=== PATIENT | male | born 1970 | race Caucasian/White ===

== ENCOUNTER 2020-03-04 13:28 | Outpatient (CLI) | payer OTHER, MEDICARE, MEDICAID, SELFPAY ==
--- NOTE | ~2020-03-04 | XR_ITS ---
EXAMINATION: XR hip RT min 2V DATE: 03/04/2020 13:58 INDICATION: Right hip pain. TECHNIQUE: 2 views of right hip were obtained. COMPARISON: Right hip radiographs 11/03/2014 FINDINGS: Bone alignment is normal. No fracture. There is mild right hip osteoarthritis. Surgical cli ps overlie the pelvis. IMPRESSION: 1. Mild right hip osteoarthritis. Reviewed, dictated and finalized at location A.
== END 2020-03-04 13:29 | disposition home or self-care (01) ==
PROVIDERS: Visit Provider Physician Assistant
DX: M25.551 Pain in right hip (principal); M16.11 Unilateral primary osteoarthritis, right hip
CPT/HCPCS: 73502

== ENCOUNTER 2020-05-03 00:07 | Outpatient (CLI) | payer MEDICARE, MEDICAID, SELFPAY ==
[2020-05-03 18:54] LABS: SARS-CoV-2 RNA PCR Negative
== END 2020-05-03 00:08 | disposition home or self-care (01) ==
LOC: ANHCOVIDDT 00:07
PROVIDERS: Visit Provider Internal Medicine Gastroenterology
DX: Z01.818 Encounter for other preprocedural examination (principal); Z11.59 Encounter for screening for other viral diseases
CPT/HCPCS: 87635; C9803; U0003

== ENCOUNTER 2020-05-05 02:19 | Day surgery (SDC) | payer MEDICARE, MEDICAID, SELFPAY ==
[2020-04-29 10:40] VITALS: BMI 32.8
[2020-05-05 11:06] VITALS: BP 154/100; PULSE 72; RESP 18; TEMP 36.2; O2SAT 99
[2020-05-05] MEDS: LACTATED RINGERS 1,000 ML 150 ML IV CONT (11:22)
--- NOTE | 2020-05-05 11:26 | WPDANESEPPF ---
Anes - Initial Pre Proc Eval Procedure: Operation Date: 05/05/20 12:30 Proposed Procedures p Esophagogastroduodenoscopy - Chano Leggett DO Date/Time: 05/05/20 11:26 Surgeon: Chano Leggett DO Pre Op Diagnosis: peptic ulcer Disease Patient Data Age: 50 Gender: M Height: 5 ft 10 in Weight: 105.9 kg Last Vital Signs Temp 97.1 F L 05/05/20 11:06 Pulse 72 05/05/20 11:06 Resp 18 05/05/20 11:06 BP 154/100 H 05/05/20 11:06 Pulse Ox 99 05/05/20 11:06 Allergies Allergy/AdvReac Type Severity Reaction Status Date / Time cephalexin Allergy Unknown Unknown Verified 05/05/20 11:05 Wngxtvv-Wjy-Bmr Reductase Allergy Unknown Unknown Verified 05/05/20 11:05 Inhibitor Home Medications Medication Instructions Recorded Confirmed Type abatacept [Orencia] 125 mg SUBCUT WEEKLY 10/20/19 04/29/20 History alprazolam 1 mg PO BID PRN 10/20/19 04/29/20 History baclofen 20 mg PO DAILY PRN 10/20/19 04/29/20 History morphine 15 mg PO BID PRN 10/20/19 04/29/20 History pregabalin [Lyrica] 150 mg PO TID 10/20/19 04/29/20 History ranitidine HCl 300 mg PO DAILY 10/20/19 04/29/20 History omeprazole 40 mg PO BID #30 cap 10/23/19 04/29/20 Rx Patient hx anesthesia problems: none Family hx anesthesia problems: none PMFSH Past Medical History Medical History (Updated 10/23/19 @ 08:50 by Danielle Phelps APRN) Barretts esophagus GERD (gastroesophageal reflux disease) Hx of adenomatous colonic polyps Hx of renal calculi Migraines PUD (peptic ulcer disease) Rheumatoid arthritis Sleep apnea Surgical History Surgical History History of lithotripsy Hx of colonoscopy Hx of esophagogastroduodenoscopy Hx of inguinal hernia repair Hx of sinus surgery S/P left rotator cuff repair Status post medial meniscus repair of right knee Social History Social History Smoking packs per day: 2 Smoking cigarettes per day: 40.0 Years smoked: 35 Smoking pack-years: 70.00 Second hand tobacco smoke exposure: No Smoking end date: 11/05/10 Alcohol intake: never Gender identity (if verbalized by the patient): Male Anes - Eval Final PreProcedure Day of Procedure 05/05/20 11:26 Patient weight: obese Heart: regular rate and rhythm Lungs: clear to auscultation Airway: Mallampati scale class III Neurological: alert and oriented Last oral intake: >/= 8 hours ASA classification: III Emergent: no Anesthetic plan: proceed Anesthesia type and monitoring: general GIVS Informed Consent: The patient's anesthetic plan and its attendant risks and benefits were discussed with the patient/family/POA. Questions were solicited and answers provided to the satisfaction of the patient/family/POA.
--- NOTE | 2020-05-05 12:33 | PM.IMHP ---
H&P: HPI History of Present Illness Chief complaint: peptic ulcer Disease Narrative: Reason for visit EGD. This very pleasant gentleman sitting consultation requested by primary. Patient was examined. Impression: GERD with history of Luu's esophagus. He has a known granular cell tumor of the esophagus. He is here for follow-up endoscopy to assess for healing Of ulcer disease. History of adenomatous colon polyps. Thrombocytopenia undetermined etiology. Per past medical history. Recommendation: Will proceed with EGD. May require gastric emptying study. Further recommendations will be forthcoming. History: This very pleasant gentleman is here for follow-up endoscopy. He has a history of ulcer disease, reflux disease, Luu's esophagus and granular cell tumor of the esophagus. Continues to have complaints of intermittent nausea and vomiting. Denies any significant hematochezia, melena or acholic stools. The patient has a history adenomatous colon polyps. Physical examination: General: very pleasant patient in no acute distress. HEENT: Head was normocephalic sclerae is clear mouth without masses neck was supple. Heart: Rate rhythm regular without S3 or S4. Lungs: Decreased breath sounds bilaterally. Abdomen: Soft with no guarding or rigidity. Bowel sounds were active. Neurologic: Cranial nerves 2 through 12 intact. No focal defects. No clonus. Musculoskeletal system: Revealed no joint tenderness or swelling no muscle atrophy. Extremities: Reveal no significant edema. Skin: Warm and dry with normal turgor. Mental status: intact. Patient is alert and oriented. Review of Systems Review of Systems: All systems reviewed & are unremarkable except as noted in HPI and below PMFSH Past Medical History Medical History (Updated 10/23/19 @ 08:50 by Danielle Phelps APRN) Barretts esophagus GERD (gastroesophageal reflux disease) Hx of adenomatous colonic polyps Hx of renal calculi Migraines PUD (peptic ulcer disease) Rheumatoid arthritis Sleep apnea Surgical History Surgical History History of lithotripsy Hx of colonoscopy Hx of esophagogastroduodenoscopy Hx of inguinal hernia repair Hx of sinus surgery S/P left rotator cuff repair Status post medial meniscus repair of right knee Social History Social History Smoking packs per day: 2 Smoking cigarettes per day: 40.0 Years smoked: 35 Smoking pack-years: 70.00 Second hand tobacco smoke exposure: No Smoking end date: 11/05/10 Alcohol intake: never Gender identity (if verbalized by the patient): Male Meds Home Medications and Allergies Home Medications Medication Instructions Recorded Confirmed Type abatacept [Orencia] 125 mg SUBCUT WEEKLY 10/20/19 04/29/20 History alprazolam 1 mg PO BID PRN 10/20/19 04/29/20 History baclofen 20 mg PO DAILY PRN 10/20/19 04/29/20 History morphine 15 mg PO BID PRN 10/20/19 04/29/20 History pregabalin [Lyrica] 150 mg PO TID 10/20/19 04/29/20 History ranitidine HCl 300 mg PO DAILY 10/20/19 04/29/20 History omeprazole 40 mg PO BID #30 cap 10/23/19 04/29/20 Rx Allergies Allergy/AdvReac Type Severity Reaction Status Date / Time cephalexin Allergy Unknown Unknown Verified 05/05/20 11:05 Wbdhqpq-Lwx-Klw Reductase Allergy Unknown Unknown Verified 05/05/20 11:05 Inhibitor Vital Signs Vital Signs - 24 hr 05/05/20 11:06 Temperature 36.2 C L Pulse Rate 72 Respiratory Rate 18 Blood Pressure 154/100 H Pulse Oximetry 99
[2020-05-05 12:58] VITALS: BP 128/86; PULSE 62; RESP 25; O2SAT 92
[2020-05-05 13:08] VITALS: BP 104/67; PULSE 60; RESP 14; O2SAT 91
[2020-05-05 13:18] VITALS: BP 118/79; PULSE 62; RESP 13; O2SAT 96
[2020-05-06 13:30] LABS: Glucose Point of Care 111 (65-105)
== END 2020-05-05 13:29 | disposition home or self-care (01) ==
PROVIDERS: Visit Provider Internal Medicine Gastroenterology
PROC: 0DJ08ZZ Inspection of Upper Intestinal Tract, Via Natural or Artificial Opening Endoscopic (ICD-10-PCS; CPT 43235; principal; 2020-05-05 12:30)
DX: Z09 Encounter for follow-up examination after completed treatment for conditions other than malignant neoplasm (principal); K29.50 Unspecified chronic gastritis without bleeding; K22.70 Barrett's esophagus without dysplasia; K22.8 Other specified diseases of esophagus; K21.9 Gastro-esophageal reflux disease without esophagitis; Z87.11 Personal history of peptic ulcer disease; M06.9 Rheumatoid arthritis, unspecified; G47.30 Sleep apnea, unspecified; Z87.891 Personal history of nicotine dependence; E66.9 Obesity, unspecified; Z68.33 Body mass index [BMI] 33.0-33.9, adult
CPT/HCPCS: 43239; 88305; J2704; J7120

== ENCOUNTER 2020-05-26 13:54 | Outpatient (CLI) | payer MEDICARE, MEDICAID, SELFPAY ==
--- NOTE | ~2020-05-26 | MR_ITS ---
EXAMINATION: MR hip RT wo con DATE: 05/26/2020 15:00 INDICATION: Right hip pain. TECHNIQUE: Magnetic resonance imaging (MRI) of the right hip was performed without intravenous contra st. Sequences included axial and coronal PD-weighted FS FSE and axial T1-weighted FSE of the pelvis. Sequences of the hip included 2D FIESTA, T1-weighted fast GRE, and axial, coronal, and sagittal PD-we ighted FS FSE. COMPARISON: Right hip radiographs 03/04/2020 FINDINGS: Bones/cartilage: Bone alignment is normal. No fracture. The femoral head/neck morphologies are normal. Right hip joint cartilage is normal. The right hip joint demonstrates tiny osteophytes. Labrum: The right acetabular labrum demonstrates degeneration without well-defined tear. Fluid: There is no hip joint effusion. There is mild bilateral trochanteric bursitis. Soft tissues: The prostate is mildly enlarged. There is mild tendinopathy of the hamstring origins bilaterally. The iliopsoas tendons are normal. There is mild right gluteus minimus tendinopathy. Right gluteus medius tendon is normal. Left gluteus minimus and gluteus medius tendons are normal. IMPRESSION: 1. Mild tendinopathy of right gluteus minimus tendinopathy. 2. Mild bilateral trochanteric bursitis. Reviewed, dictated and finalized at location A.
== END 2020-05-26 13:55 | disposition home or self-care (01) ==
LOC: ANHIMG 14:09
PROVIDERS: Visit Provider Physician Assistant
DX: M70.62 Trochanteric bursitis, left hip (principal); M70.61 Trochanteric bursitis, right hip
CPT/HCPCS: 73721

== ENCOUNTER 2020-09-22 11:12 | Emergency (ER) | payer MEDICARE, MEDICAID, SELFPAY ==
--- NOTE | ~2020-09-22 | XR_ITS ---
EXAMINATION: XR ankle LT min 3V EXAM DATE: 09/22/2020 11:44 INDICATION: left lateral ankle pain s/p injury yesterday. Initial encounter. TECHNIQUE: Left ankle frontal, lateral and oblique projections obtained and reviewed. Comparison is m corey to prior examination from 04/16/2018. FINDINGS: The left ankle mortise appears intact. Probable ankle joint effusion. Moderate posterior , tiny inferior calcaneal spurs. There are no acute fractures or dislocations identified. There is n o subcutaneous gas. The soft tissue is unremarkable. There are no radiopaque foreign bodies. IMPRESSION: 1. Left ankle exam without acute osseous findings. 2. Probable joint effusion. Reviewed, dictated and finalized at location A. [employer]ULT [employer]PILE[employer]
--- NOTE | 2020-09-22 11:15 | ED.GENADULT ---
HPI - General Adult General Chief complaint: Extremity Injury, Lower Stated complaint: leftt ankle injury Time Seen by Provider: 09/22/20 11:15 Source: patient Mode of arrival: ambulatory Limitations: no limitations History of Present Illness HPI narrative: 50-year-old male patient presents to the [facility] with complaints of left ankle pain for the past 2 days. 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 Denies hitting his head or loss of consciousness. Patient states he does have issues with fibromyalgia, chronic arthritis and neuropathy. Patient states he does have baclofen at home along with Lyrica but really does not take the Lyrica anymore. Patient denies taking anything for the pain stating that he cannot take NSAIDs due to ulcers. Patient states he did ice it and elevate it for the last couple of days but denies wrapping it. Related Data Home Medications Medication Instructions Recorded Confirmed Simponi 09/22/20 09/22/20 alprazolam [Xanax] 1 mg PO BID 09/22/20 09/22/20 baclofen 20 mg PO TID 09/22/20 09/22/20 Allergies Allergy/AdvReac Type Severity Reaction Status Date / Time cephalexin Allergy Unknown Unknown Verified 05/05/20 11:05 Swwdexu-Cwe-Rit Reductase Allergy Unknown Unknown Verified 05/05/20 11:05 Inhibitor NSAIDS (Non-Steroidal AdvReac Other Verified 09/22/20 11:32 Anti-Inflamma Review of Systems Review of Systems: Narrative: CONSTITUTIONAL: Denies fever, chills, or sweats. EYES: Denies visual changes, redness, or discharge. ENT: Denies rhinorrhea, congestion, sore throat, or otalgia. CARDIOVASCULAR: Denies chest pain, palpitations, or edema. RESPIRATORY: Denies cough or dyspnea. GASTROINTESTINAL: Denies abdominal pain, nausea, vomiting, or diarrhea. GENITOURINARY: Denies dysuria or hematuria. SKIN: Denies rash or itching. MUSCULOSKELETAL: Denies back pain, joint pain, or myalgia. Positive left ankle pain NEUROLOGIC: Denies headache, numbness, or weakness. PSYCHIATRIC: Denies anxiety or depression. [facility] Past Medical History Medical History Barretts esophagus Gastric ulcer GERD (gastroesophageal reflux disease) Granular cell tumor Esophagus Hx of adenomatous colonic polyps Hx of renal calculi Migraines Obesity R[place] (obstructive sleep apnea) Rheumatoid arthritis Thrombocytopenia Surgical History Surgical History History of lithotripsy Hx of colonoscopy Hx of esophagogastroduodenoscopy Hx of inguinal hernia repair Hx of sinus surgery S/P left rotator cuff repair Status post medial meniscus repair of right knee Social History Social History Smoking packs per day: 2 Smoking cigarettes per day: 40.0 Years smoked: 35 Smoking pack-years: 70.00 Second hand tobacco smoke exposure: No Smoking end date: 11/05/10 Alcohol intake: never Gender identity (if verbalized by the patient): Male Comments At the time of my signature I agree with nursing past medical history, surgical, social, and family history. There is no relevant family history pertinent to the presenting complaint. Exam Narrative: Exam Narrative: GENERAL: Well-appearing, well-nourished, and in no acute distress. HEAD: Normocephalic, atraumatic. EYES: PERRLA and EOMI. ENT: Nares clear, no rhinorrhea or epistaxis. Mucous membranes moist. NECK: Supple. No lymphadenopathy CHEST: Clear to auscultation. No respiratory distress. HEART: Regular rate and rhythm. No murmur heard. Normal peripheral pulses. ABDOMEN: Soft, nontender, nondistended, normal active bowel sounds. EXTREMITIES: Patient is able to bear weight and ambulate without pain. The L ankle is without obvious asymmetry or deformity when compared to the R ankle. Patient can is weaker than the right flex/normal extend, normal inv
[2020-09-22 11:19] VITALS: BP 141/88; PULSE 85; RESP 16; TEMP 36.8; O2SAT 100
== END 2020-09-22 12:03 | disposition home or self-care (01) ==
PROVIDERS: Emergency Provider Nurse Practitioner Family
DX: M25.472 Effusion, left ankle (principal); F17.210 Nicotine dependence, cigarettes, uncomplicated; K22.70 Barrett's esophagus without dysplasia; K21.9 Gastro-esophageal reflux disease without esophagitis; G47.33 Obstructive sleep apnea (adult) (pediatric); M06.9 Rheumatoid arthritis, unspecified; E66.9 Obesity, unspecified
CPT/HCPCS: 73610; 99213; G0463

== ENCOUNTER 2021-01-05 13:19 | Outpatient (CLI) | payer MEDICARE, MEDICAID, SELFPAY ==
--- NOTE | ~2021-01-05 | XR_ITS ---
EXAMINATION: XR lumbar spine 2-3V EXAM DATE: 01/05/2021 13:41 INDICATION: Lumbar radiculopathy. TECHNIQUE: Lumber spine frontal, lateral, lateral L5-S1 projections for interpretation. Comparison is made to prior examination from 04/16/2018. FINDINGS: Small to moderate-sized endplate osteophytes L4-5, with mild to moderate disc disease from L3 through S1. I'll to moderate lumbar facet arthropathy, lower levels more affected. The vertebral bodies are aligned in the AP dimension. Vertebral body heights are maintained. Sacrum, sacroiliac larry nts, sacral arcuate lines are intact. Paraspinal soft tissue is unremarkable. Compared to 2018, there may be slight interval progression in spondylosis. IMPRESSION: Mild to moderate lumbar spondylosis. Reviewed, dictated and finalized at location A. TRANSFER TECHNICIAN
--- NOTE | ~2021-01-05 | XR_ITS ---
EXAMINATION: XR_CERV2-3V_CR EXAM DATE: 01/05/2021 13:40 INDICATION: Cervical radiculopathy. TECHNIQUE: Cervical spine frontal, lateral, lateral swimmers, and open-mouth odontoid projections. C omparison is made to prior examination from 12/12/2017. FINDINGS: Large bridging endplate osteophytes C3-4 and moderate sized at C5-6. There is no evidence o f acute cervical fracture. The odontoid process is intact. Pre-dens space is normal. Prevertebral soft tissue is normal. There are no soft tissue abnormalities identified. Vertebral body and disc h eights are well-maintained. The vertebral bodies are aligned. There is overall mild cervical face t joints, uncovertebral joint arthropathy. Please note that in 2018 there was mild right neural foraminal stenosis at C3-4 identified on oblique images, otherwise no appreciable neural foraminal stenosis was present on that exam. Lung apices unr emarkable. IMPRESSION: 1. Mild cervical arthropathy. 2. Anteriorly based endplate osteophytes. Reviewed, dictated and finalized at location A. [employer]
== END 2021-01-05 13:20 | disposition home or self-care (01) ==
LOC: ANHIMG 13:23
PROVIDERS: Visit Provider Physician Assistant
DX: M54.12 Radiculopathy, cervical region (principal); M54.16 Radiculopathy, lumbar region; M47.816 Spondylosis without myelopathy or radiculopathy, lumbar region; M43.02 Spondylolysis, cervical region
CPT/HCPCS: 72040; 72100

== ENCOUNTER → 2021-01-10 00:23 | Outpatient (CLI) | payer MEDICARE, MEDICAID, SELFPAY ==
[2021-01-10 18:03] LABS: SARS-CoV-2 RNA PCR Negative
== END ==
PROVIDERS: Visit Provider Internal Medicine Gastroenterology
DX: Z01.812 Encounter for preprocedural laboratory examination (principal); Z20.822 Contact with and (suspected) exposure to COVID-19
CPT/HCPCS: C9803; U0003; U0005

== ENCOUNTER 2021-01-13 00:27 | Day surgery (SDC) | payer MEDICARE, MEDICAID, SELFPAY ==
[2020-12-30 13:11] VITALS: BMI 33.7
[2021-01-13 10:54] VITALS: BP 136/78; PULSE 73; RESP 20; TEMP 36.4; O2SAT 100
[2021-01-13] MEDS: LACTATED RINGERS 1,000 ML 150 ML IV CONT (11:02)
--- NOTE | 2021-01-13 11:27 | WPDANESEPPF ---
Anes - Initial Pre Proc Eval Procedure: Operation Date: 01/13/21 12:00 Proposed Procedures p Esophagogastroduodenoscopy - Chano Leggett DO Date/Time: 01/13/21 11:27 Surgeon: Chano Leggett DO Pre Op Diagnosis: GERD Patient Data Age: 51 Gender: M Height: 5 ft 10 in Weight: 104.5 kg Last Vital Signs Temp 97.6 F 01/13/21 10:54 Pulse 73 01/13/21 10:54 Resp 20 01/13/21 10:54 BP 136/78 01/13/21 10:54 Pulse Ox 100 01/13/21 10:54 Allergies Allergy/AdvReac Type Severity Reaction Status Date / Time cephalexin Allergy Unknown Unknown Verified 01/13/21 10:52 Jmzwdcw-Jui-Dvt Reductase Allergy Unknown Unknown Verified 01/13/21 10:52 Inhibitor NSAIDS (Non-Steroidal AdvReac Other Verified 01/13/21 10:52 Anti-Inflamma Home Medications Medication Instructions Recorded Confirmed Type Simponi 09/22/20 09/22/20 History alprazolam [Xanax] 1 mg PO BID 09/22/20 01/13/21 History baclofen 20 mg PO TID 09/22/20 01/13/21 History amitriptyline 10 mg PO DAILY 12/30/20 01/13/21 History famotidine [Pepcid] 40 mg PO BID 12/30/20 01/13/21 History losartan 50 mg PO DAILY 12/30/20 01/13/21 History omeprazole 40 mg PO DAILY 12/30/20 01/13/21 History Patient hx anesthesia problems: none Family hx anesthesia problems: none PMFSH Past Medical History Medical History Barretts esophagus Gastric ulcer GERD (gastroesophageal reflux disease) Granular cell tumor Esophagus Hx of adenomatous colonic polyps Hx of renal calculi Migraines Obesity [place] (obstructive sleep apnea) Rheumatoid arthritis Thrombocytopenia Surgical History Surgical History History of lithotripsy Hx of colonoscopy Hx of esophagogastroduodenoscopy Hx of inguinal hernia repair Hx of sinus surgery S/P left rotator cuff repair Status post medial meniscus repair of right knee Social History Social History Smoking packs per day: 1 Smoking cigarettes per day: 20.0 Years smoked: 35 Smoking pack-years: 35.00 Smoking status: Current every day smoker Tobacco type: cigarettes Second hand tobacco smoke exposure: No Smoking end date: 11/05/10 Alcohol intake: never Substance use type: does not use Gender identity (if verbalized by the patient): Male Spiritual care concerns: No Anes - Eval Final PreProcedure Day of Procedure 01/13/21 11:27 Patient weight: obese Heart: regular rate and rhythm Lungs: clear to auscultation Airway: Mallampati scale class III Neurological: alert and oriented Last oral intake: >/= 8 hours ASA classification: III Emergent: no Anesthetic plan: proceed Anesthesia type and monitoring: general GIVS and standard monitoring Informed Consent: The patient's anesthetic plan and its attendant risks and benefits were discussed with the patient/family/POA. Questions were solicited and answers provided to the satisfaction of the patient/family/POA.
--- NOTE | 2021-01-13 11:42 | WPDGICN ---
GI Consult Note Consult date/time: 01/13/21 11:42 HPI: Very pleasant gentleman is here for EGD. This very pleasant gentleman seen in consultation request the primary physician. Impression: Your would gentleman with a history reflux disease, Luu's esophagus and granular cell tumor of the esophagus. He has developed increasing abdominal pain with nausea and vomiting. He is here for endoscopic evaluation. History gastric ulcer disease. Adenomatous colon polyps. NAFLD. Thrombocytopenia. COPD. Obstructive sleep apnea. Obesity. Renal calculi. RA. Tobacco abuse. Degenerative disc disease. Recommendation: EGD. Continue PPI. Consider ultrasound. May need colonoscopy. History: Very pleasant gentleman is here for endoscopy. He has a history recurrent nausea and vomiting. He does have constant abdominal pain. He denies any vomiting food, however he vomits: acid . Dysphagia , odynophagia and hematemesis are denied. Hematochezia, melena, acholic stools Are denied. The patient has history adenomatous colon polyps. Patient also has a history of granular cell tumor of the esophagus and Luu's esophagus. He is here for EGD. Will try to review records in the office to see when his last colonoscopy was. Physical examination: General: very pleasant patient in no acute distress. HEENT: Head was normocephalic sclerae is clear mouth without masses neck was supple. Heart: Rate rhythm regular without S3 or S4. Lungs: decreased breath sounds. Abdomen: Soft with no guarding or rigidity. Bowel sounds were active. Neurologic: Cranial nerves 2 through 12 intact. No focal defects. No clonus. Musculoskeletal system: Revealed no joint tenderness or swelling no muscle atrophy. Extremities: Reveal no significant edema. Skin: Warm and dry with normal turgor. Mental status: intact. Patient is alert and oriented. Review of Systems Review of Systems: All systems reviewed & are unremarkable except as noted in HPI and below PMFSH Past Medical History Medical History Barretts esophagus Gastric ulcer GERD (gastroesophageal reflux disease) Granular cell tumor Esophagus Hx of adenomatous colonic polyps Hx of renal calculi Migraines Obesity R[place] (obstructive sleep apnea) Rheumatoid arthritis Thrombocytopenia Surgical History Surgical History History of lithotripsy Hx of colonoscopy Hx of esophagogastroduodenoscopy Hx of inguinal hernia repair Hx of sinus surgery S/P left rotator cuff repair Status post medial meniscus repair of right knee Social History Social History Smoking packs per day: 1 Smoking cigarettes per day: 20.0 Years smoked: 35 Smoking pack-years: 35.00 Smoking status: Current every day smoker Tobacco type: cigarettes Second hand tobacco smoke exposure: No Smoking end date: 11/05/10 Alcohol intake: never Substance use type: does not use Gender identity (if verbalized by the patient): Male Spiritual care concerns: No Meds Home Medications and Allergies Home Medications Medication Instructions Recorded Confirmed Type Simponi 09/22/20 09/22/20 History alprazolam [Xanax] 1 mg PO BID 09/22/20 01/13/21 History baclofen 20 mg PO TID 09/22/20 01/13/21 History amitriptyline 10 mg PO DAILY 12/30/20 01/13/21 History famotidine [Pepcid] 40 mg PO BID 12/30/20 01/13/21 History losartan 50 mg PO DAILY 12/30/20 01/13/21 History omeprazole 40 mg PO DAILY 12/30/20 01/13/21 History Allergies Allergy/AdvReac Type Severity Reaction Status Date / Time cephalexin Allergy Unknown Unknown Verified 01/13/21 10:52 Tpjiyrm-Qgj-Enx Reductase Allergy Unknown Unknown Verified 01/13/21 10:52 Inhibitor NSAIDS (Non-Steroidal AdvReac Other Verified 01/13/21 10:52 Anti-
[2021-01-13 12:49] VITALS: BP 104/69; PULSE 60; RESP 17; O2SAT 97
[2021-01-13 12:59] VITALS: BP 109/73; PULSE 59; RESP 12; O2SAT 94
[2021-01-13 13:09] VITALS: BP 117/74; PULSE 60; RESP 20; O2SAT 99
== END 2021-01-13 13:19 | disposition home or self-care (01) ==
PROVIDERS: PCP Internal Medicine; Visit Provider Internal Medicine Gastroenterology
PROC: 0DJ08ZZ Inspection of Upper Intestinal Tract, Via Natural or Artificial Opening Endoscopic (ICD-10-PCS; CPT 43235; principal; 2021-01-13 12:00)
DX: K21.9 Gastro-esophageal reflux disease without esophagitis (principal); K22.70 Barrett's esophagus without dysplasia; K29.50 Unspecified chronic gastritis without bleeding; K20.90 Esophagitis, unspecified without bleeding; D13.0 Benign neoplasm of esophagus; K29.80 Duodenitis without bleeding; K29.70 Gastritis, unspecified, without bleeding; K25.9 Gastric ulcer, unspecified as acute or chronic, without hemorrhage or perforation; J44.9 Chronic obstructive pulmonary disease, unspecified; D69.6 Thrombocytopenia, unspecified; G47.33 Obstructive sleep apnea (adult) (pediatric); E66.9 Obesity, unspecified; Z68.33 Body mass index [BMI] 33.0-33.9, adult; M06.9 Rheumatoid arthritis, unspecified; F17.210 Nicotine dependence, cigarettes, uncomplicated
CPT/HCPCS: 43239; 87081; 88305; J2704; J7120

== ENCOUNTER 2021-01-13 06:38 | Outpatient (CLI) | payer MEDICARE, MEDICAID, SELFPAY ==
--- NOTE | ~2021-01-13 | MR_ITS ---
EXAMINATION: MR cervical spine wo con EXAM DATE: 01/13/2021 08:04 INDICATION: Cervical radiculopathy. Neck pain. TECHNIQUE: Multi-sequential, multiplanar MR images of the cervical spine were obtained without contra st. Axial T2, axial T2 MERGE sequence. Sagittal T1, T2, T2 fat saturation images also obtained. Com parison is made to prior examination from 01/12/2018. FINDINGS: The vertebral bodies are aligned in the AP dimension. Vertebral body and disc heights are well-maintained. There are no suspicious marrow signal abnormalities. Paraspinal soft tissue is unrem arkable. There are moderate-sized mid cervical endplate osteophytes. The spinal cord signal intensity and intrinsic morphology is normal. Cervicomedullary junction is normal in appearance. Level by level evaluation: C2-C3: Disc does not extend beyond the endplate margin. Uncovertebral joint arthropathy: Mild bilateral. Facet joint arthropathy: Mild bilateral. Neural foraminal stenosis: No stenosis. Central canal stenosis: No stenosis. C3-C4: Disc does not extend beyond the endplate margin. Uncovertebral joint arthropathy: Mild to moderate right, mild left. Facet joint arthropathy: Mild bilateral. Neural foraminal stenosis: Mild right. Central canal stenosis: No stenosis. C4-C5: There is a minimal diffuse disc bulge. Uncovertebral joint arthropathy: Mild bilateral. Facet joint arthropathy: Mild bilateral. Neural foraminal stenosis: Mild bilateral. Central canal stenosis: No stenosis. C5-C6: There is a minimal diffuse disc bulge. Uncovertebral joint arthropathy: Mild bilateral. Facet joint arthropathy: Mild bilateral. Neural foraminal stenosis: No stenosis. Central canal stenosis: No stenosis. C6-C7: Disc does not extend beyond the endplate margin. Uncovertebral joint arthropathy: Mild bilateral. Facet joint arthropathy: None. Neural foraminal stenosis: No stenosis. Central canal stenosis: No stenosis. C7-T1: Disc does not extend beyond the endplate margin. Uncovertebral joint arthropathy: Mild bilateral. Facet joint arthropathy: None. Neural foraminal stenosis: No stenosis. Central canal stenosis: No stenosis. Difficult to appreciate any significant interval change compared to prior study. IMPRESSION: 1. Mild cervical spondylosis. Reviewed, dictated and finalized at location B. ARCHITECT
--- NOTE | ~2021-01-13 | MR_ITS ---
EXAMINATION: MR lumbar spine wo con EXAM DATE: 01/13/2021 08:04 INDICATION: Lumbar radiculopathy. Right leg pain and low back pain. TECHNIQUE: Multi-sequential, multiplanar MR images of the lumbar spine were obtained without contrast . Sagittal T1, T2, T2 fat saturation images. Axial T2 weighted images. Correlation is made to [facility] spine 02/17/2019. FINDINGS: The vertebral bodies are aligned in the AP dimension. There is mild loss of the L5-S1 disc height. Lower lumbar disc bulges. The vertebral body and disc heights are otherwise well maintained. There are no suspicious marrow signal abnormalities. Fluid signal intensity right renal lesion measu ring about 1.5 cm, most likely a cyst. Level by level evaluation: Study is limited due to patient motion. T12-L1: Disc does not extend beyond the endplate margin. Facet arthropathy: None. Neural foraminal stenosis: No stenosis. Central canal stenosis: No stenosis. L1-L2: Disc does not extend beyond the endplate margin. Facet arthropathy: Mild. Neural foraminal stenosis: No stenosis. Central canal stenosis: No stenosis. L2-L3: There is a mild diffuse disc bulge. Facet arthropathy: Mild. Neural foraminal stenosis: No stenosis. Central canal stenosis: No stenosis. L3-L4: There is a mild diffuse disc bulge. Facet arthropathy: Mild. Neural foraminal stenosis: No stenosis. Central canal stenosis: No stenosis. L4-L5: There is a moderate diffuse disc bulge. Facet arthropathy: Mild to moderate. Neural foraminal stenosis: Mild bilateral. Central canal stenosis: Mild. L5-S1: There is a moderate to large diffuse disc bulge. Tiny superimposed central extrusion. Facet arthropathy: Mild to moderate. Neural foraminal stenosis: Moderate right, mild to moderate left. Central canal stenosis: Mild. IMPRESSION: 1. L5-S1 disc bulge contributing to moderate right neural foraminal stenosis. 2. Less spondylosis other levels. Reviewed, dictated and finalized at location B. [employer]
== END 2021-01-13 06:39 | disposition home or self-care (01) ==
PROVIDERS: Visit Provider Physician Assistant
DX: M47.22 Other spondylosis with radiculopathy, cervical region (principal); M51.27 Other intervertebral disc displacement, lumbosacral region
CPT/HCPCS: 72141; 72148; 87081; 88305; J2704; J7120

== ENCOUNTER 2021-05-20 11:43 | Outpatient (CLI) | payer MEDICARE, MEDICAID, SELFPAY ==
--- NOTE | ~2021-05-20 | XR_ITS ---
XR elbow RT 2V DATE: 05/20/2021 11:56 INDICATION: Right elbow pain TECHNIQUE: AP and lateral views COMPARISON: December 26, 2017 right elbow FINDINGS: There is minimal spurring of the coronoid process of the proximal ulna. No fracture or dislocation or joint effusion. No periosteal reaction or bone destruction. IMPRESSION: Minimal degenerative spurring of the coronoid process of the proximal ulna, stable since the 12/26/2017 Reviewed, dictated and finalized at location B. IMPRESSION: Minimal degenerative spurring of the coronoid process of the proxim al ulna, stable since the 12/26/2017
== END 2021-05-20 11:44 | disposition home or self-care (01) ==
PROVIDERS: Visit Provider Pain Medicine Interventional Pain Medicine
DX: M19.121 Post-traumatic osteoarthritis, right elbow (principal)
CPT/HCPCS: 73070

== ENCOUNTER → 2021-07-23 11:28 | Outpatient (CLI) | payer MEDICARE, MEDICAID, SELFPAY ==
--- NOTE | ~2021-07-23 | MR_ITS ---
EXAMINATION: MR elbow RT wo con DATE: 07/23/2021 12:20 INDICATION: Chronic medial right elbow pain. Epicondylitis. TECHNIQUE: Magnetic resonance imaging (MRI) of the right elbow was performed without intravenous cont rast. Sequences included coronal, axial, and sagittal PD-weighted FS FSE and coronal, axial, and sagi ttal PD-weighted FSE. COMPARISON: None FINDINGS: Osseous/other: Normal alignment. Normal marrow signal with no marrow edema, fracture, osteochondral lesion or abnor mal marrow replacing process. Tendons: Triceps, biceps brachii and brachialis tendons are normal. There is prominent increased muscular sig nal along the proximal most myotendinous junction at the medial epicondylar origin of the common flex or tendon wad. This is to involve primarily the flexor digitorum superficialis and palmaris longus mu scles. Findings are consistent with medial epicondylitis with mild tendinopathy without discrete tear of the common flexor tendon wad. The common extensor tendon wad is normal. Ligaments: The medial and lateral collateral ligament complexes are normal. Cubital tunnel: There is moderate fusiform thickening and mild increased signal of the ulnar nerve at the level of th e cubital tunnel without evident impinging lesion which could be seen with cubital tunnel syndrome. Fluid: Physiologic amount of fluid the elbow joint. IMPRESSION: 1. Medial epicondylitis with mild tendinopathy of the common flexor tendon wad without discrete tear. 2. Fusiform thickening and increased signal of the ulnar nerve consistent with enteritis and cubital tunnel syndrome although no impinging lesion is identified. Reviewed, dictated and finalized at location A. IMPRESSION: 1. Medial epicondylitis with mild tendinopathy of the common flexor tendon wad without discrete tear. 2. Fusiform thickening and increased signal of the ulnar nerve consistent with enteritis and cubital tunnel syndrome although no impinging lesion is identifie d.
== END ==
PROVIDERS: Visit Provider Physician Assistant
DX: M77.01 Medial epicondylitis, right elbow (principal)
CPT/HCPCS: 73221

== ENCOUNTER 2021-08-23 23:25 | Emergency (ER) | payer MEDICARE, MEDICAID, SELFPAY ==
--- NOTE | ~2021-08-23 | CT_ITS ---
EXAMINATION: CT brain wo con DATE: 08/24/2021 00:55 INDICATION: Migraine headache. TECHNIQUE: Computed tomography (CT) of the head was performed without intravenous contrast. The mA wa s adjusted according to patient size. Iterative reconstruction technique was employed. The dose-lengt h product was 605.33 mGy-cm. COMPARISON: Head CT 04/28/2016 FINDINGS: There is no intracranial hemorrhage, acute infarction, or abnormal intracranial mass lesion . The ventricles are normal in size. The orbits are normal. There is mild mucosal thickening in the p aranasal sinuses. The mastoid air cells are normal. IMPRESSION: 1. Normal brain. Reviewed, dictated and finalized at location A. IMPRESSION: 1. Normal brain.
[2021-08-23 23:42] VITALS: BP 158/98; PULSE 76; RESP 18; TEMP 36.6; O2SAT 100
--- NOTE | 2021-08-24 00:37 | ED.HA ---
HPI - Headache General Chief Complaint: Headache Stated Complaint: migraine h/a Time Seen by Provider: 08/24/21 00:36 Source: patient Mode of arrival: ambulatory Limitations: no limitations History of Present Illness HPI Narrative: Patient is a 51-year-old male complaining of a migraine headache, 10 out of 10, frontal, throbbing, accompanied by nausea that started 2 weeks ago. Patient states that he has a history of migraines and this is his typical migraine headache. Patient denies any speech or visual disturbance, focal weakness or numbness, or unsteady gait. Patient denies any neck pain or stiffness, fever or chills. Related Data Home Medications Medication Instructions Recorded Confirmed Simponi 09/22/20 09/22/20 alprazolam [Xanax] 1 mg PO BID 09/22/20 01/13/21 baclofen 20 mg PO TID 09/22/20 01/13/21 amitriptyline 10 mg PO DAILY 12/30/20 01/13/21 famotidine [Pepcid] 40 mg PO BID 12/30/20 01/13/21 losartan 50 mg PO DAILY 12/30/20 01/13/21 omeprazole 40 mg PO DAILY 12/30/20 01/13/21 Allergies Allergy/AdvReac Type Severity Reaction Status Date / Time cephalexin Allergy Unknown Unknown Verified 08/24/21 00:26 Iwmfmvc-QQD-YmI Reductase Allergy Unknown Unknown Verified 08/24/21 00:26 Inhibitor [Bzwkkmr-Vkd-Was Reductase Inhibitor] NSAIDS (Non-Steroidal AdvReac Other Verified 08/24/21 00:26 Anti-Inflamma Review of Systems Review of Systems: All systems reviewed & are unremarkable except as noted in HPI and below Constitutional: Constitutional: Denies body ache(s), Denies chills, Denies excessive sweating, Denies fatigue, Denies fever(s), Denies headache(s), Denies lethargy, Denies malaise, Denies weakness and Denies weight loss Eyes: Eyes: Denies blurry vision, Denies change in vision and Denies loss of vision ENT: Denies dizziness, Denies ear discharge, Denies headache(s), Denies lip swelling, Denies epistaxis, Denies nasal congestion, Denies neck pain, Denies throat swelling and Denies tongue swelling Cardiovascular: Cardiovascular: Denies chest pain, Denies chest pain at rest, Denies chest pain with activity, Denies diaphoresis, Denies rapid heart rate, Denies edema, Denies irregular heart rhythm, Denies lightheadedness, Denies palpitations, Denies dyspnea and Denies dyspnea on exertion Respiratory: Respiratory: Denies chest congestion, Denies cough, Denies hemoptysis, Denies dyspnea and Denies dyspnea on exertion Gastrointestinal: Gastrointestinal: Denies abdominal pain, Denies melena, Denies hematochezia, Denies diarrhea, Denies vomiting and Denies hematemesis Musculoskeletal: Musculoskeletal: Denies abnormal gait, Denies deformity, Denies joint swelling, Denies limited range of motion, Denies neck pain and Denies numbness Neurologic: Denies Abnormal speech present, Denies abnormal gait, Denies confusion, Denies dizziness, Denies focal weakness, Denies loss of vision, Denies numbness, Denies Other visual disturbances, Denies Sensory deficit (Neuro) and Denies weakness Psychiatric: Psychiatric: Denies confusion, Denies depression, Denies auditory hallucinations, Denies homicidal ideation and Denies suicidal ideation Endocrine: Endocrine: Denies cold intolerance, Denies excessive sweating, Denies fatigue, Denies heat intolerance and Denies palpitations Hematologic/Lymphatic: Hematologic/Lymphatic: Denies easy bleeding and Denies easy bruising Allergic/Immunologic: Allergic/Immunologic: Denies lip swelling, Denies throat swelling and Denies tongue swelling PMFSH Past Medical History Medical History Barretts esophagus Gastric ulcer GERD (gastroesophageal reflux disease) Granular cell tumor Esophagus Hx of adenomatous colonic polyps Hx of renal calculi Migraines Obesity RICHMOND (obstructive sleep apnea) Rheumatoid arthritis Thrombocytopenia Surgical History Surgical History History
--- NOTE | 2021-08-24 01:07 | PC.NURSE ---
pt states his headache has resolved and does not want any medications. cancelled medications per EDP Brittanie.
== END 2021-08-24 01:22 | disposition home or self-care (01) ==
PROVIDERS: Emergency Provider Emergency Medicine
DX: G43.919 Migraine, unspecified, intractable, without status migrainosus (principal); K21.9 Gastro-esophageal reflux disease without esophagitis; K22.70 Barrett's esophagus without dysplasia; Z86.010 Personal history of colon polyps; Z87.442 Personal history of urinary calculi; E66.9 Obesity, unspecified; Z68.33 Body mass index [BMI] 33.0-33.9, adult; G47.33 Obstructive sleep apnea (adult) (pediatric); F17.210 Nicotine dependence, cigarettes, uncomplicated
CPT/HCPCS: 70450; 99284

== ENCOUNTER 2021-10-23 14:40 | Emergency (ER) | payer MEDICARE, MEDICAID, SELFPAY ==
[2021-10-23 14:50] VITALS: BP 152/96; PULSE 84; RESP 16; TEMP 36.8; O2SAT 96
--- NOTE | 2021-10-23 15:22 | ED.EXTPRO ---
HPI - Extremity Problem General Chief complaint: Extremity Problem,Nontraumatic Stated complaint: right arm swelling Time Seen by Provider: 10/23/21 15:22 Source: patient and RN notes reviewed Mode of arrival: ambulatory Limitations: no limitations History of Present Illness HPI Narrative: 51-year-old male presents concern for red, painful, swollen arm. Reports less than 1 month ago he had a surgery with an incision in the hand and the elbow. Reports he infection started several days ago in the hand has spread up the arm to the elbow and now towards the axillary area. He reports redness, swelling, pain. He denies fever, body aches, chills, sweats. He reports small amount of purulent drainage from the elbow incision. MD Complaint: extremity swelling Related Data Home Medications Medication Instructions Recorded Confirmed Simponi 09/22/20 09/22/20 alprazolam [Xanax] 1 mg PO BID 09/22/20 01/13/21 amitriptyline 10 mg PO DAILY 12/30/20 01/13/21 losartan 50 mg PO DAILY 12/30/20 01/13/21 omeprazole 40 mg PO DAILY 12/30/20 01/13/21 Allergies Allergy/AdvReac Type Severity Reaction Status Date / Time cephalexin Allergy Unknown Unknown Verified 10/23/21 15:18 Gcehqkb-OZJ-CpX Reductase Allergy Unknown Unknown Verified 10/23/21 15:18 Inhibitor [Tkqdxzi-Dgp-Sog Reductase Inhibitor] NSAIDS (Non-Steroidal AdvReac Other Verified 10/23/21 15:18 Anti-Inflamma Review of Systems Review of Systems: CONSTITUTIONAL: Denies malaise, chills, sweats, or fever. SKIN: Reports redness, swelling, tenderness, warmth to the right arm MUSCULOSKELETAL: Reports right arm pain and swelling. Denies myalgia. NEUROLOGIC: Denies numbness, weakness. All systems reviewed & are unremarkable except as noted in HPI and below PMFSH Past Medical History Medical History Barretts esophagus Gastric ulcer GERD (gastroesophageal reflux disease) Granular cell tumor Esophagus Hx of adenomatous colonic polyps Hx of renal calculi Migraines Obesity RICHMOND (obstructive sleep apnea) Rheumatoid arthritis Thrombocytopenia Surgical History Surgical History History of lithotripsy Hx of colonoscopy Hx of esophagogastroduodenoscopy Hx of inguinal hernia repair Hx of sinus surgery S/P left rotator cuff repair Status post medial meniscus repair of right knee Social History Social History Smoking packs per day: 1 Smoking cigarettes per day: 20.0 Years smoked: 35 Smoking pack-years: 35.00 Smoking status: Current every day smoker Tobacco type: cigarettes Second hand tobacco smoke exposure: No Smoking end date: 11/05/10 Alcohol intake: never Substance use type: does not use Gender identity (if verbalized by the patient): Male Spiritual care concerns: No Comments At time of signature, agree with nursing past medical, surgical, social and family history. There is no relevant family history pertinent to the presenting complaint Exam Narrative: GENERAL: Well-appearing, well-nourished, and in no acute distress. HEAD: Normocephalic, atraumatic. EYES: PERRLA, sclera clear ENT: Mucous membranes moist. NECK: Supple. CHEST: No respiratory distress. Speaks in full sentences. HEART: Regular rate and rhythm. No murmur heard. Normal peripheral pulses. EXTREMITIES: Capillary refill to right arm greater than 3 seconds, right arm from the base of the hand up to the axillary area is tight, erythematous, edematous, warm with streaking, pitting edema SKIN: Warm, dry, no visible rash. NEURO: Alert and oriented x3. Decreased sensation in the right arm, right hand has normal sensation and capillary refill PSYCH: Normal mood and affect Course Course Emergency Course: Patient is aware, understands and agrees to be transferred to the emergency department. Patient agrees to proceed
== END 2021-10-23 15:51 | disposition short-term general hospital (02) ==
PROVIDERS: Emergency Provider Nurse Practitioner
DX: T81.40XA Infection following a procedure, unspecified, initial encounter (principal); F17.210 Nicotine dependence, cigarettes, uncomplicated; K22.70 Barrett's esophagus without dysplasia; K21.9 Gastro-esophageal reflux disease without esophagitis; E66.9 Obesity, unspecified; Z68.33 Body mass index [BMI] 33.0-33.9, adult; G47.33 Obstructive sleep apnea (adult) (pediatric); M06.9 Rheumatoid arthritis, unspecified; D69.6 Thrombocytopenia, unspecified
CPT/HCPCS: 99212; G0463

== ENCOUNTER 2022-04-05 11:46 | Outpatient (CLI) | payer MEDICARE, SELFPAY ==
--- NOTE | ~2022-04-05 | XR_ITS ---
EXAMINATION: XR lumbar spine 2-3V DATE: 04/05/2022 12:14 INDICATION: Low back pain TECHNIQUE: Anteroposterior and lateral views of the lumbar spine, and cone-down lateral view of the l umbosacral junction were obtained. COMPARISON: 01/05/2021 FINDINGS: Bone alignment is normal. There is no fracture. The vertebral body heights are maintained. There is mild loss of intervertebral disc space height at L5-S1. Small degenerative osteophytes proje ct from the anterior endplates of multiple vertebral bodies. There is moderate facet osteoarthritis o f the mid and lower lumbar spine. A large volume of colonic stool is present. IMPRESSION: 1. Mild to moderate lumbar spondylosis without acute findings or significant interval change. Reviewed, dictated and finalized at location F. IMPRESSION: 1. Mild to moderate lumbar spondylosis without acute findings or significant in terval change.
--- NOTE | ~2022-04-05 | XR_ITS ---
EXAMINATION:XR_CERV2-3V_CR DATE: 04/05/2022 12:14 INDICATION: Cervical radiculopathy TECHNIQUE: AP, lateral, lateral swimmers and odontoid views of the cervical spine are provided. COMPARISON: 01/05/2021 FINDINGS: Alignment is normal. The odontoid is intact. No fracture is identified. Vertebral body heig hts and disk spaces are normal. Prevertebral soft tissues are normal. There are bridging anterior ost eophytes from C3 through C5. A large anterior osteophyte is also seen at C2. There is mild facet oste oarthritis. IMPRESSION: 1. Diffuse idiopathic skeletal hyperostosis (DISH) without acute findings. Mild facet osteoarthritis. . Reviewed, dictated and finalized at location F. IMPRESSION: 1. Diffuse idiopathic skeletal hyperostosis (DISH) without acute findings. Mild facet osteoarthritis..
== END 2022-04-05 11:47 ==
PROVIDERS: PCP Physician Assistant; Visit Provider Family Medicine
DX: M54.16 Radiculopathy, lumbar region (principal); M47.816 Spondylosis without myelopathy or radiculopathy, lumbar region; M85.88 Other specified disorders of bone density and structure, other site; M48.12 Ankylosing hyperostosis [Forestier], cervical region
CPT/HCPCS: 72040; 72100

== ENCOUNTER 2022-06-01 01:17 | Day surgery (SDC) | payer MEDICARE, SELFPAY ==
[2022-05-18 11:31] VITALS: BMI 31.6
[2022-06-01 10:04] VITALS: BP 146/84; PULSE 88; RESP 17; TEMP 36.2; O2SAT 98
--- NOTE | 2022-06-01 10:16 | WPDANESEPPF ---
Anes - Initial Pre Proc Eval Procedure: Operation Date: 06/01/22 10:30 Proposed Procedures p Esophagogastroduodenoscopy - Chano Parada MD Date/Time: 06/01/22 10:16 Surgeon: Chano Parada MD Pre Op Diagnosis: Luu's Esophagus Patient Data Age: 52 Gender: M Height: 1.78 m Weight: 100.8 kg Last Vital Signs Temp 36.2 C L 06/01/22 10:04 Pulse 88 06/01/22 10:04 Resp 17 06/01/22 10:04 BP 146/84 H 06/01/22 10:04 Pulse Ox 98 06/01/22 10:04 O2 Del Method Room Air 06/01/22 10:04 Allergies Allergy/AdvReac Type Severity Reaction Status Date / Time cephalexin Allergy Unknown Unknown Verified 06/01/22 10:02 Ksjagfk-RZW-PwK Reductase Allergy Unknown Unknown Verified 06/01/22 10:02 Inhibitor [Humreif-Eng-Din Reductase Inhibitor] Home Medications Medication Instructions Recorded Confirmed Type alprazolam 0.5 mg tablet 0.5 mg PO QHS PRN anxiety #30 tabs 05/04/22 06/01/22 Rx lisinopril 20 mg tablet 20 mg PO DAILY #90 tabs 05/04/22 06/01/22 Rx omeprazole 40 mg capsule,delayed 40 mg PO BID #180 caps 05/04/22 06/01/22 Rx release sertraline 50 mg tablet 50 mg PO DAILY #90 tabs 05/04/22 06/01/22 Rx Patient hx anesthesia problems: none Family hx anesthesia problems: none Results Review: All pre-operative results and documents have been reviewed as part of the pre-operative evaluation. [facility] Past Medical History Medical History Allergies Barretts esophagus Gastric ulcer GERD (gastroesophageal reflux disease) Granular cell tumor Esophagus Hx of adenomatous colonic polyps Hx of renal calculi Migraines Obesity RICHMOND (obstructive sleep apnea) Rheumatoid arthritis Thrombocytopenia Surgical History Surgical History History of lithotripsy Hx of colonoscopy Hx of esophagogastroduodenoscopy Hx of inguinal hernia repair Hx of sinus surgery S/P left rotator cuff repair Status post medial meniscus repair of right knee Social History Social History Smoking packs per day: 1.5 Smoking cigarettes per day: 30.0 Years smoked: 15 Smoking pack-years: 22.50 Smoking status: Current every day smoker Tobacco type: cigarettes Second hand tobacco smoke exposure: No Smoking end date: 11/05/10 Alcohol intake: never Substance use type: does not use Living arrangements: alone Gender identity (if verbalized by the patient): Male Spiritual care concerns: No Anes - Eval Final PreProcedure Day of Procedure 06/01/22 10:16 Patient weight: obese Heart: regular rate and rhythm Lungs: clear to auscultation Airway: Mallampati scale class III Neurological: alert and oriented Last oral intake: >/= 8 hours ASA classification: III Emergent: no Anesthetic plan: proceed Anesthesia type and monitoring: general GIVS and standard monitoring Results Review: All pre-operative results and documents have been reviewed as part of the pre-operative evaluation. Informed Consent: The patient's anesthetic plan and its attendant risks and benefits were discussed with the patient/family/POA. Questions were solicited and answers provided to the satisfaction of the patient/family/POA.
[2022-06-01] MEDS: LACTATED RINGERS 1,000 ML 150 ML IV CONT (10:18)
--- NOTE | 2022-06-01 11:00 | WPDGICN ---
Assessment and Plan Assessment and plan (1) Barretts esophagus: Code(s): K22.70 - Luu's esophagus without dysplasia Status: Acute Assessment and Plan: Patient gives a history of underlying Barretts esophagus. This is consistent with underlying acid reflux disease. Plan for long-term proton pump inhibitor therapy. Anti-reflux measures encouraged pressure. Follow-up EGD will be performed in is suggested at 3 year intervals in the future. 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 Plan is for follow-up this time to reassess this finding. Further recommendations may be given after endoscopy. (3) PUD (peptic ulcer disease): Code(s): K27.9 - Peptic ulcer, site unspecified, unspecified as acute or chronic, without hemorrhage or perforation Status: Acute Assessment and Plan: Patient was identified as having a gastric ulcer in 2019 or . Plan for follow-up EGD at this time. Avoiding NSAIDs appears appropriate (4) Hx of adenomatous colonic polyps: Code(s): Z86.010 - Personal history of colonic polyps Status: Acute Assessment and Plan: patient has benign tubular adenomatous colon polyps in 2016. Follow-up colonoscopy is suggested electively in should be considered at 5 year intervals. GI Consult Note Consult date/time: 06/01/22 11:00 Reason for consult: Luu's esophagus. HPI: Pierce Horton is a 52 year old male Previously followed by Dr. Chano arteaga, patient has an underlying history of Barretts esophagus and is referred for 3 year screening EGD. Patient states he has been on omeprazole 40mg p.o. BT ID for some time. This does indeed help control heartburn. Review of records reveals the patient at time of last endoscopy 2018 had Barretts esophagus, a gastric ulceration and of esophageal tumor the biopsies of which showed a granular cell tumor. Follow-up EGD was anticipated in 3 months but only now being accomplished. Patient denies any dysphagia. He denies any pain. He denies any weight loss. Patient complains of multiple orthopedic joint aches. Including fibromyalgia. He does not take NSAIDs as he was previously told to avoid these medications. Patient's family history is noncontributory. Patient also has a history of adenomatous colon polyp removed from the colon 2016. Review of Systems Review of Systems: Review of systems noncontributory. [facility] Past Medical History Medical History Allergies Barretts esophagus Gastric ulcer GERD (gastroesophageal reflux disease) Granular cell tumor Esophagus Hx of adenomatous colonic polyps Hx of renal calculi Migraines Obesity RICHMOND (obstructive sleep apnea) Rheumatoid arthritis Thrombocytopenia Surgical History Surgical History History of lithotripsy Hx of colonoscopy Hx of esophagogastroduodenoscopy Hx of inguinal hernia repair Hx of sinus surgery S/P left rotator cuff repair Status post medial meniscus repair of right knee Social History Social History Smoking packs per day: 1.5 Smoking cigarettes per day: 30.0 Years smoked: 15 Smoking pack-years: 22.50 Smoking status: Current every day smoker Tobacco type: cigarettes Second hand tobacco smoke exposure: No Smoking end date: 11/05/10 Alcohol intake: never Substance use type: does not use Living arrangements: alone Gender identity (if verbalized by the patient): Male Spiritual care concerns: No Meds Home Medications and Allergies Home Medications Medication Instructions Recorded Confirmed Type alprazolam 0.5 mg tablet 0.5 mg PO QHS P
[2022-06-01] MEDS: BENZOCAINE (*SP) 60 ML SPRAY CAN (HURRICAINE) 1 SPRAY MUCOUS MEM (11:07)
[2022-06-01] MEDS: SIMETHICONE ORAL SUSPENSION 20 MG/0.3 ML 30 ML BOTTLE 0.6 ML IRRIGATION (11:17)
[2022-06-01 11:36] VITALS: BP 133/88; PULSE 82; RESP 20; O2SAT 94
[2022-06-01 11:46] VITALS: BP 140/86; PULSE 81; RESP 17; O2SAT 95
[2022-06-01 11:56] VITALS: BP 126/85; PULSE 80; RESP 18; O2SAT 96
== END 2022-06-01 12:05 | disposition home or self-care (01) ==
PROVIDERS: PCP Physician Assistant; Visit Provider Internal Medicine Gastroenterology
PROC: 0DJ08ZZ Inspection of Upper Intestinal Tract, Via Natural or Artificial Opening Endoscopic (ICD-10-PCS; CPT 43235; principal; 2022-06-01 10:30)
DX: K22.70 Barrett's esophagus without dysplasia (principal); D13.0 Benign neoplasm of esophagus; K21.9 Gastro-esophageal reflux disease without esophagitis; Z87.11 Personal history of peptic ulcer disease; Z86.010 Personal history of colon polyps; G47.33 Obstructive sleep apnea (adult) (pediatric); M06.9 Rheumatoid arthritis, unspecified; F17.210 Nicotine dependence, cigarettes, uncomplicated; E66.9 Obesity, unspecified; Z68.31 Body mass index [BMI] 31.0-31.9, adult
CPT/HCPCS: 43239; 87081; 88305; 88342; J2704; J7120

== ENCOUNTER 2022-06-09 13:23 | Outpatient (CLI) | payer MEDICARE, SELFPAY ==
[2022-06-09 14:10] LABS: Hematocrit 49.6 % (42.0-52.0); Hemoglobin 16.1 g/dL (14.0-18.0); Mean Corpuscular HGB Conc 32.5 g/dl (32-36); Mean Corpuscular Volume 92.4 fl (80-100); Platelet Count Result 131 k/mm3 (150-375); Red Blood Count 5.37 M/mm3 (4.6-6.20); Red Cell Distribution Width 13.2 % (11.5-14.5); White Blood Count 10.2 K/mm3 (4.5-10.0)
== END 2022-06-09 13:24 | disposition home or self-care (01) ==
PROVIDERS: PCP Physician Assistant; Visit Provider Physician Assistant
DX: I10 Essential (primary) hypertension (principal)
CPT/HCPCS: 36415; 85027

== ENCOUNTER 2022-07-28 01:38 | Day surgery (SDC) | payer MEDICARE, SELFPAY ==
[2022-07-18 13:16] VITALS: BMI 31.6
[2022-07-28 06:25] VITALS: BP 158/117; PULSE 94; RESP 20; TEMP 36.3; O2SAT 100; BMI 31.4
[2022-07-28] MEDS: LACTATED RINGERS 1,000 ML 150 ML IV CONT (06:43)
[2022-07-28 06:46] VITALS: BP 162/92
--- NOTE | 2022-07-28 07:24 | WPDANESEPPF ---
Anes - Initial Pre Proc Eval Procedure: Operation Date: 07/28/22 07:30 Proposed Procedures p Screening Colonoscopy - Chano Parada MD Date/Time: 07/28/22 07:24 Surgeon: Chano Parada MD Pre Op Diagnosis: hx colon polyps Patient Data Age: 52 Gender: M Height: 1.78 m Weight: 99.2 kg Last Vital Signs Temp 97.4 F L 07/28/22 06:25 Pulse 94 07/28/22 06:25 Resp 20 07/28/22 06:25 BP 162/92 H 07/28/22 06:46 Pulse Ox 100 07/28/22 06:25 O2 Del Method Room Air 07/28/22 06:25 Allergies Allergy/AdvReac Type Severity Reaction Status Date / Time cephalexin Allergy Unknown Unknown Verified 07/28/22 06:24 Idfwyqv-FQN-AxC Reductase Allergy Unknown Unknown Verified 07/28/22 06:24 Inhibitor [Aksmytz-Loj-Yqn Reductase Inhibitor] Home Medications Medication Instructions Recorded Confirmed Type lisinopril 20 mg tablet 20 mg PO DAILY #90 tabs 05/04/22 07/18/22 Rx omeprazole 40 mg capsule,delayed 40 mg PO BID #180 caps 05/04/22 07/18/22 Rx release alprazolam 0.5 mg tablet 0.5 mg PO QHS PRN anxiety #30 tabs 06/16/22 07/18/22 Rx hydrocodone 7.5 mg-acetaminophen 1 tablet PO Q8H PRN Pain 07/28/22 07/28/22 History 325 mg tablet Patient hx anesthesia problems: none Family hx anesthesia problems: none Results Review: All pre-operative results and documents have been reviewed as part of the pre-operative evaluation. [facility] Past Medical History Medical History Allergies Barretts esophagus Gastric ulcer GERD (gastroesophageal reflux disease) Granular cell tumor Esophagus Hx of adenomatous colonic polyps Hx of renal calculi Migraines Obesity R[place]MOND (obstructive sleep apnea) Rheumatoid arthritis Thrombocytopenia Surgical History Surgical History History of lithotripsy Hx of colonoscopy Hx of esophagogastroduodenoscopy Hx of inguinal hernia repair Hx of sinus surgery S/P left rotator cuff repair Status post medial meniscus repair of right knee Social History Social History Smoking packs per day: 1.5 Smoking cigarettes per day: 30.0 Years smoked: 15 Smoking pack-years: 22.50 Smoking status: Current every day smoker Tobacco type: cigarettes Second hand tobacco smoke exposure: No Smoking end date: 11/05/10 Alcohol intake: never Substance use type: does not use Living arrangements: alone Gender identity (if verbalized by the patient): Male Spiritual care concerns: No Anes - Eval Final PreProcedure Day of Procedure 07/28/22 07:24 Patient weight: obese Heart: regular rate and rhythm Lungs: clear to auscultation Airway: Mallampati scale class II Neurological: alert and oriented Last oral intake: >/= 8 hours ASA classification: III Emergent: no Anesthetic plan: proceed Anesthesia type and monitoring: general GIVS and standard monitoring Results Review: All pre-operative results and documents have been reviewed as part of the pre-operative evaluation. Informed Consent: The patient's anesthetic plan and its attendant risks and benefits were discussed with the patient/family/POA. Questions were solicited and answers provided to the satisfaction of the patient/family/POA.
[2022-07-28 07:45] VITALS: BP 132/84; PULSE 88; RESP 20; O2SAT 96
--- NOTE | 2022-07-28 07:46 | PM.IMHP ---
H&P: HPI History of Present Illness Date/Time: 07/28/22 07:46 Chief Complaint: History of colon polyps. Narrative: This is a 52-year-old white male patient presents for colonoscopy. Patient has prior colonoscopies by Dr. Chano Leggett that revealed tubular adenomatous colon polyps. Patient presents today for surveillance colonoscopy. Patient reports his current weight appetite bowel movements are normal. He denies abdominal pain. He has had no bleeding. Family history noncontributory. 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 recent EGD revealed nodule to still be present. Patient was referred to [facility] where endoscopic ultrasound and resection of a benign nodule was removed. No distinct abnormality was found at that time. Final histology not available for my review. Patient was told no follow-up was required. Patient currently denies any heartburn or dysphagia. Review of Systems Review of Systems: Review of systems noncontributory. [facility] Past Medical History Medical History Allergies Barretts esophagus Gastric ulcer GERD (gastroesophageal reflux disease) Granular cell tumor Esophagus Hx of adenomatous colonic polyps Hx of renal calculi Migraines Obesity R[place]D (obstructive sleep apnea) Rheumatoid arthritis Thrombocytopenia Surgical History Surgical History History of lithotripsy Hx of colonoscopy Hx of esophagogastroduodenoscopy Hx of inguinal hernia repair Hx of sinus surgery S/P left rotator cuff repair Status post medial meniscus repair of right knee Social History Social History Smoking packs per day: 1.5 Smoking cigarettes per day: 30.0 Years smoked: 15 Smoking pack-years: 22.50 Smoking status: Current every day smoker Tobacco type: cigarettes Second hand tobacco smoke exposure: No Smoking end date: 11/05/10 Alcohol intake: never Substance use type: does not use Living arrangements: alone Gender identity (if verbalized by the patient): Male Spiritual care concerns: No Meds Home Medications and Allergies Home Medications Medication Instructions Recorded Confirmed Type lisinopril 20 mg tablet 20 mg PO DAILY #90 tabs 05/04/22 07/18/22 Rx omeprazole 40 mg capsule,delayed 40 mg PO BID #180 caps 05/04/22 07/18/22 Rx release alprazolam 0.5 mg tablet 0.5 mg PO QHS PRN anxiety #30 tabs 06/16/22 07/18/22 Rx hydrocodone 7.5 mg-acetaminophen 1 tablet PO Q8H PRN Pain 07/28/22 07/28/22 History 325 mg tablet Allergies Allergy/AdvReac Type Severity Reaction Status Date / Time cephalexin Allergy Unknown Unknown Verified 07/28/22 06:24 Ytiddch-YBB-PiL Reductase Allergy Unknown Unknown Verified 07/28/22 06:24 Inhibitor [Qqlngqa-Upu-Lzn Reductase Inhibitor] Vital Signs Vital Signs - 24 hr 07/28/22 06:25 07/28/22 06:46 Temperature 97.4 F L Pulse Rate 94 Respiratory Rate 20 Blood Pressure 158/117 H 162/92 H Pulse Oximetry 100 Oxygen Delivery Room Air Exam Narrative: Physical exam reveals patient to be alert. Vital signs stable. HEENT exam is unremarkable. Patient is anicteric. Lungs are clear to auscultation and percussion. Heart is without murmur or extra sounds. Abdomen bowel sounds present soft nontender with no organomegaly. Digital external rectal reveals external hemorrhoids. Assessment and Plan Assessment and plan (1) Hx of adenomatous colonic polyps: Code(s): Z86.010 - Personal history of colonic polyps Status: Acute Assessment and Plan: Patient with prior history of adenomatous colon polyps. Plan for follow-up colonoscopy now and at 5 year intervals in the future. (2) Granular cell tumor: Code(s): D21.9 - Benign neoplasm of connective and other soft tissue, unspecified Status: Acute
[2022-07-28 07:55] VITALS: BP 127/86; PULSE 80; RESP 20; O2SAT 98
[2022-07-28 08:05] VITALS: BP 122/90; PULSE 82; RESP 18; O2SAT 98
== END 2022-07-28 08:14 | disposition home or self-care (01) ==
PROVIDERS: PCP Physician Assistant; Visit Provider Internal Medicine Gastroenterology
PROC: 0DJD8ZZ Inspection of Lower Intestinal Tract, Via Natural or Artificial Opening Endoscopic (ICD-10-PCS; CPT 45378; principal; 2022-07-28 07:30)
DX: Z12.11 Encounter for screening for malignant neoplasm of colon (principal); D12.5 Benign neoplasm of sigmoid colon; K64.8 Other hemorrhoids; K64.4 Residual hemorrhoidal skin tags; K57.30 Diverticulosis of large intestine without perforation or abscess without bleeding; K22.70 Barrett's esophagus without dysplasia; K21.9 Gastro-esophageal reflux disease without esophagitis; G47.33 Obstructive sleep apnea (adult) (pediatric); M06.9 Rheumatoid arthritis, unspecified; D69.6 Thrombocytopenia, unspecified; F17.210 Nicotine dependence, cigarettes, uncomplicated; E66.9 Obesity, unspecified; Z68.31 Body mass index [BMI] 31.0-31.9, adult
CPT/HCPCS: 45385; 88305; J2704; J7120

== ENCOUNTER 2022-08-24 12:10 | Emergency (ER) | payer MEDICARE, SELFPAY ==
--- NOTE | ~2022-08-24 | XR_ITS ---
EXAMINATION: XR chest 2V DATE: 08/24/2022 13:14 INDICATION: Cough. TECHNIQUE: Frontal and lateral views of the chest were obtained. COMPARISON: Chest 2 views 08/20/2019 FINDINGS: A calcified right lung nodule is consistent with old granulomatous disease. No pleural effu patricia or pneumothorax. The heart size is normal. There is an endoscopy clip in the esophagus. IMPRESSION: 1. No acute cardiopulmonary disease. Reviewed, dictated and finalized at location A.
[2022-08-24 12:21] VITALS: BP 172/112; PULSE 96; RESP 18; TEMP 36.7; O2SAT 100
--- NOTE | 2022-08-24 12:59 | ED.URI ---
HPI - URI/Sore Throat General Chief Complaint: Upper Respiratory Infection Stated Complaint: Vomiting,Chills,Coughing Time Seen by Provider: 08/24/22 12:59 Source: patient and RN notes reviewed Mode of arrival: ambulatory Limitations: no limitations History of Present Illness HPI Narrative: 52-year-old male presents to the [facility] with 2 days of chills, feeling feverish, coughing. Has taken Awa-[place]. Tried calling his primary care provider who referred him to be evaluated to an urgent care or ER. Reports that he spent time with his granddaughter who tested positive for rhinovirus over the weekend Related Data Home Medications Medication Instructions Recorded Confirmed hydrocodone 7.5 mg-acetaminophen 1 tablet PO Q8H PRN Pain 07/28/22 08/24/22 325 mg tablet nortriptyline 25 mg capsule 25 mg PO DAILY 08/24/22 08/24/22 Allergies Allergy/AdvReac Type Severity Reaction Status Date / Time cephalexin Allergy Unknown Unknown Verified 08/18/22 10:03 Ldnqiwp-XLJ-FoK Reductase Allergy Unknown Swelling Verified 08/18/22 10:03 Inhibitor of [Tzyjpvg-Aoq-Jwz Reductase Lip/Tongue/Throat Inhibitor] Review of Systems Review of Systems: All systems reviewed & are unremarkable except as noted in HPI and below Constitutional: Constitutional: Reports no additional constitutional complaints, Denies chills and Denies fever(s) Eyes: Eyes: Reports no additional eye complaints ENT: Reports as per HPI Cardiovascular: Cardiovascular: Reports no additional cardiovascular complaints Respiratory: Respiratory: Reports as per HPI Gastrointestinal: Gastrointestinal: Reports no additional gastrointestinal complaints Musculoskeletal: Musculoskeletal: Reports no additional musculoskeletal complaints Integumentary/Breasts: Skin/Breast: Reports system reviewed and no additional complaints, except as docu Neurologic: Reports system reviewed and no additional complaints, except as documented Psychiatric: Psychiatric: Reports no additional psychiatric complaints Allergic/Immunologic: Allergic/Immunologic: Reports no additional allergic/immunologic complaints [facility] Past Medical History Medical History Allergies Barretts esophagus Gastric ulcer GERD (gastroesophageal reflux disease) Granular cell tumor Esophagus Hx of adenomatous colonic polyps Hx of renal calculi Hypertension Migraines Obesity [place] (obstructive sleep apnea) Rheumatoid arthritis Thrombocytopenia Surgical History Surgical History History of elbow surgery History of lithotripsy Hx of colonoscopy Hx of esophagogastroduodenoscopy Hx of inguinal hernia repair Hx of sinus surgery S/P left rotator cuff repair Status post medial meniscus repair of right knee Family History Family History Father Heart disease Diabetes mellitus Hypertension Grandparent Cerebrovascular accident Social History Social History Smoking packs per day: 1.5 Smoking cigarettes per day: 30.0 Years smoked: 35 Smoking pack-years: 52.50 Smoking status: Current every day smoker Tobacco type: cigarettes Second hand tobacco smoke exposure: No Smoking end date: 11/05/10 Alcohol intake: former Substance use type: does not use Additional occupation/education comments: [employer]/Disability Gender identity (if verbalized by the patient): Male Spiritual care concerns: No Comments At the time of my signature, I reviewed and agree with the nursing past medical, surgical, social, and family history. There is no relevant family history pertinent to the patient complaint. Exam Const: General: healthy appearing, no acute distress, alert, tired appearing, uncomfortable, well nourished and obese Nutritional Appearance: well nourish
== END 2022-08-24 13:53 | disposition home or self-care (01) ==
PROVIDERS: Emergency Provider Nurse Practitioner; PCP Physician Assistant
DX: J20.9 Acute bronchitis, unspecified (principal); Z20.822 Contact with and (suspected) exposure to COVID-19; Z87.891 Personal history of nicotine dependence; K22.70 Barrett's esophagus without dysplasia; K21.9 Gastro-esophageal reflux disease without esophagitis; I10 Essential (primary) hypertension; E66.9 Obesity, unspecified; Z68.31 Body mass index [BMI] 31.0-31.9, adult; M06.9 Rheumatoid arthritis, unspecified
CPT/HCPCS: 71046; 87426; 87804; 99213; C9803; G0463

== ENCOUNTER 2022-09-02 12:54 | Emergency (ER) | payer OTHER, MEDICARE, SELFPAY ==
--- NOTE | ~2022-09-02 | XR_ITS ---
EXAM: XR hip LT min 3V w AP pelvis DATE: 09/02/2022 14:36 HISTORY: hip injury s/p fall 3 DAYS AGO . COMPARISON: 04/16/2018. FINDINGS: Hernia mesh anchors across the lower abdomen. Normal mineralization. No fracture or disloca tion. No lytic or blastic lesion. Mild bilateral hip osteoarthritis. Degenerative changes in the lumb ar spine and bilateral SI joints. No erosion or periosteal change. Soft tissues within normal limits. IMPRESSION: No acute osseous finding in the left hip or pelvis. Reviewed, dictated and finalized at location K.
--- NOTE | ~2022-09-02 | XR_ITS ---
EXAM: XR lumbar spine 2-3V DATE: 09/02/2022 14:35 HISTORY: low back pain s/p fall 3 DAYS AGO . COMPARISON: 04/05/2022. FINDINGS: 5 nonrib-bearing lumbar-type vertebral bodies. Pedicles intact. Stable trace anterolisthes is of L4 on 5. Vertebral body heights preserved. Multilevel mild disc space narrowing and multilevel marginal osteophytosis. Multilevel facet arthropathy. No fracture or dislocation. IMPRESSION: No acute fracture or traumatic malalignment detected in the lumbar spine. Reviewed, dictated and finalized at location K.
[2022-09-02 13:01] VITALS: PULSE 116; RESP 17; TEMP 36.3; O2SAT 98
--- NOTE | 2022-09-02 14:20 | ED.LOWEXIN ---
HPI - Extremity Injury (Lower) General Chief Complaint: Extremity Injury, Lower Stated Complaint: fall, hip pain Time Seen by Provider: 09/02/22 13:27 History of Present Illness HPI Narrative: 52-year-old male presents to the emergency room for evaluation of lower back and left hip pain following a fall. 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 States pain is worse with ambulation. Has not taken any medications to alleviate his pain. Reports pain radiates into his lower leg. Denies any other injuries. Related Data Home Medications Medication Instructions Recorded Confirmed hydrocodone 7.5 mg-acetaminophen 1 tablet PO Q8H PRN Pain 07/28/22 08/24/22 325 mg tablet nortriptyline 25 mg capsule 25 mg PO DAILY 08/24/22 08/24/22 Allergies Allergy/AdvReac Type Severity Reaction Status Date / Time cephalexin Allergy Unknown Unknown Verified 09/02/22 13:04 Zjslqqh-WZA-WpB Reductase Allergy Unknown Swelling Verified 09/02/22 13:04 Inhibitor of [Mjyivjl-Dpk-Oua Reductase Lip/Tongue/Throat Inhibitor] Review of Systems Review of Systems: CONSTITUTIONAL: Denies fever, chills, or sweats. EYES: Denies visual changes, redness, or discharge. ENT: Denies rhinorrhea, congestion, sore throat, or otalgia. CARDIOVASCULAR: Denies chest pain, palpitations, or edema. RESPIRATORY: Denies cough or dyspnea. GASTROINTESTINAL: Denies abdominal pain, nausea, vomiting, or diarrhea. GENITOURINARY: Denies dysuria or hematuria. SKIN: Denies rash or itching. MUSCULOSKELETAL: Reports lower back, and left hip pain NEUROLOGIC: Denies headache, numbness, dizziness, or weakness. PSYCHIATRIC: Denies anxiety or depression. [facility] Past Medical History Medical History Allergies Barretts esophagus Gastric ulcer GERD (gastroesophageal reflux disease) Granular cell tumor Esophagus Hx of adenomatous colonic polyps Hx of renal calculi Hypertension Migraines Obesity R[place] (obstructive sleep apnea) Rheumatoid arthritis Thrombocytopenia Surgical History Surgical History History of elbow surgery History of lithotripsy Hx of colonoscopy Hx of esophagogastroduodenoscopy Hx of inguinal hernia repair Hx of sinus surgery S/P left rotator cuff repair Status post medial meniscus repair of right knee Family History Family History Father Heart disease Diabetes mellitus Hypertension Grandparent Cerebrovascular accident Social History Social History Smoking packs per day: 1.5 Smoking cigarettes per day: 30.0 Years smoked: 35 Smoking pack-years: 52.50 Smoking status: Current every day smoker Tobacco type: cigarettes Second hand tobacco smoke exposure: No Smoking end date: 11/05/10 Alcohol intake: former Substance use type: does not use 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 HEAD: Normocephalic, atraumatic. EYES: Conjunctivae normal, PERRLA and EOMI. CHEST: Clear to auscultation. No respiratory distress. No wheezes rales or rhonchi. HEART: Regular rate and rhythm. No murmur heard. Normal peripheral pulses. ABDOMEN: Soft, nontender, nondistended, normal active bowel sounds. BACK: No midline cervical/thoracic/lumbar tenderness, step-offs, bony abnormality; FROM EXTREMITIES: Left hip: Tenderness over the greater trochanter and left iliac crest SKIN: Warm, dry, no rash. No noted wounds NEURO: No focal deficits. Alert and oriented x3. MAEW. CN's II-XI intact bila
[2022-09-02] MEDS: ONDANSETRON HCL ODT 4 MG TABLET PO (14:45)
[2022-09-02] MEDS: HYDROcodone/acetaminophen (*CRX) 5-325 MG TABLET 1 TAB PO (15:21)
== END 2022-09-02 15:25 | disposition home or self-care (01) ==
PROVIDERS: Emergency Provider Nurse Practitioner Family; PCP Physician Assistant
DX: S70.02XA Contusion of left hip, initial encounter (principal); I10 Essential (primary) hypertension; F17.210 Nicotine dependence, cigarettes, uncomplicated; Z79.891 Long term (current) use of opiate analgesic; W17.89XA Other fall from one level to another, initial encounter
CPT/HCPCS: 72100; 73502; 99284; A9270

== ENCOUNTER 2022-09-22 13:16 | Outpatient (CLI) | payer MEDICARE, SELFPAY ==
--- NOTE | 2022-09-22 13:27 | ECG_ITS ---
Measurements Intervals [place] Rate: 86 P: 51 PA: 170 QRS: -50 QRSD: 90 T: 14 QT: 348 QTc: 418 Interpretive Statements SINUS RHYTHM POOR R WAVE PROGRESSION, ANTERIOR LEADS BASELINE ARTIFACT- I, II, III, AVR, AVL, AVF BORDERLINE ECG COMPARED TO ECG 08/20/2019 11:24:20 SINUS RHYTHM NOW PRESENT Electronically Signed On 09-22-2022 14:11:42 IP LITIGATION PAR[place] by Villa Aguilar D.O.
== END 2022-09-22 13:17 | disposition home or self-care (01) ==
PROVIDERS: PCP Physician Assistant; Visit Provider Surgery
DX: Z01.818 Encounter for other preprocedural examination (principal); I10 Essential (primary) hypertension
CPT/HCPCS: 93005

== ENCOUNTER 2022-09-25 00:08 | Day surgery (SDC) | payer MEDICARE, SELFPAY ==
[2022-09-18 13:07] VITALS: BMI 31.9
--- NOTE | 2022-09-18 13:36 | PC.NURSE ---
Report to the Outpatient Waiting Room, entrance under the green pavilion located off [facility], at time __11:00AM on date ___09/25/22____. Planned Procedure Time: __1:00PM . Time changes happen often and if your time is changed the preop area will call you the afternoon before. - You and your visitor will be asked to self-screen and do not enter if you have any COVID symptoms. - We encourage only one visitor and NO visitors under age 16 are allowed at this time. Your visitor will receive communication by the phone number that is given day of service. - The patient visitor is requested to social distance or may leave the building when not with patient due to restrictions. - A mask is required within the hospital. Patients may have clear liquids (water, carbonated beverages, clear teas, apple juice) until 3 hours prior to surgery with a maximum of 20 ounces. - No food from midnight until time of surgery Take the following medications with a SIP of water the morning of surgery: ____ALBUTEROL INHALER, ALPRAZOLAM, FLONASE NASAL SPRAY & HYDROCODONE --ALL NEEDED Medications to discontinue per physician ___NONE Please no make-up, nail faroese, hairspray, perfume, deodorant, or body powder the day of surgery. No jewelry (including any body piercings) or valuables the day of surgery, leave them at home. Please take a shower or bath the night before, or the morning of, surgery with an antibacterial soap. Wear comfortable, loose fitting clothing. Children are encouraged to wear pajamas. - Jewelry must be removed prior to entering the operating room. Rings and piercings that are not removed may be cut off. - The hospital will not accept responsibility for valuables. - Please leave all valuables, including medications, at home the day of surgery. If you are going home after surgery, a licensed driver education instructor must drive you home. - NO public transportation without another adult. - We recommend that an adult stay with you for 24 hours following discharge. - We also recommend that you do not drive, make important decision, drink alcoholic beverages, or take any drugs that were not prescribed by your health care provider for at least 24 hours after your discharge time. Follow any additional instructions given to you from your surgeon. If you or anyone in your household have experienced Covid symptoms in the past week, please notify your surgeon or the nurse liaison at the phone number below for possible testing. Telephone instructions given to __PATIENT and asked if any additional questions and then verbalized understanding. Patient advised to call surgeon office or pre surgery nurse liaison [phone] if any additional questions.
--- NOTE | 2022-09-22 15:59 | WPDANESEPPF ---
Anes - Initial Pre Proc Eval Procedure: Operation Date: 09/25/22 13:00 Proposed Procedures p Rectal Examination Under Anesthesia, External and Internal Hemorrhoidectomy - Candido Smith DO Date/Time: 09/22/22 15:59 Surgeon: Candido Smith DO Pre Op Diagnosis: External & Internal Hemorrhoids Patient Data Age: 52 Gender: M Height: 1.78 m Weight: 101 kg Allergies Allergy/AdvReac Type Severity Reaction Status Date / Time cephalexin Allergy Severe PASSED Verified 09/25/22 11:17 OUT , VOMITING Itdcjml-DNH-NvK Reductase Allergy Severe Swelling Verified 09/25/22 11:17 Inhibitor of [Jksrvwb-Xtg-Kmb Reductase Lip/Tongue/Throat Inhibitor] Home Medications Medication Instructions Recorded Confirmed Type omeprazole 40 mg capsule,delayed 40 mg PO BID #180 caps 05/04/22 09/25/22 Rx release albuterol sulfate 90 mcg/actuation 2 puff inhalation QID PRN 08/24/22 09/25/22 Rx aerosol inhaler shortness of breath or wheezing #6.7 grams inhalational spacing device (Space #1 ea 08/24/22 Rx Chamber) nortriptyline 25 mg capsule 75 mg PO HS 08/24/22 09/25/22 History fluticasone propionate 50 2 spray intranasal DAILY PRN nasal 09/15/22 09/25/22 Rx mcg/actuation nasal congestion #15.8 mL spray,suspension lisinopril 20 mg tablet 20 mg PO DAILY #90 tabs 09/15/22 09/25/22 Rx alprazolam 0.5 mg tablet 0.5 mg PO BID PRN anxiety 09/18/22 09/25/22 History hydrocodone 7.5 mg-acetaminophen 1 tablet PO Q8-10H PRN Pain 09/18/22 09/25/22 History 325 mg tablet Patient hx anesthesia problems: none Family hx anesthesia problems: none Results Review: All pre-operative results and documents have been reviewed as part of the pre-operative evaluation. [facility] Past Medical History Medical History Allergies Barretts esophagus Gastric ulcer GERD (gastroesophageal reflux disease) Granular cell tumor Esophagus Hx of adenomatous colonic polyps Hx of renal calculi Hypertension Migraines Obesity [place] (obstructive sleep apnea) Rheumatoid arthritis Thrombocytopenia Surgical History Surgical History History of elbow surgery History of lithotripsy Hx of colonoscopy Hx of esophagogastroduodenoscopy Hx of inguinal hernia repair Hx of sinus surgery S/P left rotator cuff repair Status post medial meniscus repair of right knee Family History Family History Father Heart disease Diabetes mellitus Hypertension Grandparent Cerebrovascular accident Social History Social History Smoking packs per day: 1.5 Smoking cigarettes per day: 30.0 Years smoked: 35 Smoking pack-years: 52.50 Smoking status: Current every day smoker Tobacco type: cigarettes Second hand tobacco smoke exposure: No Smoking end date: 11/05/10 Alcohol intake: current Alcohol use details: HEAVY DRINKER IN PAST, QUIT 15 YEARS AGO Substance use: never Substance use type: does not use Living arrangements: alone 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 Informed Consent: The patient's anesthetic plan and its attendant risks and benefits were discussed with the pat
[2022-09-25] VITALS (8 sets, daily range): BP systolic 95–145; BP diastolic 77–98; PULSE 61–85; RESP 10–16; TEMP 36–36.4; O2SAT 95–100
[2022-09-25] MEDS: ACETAMINOPHEN 500 MG TABLET 1000 MG PO (11:26)
[2022-09-25] MEDS: LACTATED RINGERS 1,000 ML 30 ML IV CONT ×2 (11:44→14:44)
[2022-09-25] MEDS: KETOROLAC 15 MG/ML VIAL (*BKC) IV PUSH (11:45)
--- NOTE | 2022-09-25 12:43 | WPDHPUPDATE1 ---
History and Physical Update Update Date/Time: 09/25/22 12:43 History and Physical has been reviewed, including an updated exam of the patient. There are NO changes in the patient's condition. Risks, benefits, and alternatives have been discussed and questions answered. Patient agrees to proceed with procedure.
--- NOTE | 2022-09-25 12:43 | PM.IMHP ---
H&P: HPI History of Present Illness Date/Time: 09/25/22 12:43 Chief Complaint: internal/external hemorrhoids Narrative: This is a 52-year-old man who presents for internal and external hemorrhoidectomy. He reports no changes since last seen in the office. Review of Systems Review of Systems: All systems reviewed & are unremarkable except as noted in HPI and below Constitutional: Constitutional: Denies chills, Denies fever(s), Denies headache(s) and Denies weight loss Eyes: Eyes: Denies change in vision ENT: Denies dizziness, Denies headache(s), Denies neck mass and Denies throat swelling Cardiovascular: Cardiovascular: Denies chest pain, Denies lightheadedness and Denies dyspnea Respiratory: Respiratory: Denies cough, Denies dyspnea and Denies wheezing Gastrointestinal: Gastrointestinal: Denies abdominal pain, Denies change in bowel habits, Denies nausea and Denies vomiting Genitourinary: Genitourinary: Denies hematuria and Denies dysuria Musculoskeletal: Musculoskeletal: Reports as per HPI Integumentary/Breasts: Skin/Breast: Reports as per HPI Neurologic: Denies dizziness and Denies headache(s) Allergic/Immunologic: Allergic/Immunologic: Denies throat swelling and Denies wheezing PMFSH Past Medical History Medical History Allergies Barretts esophagus Gastric ulcer GERD (gastroesophageal reflux disease) Granular cell tumor Esophagus Hx of adenomatous colonic polyps Hx of renal calculi Hypertension Migraines Obesity RICHMOND (obstructive sleep apnea) Rheumatoid arthritis Thrombocytopenia Surgical History Surgical History History of elbow surgery History of lithotripsy Hx of colonoscopy Hx of esophagogastroduodenoscopy Hx of inguinal hernia repair Hx of sinus surgery S/P left rotator cuff repair Status post medial meniscus repair of right knee Family History Family History Father Heart disease Diabetes mellitus Hypertension Grandparent Cerebrovascular accident Social History Social History Smoking packs per day: 1.5 Smoking cigarettes per day: 30.0 Years smoked: 35 Smoking pack-years: 52.50 Smoking status: Current every day smoker Tobacco type: cigarettes Second hand tobacco smoke exposure: No Smoking end date: 11/05/10 Alcohol intake: current Alcohol use details: HEAVY DRINKER IN PAST, QUIT 15 YEARS AGO Substance use: never Substance use type: does not use Living arrangements: alone 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 Gender identity (if verbalized by the patient): Male Spiritual care concerns: No Meds Home Medications and Allergies Home Medications Medication Instructions Recorded Confirmed Type omeprazole 40 mg capsule,delayed 40 mg PO BID #180 caps 05/04/22 09/25/22 Rx release albuterol sulfate 90 mcg/actuation 2 puff inhalation QID PRN 08/24/22 09/25/22 Rx aerosol inhaler shortness of breath or wheezing #6.7 grams inhalational spacing device (Space #1 ea 08/24/22 Rx Chamber) nortriptyline 25 mg capsule 75 mg PO HS 08/24/22 09/25/22 History fluticasone propionate 50 2 spray intranasal DAILY PRN nasal 09/15/22 09/25/22 Rx mcg/actuation nasal congestion #15.8 mL spray,suspension lisinopril 20 mg tablet 20 mg PO DAILY #90 tabs 09/15/22 09/25/22 Rx alprazolam 0.5 mg tablet 0.5 mg PO BID PRN anxiety 09/18/22 09/25/22 History hydrocodone 7.5 mg-acetaminophen 1 tablet PO Q8-10H PRN Pain 09/18/22 09/25/22 History 325 mg tablet Allergies Allergy/AdvReac Type Severity Reaction Status Date / Time cephalexin Allergy Severe PASSED Verified 09/25/22 11:17 OUT , VOMITING Brmtbsd-SWV-AdO Reductase Allergy Severe Swelling Verified 09/25/22 11:17 Inhibitor of [S
[2022-09-25] MEDS: CLINDAMYCIN 900 MG/D5W 50 ML 900 MG/50 ML PIGGYBACK 50 MG IVPB (12:53)
--- NOTE | 2022-09-25 13:57 | W.PM.PROC2 ---
Procedure Note - Detailed Date of Procedure 09/25/22 Pre-op Diagnosis External & Internal Hemorrhoids Post-op Diagnosis Same Procedure Performed Rectal exam under anesthesia with internal and external hemorrhoidectomy x2 columns Surgeon Candido Smith, DO Anesthesia General and Local (Exparel) Indications This is a 52-year-old man who presented with prolapsing and bleeding hemorrhoids. He has had frequent problems with bright red blood dripping into the toilet. He also notices a protrusion that will reduce on its own. He was found to have grade 2 prolapsing internal hemorrhoids on exam. He also had external hemorrhoid tissue. He has a previous history of colonoscopy which showed evidence of internal hemorrhoids. Discussions were made with the patient about treatment options and decision was made to proceed with rectal exam under anesthesia with internal and external hemorrhoidectomy. Findings Rectal exam under anesthesia was performed. Patient had internal and external hemorrhoid tissue predominantly in the right posterior and left lateral regions. These 2 regions were where most of the prolapsing was coming from. No other abnormalities were noted on exam with the anoscope. Internal and external hemorrhoidectomy was performed in the right posterior and left lateral locations. The specimens were sent to the lab for pathology. Description of Procedure Procedure as well as risks, benefits, and alternatives were discussed with the patient. Written consent was obtained and placed in chart prior to procedure. Patient was brought back to surgical suite. He was placed supine on operating table. Time-out was done to confirm patient and procedure. He was then intubated by the anesthesia department. He was then repositioned into prone zach-knife position. His perirectal area was prepped and draped in sterile fashion using Betadine prep. Digital rectal exam was initially performed. A Hill-Hastings anoscope was then inserted and the anal rectal canal was carefully inspected. Exparel was then infiltrated locally around the perirectal region. A Fansler anoscope was then inserted and the hemorrhoid column in the right posterior location was initially identified. A 2-0 chromic ighghy-fh-ethke suture was placed at the apex of the hemorrhoid bundle. The anoderm and external hemorrhoid tissue was then incised with a 15 blade scalpel in an elliptical fashion. This was then extended proximally into the rectum onto the internal hemorrhoid tissue. A curved P on clamp was then placed across the hemorrhoid bundle and the hemorrhoid tissue was cut away. The 2-0 chromic suture was then run a along the curved clamp distally towards the anal verge. The clamp was then removed and the suture was pulled taut. The root running suture was then run back proximally to the apex of the hemorrhoid bundle and the suture was tied down in place. The area was irrigated with sterile saline and hemostasis appeared adequate. The anoderm was then reapproximated using 3-0 chromic simple interrupted sutures. I then repositioned the anoscope to the left lateral location. Again a drpxcm-cu-rscsu 2-0 chromic suture was placed at the apex of the hemorrhoid bundle. The anoderm and external hemorrhoid tissue was excised using a 15 blade scalpel an elliptical fashion and then a curved clamp was placed across the internal hemorrhoid tissue and the hemorrhoid was cut away. The running suture was run distally to the anal verge and then back proximally to the apex of the hemorrhoid bundle. The suture was tied down in place. Area was irrigated again and hemostasis appeared adequate. The anoderm was then reapproximated using 3-0 chromic simple interrupted sutures. One final inspection was made around the anal rectal canal. No other abnormalities were noted. Xeroform gauze was then applied followed by fluff gauze ABD pads and mesh underwear. The patient was then awakened from anesthesia, extubate
[2022-09-25] MEDS: fentaNYL CITRATE INJ (*CRX) 100 MCG/2 ML VIAL 25 MCG IV PUSH ×4 (14:30→14:40)
[2022-09-25] MEDS: oxyCODONE HCL (*CRX) 5 MG TAB IR PO (15:17)
== END 2022-09-25 16:05 | disposition home or self-care (01) ==
PROVIDERS: PCP Physician Assistant; Visit Provider Surgery
PROC: (CPT 46260; principal; 2022-09-25 13:00)
DX: K64.1 Second degree hemorrhoids (principal); K64.4 Residual hemorrhoidal skin tags; I10 Essential (primary) hypertension; G47.33 Obstructive sleep apnea (adult) (pediatric); M06.9 Rheumatoid arthritis, unspecified; K21.9 Gastro-esophageal reflux disease without esophagitis; F17.210 Nicotine dependence, cigarettes, uncomplicated; E66.9 Obesity, unspecified; Z68.30 Body mass index [BMI] 30.0-30.9, adult; Z79.51 Long term (current) use of inhaled steroids
CPT/HCPCS: 46260; 88304; A9270; C9290; J0330; J1100; J1885; J2250; J2405; J2704; J3010; J7120

== ENCOUNTER 2022-09-26 11:04 | Emergency (ER) | payer MEDICARE, SELFPAY ==
--- NOTE | ~2022-09-26 | XR_ITS ---
EXAMINATION: XR chest 2V 09/26/2022 15:11 INDICATION: Leukocytosis. Cough. PROCEDURE: 2 view chest COMPARISON: Comparison to multiple prior studies sequentially, with oldest reviewed study dated 03/2018. FINDINGS: The lungs are clear. The cardiomediastinal silhouette is within normal limits. There are no pleural effusions. There is no pneumothorax suspected. IMPRESSION: 1: NO ACUTE CARDIOPULMONARY DISEASE. Reviewed, dictated and finalized at location B. TURNER
--- NOTE | ~2022-09-26 | XR_ITS ---
EXAMINATION: XR abdomen/kub 1V DATE: 09/26/2022 13:40 INDICATION: Constipation. TECHNIQUE: A supine view of the abdomen on 2 radiographs was obtained. COMPARISON: CT abdomen and pelvis 08/04/16 FINDINGS: There are no dilated loops of bowel. There is a moderate volume of stool in the colon. Ther e are surgical clips from bilateral inguinal hernia repairs. An endoscopy clip overlies the esophagus . IMPRESSION: 1. Nonobstructive bowel gas pattern. Reviewed, dictated and finalized at location A. NG PRESSER
[2022-09-26 11:09] VITALS: BP 147/97; PULSE 99; RESP 20; TEMP 36.5; O2SAT 98
--- NOTE | 2022-09-26 13:35 | ED.GENADULT ---
HPI - General Adult General Chief complaint: Unspecified <Juliet Perdue PA-C - Last Filed: 09/26/22 16:02> Stated complaint: unable to go pee or poop both <Juliet Perdue PA-C - Last Filed: 09/26/22 16:02> Time Seen by Provider: 09/26/22 13:22 <Juliet Perdue PA-C - Last Filed: 09/26/22 16:02> Source: patient <YUMIKO Lopez Last Filed: 09/26/22 16:02> Mode of arrival: ambulatory <YUMIKO Lopez Last Filed: 09/26/22 16:02> Limitations: no limitations <Juliet Perdue PA-C - Last Filed: 09/26/22 16:02> History of Present Illness HPI narrative: This is a 52 year old male that presents to the ER for difficulty urinating since yesterday. Reports he had hemorrhoid surgery with Dr. Smith yesterday. He has only been able to get out dribbles since. He also reports he has not had a bowel movement. He has passed gas. Denies fever, vomiting, or hematuria. <YUMIKO Lopez Last Filed: 09/26/22 16:02> Related Data Home medications: Home Medications Medication Instructions Recorded Confirmed nortriptyline 25 mg capsule 75 mg PO HS 08/24/22 09/25/22 alprazolam 0.5 mg tablet 0.5 mg PO BID PRN anxiety 09/18/22 09/25/22 hydrocodone 7.5 mg-acetaminophen 1 tablet PO Q8-10H PRN Pain 09/18/22 09/25/22 325 mg tablet <YUMIKO Lopez Last Filed: 09/26/22 16:02> Allergies/adverse reactions: Allergies Allergy/AdvReac Type Severity Reaction Status Date / Time cephalexin Allergy Severe PASSED Verified 09/25/22 11:17 OUT , VOMITING Izthcfe-OFA-ObQ Reductase Allergy Severe Swelling Verified 09/25/22 11:17 Inhibitor of [Ixpyuta-Cwc-Ksf Reductase Lip/Tongue/Throat Inhibitor] <Juliet Perdue PA-C - Last Filed: 09/26/22 16:02> Review of Systems Review of Systems: CONSTITUTIONAL: Denies fever GASTROINTESTINAL: Reports abdominal pain. Denies nausea, vomiting, or diarrhea. GENITOURINARY: Reports dysuria. Denies hematuria. <Juliet Perdue PA-C - Last Filed: 09/26/22 16:02> All systems reviewed & are unremarkable except as noted in HPI and below <Juliet Perdue PA-C - Last Filed: 09/26/22 16:02> [facility] Past Medical History Medical History: Medical History Allergies Barretts esophagus Gastric ulcer GERD (gastroesophageal reflux disease) Granular cell tumor Esophagus Hx of adenomatous colonic polyps Hx of renal calculi Hypertension Migraines Obesity R[place]MOND (obstructive sleep apnea) Rheumatoid arthritis Thrombocytopenia <YUMIKO Lopez Last Filed: 09/26/22 16:02> Surgical History Surgical History: Surgical History History of elbow surgery History of lithotripsy Hx of colonoscopy Hx of esophagogastroduodenoscopy Hx of inguinal hernia repair Hx of sinus surgery S/P left rotator cuff repair Status post medial meniscus repair of right knee <YUMIKO Lopez Last Filed: 09/26/22 16:02> Family History Family History: Family History Father Heart disease Diabetes mellitus Hypertension Grandparent Cerebrovascular accident <YUMIKO Lopez Last Filed: 09/26/22 16:02> Social History Social History: Social History Smoking packs per day: 1.5 Smoking cigarettes per day: 30.0 Years smoked: 35 Smoking pack-years: 52.50 Smoking status: Current every day smoker Tobacco type: cigarettes Second hand tobacco smoke exposure: No Smoking end date: 11/05/10 Alcohol intake: current Alcohol use details: HEAVY DRINKER IN PAST, QUIT 15 YEARS AGO Substance use: never Substance use type: does not use 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
[2022-09-26 14:06] LABS: Appearance Urine Clear (Clear); Bilirubin Urine Negative (Negative); Blood Urine Negative (Negative); Color Urine Yellow (Yellow); Glucose Urine UA 2+ mg/dL (Negative); Ketones Urine Negative (Negative); Leukocyte Esterase Ur Negative LEU/UL (Negative); Nitrate Urine Negative (Negative); Protein Urine 1+ mg/dL (Negative); Specific Grav Ur 1.025 (1.001-1.035)
[2022-09-26 14:17] LABS: Basophils Percent Auto 0.2 % (0.2-1.2); Hemoglobin 14.7 g/dL (14.0-18.0); Immature Granulocyte Absolute 0.21 K/mm3 (0.00-0.031); Immature Granulocyte Percent A 1.1 % (0-0.5); Immature Platelet Fraction Pct 11.4 % (0.9-11.2); Lymphocytes Absolute Auto 2.52 K/mm3 (0.9-3.2); Lymphocytes Percent Auto 13.4 % (18.3-44.2); Mean Corpuscular HGB Conc 32.7 g/dl (32-36); Mean Corpuscular Volume 91.8 fl (80-100); Mean Platelet Volume 11.8 fl (7.4-10.4); Monocytes Absolute Auto 1.5 K/mm3 (0.1-0.6); Monocytes Percent Auto 8.1 % (2.6-8.5); Neutrophils Absolute Auto 14.5 K/mm3 (1.3-6.7); Neutrophils Percent Auto 77.2 % (45.5-73.1); Platelet Count Result 130 k/mm3 (150-375); Red Cell Distribution Width 13.2 % (11.5-14.5); White Blood Count 18.8 K/mm3 (4.5-10.0)
[2022-09-26 14:22] LABS: Bacteria Urine Trace /hpf; Mucus Urine Rare /lpf; RBC Urine 0-2 /hpf (0-2); WBC Urine 0-3 /hpf
[2022-09-26 14:23] LABS: Add Urine Microscopic? YES
[2022-09-26 14:23] LABS: Alanine Aminotransferase 25 U/L (6-50); Albumin Level 4.4 g/dL (3.5-5.1); Alkaline Phosphatase 115 U/L (38-126); Anion Gap 10 mmol/L (8-16); Aspartate Amino Transferase 22 U/L (17-59); Bilirubin,Total 0.7 mg/dL (0.2-1.3); Blood Urea Nitrogen 14 mg/dL (9-20); Calcium 9.7 mg/dL (8.4-10.2); Carbon Dioxide 28 mmol/L (22-30); Chloride 98 mmol/L (98-107); Estimated CRCL calculation 70 ml/min; Estimated Glomerular Filt Rate 58; Glucose 124 mg/dL (65-110); Potassium 4.2 mmol/L (3.4-5.0); Sodium 136 mmol/L (137-145)
--- NOTE | 2022-09-26 16:35 | PC.NURSE ---
1605: pt given leg bag and instructed on kwok catheter care.
== END 2022-09-26 16:15 | disposition home or self-care (01) ==
PROVIDERS: Physician Assistant; Emergency Provider Emergency Medicine; PCP Physician Assistant
DX: R33.9 Retention of urine, unspecified (principal); F17.210 Nicotine dependence, cigarettes, uncomplicated; K21.9 Gastro-esophageal reflux disease without esophagitis
CPT/HCPCS: 36415; 51702; 71046; 74018; 80053; 81001; 85025; 85055; 99283

== ENCOUNTER 2022-12-08 09:43 | Emergency (ER) | payer MEDICARE, SELFPAY ==
[2022-12-08 10:23] VITALS: BP 165/111; PULSE 82; RESP 18; TEMP 36.4; O2SAT 99
[2022-12-08] MEDS: SODIUM CHLORIDE 0.9% IV 1,000 ML 999 ML IV CONT (12:29)
[2022-12-08] MEDS: KETOROLAC 30 MG/ML VIAL (*BKC) IV PUSH (12:31)
[2022-12-08] MEDS: METOCLOPRAMIDE HCL INJ 10 MG/2 ML VIAL IV PUSH (12:31)
[2022-12-08] MEDS: diphenhydrAMINE HCl INJ 50 MG/ML VIAL 25 MG IV PUSH (12:33)
--- NOTE | 2022-12-08 14:40 | ED.HA ---
HPI - Headache General Chief Complaint: Headache Stated Complaint: headache Time Seen by Provider: 12/08/22 11:56 History of Present Illness HPI Narrative: Patient is a 52-year-old male who presents ER with headache. Generalized. Typical of his migraine headaches. He is scheduled to have Botox performed with his neurologist. Endorses photophobia and phonophobia. No fevers or chills or sweats. No focal numbness or weakness. No improvement with home medications. He does take hydrocodone at home. Related Data Home Medications Medication Instructions Recorded Confirmed nortriptyline 25 mg capsule 75 mg PO HS 08/24/22 11/07/22 hydrocodone 7.5 mg-acetaminophen 1 tablet PO Q8-10H PRN Pain 09/18/22 11/07/22 325 mg tablet Allergies Allergy/AdvReac Type Severity Reaction Status Date / Time cephalexin Allergy Severe PASSED Verified 12/08/22 11:22 OUT , VOMITING Jfttnwp-QNT-ZwL Reductase Allergy Severe Swelling Verified 12/08/22 11:22 Inhibitor of [Amjpfzc-Csu-Hqx Reductase Lip/Tongue/Throat Inhibitor] Review of Systems Review of Systems: All systems reviewed & are unremarkable except as noted in HPI and below Constitutional: Constitutional: Denies chills, Denies fatigue and Denies fever(s) Eyes: Eyes: Denies change in vision and Reports photophobia ENT: Denies nasal congestion and Denies sore throat Musculoskeletal: Musculoskeletal: Denies back pain Neurologic: Reports headache(s), Denies focal weakness and Denies numbness PMFSH Past Medical History Medical History Allergies Barretts esophagus Gastric ulcer GERD (gastroesophageal reflux disease) Granular cell tumor Esophagus Hx of adenomatous colonic polyps Hx of renal calculi Hypertension Migraines Obesity RICHMOND (obstructive sleep apnea) Rheumatoid arthritis Thrombocytopenia Surgical History Surgical History H/O hemorrhoidectomy 09/25/22 Rectal exam under anesthesia with internal and external hemorrhoidectomy x2 columns History of elbow surgery History of lithotripsy Hx of colonoscopy Hx of esophagogastroduodenoscopy Hx of inguinal hernia repair Hx of sinus surgery S/P left rotator cuff repair Status post medial meniscus repair of right knee Family History Family History Father Heart disease Diabetes mellitus Hypertension Grandparent Cerebrovascular accident Social History Social History Smoking packs per day: 1.5 Smoking cigarettes per day: 30.0 Years smoked: 35 Smoking pack-years: 52.50 Smoking status: Current every day smoker Tobacco type: cigarettes Second hand tobacco smoke exposure: No Smoking end date: 11/05/10 Alcohol intake: current Alcohol use details: HEAVY DRINKER IN PAST, QUIT 15 YEARS AGO Substance use: never Substance use type: does not use Living arrangements: alone Occupation/Education: occupation 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 HEAD: Normocephalic, atraumatic. CHEST: Clear to auscultation. No respiratory distress. HEART: Regular rate and rhythm. Normal peripheral pulses. EXTREMITIES: Normal range of motion. No edema. SKIN: Warm, dry, no rash. NEURO: Alert and oriented x3. Clear speech. PSYCH: Normal mood and affect. Course Course Emergency Course: Patient's migraine headache is gone from 08/14 down to 3 after Reglan/Benadryl/Toradol. Discharge home and recommend follow-up with neurology. Vital Signs Vital signs: Vital Signs Temperature 97.5 F L 12/08/22 10:23 Pulse Rate 82 12/08/22 10:23 Respiratory Rate 18 12/08/22 10:23 B
== END 2022-12-08 15:14 | disposition home or self-care (01) ==
PROVIDERS: Emergency Provider Emergency Medicine; PCP Physician Assistant
DX: R51.9 Headache, unspecified (principal); I10 Essential (primary) hypertension; M06.9 Rheumatoid arthritis, unspecified; K22.70 Barrett's esophagus without dysplasia; K21.9 Gastro-esophageal reflux disease without esophagitis; G47.33 Obstructive sleep apnea (adult) (pediatric); E66.9 Obesity, unspecified; Z68.30 Body mass index [BMI] 30.0-30.9, adult; Z87.442 Personal history of urinary calculi; Z86.010 Personal history of colon polyps; Z87.891 Personal history of nicotine dependence
CPT/HCPCS: 96361; 96374; 96375; 99284; J1200; J1885; J2765; J7030

== ENCOUNTER 2022-12-25 12:01 | Emergency (ER) | payer MEDICARE, SELFPAY ==
--- NOTE | 2022-12-25 12:09 | ED.URI ---
HPI - URI/Sore Throat General Chief Complaint: Upper Respiratory Infection Stated Complaint: Cough/Vomit/Fatique Time Seen by Provider: 12/25/22 12:09 Source: patient Mode of arrival: ambulatory Limitations: no limitations History of Present Illness HPI Narrative: Pierce is a 52-year-old male patient presenting to the clinic today with complaints of cough, chills, sweats, weakness, vomiting, and fatigue x1. He reports he went out to eat at the mall and had a [place] cheese steak yesterday and thinks he may have gotten some food poisoning. He states the rest of his family is are not having similar symptoms. He denies any known fever. He has denies any abdominal pain, urinary symptoms, or bloody/diarrhea stools. Last bowel movement was yesterday and normal for him. States he vomited too many times to count last night. No hematemesis, no history of diabetes. Reports that he has a history of having a low immune system. Does get frequent steroid injections for his chronic neck back pain. MD elicited complaint: sore throat and nasal congestion Related Data Home Medications Medication Instructions Recorded Confirmed nortriptyline 25 mg capsule 75 mg PO HS 08/24/22 12/25/22 hydrocodone 7.5 mg-acetaminophen 1 tablet PO Q8-10H PRN Pain 09/18/22 12/25/22 325 mg tablet Allergies Allergy/AdvReac Type Severity Reaction Status Date / Time cephalexin Allergy Severe PASSED Verified 12/25/22 12:07 OUT , VOMITING Ehclpwo-TME-ZkE Reductase Allergy Severe Swelling Verified 12/25/22 12:07 Inhibitor of [Hmyytrj-Poc-Wnp Reductase Lip/Tongue/Throat Inhibitor] Review of Systems Review of Systems: Pertinent positives per HPI. Patient denies any fever, rash, headache, visual changes, dizziness, shortness of breath, chest pain, palpitations, diarrhea, constipation, abdominal pain, or any urinary issues. [facility] Past Medical History Medical History Allergies Barretts esophagus Gastric ulcer GERD (gastroesophageal reflux disease) Granular cell tumor Esophagus Hx of adenomatous colonic polyps Hx of renal calculi Hypertension Migraines Obesity R[place]MOND (obstructive sleep apnea) Rheumatoid arthritis Thrombocytopenia Surgical History Surgical History H/O hemorrhoidectomy 09/25/22 Rectal exam under anesthesia with internal and external hemorrhoidectomy x2 columns History of elbow surgery History of lithotripsy Hx of colonoscopy Hx of esophagogastroduodenoscopy Hx of inguinal hernia repair Hx of sinus surgery S/P left rotator cuff repair Status post medial meniscus repair of right knee Family History Family History Father Heart disease Diabetes mellitus Hypertension Grandparent Cerebrovascular accident Social History Social History Smoking packs per day: 1.5 Smoking cigarettes per day: 30.0 Years smoked: 35 Smoking pack-years: 52.50 Smoking status: Current every day smoker Tobacco type: cigarettes Second hand tobacco smoke exposure: No Smoking end date: 11/05/10 Alcohol intake: current Alcohol use details: HEAVY DRINKER IN PAST, QUIT 15 YEARS AGO Substance use: never Substance use type: does not use Living arrangements: alone Occupation/Education: occupation 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 There is no relevant family history pertinent to the patient complaint. Exam Narrative: General: Well-developed, well nourished, in no apparent distress Head: Normocephalic, atraumatic Eyes: P
[2022-12-25 12:10] VITALS: BP 150/117; PULSE 106; RESP 16; TEMP 36.9; O2SAT 99
[2022-12-25 12:21] LABS: Glucose Point of Care 160 mg/dl (65-105)
[2022-12-25] MEDS: ONDANSETRON HCL ODT 4 MG TABLET 8 MG SUBLINGUAL (12:27)
== END 2022-12-25 13:20 | disposition home or self-care (01) ==
PROVIDERS: Emergency Provider Nurse Practitioner Family; PCP Physician Assistant
DX: R73.9 Hyperglycemia, unspecified (principal); K29.00 Acute gastritis without bleeding; I10 Essential (primary) hypertension; M06.9 Rheumatoid arthritis, unspecified; F17.210 Nicotine dependence, cigarettes, uncomplicated; Z79.891 Long term (current) use of opiate analgesic; Z20.822 Contact with and (suspected) exposure to COVID-19
CPT/HCPCS: 81003; 82948; 87081; 87426; 87804; 87880; 99213; A9270; C9803; G0463

== ENCOUNTER 2023-02-05 10:51 | Outpatient (CLI) | payer MEDICARE, SELFPAY ==
[2023-02-05 11:30] LABS: Basophils Absolute Auto 0.1 K/mm3 (0.0-0.1); Basophils Percent Auto 0.7 % (0.2-1.2); Eosinophils Absolute Auto 0.2 K/mm3 (0-0.3); Eosinophils Percent Auto 1.4 % (0-4.4); Hematocrit 55.1 % (42.0-52.0); Hemoglobin 18.1 g/dL (14.0-18.0); Immature Granulocyte Absolute 0.09 K/mm3 (0.00-0.031); Immature Granulocyte Percent A 0.6 % (0-0.5); Immature Platelet Fraction Pct 12.3 % (0.9-11.2); Lymphocytes Absolute Auto 3.33 K/mm3 (0.9-3.2); Lymphocytes Percent Auto 22.9 % (18.3-44.2); Mean Corpuscular HGB Conc 32.8 g/dl (32-36); Mean Corpuscular Hemoglobin 29.3 pg (26-34); Mean Corpuscular Volume 89.2 fl (80-100); Mean Platelet Volume 11.9 fl (7.4-10.4); Monocytes Absolute Auto 0.8 K/mm3 (0.1-0.6); Monocytes Percent Auto 5.5 % (2.6-8.5); Neutrophils Percent Auto 68.9 % (45.5-73.1); Platelet Count Result 140 k/mm3 (150-375); Red Blood Count 6.18 M/mm3 (4.6-6.20); Red Cell Distribution Width 13.5 % (11.5-14.5); White Blood Count 14.6 K/mm3 (4.5-10.0)
[2023-02-05 11:36] LABS: Alanine Aminotransferase 22 U/L (6-50); Albumin Level 4.7 g/dL (3.5-5.1); Alkaline Phosphatase 137 U/L (38-126); Anion Gap 7 mmol/L (8-16); Aspartate Amino Transferase 24 U/L (17-59); Bilirubin,Total 0.8 mg/dL (0.2-1.3); Blood Urea Nitrogen 12 mg/dL (9-20); Calcium 9.4 mg/dL (8.4-10.2); Carbon Dioxide 26 mmol/L (22-30); Chloride 106 mmol/L (98-107); Cholesterol 238 mg/dL (0-200); Estimated Glomerular Filt Rate > 60; Glucose 126 mg/dL (65-110); HDL Direct 33 mg/dL; Potassium 4.1 mmol/L (3.4-5.0); Sodium 139 mmol/L (137-145); Triglycerides 204 mg/dL (<150)
[2023-02-05 11:37] LABS: Hemoglobin A1C 6.3 % (<5.7)
[2023-02-05 11:47] LABS: LDL Cholesterol Direct 153 mg/dL
== END 2023-02-05 10:52 | disposition home or self-care (01) ==
PROVIDERS: PCP Physician Assistant; Visit Provider Physician Assistant
DX: D69.6 Thrombocytopenia, unspecified (principal); R73.9 Hyperglycemia, unspecified; E78.5 Hyperlipidemia, unspecified
CPT/HCPCS: 36415; 80053; 80061; 83036; 85025; 85055

== ENCOUNTER 2023-02-26 14:04 | Outpatient (CLI) | payer MEDICARE, SELFPAY ==
--- NOTE | ~2023-02-26 | XR_ITS ---
EXAMINATION: XR chest 2V Exam Date/Time: 02/26/2023 14:25 CDT HISTORY: F17.200 - Nicotine dependence, unspecified, uncomplicated Comparison: 09/26/2022, 08/24/2022. RESULT: Lines, tubes, and devices: Distal esophageal endoscopy clip. Lungs and pleura: Clear. Calcified right midlung granuloma. Cardiomediastinal silhouette: Stable. Other: No acute osseous or upper abdominal finding. IMPRESSION: No acute cardiopulmonary process. Reviewed, dictated and finalized at location K.
--- NOTE | ~2023-02-26 | XR_ITS ---
EXAMINATION: XR hand BI arthritis min 3V DATE: 02/26/2023 14:33 INDICATION: Rheumatoid arthritis with rheumatoid factor. TECHNIQUE: 4 views of right hand and 4 views of left hand on 7 radiographs were obtained. COMPARISON: Bilateral hand radiographs 04/16/2018 FINDINGS: RIGHT HAND: Bone alignment is normal. No fracture. There is mild osteoarthritis of first carpometacar pal joint, second metacarpophalangeal joint, first interphalangeal joint, second and fifth proximal a nd distal interphalangeal joints, and third distal interphalangeal joint. LEFT HAND: Bone alignment is normal. No fracture. There is mild osteoarthritis of first carpometacarp al joint, second metacarpal phalangeal joint, first interphalangeal joint, and second-fifth distal in terphalangeal joints. IMPRESSION: 1. Polyarticular osteoarthritis. No evidence of inflammatory arthropathy. Reviewed, dictated and finalized at location A.
--- NOTE | ~2023-02-26 | XR_ITS ---
EXAMINATION: XR foot LT standing 2V DATE: 02/26/2023 14:33 INDICATION: Rheumatoid arthritis with rheumatoid factor. TECHNIQUE: 2 views of left foot standing were obtained. COMPARISON: None. FINDINGS: Bone alignment is normal. No fracture. There is severe osteoarthritis of first metatarsopha langeal joint and mild osteoarthritis of some of the interphalangeal joints and midfoot joints. There are enthesophytes at the posterior and plantar aspects of calcaneal tuberosity. IMPRESSION: 1. Polyarticular osteoarthritis. No evidence of inflammatory arthropathy. Reviewed, dictated and finalized at location A.
--- NOTE | ~2023-02-26 | XR_ITS ---
EXAMINATION: XR lumbar spine 2-3V DATE: 02/26/2023 14:33 INDICATION: Rheumatoid arthritis with rheumatoid factor. TECHNIQUE: 3 views of lumbar spine were obtained. COMPARISON: Lumbar spine radiographs 09/02/2022, MRI 01/13/2021 FINDINGS: Bone alignment is normal. Vertebral body heights are normal. Intervertebral disc heights ar e normal. There are endplate osteophytes at most levels. There is multilevel mild facet joint osteoar thritis. IMPRESSION: 1. Mild lumbar spondylosis. Reviewed, dictated and finalized at location A. IMPRESSION: 1. Mild lumbar spondylosis.
--- NOTE | ~2023-02-26 | XR_ITS ---
EXAMINATION: XR foot RT standing 2V DATE: 02/26/2023 14:33 INDICATION: Rheumatoid arthritis with rheumatoid factor. TECHNIQUE: 2 views of right foot standing were obtained. COMPARISON: Right ankle radiograph 04/16/2018 FINDINGS: Bone alignment is normal. No fracture. There is mild osteoarthritis of first metatarsophala ngeal joint and some of the interphalangeal joints and midfoot joints. There are enthesophytes at the posterior and plantar aspects of calcaneal tuberosity. IMPRESSION: 1. Polyarticular osteoarthritis. No evidence of inflammatory arthropathy. Reviewed, dictated and finalized at location A.
== END 2023-02-26 14:05 | disposition home or self-care (01) ==
LOC: ANHIMG 14:08
PROVIDERS: PCP Physician Assistant; Visit Provider Internal Medicine
DX: M05.79 Rheumatoid arthritis with rheumatoid factor of multiple sites without organ or systems involvement (principal); Z79.899 Other long term (current) drug therapy; Z71.89 Other specified counseling; M15.9 Polyosteoarthritis, unspecified; F17.200 Nicotine dependence, unspecified, uncomplicated; M43.06 Spondylolysis, lumbar region
CPT/HCPCS: 71046; 72100; 73130; 73620

== ENCOUNTER 2023-04-09 09:55 | Outpatient (CLI) | payer MEDICARE, SELFPAY ==
[2023-04-09 10:53] LABS: Basophils Absolute Auto 0.1 K/mm3 (0.0-0.1); Eosinophils Absolute Auto 0.4 K/mm3 (0-0.3); Eosinophils Percent Auto 4.3 % (0-4.4); Hematocrit 54.8 % (42.0-52.0); Hemoglobin 17.6 g/dL (14.0-18.0); Immature Granulocyte Absolute 0.04 K/mm3 (0.00-0.031); Immature Granulocyte Percent A 0.4 % (0-0.5); Immature Platelet Fraction Pct 20.7 % (0.9-11.2); Lymphocytes Absolute Auto 2.11 K/mm3 (0.9-3.2); Lymphocytes Percent Auto 23.4 % (18.3-44.2); Mean Corpuscular HGB Conc 32.1 g/dl (32-36); Mean Corpuscular Hemoglobin 29.3 pg (26-34); Mean Corpuscular Volume 91.2 fl (80-100); Mean Platelet Volume 13.4 fl (7.4-10.4); Monocytes Absolute Auto 0.8 K/mm3 (0.1-0.6); Monocytes Percent Auto 8.3 % (2.6-8.5); Neutrophils Absolute Auto 5.6 K/mm3 (1.3-6.7); Neutrophils Percent Auto 62.6 % (45.5-73.1); Platelet Count Result 103 k/mm3 (150-375); Red Blood Count 6.01 M/mm3 (4.6-6.20); Red Cell Distribution Width 13.2 % (11.5-14.5)
[2023-04-09 11:03] LABS: Appearance Urine Clear (Clear); Bacteria Urine None Seen /hpf; Bilirubin Urine Negative (Negative); Blood Urine Negative (Negative); Color Urine Yellow (Yellow); Glucose Urine UA 2+ mg/dL (Negative); Ketones Urine Negative (Negative); Leukocyte Esterase Ur Trace LEU/UL (Negative); Nitrate Urine Negative (Negative); Non Pathogenic Casts 0-2; Protein Urine 1+ mg/dL (Negative); RBC Urine 0-2 /hpf (0-2); Specific Grav Ur 1.017 (1.001-1.035); Squamous Epithelial Cell Urine None seen /hpf (Few); WBC Urine 0-5 /hpf; pH Urine 5.5 (5.0-9.0)
[2023-04-09 11:04] LABS: Add Urine Microscopic? YES
[2023-04-09 11:27] LABS: Erythrocyte Sedimentation Rate 2 mm/hr (0-20)
[2023-04-09 11:36] LABS: Vitamin D 25 Hydroxy 22.6 ng/mL
[2023-04-09 11:49] LABS: Hepatitis B Surface Antigen Negative (Negative)
[2023-04-09 12:07] LABS: Hepatitis B Surface Anti Res Negative; Hepatitis C Virus Antibody Negative (Negative)
[2023-04-09 12:09] LABS: Rheumatoid Factor < 12.0 IU/ML (<12)
[2023-04-11 13:57] LABS: SS-A <1.0; SS-B <1.0
[2023-04-12 13:19] LABS: NIL 0.22 IU/mL; Quantiferon TB Plus, 1T POSITIVE (NEGATIVE); TB1-NIL 0.66 IU/mL; TB2-NIL 0.95 IU/mL
== END 2023-04-09 09:56 | disposition home or self-care (01) ==
PROVIDERS: PCP Physician Assistant; Visit Provider Internal Medicine
DX: M05.79 Rheumatoid arthritis with rheumatoid factor of multiple sites without organ or systems involvement (principal); M15.9 Polyosteoarthritis, unspecified; R89.9 Unspecified abnormal finding in specimens from other organs, systems and tissues; F17.200 Nicotine dependence, unspecified, uncomplicated; Z71.89 Other specified counseling; Z79.899 Other long term (current) drug therapy
CPT/HCPCS: 36415; 81001; 82306; 85025; 85055; 85652; 86235; 86430; 86480; 86706; 86803; 87340

== ENCOUNTER 2023-04-26 08:34 | Outpatient (CLI) | payer MEDICARE, SELFPAY ==
--- NOTE | ~2023-04-26 | XR_ITS ---
EXAMINATION: XR chest 2V 04/26/2023 08:58 INDICATION: Positive TB test. Chronic cough. PROCEDURE: 2 view chest COMPARISON: Comparison to multiple prior studies sequentially, with oldest reviewed study dated 08/06. FINDINGS: The lungs are clear. The cardiomediastinal silhouette is within normal limits. There are no pleural effusions. There is no pneumothorax suspected. IMPRESSION: 1: NO ACUTE CARDIOPULMONARY DISEASE. Reviewed, dictated and finalized at location L.
[2023-04-26 10:48] LABS: Alanine Aminotransferase 26 U/L (6-50); Albumin Level 4.7 g/dL (3.5-5.1); Alkaline Phosphatase 140 U/L (38-126); Anion Gap 7 mmol/L (8-16); Aspartate Amino Transferase 28 U/L (17-59); Bilirubin,Total 0.8 mg/dL (0.2-1.3); Blood Urea Nitrogen 17 mg/dL (9-20); CRP 0.7 mg/dL (<1.0); Calcium 9.4 mg/dL (8.4-10.2); Carbon Dioxide 32 mmol/L (22-30); Chloride 102 mmol/L (98-107); Estimated Glomerular Filt Rate 53; Glucose 104 mg/dL (65-110); Potassium 4.2 mmol/L (3.4-5.0); Sodium 141 mmol/L (137-145); Uric Acid 5.4 mg/dL (3.5-8.5)
[2023-04-29 13:36] LABS: SM Antibody <1.0; SM/RNP Antibody <1.0
[2023-04-30 13:46] LABS: Anti Cyclic Citrullinated Pept <16 Units (<20)
== END 2023-04-26 08:35 | disposition home or self-care (01) ==
PROVIDERS: PCP Physician Assistant; Visit Provider Internal Medicine
DX: R76.12 Nonspecific reaction to cell mediated immunity measurement of gamma interferon antigen response without active tuberculosis (principal); Z79.899 Other long term (current) drug therapy; Z71.89 Other specified counseling; M15.9 Polyosteoarthritis, unspecified; M05.79 Rheumatoid arthritis with rheumatoid factor of multiple sites without organ or systems involvement; F17.200 Nicotine dependence, unspecified, uncomplicated
CPT/HCPCS: 36415; 71046; 80053; 84550; 86038; 86140; 86200; 86225; 86235

== ENCOUNTER 2023-05-25 13:49 | Outpatient (CLI) | payer MEDICARE, SELFPAY ==
--- NOTE | ~2023-05-25 | XR_ITS ---
EXAM: XR cervical spine 4-5V DATE: 05/25/2023 14:08 HISTORY: NUMBNESS DOWN LEFT LEG . COMPARISON: None available. FINDINGS: Craniocervical association and atlantoaxial joint are aligned and demonstrate mild degener ative change. No prevertebral soft tissue swelling. Trace anterolisthesis at C3-4. Trace retrolisthes is at C4-5 Vertebral body heights are maintained. Mild multilevel disc space narrowing. Multilevel an terior longitudinal ligament ossification including bridging osteophytes from C2 through C5. IMPRESSION: Trace multilevel listheses. Multilevel degenerative disc disease, including large bridgin g osteophytes fusing C2-C5. Reviewed, dictated and finalized at location K. IMPRESSION: Trace multilevel listheses. Multilevel degenerative disc disease, i ncluding large bridging osteophytes fusing C2-C5.
--- NOTE | ~2023-05-25 | XR_ITS ---
EXAM: XR lumbar spine 2-3V DATE: 05/25/2023 14:09 HISTORY: RADICULOPATHY LUMBAR REGION, CERVICAL REGION . COMPARISON: None available. FINDINGS: Soft tissue anchors across the lower abdomen. Exaggerated lumbar lordosis 5 nonrib-bearing lumbar-type vertebral bodies. Pedicles intact. Normal vertebral body alignment. Vertebral body height s preserved. Multilevel mild disc space narrowing and moderate osteophytosis. Multilevel moderate mid and lower lumbar facet arthropathy. No fracture or dislocation. IMPRESSION: Multilevel mild-moderate degenerative disc disease. Multilevel moderate lower lumbar face t arthropathy. Reviewed, dictated and finalized at location K. IMPRESSION: Multilevel mild-moderate degenerative disc disease. Multilevel mode rate lower lumbar facet arthropathy.
== END 2023-05-25 13:50 | disposition home or self-care (01) ==
LOC: ANHIMG 13:51
PROVIDERS: PCP Physician Assistant; Visit Provider Pain Medicine Interventional Pain Medicine
DX: M47.26 Other spondylosis with radiculopathy, lumbar region (principal); M51.36 Other intervertebral disc degeneration, lumbar region; M50.30 Other cervical disc degeneration, unspecified cervical region
CPT/HCPCS: 72050; 72100

== ENCOUNTER 2023-06-26 12:42 | Outpatient (CLI) | payer MEDICARE, SELFPAY ==
--- NOTE | ~2023-06-26 | XR_ITS ---
XR hip RT 2V w AP pelvis 06/26/2023 13:02 Indication: Right hip pain Procedure: AP pelvis and 2 views right hip Comparison: 09/02/2022 Findings: Mild osteoarthritis of the hips. Pelvic rings are intact. There is irregularity and lucency in the right sacrum, suspicious for fracture. There are surgical changes overlying the lower pelvis, consistent with previous hernia repair. Impression: 1: Possible right sacral fracture. Recommend correlation with CT or MRI. Reviewed, dictated and finalized at location L. Impression: 1: Possible right sacral fracture. Recommend correlation with CT or MRI.
== END 2023-06-26 12:43 | disposition home or self-care (01) ==
PROVIDERS: PCP Physician Assistant; Visit Provider Physician Assistant
DX: M25.551 Pain in right hip (principal)
CPT/HCPCS: 73502

== ENCOUNTER 2023-06-26 14:12 | Emergency (ER) | payer MEDICARE, SELFPAY ==
--- NOTE | ~2023-06-26 | CT_ITS ---
EXAMINATION: CT lumbar spine wo con DATE: 06/26/2023 18:12 INDICATION: Low back pain TECHNIQUE: Computed tomography (CT) of the lumbar spine was performed without intravenous contrast. A utomated exposure control and iterative reconstruction technique were employed. The dose-length produ ct was 1061.90 mGy-cm. COMPARISON: Lumbar spine radiographs dated 05/25/2023, MRI dated 01/13/[address] dated 02/17/1990 FINDINGS: Mild lumbar levocurvature. Sagittal alignment is normal. Vertebral body heights are normal. No fractu re. Minimal disc height loss with disc bulges at L2-L3, L3-L4, L4-L5 and L5-S1. The ventricles to mil d central canal stenosis at L4-L5 and L5-S1. Mild to moderate facet osteoarthritis bilaterally at L5- S1 and mild facet osteophyte arising more cephalad lumbar spine. This contributes to moderate right-s ided and mild to moderate left-sided neural foraminal stenosis at L5-S1. Mild left-sided and mild to moderate right-sided neural from stenosis at L4-L5. Mild bilateral neural foraminal stenosis at L2-L3 and L3-L4. Diverticulosis. Paravertebral soft tissues are otherwise unremarkable. IMPRESSION: 1. No significant change in mild lumbar levocurvature with minimal to mild lower lumbar predominant s pondylosis. Reviewed, dictated and finalized at location A. IMPRESSION: 1. No significant change in mild lumbar levocurvature with minimal to mild lowe r lumbar predominant spondylosis.
--- NOTE | ~2023-06-26 | CT_ITS ---
EXAMINATION: CT pelvis wo con DATE: 06/26/2023 18:10 INDICATION: Right hip pain TECHNIQUE: High resolution computed tomography (CT) of the pelvis was performed without intravenous c ontrast. Additional sagittal and coronal reconstructions were performed. Automated exposure control a nd iterative reconstruction technique were employed. The dose-length product was 417.10 mGy-cm. COMPARISON: Radiograph dated 06/26/2023 FINDINGS: Bone alignment is normal. No fracture. No avascular necrosis. Mild osteoarthritis at the bilateral hi ps with marginal osteophytes about the rims of the bilateral acetabula. Mild bilateral sacroiliac ost eoarthritis with bilateral anterior osteophytes at nearly bridging on the left. Postoperative change of bilateral inguinal hernia repairs. Moderate diverticulosis along the sigmoid and visualized portio ns of the descending and ascending colon without adjacent comparison to suggest diverticulitis. Rachel l appendix. Bladder is normal. Mild prostatomegaly measuring 4.3 x 3.6 cm. In the fat anterior to the sigmoid colon is a 1.3 cm fat attenuation lesion with thin peripheral soft tissue density rim and ti ny focus of central soft tissue density consistent with likely age indeterminate epiploic appendagiti s. IMPRESSION: 1. Mild osteoarthritis at the bilateral hip and sacroiliac joints. No acute osseous abnormality. 2. Age-indeterminate epiploic appendagitis in the anterior pelvis. 2. Diverticulosis. Reviewed, dictated and finalized at location A. IMPRESSION: 1. Mild osteoarthritis at the bilateral hip and sacroiliac joints. No acute oss eous abnormality. 2. Age-indeterminate epiploic appendagitis in the anterior pelvis. 2. Diverticulosis.
[2023-06-26 14:18] VITALS: BP 110/70; PULSE 107; RESP 18; TEMP 36.5; O2SAT 96
--- NOTE | 2023-06-26 17:56 | ED.BACK ---
HPI - Back Pain/Injury General Chief Complaint: Extremity Injury, Lower Stated Complaint: crack on R pelvis sent from dr Time Seen by Provider: 06/26/23 17:03 Source: patient Mode of arrival: ambulatory Limitations: no limitations History of Present Illness HPI Narrative: This is a 53-year-old male that presents to the emergency department for right-sided hip pain. Ongoing over the last month. No recent injury or trauma. He had an outpatient x-ray which showed a possible sacral fracture. He was prompted to be seen in the ER by his primary provider. Reports the pain is on the side of his hip and radiates into his back. Does report history of bulging discs. Pain is worse with movement and relieved with rest. He does have [place] that he has been taking for his other chronic joint pains. Denies fever, saddle anesthesia, or bowel/bladder incontinence. Related Data Home Medications Medication Instructions Recorded Confirmed nortriptyline 25 mg capsule 75 mg PO HS 08/24/22 02/02/23 Allergies Allergy/AdvReac Type Severity Reaction Status Date / Time cephalexin Allergy Severe PASSED Verified 04/16/23 14:29 OUT , VOMITING Buyyzae-WFU-NjA Reductase Allergy Severe Swelling Verified 04/16/23 14:29 Inhibitor of [Xygxpqy-Knw-Zby Reductase Lip/Tongue/Throat Inhibitor] Review of Systems Review of Systems: CONSTITUTIONAL: Denies fever SKIN: Denies rash MUSCULOSKELETAL: Reports back pain, joint pain, and myalgia. NEUROLOGIC: Denies numbness, or weakness. 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 Allergies Barretts esophagus Gastric ulcer Generalized osteoarthritis of multiple sites GERD (gastroesophageal reflux disease) Granular cell tumor Esophagus Hx of adenomatous colonic polyps Hx of renal calculi Hypertension Migraines Obesity RICHMOND (obstructive sleep apnea) Rheumatoid arthritis Rheumatoid arthritis with rheumatoid factor of multiple sites without organ or systems involvement Thrombocytopenia Surgical History Surgical History H/O hemorrhoidectomy 09/25/22 Rectal exam under anesthesia with internal and external hemorrhoidectomy x2 columns History of elbow surgery History of lithotripsy Hx of colonoscopy Hx of esophagogastroduodenoscopy Hx of inguinal hernia repair Hx of sinus surgery S/P left rotator cuff repair Status post medial meniscus repair of right knee Family History Family History Father Heart disease Diabetes mellitus Hypertension Grandparent Cerebrovascular accident Social History Social History Smoking packs per day: 1.5 Smoking cigarettes per day: 30.0 Years smoked: 35 Smoking pack-years: 52.50 Smoking status: Current every day smoker Tobacco type: cigarettes Second hand tobacco smoke exposure: No Smoking end date: 11/05/10 Alcohol intake: current Alcohol use details: HEAVY DRINKER IN PAST, QUIT 15 YEARS AGO Substance use: never Substance use type: does not use Lack of Transportation: No Lack of Food: Never True Current Housing: I Have Housing Concerned About Future Housing: No Difficulty Paying Gas/Electric Bills: No Difficulty Paying for Meds: No Currently Unemployed: No Education: High School Diploma/GED Difficulty w/ Childcare or Family Care: No Living arrangements: alone Occupation/Education: occupation 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 HEAD: Normocep
[2023-06-26] MEDS: HYDROcodone/acetaminophen (*CRX) 5-325 MG TABLET 1 TAB PO (17:59)
[2023-06-26 18:00] VITALS: BP 113/72; PULSE 94; RESP 18; TEMP 37; O2SAT 96
== END 2023-06-26 19:26 | disposition home or self-care (01) ==
PROVIDERS: Emergency Provider Physician Assistant; PCP Physician Assistant
DX: M25.551 Pain in right hip (principal); I10 Essential (primary) hypertension; G47.33 Obstructive sleep apnea (adult) (pediatric); E66.9 Obesity, unspecified; Z68.30 Body mass index [BMI] 30.0-30.9, adult; K22.70 Barrett's esophagus without dysplasia; M05.79 Rheumatoid arthritis with rheumatoid factor of multiple sites without organ or systems involvement; M19.90 Unspecified osteoarthritis, unspecified site; Z86.010 Personal history of colon polyps; Z87.442 Personal history of urinary calculi; Z87.891 Personal history of nicotine dependence; K57.90 Diverticulosis of intestine, part unspecified, without perforation or abscess without bleeding; M16.0 Bilateral primary osteoarthritis of hip; M46.1 Sacroiliitis, not elsewhere classified
CPT/HCPCS: 72131; 72192; 73502; 99283; 99284; A9270

== ENCOUNTER 2024-02-15 10:42 | Outpatient (CLI) | payer MEDICARE, SELFPAY ==
[2024-02-15 11:33] LABS: Hematocrit 53.4 % (42.0-52.0); Hemoglobin 17.4 g/dL (14.0-18.0); Immature Platelet Fraction Pct 17.3 % (0.9-11.2); Mean Corpuscular HGB Conc 32.6 g/dl (32-36); Mean Corpuscular Hemoglobin 29.2 pg (26-34); Mean Corpuscular Volume 89.7 fl (80-100); Mean Platelet Volume 13.3 fl (7.4-10.4); Platelet Count Result 111 k/mm3 (150-375); Red Blood Count 5.95 M/mm3 (4.6-6.20); Red Cell Distribution Width 12.7 % (11.5-14.5); White Blood Count 11.1 K/mm3 (4.5-10.0)
[2024-02-15 11:45] LABS: Alanine Aminotransferase 20 U/L (6-50); Albumin Level 4.7 g/dL (3.5-5.1); Alkaline Phosphatase 154 U/L (38-126); Anion Gap 6 mmol/L (4-12); Aspartate Amino Transferase 22 U/L (17-59); Blood Urea Nitrogen 12 mg/dL (9-20); Calcium 9.9 mg/dL (8.4-10.2); Carbon Dioxide 31 mmol/L (22-30); Chloride 98 mmol/L (98-107); Estimated Glomerular Filt Rate 53; Glucose 263 mg/dL (65-110); Potassium 4.1 mmol/L (3.4-5.0); Sodium 135 mmol/L (137-145)
== END 2024-02-15 10:43 | disposition home or self-care (01) ==
PROVIDERS: PCP Physician Assistant; Visit Provider Pain Medicine Interventional Pain Medicine
DX: D69.6 Thrombocytopenia, unspecified (principal); G89.4 Chronic pain syndrome; F41.1 Generalized anxiety disorder; F33.1 Major depressive disorder, recurrent, moderate; M47.22 Other spondylosis with radiculopathy, cervical region; M47.23 Other spondylosis with radiculopathy, cervicothoracic region; Z79.891 Long term (current) use of opiate analgesic; F17.210 Nicotine dependence, cigarettes, uncomplicated; Z51.81 Encounter for therapeutic drug level monitoring
CPT/HCPCS: 36415; 80053; 85027; 85055

== ENCOUNTER 2024-04-02 01:43 | Day surgery (SDC) | payer MEDICARE, SELFPAY ==
[2024-03-14 10:48] VITALS: BMI 30.9
[2024-04-02 12:20] VITALS: BP 139/99; PULSE 99; RESP 16; TEMP 36.2; O2SAT 100
[2024-04-02] MEDS: LACTATED RINGERS 1,000 ML 150 ML IV CONT (12:32)
--- NOTE | 2024-04-02 12:41 | WPDANESEPPF ---
Anes - Initial Pre Proc Eval Procedure: Operation Date: 04/02/24 13:30 Proposed Procedures p Esophagogastroduodenoscopy - Yayo Gil MD Date/Time: 04/02/24 12:41 Surgeon: Yayo Gil MD Pre Op Diagnosis: Nausea with vomiting unspecified, Luu's esopha Patient Data Age: 54 Gender: M Height: 1.78 m Weight: 94.9 kg Last Vital Signs Temp 97.1 F L 04/02/24 12:20 Pulse 99 04/02/24 12:20 Resp 16 04/02/24 12:20 BP 139/99 H 04/02/24 12:20 Pulse Ox 100 04/02/24 12:20 O2 Del Method Room Air 04/02/24 12:20 Allergies Allergy/AdvReac Type Severity Reaction Status Date / Time cephalexin Allergy Severe PASSED Verified 04/02/24 12:18 OUT , VOMITING Putdhwz-CGK-MoX Reductase Allergy Severe Swelling Verified 04/02/24 12:18 Inhibitor of [Yzhpxjy-Zxa-Bcg Reductase Lip/Tongue/Throat Inhibitor] Home Medications Medication Instructions Recorded Confirmed Type inhalational spacing device (Space #1 ea 08/24/22 03/14/24 Rx Chamber) nortriptyline 25 mg capsule 75 mg PO HS 08/24/22 03/14/24 History fluticasone propionate 50 2 spray intranasal DAILY PRN nasal 09/15/22 03/14/24 Rx mcg/actuation nasal congestion #15.8 mL spray,suspension Ventolin HFA 90 mcg/actuation 2 puff inhalation Q4-6H PRN 10/19/23 03/14/24 Rx aerosol inhaler (albuterol sulfate) shortness of breath or wheezing #8 grams omeprazole 40 mg capsule,delayed 40 mg PO BID #180 caps 10/19/23 03/14/24 Rx release lisinopril 20 mg tablet 20 mg PO DAILY #90 tabs 11/19/23 03/14/24 Rx meclizine 25 mg tablet 25 mg PO TID PRN dizziness #30 tabs 11/19/23 03/14/24 Rx erenumab-aooe 140 mg/mL 140 mg subcut MONTHLY 02/18/24 03/14/24 History subcutaneous auto-injector (Aimovig Autoinjector) ondansetron 4 mg disintegrating 4 mg PO Q6H PRN nausea and 02/18/24 03/14/24 Rx tablet vomiting #30 tabs hydrocodone 7.5 mg-acetaminophen 1 tablet PO Q8H PRN Pain 02/29/24 03/14/24 History 325 mg tablet sucralfate 1 gram tablet See Rx Instructions .Route 03/17/24 Rx .COMPLEX #120 tabs varenicline 0.5 mg (11)-1 mg (42) See Rx Instructions PO PER PKG DIR 03/17/24 Rx tablets in a dose pack (Chantix #53 ea Starting Month Box) alprazolam 0.5 mg tablet 0.5 mg PO DAILY PRN anxiety #30 03/18/24 Rx tabs sertraline 50 mg tablet 50 mg PO DAILY #90 tabs 03/26/24 Rx Patient hx anesthesia problems: none Family hx anesthesia problems: none Results Review: All pre-operative results and documents have been reviewed as part of the pre-operative evaluation. 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 Allergies Barretts esophagus Gastric ulcer Generalized osteoarthritis of multiple sites GERD (gastroesophageal reflux disease) Granular cell tumor Esophagus Hx of adenomatous colonic polyps Hx of renal calculi Hypertension Migraines Obesity RICHMOND (obstructive sleep apnea) Rheumatoid arthritis Rheumatoid arthritis with rheumatoid factor of multiple sites without organ or systems involvement Thrombocytopenia Surgical History Surgical History H/O hemorrhoidectomy 09/25/22 Rectal exam under anesthesia with internal and external hemorrhoidectomy x2 columns History of elbow surgery History of lithotripsy Hx of colonoscopy Hx of esophagogastroduodenoscopy Hx of inguinal hernia repair Hx of sinus surgery S/P left rotator cuff repair Status post medial meniscus repair of right knee Family History Family History Father Heart disease Diabetes mellitus Hypertension Grandparent Cerebrovascular accident Social History Social History Smoking packs per day: 1.5 Smoking cigarettes pe
--- NOTE | 2024-04-02 13:29 | PM.HPGS ---
History of Present Illness History of Present Illness Consent: Risks, benefits, and alternatives have been discussed and questions answered. Patient agrees to proceed with procedure. Chief complaint: Nausea with vomiting unspecified, Luu's esopha Narrative: Pierce Horton is a 54 year old male here for egd. He had frequent nausea and vomiting which he states is worse in the mornings.? Over the past few weeks his reflux has been more severe despite being on b.i.d. PPI.?He also has known long segment Luu's, last colonoscopy 2021 with polyps. Also 30 lb unintentional weight loss. 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 Allergies Barretts esophagus Gastric ulcer Generalized osteoarthritis of multiple sites GERD (gastroesophageal reflux disease) Granular cell tumor Esophagus Hx of adenomatous colonic polyps Hx of renal calculi Hypertension Migraines Obesity RICHMOND (obstructive sleep apnea) Rheumatoid arthritis Rheumatoid arthritis with rheumatoid factor of multiple sites without organ or systems involvement Thrombocytopenia Surgical History Surgical History H/O hemorrhoidectomy 09/25/22 Rectal exam under anesthesia with internal and external hemorrhoidectomy x2 columns History of elbow surgery History of lithotripsy Hx of colonoscopy Hx of esophagogastroduodenoscopy Hx of inguinal hernia repair Hx of sinus surgery S/P left rotator cuff repair Status post medial meniscus repair of right knee Family History Family History Father Heart disease Diabetes mellitus Hypertension Grandparent Cerebrovascular accident Social History Social History Smoking packs per day: 1.5 Smoking cigarettes per day: 30.0 Years smoked: 40 Smoking pack-years: 60.00 Smoking status: Current every day smoker Tobacco type: cigarettes Second hand tobacco smoke exposure: No Smoking end date: 11/05/10 Alcohol intake: former Alcohol use details: HEAVY DRINKER IN PAST, QUIT 15 YEARS AGO Substance use: never Substance use type: does not use Lack of Transportation: No Lack of Food: Never True Current Housing: I Have Housing Concerned About Future Housing: No Difficulty Paying Gas/Electric Bills: No Difficulty Paying for Meds: No Currently Unemployed: No Education: High School Diploma/GED Difficulty w/ Childcare or Family Care: No Living arrangements: with family Occupation/Education: occupation 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 Gender identity (if verbalized by the patient): Male Spiritual care concerns: No Meds Home Medications and Allergies Home Medications Medication Instructions Recorded Confirmed Type inhalational spacing device (Space #1 ea 08/24/22 03/14/24 Rx Chamber) nortriptyline 25 mg capsule 75 mg PO HS 08/24/22 03/14/24 History fluticasone propionate 50 2 spray intranasal DAILY PRN nasal 09/15/22 03/14/24 Rx mcg/actuation nasal congestion #15.8 mL spray,suspension Ventolin HFA 90 mcg/actuation 2 puff inhalation Q4-6H PRN 10/19/23 03/14/24 Rx aerosol inhaler (albuterol sulfate) shortness of breath or wheezing #8 grams omeprazole 40 mg capsule,delayed 40 mg PO BID #180 caps 10/19/23 03/14/24 Rx release lisinopril 20 mg tablet 20 mg PO DAILY #90 tabs 11/19/23 03/14/24 Rx meclizine 25 mg tablet 25 mg PO TID PRN dizziness #30 tabs 11/19/23 03/14/24 Rx erenumab-aooe 140 mg/mL 140 mg subcut MONTHLY 02/18/24 03/14/24 History subcutaneous auto-injector (Aimovig Autoinjector) ondansetron 4 mg disintegrating 4 mg PO
[2024-04-02] MEDS: BENZOCAINE (*SP) 60 ML SPRAY CAN (HURRICAINE) 1 SPRAY MUCOUS MEM (13:33)
[2024-04-02 13:47] VITALS: BP 106/75; PULSE 89; RESP 23; O2SAT 98
[2024-04-02 13:57] VITALS: BP 108/78; PULSE 86; RESP 24; O2SAT 95
[2024-04-02 14:07] VITALS: BP 105/65; PULSE 91; RESP 25; O2SAT 100
== END 2024-04-02 14:15 | disposition home or self-care (01) ==
PROVIDERS: PCP Physician Assistant; Referring Provider Nurse Practitioner Family; Visit Provider Internal Medicine Gastroenterology
PROC: 0DJ08ZZ Inspection of Upper Intestinal Tract, Via Natural or Artificial Opening Endoscopic (ICD-10-PCS; CPT 43235; principal; 2024-04-02 13:30)
DX: K29.70 Gastritis, unspecified, without bleeding (principal); K21.9 Gastro-esophageal reflux disease without esophagitis; Z87.19 Personal history of other diseases of the digestive system; I10 Essential (primary) hypertension; G47.33 Obstructive sleep apnea (adult) (pediatric); M05.79 Rheumatoid arthritis with rheumatoid factor of multiple sites without organ or systems involvement; E66.9 Obesity, unspecified; Z68.30 Body mass index [BMI] 30.0-30.9, adult; Z87.891 Personal history of nicotine dependence; Z79.51 Long term (current) use of inhaled steroids
CPT/HCPCS: 43239; 88305; J2704; J7120

== ENCOUNTER 2024-04-16 08:57 | Outpatient (CLI) | payer MEDICARE, SELFPAY ==
--- NOTE | ~2024-04-16 | CT_ITS ---
CT of the Abdomen and Pelvis: Indication: Weight loss Technique: 2.5 mm axial scans were obtained through the abdomen and pelvis following intravenous adm inistration of 100 cc of Omnipaque 350. Dose reduction technique was used on this scan by utilizing a utomated exposure control and iterative reconstruction technique. The dose-length product (DLP) was 8 05.79 mGy-cm. COMPARISON: 06/26/2023 Findings: Scans through the lung bases are unremarkable. Mildly nodular contour of the liver noted. Spleen measures 16.6 cm in length. The pancreas, gallbladd er, adrenals and kidneys are within normal limits. No evidence of aortic aneurysm. In large julia he patis/peripancreatic lymph nodes are present. Largest node measures 2.8 x 1.3 cm (axial image 73). No bowel obstruction or bowel wall thickening. There is no evidence to suggest acute appendicitis. Images through the pelvis were performed. Urinary bladder unremarkable. Prostate gland enlarged. No a scites. Impression: Cirrhotic morphology of liver with associated splenomegaly. Prostatomegaly. Julia hepatis/peripancreatic lymphadenopathy, nonspecific. Correlate for reactive lymph nodes versus any possibility of lymphoma or other metastatic disease. Reviewed, dictated and finalized at location . Impression: Cirrhotic morphology of liver with associated splenomegaly. Prostatomegaly. Julia hepatis/peripancreatic lymphadenopathy, nonspecific. Correlate for reacti ve lymph nodes versus any possibility of lymphoma or other metastatic disease.
[2024-04-16 09:25] LABS: Estimated Glomerular Filt Rate 49
== END 2024-04-16 08:58 | disposition home or self-care (01) ==
PROVIDERS: PCP Physician Assistant; Visit Provider Internal Medicine Gastroenterology
DX: R63.4 Abnormal weight loss (principal); N40.0 Benign prostatic hyperplasia without lower urinary tract symptoms
CPT/HCPCS: 74177; Q9967

== ENCOUNTER 2024-05-07 08:39 | Outpatient (CLI) | payer MEDICARE, SELFPAY ==
--- NOTE | ~2024-05-07 | MR_ITS ---
EXAMINATION: MR MRCP wo/w con/w 3D wo ind DATE: 05/07/2024 10:02 INDICATION: Abnormal weight loss. Abnormal levels of serum enzymes. TECHNIQUE: Magnetic resonance imaging (MRI) of the abdomen was performed without and with 18 mL Multi Yayo intravenous contrast. Sequences included coronal T2-weighted FS FSE, coronal T2-weighted FSE, a xial T1-weighted LAVA, coronal FS FIESTA, axial dual-echo T1-weighted SPGR, coronal lava-FLEX, sagitt al T2-weighted FSE, axial T2-weighted FSE, and axial DWI. Thick-slab T2-weighted FSE images were obta ined for magnetic resonance cholangiopancreatography (MRCP). Maximum intensity projection 3-D reconst ructions of the volumetric data were created by the technologist. Postcontrast sequences included cor onal LAVA-flex and time course of axial T1-weighted LAVA. COMPARISON: CT abdomen and pelvis 04/16/2024 FINDINGS: ABDOMEN MRI: The liver demonstrates surface nodularity of steatosis, consistent with cirrhosis. The g allbladder is normal. There is mild splenomegaly. The pancreas and adrenal glands are normal. There a re cysts in the kidneys measuring up to 15 mm on the right. There are no dilated loops of bowel. Ther e is mild periportal lymphadenopathy, likely reactive. The largest periportal node measures 19 x 12 m m. There is a periumbilical portacaval shunt. 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 There is no free intr aperitoneal fluid. ABDOMEN MRCP: The common duct is normal and measures 5 mm. No choledocholithiasis. IMPRESSION: 1. Cirrhosis of the liver with portal venous hypertension. 2. Mild periportal lymphadenopathy, likely reactive. Reviewed, dictated and finalized at location A.
== END 2024-05-07 08:40 | disposition home or self-care (01) ==
LOC: ANHIMG 08:56
PROVIDERS: PCP Physician Assistant; Visit Provider Internal Medicine Gastroenterology
DX: R74.8 Abnormal levels of other serum enzymes (principal); D36.0 Benign neoplasm of lymph nodes; R63.4 Abnormal weight loss; K74.60 Unspecified cirrhosis of liver; R59.0 Localized enlarged lymph nodes; K76.6 Portal hypertension
CPT/HCPCS: 74183; 76376; A9577

== ENCOUNTER 2024-05-14 00:12 | Day surgery (SDC) | payer MEDICARE, SELFPAY ==
[2024-04-24 14:30] VITALS: BMI 29.4
[2024-05-14 10:04] VITALS: BP 118/87; PULSE 100; RESP 16; TEMP 36.1; O2SAT 98
[2024-05-14] MEDS: LACTATED RINGERS 1,000 ML 150 ML IV CONT (10:12)
--- NOTE | 2024-05-14 10:16 | WPDANESEPPF ---
Anes - Initial Pre Proc Eval Procedure: Operation Date: 05/14/24 14:30 Proposed Procedures p Colonoscopy - Yayo Gil MD Date/Time: 05/14/24 10:16 Surgeon: Yayo Gil MD Pre Op Diagnosis: Pers. Hx. of colon polyps, Abnormal Wt. Loss Patient Data Age: 54 Gender: M Height: 1.78 m Weight: 95 kg Last Vital Signs Temp 97 F L 05/14/24 10:04 Pulse 100 05/14/24 10:04 Resp 16 05/14/24 10:04 BP 118/87 05/14/24 10:04 Pulse Ox 98 05/14/24 10:04 O2 Del Method Room Air 05/14/24 10:04 Allergies Allergy/AdvReac Type Severity Reaction Status Date / Time cephalexin Allergy Severe PASSED Verified 05/14/24 10:03 OUT , VOMITING Witsxlh-QXW-RiL Reductase Allergy Severe Swelling Verified 05/14/24 10:03 Inhibitor of [Yttawtn-Bbr-Fmi Reductase Lip/Tongue/Throat Inhibitor] Home Medications Medication Instructions Recorded Confirmed Type inhalational spacing device (Space #1 ea 08/24/22 03/14/24 Rx Chamber) fluticasone propionate 50 2 spray intranasal DAILY PRN nasal 09/15/22 04/24/24 Rx mcg/actuation nasal congestion #15.8 mL spray,suspension Ventolin HFA 90 mcg/actuation 2 puff inhalation Q4-6H PRN 10/19/23 04/24/24 Rx aerosol inhaler (albuterol sulfate) shortness of breath or wheezing #8 grams lisinopril 20 mg tablet 20 mg PO DAILY #90 tabs 11/19/23 04/24/24 Rx meclizine 25 mg tablet 25 mg PO TID PRN dizziness #30 tabs 11/19/23 04/24/24 Rx erenumab-aooe 140 mg/mL 140 mg subcut MONTHLY 02/18/24 04/24/24 History subcutaneous auto-injector (Aimovig Autoinjector) ondansetron 4 mg disintegrating 4 mg PO Q6H PRN nausea and 02/18/24 04/24/24 Rx tablet vomiting #30 tabs hydrocodone 7.5 mg-acetaminophen 1 tablet PO Q8H PRN Pain 02/29/24 04/24/24 History 325 mg tablet sucralfate 1 gram tablet See Rx Instructions .Route 03/17/24 04/24/24 Rx .COMPLEX #120 tabs sertraline 50 mg tablet 50 mg PO DAILY #90 tabs 03/26/24 04/24/24 Rx omeprazole 40 mg capsule,delayed 40 mg PO BID #180 caps 04/11/24 04/24/24 Rx release alprazolam 1 mg tablet (Xanax) 1 mg PO QHS #30 tabs 04/14/24 04/24/24 Rx Patient hx anesthesia problems: none Family hx anesthesia problems: none Results Review: All pre-operative results and documents have been reviewed as part of the pre-operative evaluation. 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 Allergies Barretts esophagus Benign neoplasm of mesenteric lymph node Gastric ulcer Generalized osteoarthritis of multiple sites GERD (gastroesophageal reflux disease) Granular cell tumor Esophagus Hx of adenomatous colonic polyps Hx of renal calculi Hypertension Migraines Obesity RICHMOND (obstructive sleep apnea) Rheumatoid arthritis Rheumatoid arthritis with rheumatoid factor of multiple sites without organ or systems involvement Thrombocytopenia Surgical History Surgical History H/O hemorrhoidectomy 09/25/22 Rectal exam under anesthesia with internal and external hemorrhoidectomy x2 columns History of elbow surgery History of lithotripsy Hx of colonoscopy Hx of esophagogastroduodenoscopy Hx of inguinal hernia repair Hx of sinus surgery S/P left rotator cuff repair Status post medial meniscus repair of right knee Family History Family History Father Heart disease Diabetes mellitus Hypertension Grandparent Cerebrovascular accident Social History Social History Smoking packs per day: 2 Smoking cigarettes per day: 40.0 Years smoked: 40 Smoking pack-years: 80.00 Smoking status: Current every day smoker Tobacco type: cigarettes Second hand tobacco smoke exposure: No Smoking end date:
--- NOTE | 2024-05-14 10:59 | PM.HPGS ---
History of Present Illness History of Present Illness Consent: Risks, benefits, and alternatives have been discussed and questions answered. Patient agrees to proceed with procedure. Chief complaint: Pers. Hx. of colon polyps, Abnormal Wt. Loss Narrative: Pierce Horton is a 54 year old male here for colonoscopy, last one 2021 with polyps but recently had weight loss, egd showed hodgson's and gastritis, then imaging showed cirrhosis of liver. 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 Allergies Barretts esophagus Benign neoplasm of mesenteric lymph node Gastric ulcer Generalized osteoarthritis of multiple sites GERD (gastroesophageal reflux disease) Granular cell tumor Esophagus Hx of adenomatous colonic polyps Hx of renal calculi Hypertension Migraines Obesity RICHMOND (obstructive sleep apnea) Rheumatoid arthritis Rheumatoid arthritis with rheumatoid factor of multiple sites without organ or systems involvement Thrombocytopenia Surgical History Surgical History H/O hemorrhoidectomy 09/25/22 Rectal exam under anesthesia with internal and external hemorrhoidectomy x2 columns History of elbow surgery History of lithotripsy Hx of colonoscopy Hx of esophagogastroduodenoscopy Hx of inguinal hernia repair Hx of sinus surgery S/P left rotator cuff repair Status post medial meniscus repair of right knee Family History Family History Father Heart disease Diabetes mellitus Hypertension Grandparent Cerebrovascular accident Social History Social History Smoking packs per day: 2 Smoking cigarettes per day: 40.0 Years smoked: 40 Smoking pack-years: 80.00 Smoking status: Current every day smoker Tobacco type: cigarettes Second hand tobacco smoke exposure: No Smoking end date: 11/05/10 Alcohol intake: never Alcohol use details: HEAVY DRINKER IN PAST, QUIT 15 YEARS AGO Substance use: current Substance use type: opiates and painkillers Lack of Transportation: No Lack of Food: Never True Current Housing: I Have Housing Concerned About Future Housing: No Difficulty Paying Gas/Electric Bills: No Difficulty Paying for Meds: No Currently Unemployed: No Education: High School Diploma/GED Difficulty w/ Childcare or Family Care: No Living arrangements: alone Occupation/Education: occupation 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 Gender identity (if verbalized by the patient): Male Spiritual care concerns: No Meds Home Medications and Allergies Home Medications Medication Instructions Recorded Confirmed Type inhalational spacing device (Space #1 ea 08/24/22 03/14/24 Rx Chamber) fluticasone propionate 50 2 spray intranasal DAILY PRN nasal 09/15/22 04/24/24 Rx mcg/actuation nasal congestion #15.8 mL spray,suspension Ventolin HFA 90 mcg/actuation 2 puff inhalation Q4-6H PRN 10/19/23 04/24/24 Rx aerosol inhaler (albuterol sulfate) shortness of breath or wheezing #8 grams lisinopril 20 mg tablet 20 mg PO DAILY #90 tabs 11/19/23 04/24/24 Rx meclizine 25 mg tablet 25 mg PO TID PRN dizziness #30 tabs 11/19/23 04/24/24 Rx erenumab-aooe 140 mg/mL 140 mg subcut MONTHLY 02/18/24 04/24/24 History subcutaneous auto-injector (Aimovig Autoinjector) ondansetron 4 mg disintegrating 4 mg PO Q6H PRN nausea and 02/18/24 04/24/24 Rx tablet vomiting #30 tabs hydrocodone 7.5 mg-acetaminophen 1 tablet PO Q8H PRN Pain 02/29/24 04/24/24 History 325 mg tablet sucralfate 1 gram tablet See Rx Instructions .Route 03/17/24 04/24/24 Rx .COMPLEX #120
[2024-05-14 11:19] VITALS: BP 98/67; PULSE 90; RESP 16; O2SAT 96
--- NOTE | 2024-05-14 11:20 | SUR.OPER ---
Descending colon polyp not retrieved. notified.
[2024-05-14 11:29] VITALS: BP 103/66; PULSE 88; RESP 16; O2SAT 94
[2024-05-14 11:39] VITALS: BP 117/54; PULSE 83; RESP 16; O2SAT 95
== END 2024-05-14 11:48 | disposition home or self-care (01) ==
PROVIDERS: PCP Physician Assistant; Visit Provider Internal Medicine Gastroenterology
PROC: 0DJD8ZZ Inspection of Lower Intestinal Tract, Via Natural or Artificial Opening Endoscopic (ICD-10-PCS; CPT 45378; principal; 2024-05-14 14:30)
DX: D12.5 Benign neoplasm of sigmoid colon (principal); K63.5 Polyp of colon; K57.30 Diverticulosis of large intestine without perforation or abscess without bleeding; K22.70 Barrett's esophagus without dysplasia; K29.70 Gastritis, unspecified, without bleeding; K74.60 Unspecified cirrhosis of liver; I10 Essential (primary) hypertension; M05.79 Rheumatoid arthritis with rheumatoid factor of multiple sites without organ or systems involvement; E66.9 Obesity, unspecified; Z68.30 Body mass index [BMI] 30.0-30.9, adult; Z87.891 Personal history of nicotine dependence; Z79.51 Long term (current) use of inhaled steroids
CPT/HCPCS: 45385; 45380; 88305; J2704; J7120

== ENCOUNTER 2024-07-21 12:42 | Outpatient (CLI) | payer MEDICARE, MEDICAID, SELFPAY ==
[2024-07-21 14:04] LABS: Hemoglobin 17.1 g/dL (14.0-18.0); Immature Platelet Fraction Pct 17.3 % (0.9-11.2); Mean Corpuscular HGB Conc 32.9 g/dl (32-36); Mean Corpuscular Hemoglobin 29.7 pg (26-34); Mean Corpuscular Volume 90.4 fl (80-100); Mean Platelet Volume 12.8 fl (7.4-10.4); Platelet Count Result 98 k/mm3 (150-375); Red Blood Count 5.75 M/mm3 (4.6-6.20); Red Cell Distribution Width 12.1 % (11.5-14.5); White Blood Count 10.2 K/mm3 (4.5-10.0)
[2024-07-21 14:24] LABS: Rheumatoid Factor < 12.0 IU/ML (<12)
[2024-07-21 14:42] LABS: Erythrocyte Sedimentation Rate 1 mm/hr (0-20)
[2024-07-21 14:44] LABS: CRP 1.3 mg/dL (<1.0)
[2024-07-21 14:54] LABS: Alanine Aminotransferase 21 U/L (6-50); Albumin Level 4.6 g/dL (3.5-5.1); Alkaline Phosphatase 146 U/L (38-126); Anion Gap 13 mmol/L (4-12); Aspartate Amino Transferase 29 U/L (17-59); Bilirubin,Total 0.9 mg/dL (0.2-1.3); Blood Urea Nitrogen 9 mg/dL (9-20); Calcium 9.8 mg/dL (8.4-10.2); Carbon Dioxide 28 mmol/L (22-30); Chloride 98 mmol/L (98-107); Estimated Glomerular Filt Rate 45; Glucose 212 mg/dL (65-110); Potassium 4.4 mmol/L (3.4-5.0); Sodium 139 mmol/L (137-145)
[2024-07-21 16:29] LABS: Cholesterol 204 mg/dL (0-200); HDL Direct 30 mg/dL; Triglycerides 304 mg/dL (<150)
[2024-07-21 16:39] LABS: LDL Cholesterol Direct 126 mg/dL
[2024-07-21 18:02] LABS: Prostate Specific Antigen 0.7 ng/mL (< OR = 4.0)
== END 2024-07-21 12:43 | disposition home or self-care (01) ==
PROVIDERS: PCP Physician Assistant; Visit Provider Nurse Practitioner
DX: Z12.5 Encounter for screening for malignant neoplasm of prostate (principal); K21.9 Gastro-esophageal reflux disease without esophagitis; E78.5 Hyperlipidemia, unspecified; G47.30 Sleep apnea, unspecified; M05.79 Rheumatoid arthritis with rheumatoid factor of multiple sites without organ or systems involvement
CPT/HCPCS: 36415; 80053; 80061; 84153; 84443; 85027; 85055; 85652; 86140; 86430; G0103

== ENCOUNTER 2024-07-21 14:08 | Outpatient (CLI) | payer MEDICARE, SELFPAY ==
--- NOTE | ~2024-07-21 | XR_ITS ---
[id number] Ordering provider: Sebastian Up MD History: . RADICULOPATHY, C AND L REGION . Comparison: May 25, 2020 FINDINGS: VERTEBRAL BODIES: Normal height and alignment. No visible fracture or subluxation. The dens is intact . Degenerative changes of the spine. DISK SPACES: Well maintained. PARASPINOUS SOFT TISSUES: No prevertebral soft tissue swelling. IMPRESSION: No acute osseous abnormality cervical spine. Reviewed, dictated and finalized at location A.
--- NOTE | ~2024-07-21 | XR_ITS ---
3 VIEWS LUMBAR SPINE Ordering provider: Sebastian Up MD History: . RADICULOPATHY, C AND L REGION CHRONIC PAIN . Comparison: None. FINDINGS: VERTEBRAL BODIES: No visible fracture or subluxation. Degenerative changes of the spine. DISK SPACES: Normal. SOFT TISSUES: Normal. IMPRESSION: No acute osseous abnormality lumbar spine. Reviewed, dictated and finalized at location A.
== END 2024-07-21 14:09 | disposition home or self-care (01) ==
PROVIDERS: PCP Physician Assistant; Visit Provider Pain Medicine Interventional Pain Medicine
DX: M54.12 Radiculopathy, cervical region (principal); M54.16 Radiculopathy, lumbar region
CPT/HCPCS: 36415; 72040; 72100; 80053; 80061; 84153; 84443; 85027; 85055; 85652; 86140; 86430; G0103

== ENCOUNTER 2024-08-01 13:10 | Outpatient (CLI) | payer MEDICARE, SELFPAY ==
[2024-08-02 08:59] LABS: Alpha-1-Antitrypsin, QN 196 mg/dL (83-199); Ceruloplasmin 25 mg/dL (14-30)
[2024-08-04 10:09] LABS: Alpha Fetoprotein Tumor Marker 3.4 ng/mL (<6.1)
[2024-08-05 18:49] LABS: Mitochondrial (M2) Ab (IgG) <20.0 U
[2024-08-06 12:28] LABS: Actin Antibody (IgG) <20 U (<20)
[2024-08-07 15:03] LABS: ALT 12 U/L (9-46); Alpha-2-Macroglobulin 396 mg/dL (106-279); Apolipoprotein A1 94 mg/dL (94-176); Fibrosis Score 0.75; Fibrosis Stage F4; GGT 48 U/L (3-85); Haptoglobin 152 mg/dL (43-212); Necroinflammat Act Grade A0; Reference ID 5134419; Total Bilirubin 0.6 mg/dL (0.2-1.2)
[2024-08-08 04:04] LABS: GGT 47 U/L (3-85)
== END 2024-08-01 13:11 | disposition home or self-care (01) ==
PROVIDERS: PCP Physician Assistant; Visit Provider Nurse Practitioner Family
DX: R74.8 Abnormal levels of other serum enzymes (principal); K74.60 Unspecified cirrhosis of liver
CPT/HCPCS: 36415; 81596; 82103; 82105; 82390; 82977; 83520; 86038; 86039; 86364

== ENCOUNTER 2024-08-09 11:55 | Outpatient (CLI) | payer MEDICARE, SELFPAY ==
[2024-08-09 12:21] LABS: Hemoglobin A1C 10.8 % (<5.7)
== END 2024-08-09 11:56 | disposition home or self-care (01) ==
PROVIDERS: PCP Physician Assistant; Visit Provider Nurse Practitioner
DX: R73.9 Hyperglycemia, unspecified (principal)
CPT/HCPCS: 36415; 83036

== ENCOUNTER 2024-09-16 12:30 | Outpatient (CLI) | payer MEDICARE, SELFPAY ==
--- NOTE | ~2024-09-16 | US_ITS ---
EXAMINATION: US renal BI DATE: 09/16/2024 14:40 INDICATION: Stage IIIa chronic kidney disease TECHNIQUE: Multiple ultrasound grayscale images of the kidneys were obtained. COMPARISON: CT dated 04/16/2024 FINDINGS: The right kidney measures 12.1 x 5.3 x 6.1 cm. The left kidney measures 12.8 x 5.0 x 4.2 cm. The kidn eys demonstrate normal echogenicity. There are couple anechoic cysts at the right kidney, both measur ing 1.3 cm. There is no hydronephrosis in either kidney. No shadowing nephrolithiasis. The bladder i s normal. IMPRESSION: 1. A couple right renal cyst. Otherwise normal kidneys with no hydronephrosis. Reviewed, dictated and finalized at location B. CTOR SERVICE
== END 2024-09-16 12:31 | disposition home or self-care (01) ==
LOC: ANHIMG 12:33
PROVIDERS: PCP Internal Medicine; Visit Provider Internal Medicine Nephrology
DX: N28.1 Cyst of kidney, acquired (principal); I12.9 Hypertensive chronic kidney disease with stage 1 through stage 4 chronic kidney disease, or unspecified chronic kidney disease; N18.31 Chronic kidney disease, stage 3a
CPT/HCPCS: 76775

== ENCOUNTER 2024-10-21 14:15 | Outpatient (RCR) | payer MEDICARE, OTHER, SELFPAY ==
[2024-09-16 14:44] VITALS: BMI 32.3
[2024-09-16 15:08] VITALS: BMI 32.3
== END 2024-12-01 09:47 | disposition home or self-care (01) ==
LOC: ANHDMC 14:15
PROVIDERS: PCP Internal Medicine; Visit Provider Internal Medicine
DX: E11.65 Type 2 diabetes mellitus with hyperglycemia (principal); Z71.89 Other specified counseling; Z71.3 Dietary counseling and surveillance
CPT/HCPCS: 97802; G0108

== ENCOUNTER 2024-10-21 16:10 | Outpatient (CLI) | payer MEDICARE, OTHER, SELFPAY ==
[2024-10-21 17:00] LABS: Alanine Aminotransferase 27 U/L (6-50); Albumin Level 4.7 g/dL (3.5-5.1); Alkaline Phosphatase 106 U/L (38-126); Anion Gap 6 mmol/L (4-12); Aspartate Amino Transferase 30 U/L (17-59); Bilirubin,Total 0.6 mg/dL (0.2-1.3); Blood Urea Nitrogen 21 mg/dL (9-20); Calcium 9.7 mg/dL (8.4-10.2); Carbon Dioxide 30 mmol/L (22-30); Chloride 101 mmol/L (98-107); Cholesterol 193 mg/dL (0-200); Estimated Glomerular Filt Rate 45; Glucose 99 mg/dL (65-110); HDL Direct 31 mg/dL; Potassium 4.7 mmol/L (3.4-5.0); Sodium 137 mmol/L (137-145); Triglycerides 262 mg/dL (<150)
[2024-10-21 17:09] LABS: Phosphorus 4.3 mg/dL (2.5-4.5)
[2024-10-21 17:10] LABS: LDL Cholesterol Direct 122 mg/dL
[2024-10-21 17:17] LABS: Complement C3 115 mg/dL (88-165)
[2024-10-21 17:23] LABS: Creatinine Urine 99.1 mg/dL; Total Protein Urine Random 7 mg/dL; Ur Ttl Prot Creatinine Ratio 0.07 mg/mg (0-0.20)
[2024-10-21 17:52] LABS: MALB Creatinine Ratio 7.7 mg/g (0-30); Microalbumin Urine Random 7.5 mg/L (0-16.7)
[2024-10-21 21:02] LABS: Hemoglobin A1C 6.5 % (<5.7)
[2024-10-22 10:28] LABS: Protein, Total 7.5 g/dL (6.1-8.1)
[2024-10-23 05:03] LABS: Creatinine, Random Urine 99 mg/dL (20-320); Total Prot/Creat ratio mg/mg 0.101 (0.025-0.148); Total Protein/Creatinine Ratio 101 mg/g creat (25-148)
[2024-10-23 17:18] LABS: Anti Glomerular Basement Memb <1.0 AI
[2024-10-24 04:44] LABS: ANCA Screen NEGATIVE (NEGATIVE)
== END 2024-10-21 16:11 | disposition home or self-care (01) ==
LOC: ANHLAB 16:14
PROVIDERS: PCP Internal Medicine; Visit Provider Internal Medicine Nephrology
DX: I12.9 Hypertensive chronic kidney disease with stage 1 through stage 4 chronic kidney disease, or unspecified chronic kidney disease (principal); N18.31 Chronic kidney disease, stage 3a; E11.22 Type 2 diabetes mellitus with diabetic chronic kidney disease
CPT/HCPCS: 36415; 80053; 80061; 82043; 82570; 83036; 83520; 84100; 84155; 84156; 84165; 84166; 86036; 86038; 86039; 86160; 86225

== ENCOUNTER 2024-12-07 12:07 | Emergency (ER) | payer MEDICARE, OTHER, SELFPAY ==
[2024-12-07] VITALS (12 sets, daily range): BP systolic 95–150; BP diastolic 61–95; PULSE 78–97; RESP 9–20; TEMP 36.4–36.8; O2SAT 97–100
--- NOTE | ~2024-12-07 | XR_ITS ---
CHEST RADIOGRAPH, PA AND LATERAL CLINICAL HISTORY: cp all over chest sob . COMPARISON: 04/26/2023 TECHNIQUE: PA and lateral views of the chest. FINDINGS The cardiomediastinal silhouette is unremarkable. The lungs are clear. Visualized osseous structures and soft tissues are unremarkable. IMPRESSION: No focal infiltrate or effusion. Reviewed, dictated and finalized at location [facility]. [facility]
--- NOTE | ~2024-12-07 | CT_ITS ---
EXAMINATION: CTA chest PE abdomen pel DATE: 12/07/2024 16:26 INDICATION: Chest pain and shortness of breath TECHNIQUE: Computed tomography (CT) pulmonary angiogram of the chest was performed with 100 mL Omnipa que-350 intravenous contrast. Additional 3D reconstructions utilizing coronal maximum intensity proje ction (MIP) were performed. CT of the abdomen and pelvis was performed with intravenous contrast util izing the same contrast bolus following a short delay. Automated exposure control and iterative recon struction technique were employed. The dose-length product was 1092.77 mGy-cm. COMPARISON: 04/16/2024 and 08/04/2016 FINDINGS: Chest: No pulmonary embolism. Mild emphysema. Calcified right upper lobe nodule and calcified right hilar ly mph node consistent with old granulomatous disease. Heart size is normal. Small amount of atheroscler otic coronary artery calcific lesion. No pericardial or pleural effusion. Thoracic aorta is normal in caliber with no dissection. No pathologically enlarged thoracic lymphadenopathy. Mild thoracic spond ylosis. Abdomen/pelvis: There is a nodular liver surface consistent with cirrhosis., gallbladder, pancreas and bilateral adre nal glands are normal. Splenomegaly as well as recanalization of the umbilical vein consistent with l ikely secondary portal venous hypertension. No significant change in a 10 mm low-attenuation likely s plenic cyst or hemangioma. There are multiple cysts in the right kidney measuring up to 1.9 cm. There is decreased medullary enhancement in the central and posterior aspect of the left kidney which sugg ests pyelonephritis or ischemia. The upper and lower poles appear to be supplied by accessory renal a rteries. There is a there is a central filling defect with high-grade stenosis in the main left renal artery which supplies the regions of decreased parenchymal enhancement suggesting this is ischemic r ather than infectious in etiology. There is a moderate to large amount of colonic stool. There are fe w scattered clonic diverticula without adjacent inflammatory changes suggest diverticulitis. Small gallito wel and appendix are normal. Bladder is normal. Prostatomegaly. No free intraperitoneal gas or fluid. Chronic likely reactive mild periportal lymphadenopathy which can be seen dating back to 2015. Mild lumbar spondylosis. IMPRESSION: 1. Mild emphysema. No pulmonary embolism or other acute cardiopulmonary disease. 2. 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 Portions of the upper and lower poles are spare d and supplied via a pair of separate small accessory renal arteries. 3. Cirrhotic liver with splenomegaly consistent with secondary portal venous hypertension. Reviewed, dictated and finalized at location A. MANAGER IMPRESSION: 1. Mild emphysema. No pulmonary embolism or other acute cardiopulmonary disease . 2. 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 Por tions of the upper and lower poles are spared and supplied via a pair of separa te small accessory renal arteries. 3. Cirrhotic liver with splenomegaly consistent with secondary portal venous hy pertension.
--- OUTSIDE RECORDS SUMMARY | 2024-12-07 12:09 | XMS_ITS | Clinical Summary ---
Author Organization [facility] [place] [id number] [facility] Address [address] [place] [address] Care Team Providers Care Structural Engineer Name Role Phone Lai Goodrich MD Primary Care Provider [phone] Allergies Active Allergy Reactions Criticality Noted Date Comments Eulfdjy-Dmf-Zpy Reductase Inhibitors Anaphylaxis High 09/09/2018 Tongue swelling Medications baclofen (LIORESAL) 20 mg tablet TAKE 1 TABLET BY MOUTH EVERY 8 HOURS NEEDED WITH FOOD OR MILK 0 9 Active pregabalin (LYRICA) 75 mg Capsule Take 150 mg by mouth. Active abatacept 125 mg/mL Auto-Injector Inject by subcutaneous injection every 7 days. 8 Active Active Problems Problem Noted Date Diagnosed Date Cervical spondylosis without myelopathy 10/10/20 19 Fibromyalgia 10/10/2019 Cigarette smoker 10/10/2019 Family History Medical History Relation Name Comments No Known Problems Brother Diabetes Father Heart Disease Father No Known Problems Mother Relation Name Status Comments Brother Alive Father Alive Mother Alive Social History Tobacco Use Types Packs/Day Years Used Date Smoking Tobacco: Every Day Alcohol Use Standard Drinks/Week Comments Never 0 (1 standard drink = 0.6 oz pur e alcohol) Sex and Gender Information Value Date Recorded Sex Assigned at Not on file Legal Sex Male 9:41 PM CDT Gender Identity Not on file Sexual Orientation Not on file Occupation Industry Job Start Date Job End Date Not on file Not on file Not on file Not on file Last Filed Vital Signs Vital Sign Reading Time Taken Comments Blood Pressure 148/88 10/10/2019 12:39 PM BOLT SORTER Pulse - - Temperature - - Respiratory Rate - - Oxygen Saturation - - Inhaled Oxygen Concentration - - Weight 98.9 kg (218 lb) 10/10/2019 12:39 PM B[facility]T S[employer]TER Height 177.8 cm (5' 10 ) 10/10/2019 12:39 PM [facility] Body Mass Index 31.28 10/10/2019 12:39 PM [facility] Plan of Treatment Health Maintenance Due Date Last Done Comments PNEUMOCOCCAL VACCINE 0-64 YEARS (1 of 2 - PCV) 975 DTAP/TDAP/TD VACCINES (1 - Tdap) 01/09/1988 HEPATITIS B VACCINES (1 of 3 - 19+ 3-dose series) 04/1988 ZOSTER VACCINE (1 of 2) 01/09/1988 COLORECTAL SCREENING 2014 Colorectal Cancer Screening 2014 FIT-DNA Q 3 years 2014 FIT/FOBT Q 1 year 2014 Flex Sig/CT Colonography Q 5 years 2014 INFLUENZA VACCINE (#1) 2024 08/10/2015 Insurance MEDICAID [place] Care Teams Structural Engineer Relationship Specialty Start Date End Date Lai Goodrich MD [address] [place], [place] [id number] PCP - General Internal Medicine 09/19/19
--- OUTSIDE RECORDS SUMMARY | 2024-12-07 12:09 | XMS_ITS | Referral Summary ---
Author Organization [email or web address] Address [address] [place] [address] Care Team Providers Care Digital Program Manager Name Role Phone Joe Goodrich MD Primary Care Provider Source Comments [facility] Affiliates and Associated Physician Practices is amultiple site organization consisting of ambulatory clinics and hospital sitesin [place], [place], [place] and [place]. This disclosure is being madepursuant to the Care Everywhere program and may not contain all information available regarding this patient. Last updated 18.[email or web address] Allergies Active Allergy Reactions Criticality Noted Date Comments Cephalexin Other 06/08/2019 LOC Hmg-Coa-R Inhibitors Angioedema High 06/08/2019 Medications * Be aware that medications may not be up to date on this document. Alwaysverify current medications with the patient. Medication Sig Dispensed Refills Start Date End Date Status omeprazole (PRILOSEC) 40 MG capsule Take 1 (one) capsule by mouth 2 times daily 12/03/2020 Active HYDROcodone-aceta minophen (NORCO) 7.5-325 MG tablet Take 1 (one) tablet by mouth every 4 hours as needed Every 8-12 hours 42 tablet 09/26/2021 Active ALPRAZolam (Xanax) 0.5 MG tablet Take 1 (one) tablet by mouth at bedtime 06/22/2023 Active fluticasone propionate (Flonase) 50 MCG/ACT nasal spray as needed 09/15/2022 Active lisinopril (Prinivil; Zestril) 20 MG tablet 1 (one) tablet once daily 07/17/2023 Active meclizine (Antivert) 25 MG tablet Take 1 (one) tablet by mouth 3 times daily as needed For dizziness. 07/11/[address] (Depakote) 250 MG tablet Take 1 (one) tablet by mouth 2 times daily 180 tablet 4 07/19/2023 Active Additional Information Patient not taking.Reported on 01/17/2024 nortriptyline (Pamelor) 50 MG capsule 2 (two) capsules to 3 (three) capsules at bedtime 01/11/2024 Active erenumab-aooe (Aimovig) 140 MG/ML auto injector pen Inject 1 mL subcutaneously every 30 days 3 mL 3 01/17/2024 Active Active Problems Problem Noted Date Diagnosed Date Chronic obstructive pulmonary disease (COPD) Overview (07/19/2023): 03/2021 pulmonolgist noted suspicous for COPD Diabetes 07/19/2023 Overview (07/19/2023): does not check blood sugar and unknown last A1C HTN (hypertension) 07/19/2023 Overview (07/19/2023): controlled Migraines 07/19/2023 DDD (degenerative disc disease), cervical 2022 Lumbar radiculopathy 01/05/2021 Overview (03/30/2021): Last Assessment & Plan: Reported left anterior thigh paresthesias that radiates to the knee then wraps medially behind the knee and down the posterior lower leg into the foot. If he puts pressure on his left side/leans while sitting his left leg will go numb. Hx of lumbar DJD on past imaging. MRI (01/2021) shows mild disc bulge at L5-S1 causing right sided neuroforaminal stenosis but was otherwise unremarkable. Continues to c/o paresthesias and numbness down bilateral legs into feet when laying on his back at night. Will give referral to neurology. Polycythemia 07/28/2020 Thrombocytopenia 05/17/2020 Overview (03/30/2021): Last Assessment & Plan: Most recent PLT 120K. Will repeat CBC today. If platelets continue to decrease will consider evaluation by heme. Right hip pain 05/14/2020 Overview (03/30/2021): Xray Rt hip (03/04/2020): mild OA Referral for PT given 03/05/2020 Last Assessment & Plan: Xray (03/04/2020) revealed mild OA. Recent MRI right hip was revealing for mild tendinopathy of right gluteus minimus and mild bilateral trochanteric bursitis. Did not do PT. States he has done PT 4 different times without benefit in the past. Pain localized over the anterosuperior iliac spine and radiates along the iliac crest. 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 03/19/2020 Dermatitis 11/28/2019 Overview (03/30/2021): Last Assessment & Plan: Pt has red, flaky rash between the eyebrows and scattered throughout his interiano. He states it developed over the past 6 months and denies change in soaps/detergents. HCQ can cause/worsen psoriasis. Will hold plaquenil and watch for improvement. Recommend patient see dermatology. If rash is diagnosed as psoriasis, then likely patient has overlap with psoriatic arthritis. Patient given specimen boss Dr. Abraham's information. Cervical spondylosis without myelopathy 10/10/20 19 Cigarette smoker 10/10/2019 shelter current use of therapeutic drug 2018 Overview (03/30/2021): TB quant negative: 03/15/2020 Last Assessment & Plan: Hepatitis negative: 04/2018 CXR negative: 04/2018 Quantiferon negative: 03/15/2020 Has failed MTX, leflunomide, SSZ, enbrel, and humira. Orencia - loss of benefit HCQ - stopped due to psoriasis-like rash Chronic pain disorder 08/02/2018 Medial epicondylitis of right elbow 08/02/2018 Overview (03/30/2021): Last Assessment & Plan: Chronic. Denied benefit with kenalog injection given at past visit. Has had it injected by pain management in the past without benefit as well. Offered PT at a previous visit, however patient deferred as he tried this in the past without benefit. Somatic symptom disorder, pe rsistent, severe, with predominant pain 08/02/2018 Fibromyalgia 04/15/2018 Overview (03/30/2021): Last Assessment & Plan: Still has generalized pain. Follows with pain management and remains on Lyrica 150mg TID and baclofen 20mg prn per pain management, although dose not take baclofen very frequently as he denies benefit. Does not take Lyrica routinely as he feels it worsens his pain. Encouraged to participate in routine exercise. Gastroesophageal reflux disease without esophagi tis 05/10/2016 Hx of diverticulitis of colon 05/10/2016 Left lower quadrant pain 05/10/2016 Post-op pain Cubital tunnel syndrome on right Carpal tunnel syndrome of right wrist Immunizations Name Administration Dates Next Due INFLUENZA VACCINE, TRIV. (AF LURIA, FLUZONE TRIVALENT; 6MO+) (IIV3) 08/10/2015 FLU VACCINE TRI IIV3 SPLIT PF IM (FLUVIRIN) 07/07,08/04/2016 INFLUENZA VACCINE, QUADR. (F LUZONE; FLULAVAL; FLUARIX; AFLURIA QUADRIVALENT; 6MO+), 0.5 ML (IIV4) 08/29/2019,08/23/2018 PNEUMOCOCCAL PPSV23 08/04/2016 Zoster Hzv Vacc Recombinant Inj Im 09/22/2020, Social History Tobacco Use Types Packs/Day Years Used Date Smoking Tobacco: Every Day Cigarettes 2 44.2 Started: 09/26/1980 Smokeless Tobacco: Never Tobacco Cessation:Ready to Q uit: Not Asked; Counseling Given: Not Answered Comments:average 1.5 to 2 pack a day Alcohol Use Standard Drinks/Week Comments Not Currently 0 (1 standard drink = 0.6 oz pur e alcohol) AUDIT-C Answer Date Recorded Q1: How often do you have a drink containing alc ohol? Never 10/23/2021 Average Number of Drinks Not on file 021 Frequency of Binge Drinking Not on file 10/05 PHQ-2 Answer Date Recorded PHQ2 TOTAL SCORE 0 07/13/2021 Sex and Gender Information Value Date Recorded Sex Assigned at Not on file Gender Identity Not on file Sexual Orientation Not on file Last Filed Vital Signs Vital Sign Reading Time Taken Comments Blood Pressure 142/94 01/17/2024 10:35 AM CDT Pulse 83 01/17/2024 10:35 AM CDT Temperature 36.5 ??C (97.7 ??F) 10/23/2021 4:31 PM CS T Respiratory Rate 16 10/23/2021 6:35 PM COMMUNITY ENGAGEMENT COORDINATOR Oxygen Saturation 100% 10/23/2021 6:35 PM COMMUNITY ENGAGEMENT COORDINATOR Inhaled Oxygen Concentration - - Weight 97.5 kg (215 lb) 01/17/2024 10:35 AM CDT Height 177.8 cm (5' 10 ) 01/17/2024 10:35 AM CDT Body Mass Index 30.85 01/17/2024 10:35 AM CDT Plan of Treatment Upcoming Encounters Date Type Department Care Team (Late st Contact Info) Description 02/05/2025 11:00 AM CDT Office Visit [facility] [address] [facility] [address] [place] [address] Kiara Sifuentes, SAND CUTTER OPERATOR-[facility] [address] [facility] [address] [place] [address] Procedures Procedure Name Priority Date/Time Associated Diagnosis Comments COMPREHENSIVE METABOLIC PANEL STAT 10/23/2021 9:38 PM COMMUNITY ENGAGEMENT COORDINATOR HEPATITIS C ANTIBODY Routine 06/08/2020 4:51 PM CDT Thrombocytopenia, 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) Polycythemia Secondary polycythemia HIV-1 HIV-2 ANTIBODY + HIV P24 AG PANEL Routine 06/08/2020 4:46 PM CDT Thrombocytopenia, 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) from Last 3 Months or Most Recently Relevant to Health Maintenance Results * (ABNORMAL) COMPREHENSIVE METABOLIC PANEL (10/23/2021 9:38 PM [facility]) BUN 16 7 - 26 mg/dL 10/23/2021 10:16 PM [facility] Creatinine 1.29(H) 0.71 - 1.16 mg/dL 10/23/2021 10:16 PM [facility] Sodium 141 136 - 145 mmol/L 10/23/2021 10:16 PM [facility] Potassium 3.8 3.5 - 4.5 mmol/L 10/23/2021 10:16 PM [facility] Chloride 105 98 - 107 mmol/L 10/23/2021 10:16 PM [facility] CO2 25 22 - 29 mmol/L 10/23/2021 10:16 PM [facility] Glucose 189(H) 70 - 115 mg/dL 10/23/2021 10:16 PM [facility] Calcium 9.7 8.4 - 10.2 mg/dL 10/23/2021 10:16 PM [facility] Protein Total 7.3 6.0 - 8.3 g/dL 10/23/2021 10:16 PM [facility] Albumin 3.9 3.4 - 5.0 g/dL 10/23/2021 10:16 PM [facility] Bilirubin Total 0.8 0.2 - 1.2 mg/dL 10/23/2021 10:16 PM [facility] Alkaline Phosphatase 111 40 - 150 U/L 10/23/2021 10:16 PM [facility] ALT 23 5 - 55 U/L 10/23/2021 10:16 PM [facility] AST 20 5 - 34 U/L 10/23/2021 10:16 PM [facility] Anion Gap 15 8 - 18 10/23/2021 10:16 PM [facility] BUN/Creatinine Ratio 12 7 - 23 10/23/2021 10:16 PM [facility] Osmolality Calculated 298 270 - 300 mOsm/kg 10/23/2021 10:16 PM [facility] Albumin/Globulin Ratio 1.1 1.1 - 2.3 10/23/2021 10:16 PM [facility] eGFR by CKD-EPI 63(L) >=90 mL/min/1.7 3 m2 10/23/2021 10:16 PM [facility] Blood BLOOD SPECIMEN / Unknown Venipuncture / Unknown 10/23/2021 9:38 PM COMMUNITY ENGAGEMENT COORDINATOR 10/23/2021 9:50 PM COMMUNITY ENGAGEMENT COORDINATOR Willy Garcia PA-C LAB - CHEM ISTRY ORDERABLES [facility] [address] [place] [address], [facility] [phone] * HEPATITIS C ANTIBODY (06/08/2020 4:51 PM CDT) Hepatitis C Antibody <0.1 0.0 - 0.9 s/co ratio [facility] INSURANCE BILL Comment: ? Negative: ? < 0.8 ?Indeterminate: 0.8 - 0.9 ? Positive: ? > 0.9 ? . ?The CDC recommends that a positive HCV antibody result ?be followed up with a HCV Nucleic Acid Amplification ?test ([id number]). Blood BLOOD SPECIMEN / Unknown 06/08/2020 4:51 PM CDT 06/08/2020 Narrative Resulting Agency Comment Lab Testing performed at: [facility] [address] ??[facility] [phone] Carlos Culp MD LAB - CHEMISTRY BILL FLOWERS [facility] INSURANCE BILL [address] [place] [address] * HIV-1 HIV-2 ANTIBODY + HIV P24 AG PANEL (06/08/2020 4:46 PM CDT) HIV Screen 4th Generation w Reflex Non Reactive Non Reactive [facility] INSURANCE BILL Blood BLOOD SPECIMEN / Unknown 06/08/2020 4:46 PM CDT 06/08/2020 Narrative Resulting Agency Comment Lab Testing performed at: [facility] [address] ??[facility] [id number] Carlos Culp MD LAB - CHEMISTRY BILL FLOWERS [facility] INSURANCE BILL [address] [place] [address] from Last 3 Months or Most Recently Relevant to Health Maintenance Care Teams Digital Program Manager Relationship Specialty Start Date End Date Joe Goodrich MD [address] [address] PCP - General Internal Medicine 06/30/20
--- OUTSIDE RECORDS SUMMARY | 2024-12-07 12:09 | XMS_ITS | Clinical Summary ---
Author Organization [facility] Address [address] [place] [address] Care Team Providers Care Ecommerce Marketing Specialist Name Role Phone Gustavo Bell MD Unavailable [phone] Carlos Culp MD Unavailable Sebastian Up MD Unavailable [phone] Thai Cruz Primary Care Provider Allergies Active Allergy Reactions Criticality Noted Date Comments Cephalexin Other (See comments) Low WOUND UP IN ER, PASSED OUT ON FLOOR Angwzfz-Rye-Iui Reductase Inhibitors Swelling Medium 06/13/2022 Medications ALPRAZolam (XANAX) 1 mg tablet 0 03/30/2018 Active baclofen, bulk, (LIORESAL) 100 % powder Take 20 mg by mouth. Active CARAFATE 100 mg/mL suspension 01/10/2018 Active ondansetron (ZOFRAN) 4 mg tablet Take 4 mg by mouth every 8 (eight) hours as needed 12/28/2020 Active omeprazole (PriLOSEC) 40 mg capsule Take 40 mg by mouth 2 (two) times a day 05/04/2022 Active nortriptyline (PAMELOR) 25 mg capsule TAKE 3 CAPSULES BY MOUTH ONCE DAILY NEEDED 06/15/2022 Active losartan (COZAAR) 50 mg tablet Take 50 mg by mouth daily 11/15/2020 Active HYDROcodone-alec taminophen (NORCO) 7.5-325 mg per tablet TAKE 1 TABLET BY MOUTH EVERY 8 TO 12 HOURS NEEDED 06/03/2022 Active Active Problems Problem Noted Date Diagnosed Date Elbow pain, chronic, right 07/19/2021 Overview (07/26/2021): MRI R elbow (07/19/21): medial epicondylitis with mild tendinopathy of common flexor tendon without discrete tear. Fusiform thickening and increased signal of the ulnar nerve consistent with enthesitis and cubital tunnel syndrome although no impinging lesion is identified. Assessment & Plan (07/19/2021 1:59 PM CDT): Chronic right medial elbow pain. Failed several kenalog injections. Has had it injected by pain management in the past without benefit as well. Offered PT at a previous visit, however patient deferred as he tried this in the past without benefit. Had recent XR per pain management that showed bone spurs per patient report. Will request this for further review. Will check MRI R elbow due to chronic pain w/o benefit of conservative measures. Polycythemia 01/05/2021 Assessment & Plan (07/19/2021 1:57 PM CDT): Follows with marshal. Doing whole blood phlebotomy 500mL about every 3-4 weeks. Continue to follow with marshal Culp. Assessment & Plan (04/18/2021 4:22 PM CDT): Follows with marshal. Doing whole blood phlebotomy 500mL about every 3-4 weeks. Continue to follow with marshal Culp. Assessment & Plan (03/23/2021 3:07 PM CDT): Follows with marshal. Doing whole blood phlebotomy 500mL about every 3-4 weeks. Continue to follow with marshal Culp. Assessment & Plan (01/05/2021 11:46 AM LINK AND LINK KNITTING MACHINE OPERATOR): Follows with marshal. Doing whole blood phlebotomy 500mL about every 3-4 weeks. Continue to follow with marshal Culp. Lumbar radiculopathy 01/05/2021 Assessment & Plan (07/19/2021 1:57 PM CDT): Reported left anterior thigh paresthesias that radiates [...] when laying on his back at night. [facility] refused referral as they do not see patient's for this diagnosis. Seeing pain management Dr. Up for spinal steroid injections. Assessment & Plan (04/18/2021 4:31 PM CDT): Reported left anterior thigh paresthesias that radiates [...] when laying on his back at night. [facility] refused referral as they do not see patient's for this diagnosis. Assessment & Plan (03/23/2021 3:05 PM CDT): Reported left anterior thigh paresthesias that radiates [...] at night. Will give referral to neurology. Assessment & Plan (01/05/2021 11:50 AM LINK AND LINK KNITTING MACHINE OPERATOR): Notes left anterior thigh paresthesias that radiates to the knee then wraps medially behind the knee and down the posterior lower leg into the foot. If he puts pressure on his left side/leans while sitting his left leg will go numb. Hx of lumbar DJD on past imaging. Suspect lumbar degenerative changes causing impingement. Will order lumbar spine x-ray. Depending on results, will consider MRI of the lumbar spine. Will also give referral to neurosurgery Dr. Padilla. Thrombocytopenia 05/17/2020 Assessment & Plan (07/19/2021 1:56 PM CDT): Most recent PLT 85K. Recently started Actemra so will monitor this with serial CBC every month per suggestion of marshal Culp. Assessment & Plan (05/17/2020 12:50 PM CDT): Most recent PLT 120K. Will repeat CBC today. If platelets continue to decrease will consider evaluation by marshal. Right hip pain 05/14/2020 Overview (05/14/2020): Xray Rt hip (03/04/2020): mild OA Referral for PT given 03/05/2020 Assessment & Plan (04/18/2021 4:33 PM CDT): Xray (03/04/2020) revealed mild OA. Recent MRI right hip was revealing for mild tendinopathy of right gluteus minimus and mild bilateral trochanteric bursitis. Did not do PT. States he has done PT 4 different times without benefit in the past. Pain localized over the anterosuperior iliac spine and radiates along the iliac crest. Assessment & Plan (03/23/2021 3:06 PM CDT): Xray (03/04/2020) revealed mild OA. Recent MRI right hip was revealing for mild tendinopathy of right gluteus minimus and mild bilateral trochanteric bursitis. Did not do PT. States he has done PT 4 different times without benefit in the past. Pain localized over the anterosuperior iliac spine and radiates along the iliac crest. Assessment & Plan (01/05/2021 11:44 AM LINK AND LINK KNITTING MACHINE OPERATOR): Xray (03/04/2020) revealed mild OA. Recent MRI right hip was revealing for mild tendinopathy of right gluteus minimus and mild bilateral trochanteric bursitis. Did not do PT. States he has done PT 4 different times without benefit in the past. Pain localized over the anterosuperior iliac spine and radiates along the iliac crest. Assessment & Plan (09/21/2020 12:39 PM LINK AND LINK KNITTING MACHINE OPERATOR): Xray (03/04/2020) revealed mild OA. Recent MRI right hip was revealing for mild tendinopathy of right gluteus minimus and mild bilateral trochanteric bursitis. Did not do PT. States he has done PT 4 different times without benefit in the past. Pain localized over the anterosuperior iliac spine and radiates along the iliac crest. Assessment & Plan (05/17/2020 12:41 PM CDT): Xray (03/04/2020) revealed mild OA. Patient tried PT without benefit. States he has done PT 4 different times without benefit in the past. Pain localized over the anterosuperior iliac spine and radiates along the iliac crest. Will order an MRI of the right hip to further evaluate. Dermatitis 11/28/2019 Assessment & Plan (11/28/2019 11:07 AM LINK AND LINK KNITTING MACHINE OPERATOR): Pt has red, flaky rash between the eyebrows and scattered throughout his interiano. He states it developed over the past 6 months and denies change in soaps/detergents. HCQ can cause/worsen psoriasis. Will hold plaquenil and watch for improvement. Recommend patient see dermatology. If rash is diagnosed as psoriasis, then likely patient has overlap with psoriatic arthritis. Patient given fifth hand Dr. Abraham's information. Neck pain 08/28/2019 Assessment & Plan (07/19/2021 1:55 PM CDT): History of chronic neck pain for which he sees pain management. Was considering getting a spinal stimulator at one point. Pain with active cervical rotation that radiates into the scalp and down the right shoulder. Recent MRI only shows mild spondylosis which does not correlate with patient's symptoms. C/o numbness from bilateral elbows into hands as well and has diminished beauty operator strength as well. Patient was told in the past by ortho Dr. Davion Lim he could get a disc replaced and wants to consider this. Seeing pain management Dr. Up for spinal steroid injections. Assessment & Plan (04/18/2021 4:24 PM CDT): History of chronic neck pain for which he sees pain management. Was considering getting a spinal stimulator at one point. Pain with active cervical rotation that radiates into the scalp and down the right shoulder. Recent MRI only shows mild spondylosis which does not correlate with patient's symptoms. C/o numbness from bilateral elbows into hands as well and has diminished beauty operator strength as well. Patient was told in the past by ortho Dr. Davion Lim he could get a disc replaced and wants to consider this. Will f/u with ortho. Assessment & Plan (03/23/2021 3:08 PM CDT): History of chronic neck pain for which he sees pain management. Was considering getting a spinal stimulator at one point. Patient was told in the past he could get a disc replaced and wants to consider this. Pain with active cervical rotation that radiates into the scalp and down the right shoulder. Recent MRI only shows mild spondylosis which does not correlate with patient's symptoms. C/o numbness from bilateral elbows into hands as well and has diminished beauty operator strength as well. Will give referral to neurology. Assessment & Plan (01/05/2021 11:41 AM LINK AND LINK KNITTING MACHINE OPERATOR): History of chronic neck pain for which he sees pain management. Was considering getting a spinal stimulator at one point. Patient was told in the past he could get a disc replaced and wants to consider this. Pain with active cervical rotation that radiates into the scalp and down the right shoulder. Will order cervical x-ray to evaluate for DJD. May need to consider MRI for further evaluation. Will give referral to neurosurgeon Dr. Padilla. Assessment & Plan (08/28/2019 12:06 PM CDT): History of chronic neck pain for which he sees pain management. Considering getting a spinal stimulator. Patient was told in the past he could get a disc replaced and wants to consider this. Recommend patient get referral from pcp for a spinal surgeon. USP current use of therapeutic drug 2018 Overview (05/14/2020): TB quant negative: 03/15/2020 Assessment & Plan (07/19/2021 1:54 PM CDT): Hepatitis negative: 04/2018 CXR negative: 04/2018 Quantiferon negative: 03/15/2020 Has failed MTX, leflunomide, SSZ, enbrel, and humira. Orencia - loss of benefit HCQ - stopped due to psoriasis-like rash Assessment & Plan (04/18/2021 4:17 PM CDT): Hepatitis negative: 04/2018 CXR negative: 04/2018 Quantiferon negative: 03/15/2020 Has failed MTX, leflunomide, SSZ, enbrel, and humira. Orencia - loss of benefit HCQ - stopped due to psoriasis-like rash Assessment & Plan (03/23/2021 2:53 PM CDT): Hepatitis negative: 04/2018 CXR negative: 04/2018 Quantiferon negative: 03/15/2020 Has failed MTX, leflunomide, SSZ, enbrel, and humira. Orencia - loss of benefit HCQ - stopped due to psoriasis-like rash Assessment & Plan (01/05/2021 11:40 AM LINK AND LINK KNITTING MACHINE OPERATOR): Hepatitis negative: 04/2018 CXR negative: 04/2018 Quantiferon negative: 03/15/2020 Has failed MTX, leflunomide, SSZ, enbrel, and humira. Orencia - loss of benefit HCQ - stopped due to psoriasis-like rash Assessment & Plan (09/21/2020 12:36 PM LINK AND LINK KNITTING MACHINE OPERATOR): Hepatitis negative: 04/2018 CXR negative: 04/2018 Quantiferon negative: 03/15/2020 Has failed MTX, leflunomide, SSZ, enbrel, and humira. Orencia - loss of benefit HCQ - stopped due to psoriasis-like rash Assessment & Plan (05/17/2020 12:47 PM CDT): Hepatitis negative: 04/2018 CXR negative: 04/2018 Quantiferon negative: 03/15/2020 Has failed MTX, leflunomide, SSZ, enbrel, and humira. Orencia - loss of benefit HCQ - stopped due to psoriasis-like rash Assessment & Plan (02/16/2020 12:02 PM CDT): Hepatitis negative: 04/2018 CXR negative: 04/2018 Quantiferon negative: 02/2019 Has failed MTX, leflunomide, SSZ, enbrel, and humira. Orencia - loss of benefit HQC - stopped due to psoriasis-like rash Assessment & Plan (11/28/2019 11:03 AM LINK AND LINK KNITTING MACHINE OPERATOR): Hepatitis negative: 04/2018 CXR negative: 04/2018 Quantiferon negative: 02/2019 Has failed MTX, leflunomide, SSZ, enbrel, and humira. Assessment & Plan (08/28/2019 12:04 PM CDT): Hepatitis negative: 04/2018 CXR negative: 04/2018 Quantiferon negative: 02/2019 Has failed MTX, leflunomide, SSZ, enbrel, and humira. Assessment & Plan (05/22/2019 12:19 PM CDT): Hepatitis negative: 04/2018 CXR negative: 04/2018 Quantiferon negative: 02/2019 Has failed MTX, leflunomide, SSZ, enbrel, and humira. Assessment & Plan (02/20/2019 11:11 AM CDT): Hepatitis negative: 04/2018 CXR negative: 04/2018 Recheck TB quant today. Has failed MTX, leflunomide, SSZ, enbrel, and humira. Medial epicondylitis of right elbow 08/02/2018 Assessment & Plan (01/05/2021 11:46 AM LINK AND LINK KNITTING MACHINE OPERATOR): Chronic. Denied benefit with kenalog injection given at past visit. Has had it injected by pain management in the past without benefit as well. Offered PT at a previous visit, however patient deferred as he tried this in the past without benefit. Assessment & Plan (05/17/2020 12:47 PM CDT): Chronic. Denied benefit with kenalog injection given at past visit. Has had it injected by pain management in the past without benefit as well. Offered PT at previous visit, however patient deferred as he tried this in the past without benefit. Assessment & Plan (02/16/2020 12:01 PM CDT): Denied benefit with kenalog injection given at past visit. Has had it injected by pain management in the past without benefit as well. Offered PT at previous visit, however patient deferred as he tried this in the past without benefit. Assessment & Plan (11/28/2019 11:03 AM LINK AND LINK KNITTING MACHINE OPERATOR): Denied benefit with kenalog injection given at past visit. Has had it injected by pain management in the past without benefit as well. Offered PT at previous visit, however patient deferred as he tried this in the past without benefit. Assessment & Plan (08/28/2019 12:03 PM CDT): Denied benefit with kenalog injection given last visit. Has had it injected by pain management in the past without benefit as well. Offered PT at previous visit, however patient deferred as he tried this in the past without benefit. Assessment & Plan (05/22/2019 12:20 PM CDT): Continues to be his biggest complaint on exam today. Right medial epicondylitis very tender. Offered PT at previous visit, however patient deferred as he tried this in the past without benefit. Dr. Bell discussed risks vs benefits of corticosteroid injection over the right medial epicondyle and patient was agreeable. Area prepped with betadine and alcohol swabs. 40mg kenalog IM injected into the area of the right medial epicondyle. Band-aid applied. Patient tolerated procedure well. Assessment & Plan (02/20/2019 11:12 AM CDT): Followed with orthopedics for additional evaluation. Was told that he had fluid build up that was causing his elbow pain and could not be offered any specific treatment. Has recently been having pain in his left elbow also. Offered PT, however patient deferred as he states he has already tried this without benefit. Assessment & Plan (12/24/2018 11:18 AM LINK AND LINK KNITTING MACHINE OPERATOR): Recently followed with orthopedics for additional evaluation. Was told that he had fluid build up that was causing his elbow pain and could not be offered any specific treatment. Has recently been having pain in his left elbow also. If becomes more bothersome, could consider physical therapy in the future. Assessment & Plan (10/21/2018 5:04 PM LINK AND LINK KNITTING MACHINE OPERATOR): He has persistent pain in his right medial epicondyle. He is to see ortho later this month for additional evaluation per his report. Assessment & Plan (08/02/2018 11:48 AM CDT): This is based on history and exam findings. He has had previous corticosteroid injections for this per pain management with no benefit. He does have some medial epicondyle tenderness and some mild swelling on exam today. I did recommend wearing an epicondyle brace. If this does not offer any significant benefit can consider referral to PT. Rheumatoid arthritis involvi ng multiple sites with positive rheumatoid factor ([facility]) 04/15/2018 Overview (03/05/2020): Serologies 2014: negative hepatitis panel, neg RF, hx of pos ccp (although don't have this blood work); repeat labs 04/2018 RF 48 (avise), ccp neg Pos ps/pt, cardiolipin, HODAN 1:320 homogenous and positive RF on recent [facility]. Hx from prior care: failed mtx (stopped due to no improvement), failed arava, enbrel, and humira. Stopped ssz GI distress, no benefit Orencia SQ - loss of benefit Simponi aria IV - started 12/09/2019 and 01/07/2020 US left hand/wrist (04/18/18): Mild synovial thickening/effusion and power doppler. Significant findings include a grade 1 effusion and grade 1 power doppler in the long view of the wrist, grade 1 effusions in the 2nd and 3rd MCP joints and 2nd PIP joint. Synovial thickening seen throughout the wrist, MCP, and PIP joints. A mildly enlarged median nerve is identified. US left hand/wrist (12/05/19): Mild/moderate effusions and power doppler on examination which will have to be correlated clinically. Moderate synovial thickening in the 2nd and 3rd PIP joints. Grade 2 effusions in the 2nd and 3rd PIP joints. Grade 1 effusion and grade 2 power doppler in the radial/scaphoid joint. Grade 1 power doppler in the wrist. Grade 1 effusion in the 4th and 5th MCP joints. Effusion in the 4th wrist compartment. A mildly enlarged median nerve at 0.12 cm2 is observed. Vectra (10/17/18): 46 XR (04/19/2018): Bilateral hands: polyarticular OA; Lt ankle/foot: mild/moderate polyarticular OA of the left forefoot; Rt ankle/foot: mild/moderate polyarticular OA of the right forefoot; CXR: negative. djd mild of the hips, si jts. Mild djd lspine X-ray R hip (03/04/2020): mild OA - gave referral to PT Assessment & Plan (07/19/2021 1:53 PM CDT): Moderate cdai. Improved synovitis and tenderness noted on peripheral exam today since starting Actemra IV 06/10/2021. Loss of benefit with simponi aria. Continue Actemra 8mg/kg IV [id number] and give this more time to take effect. Failed MTX, leflunomide, SSZ, Enbrel, humira, and simponi aria. Follow up in 3 months. Sooner if needed. Seen with Dr. Bell. Assessment & Plan (04/18/2021 4:22 PM CDT): High cdai. Increased synovitis with tenderness noted on peripheral exam today. Has been on simponi aria IV since 12/09/2019 without much joint relief. Will stop Simponi aria due to no benefit and start approval of Actemra IV however will have to wait to start this in 8 weeks as his last simponi infusion was 04/08/2021. Will begin approval for Actemra medication. Patient advised of the side effects of the medication, including but not limited to increase risk of infection, increased LFTs, blood count abnormalities, as well as increased cholesterol. Failed MTX, leflunomide, SSZ, Enbrel, and humira. Follow up in 3 months. Sooner if needed. Seen with Dr. Bell. Assessment & Plan (03/23/2021 3:17 PM CDT): High cdai. Synovitis with increased tenderness of the left hand noted on peripheral exam today. Started simponi aria IV on 12/09/2019 with some overall benefit of joint complaints however continues to have diffuse pain due to overlap with fibromyalgia. Continue simponi aria IV for RA with overlap of suspected psoriatic arthritis. Has failed MTX, leflunomide, SSZ, enbrel, and humira in the past. Could consider actemra if simponi aria is failing. Follow up in 1 month. Sooner if needed. Seen with Dr. Rosales as is out of the office. Assessment & Plan (01/05/2021 11:43 AM LINK AND LINK KNITTING MACHINE OPERATOR): Moderate cdai. Synovitis with increased tenderness of the left hand noted on peripheral exam today. Started simponi aria IV on 12/09/2019 with some overall benefit of joint complaints however continues to have diffuse pain due to overlap with fibromyalgia. Continue simponi aria IV for RA with overlap of suspected psoriatic arthritis. Has failed MTX, leflunomide, SSZ, enbrel, and humira in the past. Routine labs today. Patient had recent CBC per hematology. Follow up in 3 months. Sooner if needed. Seen with Dr. Dejesus as Dr. Bell is out of the office. Assessment & Plan (09/21/2020 12:37 PM LINK AND LINK KNITTING MACHINE OPERATOR): Moderate cdai. Synovitis without much tenderness noted on peripheral exam today. Started simponi aria IV on 12/09/2019 with some overall benefit of joint complaints however continues to have diffuse pain due to overlap with fibromyalgia. Continue simponi aria IV for RA with overlap of suspected psoriatic arthritis. Has failed MTX, leflunomide, SSZ, enbrel, and humira in the past. Routine labs today. Patient had recent CBC per hematology. Follow up in 3 months. Sooner if needed. Assessment & Plan (05/17/2020 12:45 PM CDT): Moderate cdai. Synovitis without much tenderness noted on peripheral exam today. Started simponi aria IV on 12/09/2019. Discussed kenalog IM however patient defers. Continue simponi aria IV for RA with overlap of suspected psoriatic arthritis. Has failed MTX, leflunomide, SSZ, enbrel, and humira in the past. Follow up in 3 months. Sooner if needed. Seen with Dr. Bell. Assessment & Plan (02/16/2020 12:01 PM CDT): US left hand/wrist (12/05/19): Mild/moderate effusions and power doppler on examination which will have to be correlated clinically. Moderate synovial thickening in the 2nd and 3rd PIP joints. Grade 2 effusions in the 2nd and 3rd PIP joints. Grade 1 effusion and grade 2 power doppler in the radial/scaphoid joint. Grade 1 power doppler in the wrist. Grade 1 effusion in the 4th and 5th MCP joints. Effusion in the 4th wrist compartment. A mildly enlarged median nerve at 0.12 cm2 is observed. High cdai. Recent US findings showed increased synovitis compared to previous US. Continues to have synovitis with tenderness noted on peripheral exam today. Continues to have a scaly, erythematous rash on forehead, interiano, and scalp which is suspicious for psoriasis, however has improved some. Subtle nail pitting also noted in 1st digits of bilateral hands. Started Simponi aria IV 12/09/2019. Continue Simponi aria IV for RA with overlap of suspected psoriatic arthritis. Has failed MTX, lefluomide, SSZ, enbrel, and humira in the past. Routine labs today. Follow up in 3 months. Sooner if needed. Assessment & Plan (11/28/2019 12:08 PM LINK AND LINK KNITTING MACHINE OPERATOR): High cdai. Several swollen and tender joints noted on peripheral exam today. Continues to complain of neck pain, however is not a surgical candidate per neurosurgery. Developed a scaly, erythematous rash on forehead, interiano, and scalp which is suspicious for psoriasis. Subtle nail pitting also noted in 1st digits of bilateral hands. Will hold HCQ at this time as it could be causing his rash. Will continue with Orencia until US results are available. Will start approval for Simponi aria IV for RA with overlap of suspected psoriatic arthritis. Has failed MTX, lefluomide, SSZ, enbrel, and humira in the past. Routine labs today.Will repeat a left hand/wrist US to further evaluate for disease progression. Follow up in 2 months. Sooner if needed. Seen with Dr. Bell. Assessment & Plan (08/28/2019 12:02 PM CDT): Moderate cdai. Mild synovitis without tenderness noted on exam today. Most of his pain complaints appear to be related to his FM, neck pain, and epicondylitis. Overall, RA appears to be well controlled. Continue plaquenil 200mg BID and orencia 125mg SQ weekly. Has failed MTX, leflunomide, SSZ, enbrel, and humira in the past. Routine labs today. Follow up in 3 months. Sooner if needed. Seen with Dr. Bell. Assessment & Plan (05/22/2019 10:33 AM CDT): Moderate cdai. No obvious synovitis or tenderness noted on exam today. Most of his pain complaints appear to be related to right medial epicondylitis and FMS. Overall appears to be doing well on current treatment for his RA. Continue plaquenil 200mg BID and orencia 125mg SQ weekly. Has failed MTX, leflunomide, SSZ, enbrel, and humira in the past. Routine labs today. Follow up in 3 months. Sooner if needed. Seen with Dr. Bell. Assessment & Plan (02/20/2019 11:11 AM CDT): Low cdai. No obvious synovitis or tenderness on exam today, however is tender along the bilateral medial epicondyles (R>L). Has been out of plaquenil for a few days and continues to deny much benefit, however will give this more time to take affect. Right lower back is tender on exam, however appears unrelated to his RA as RA does not affect the lumbar spine or SI joints. Saw pain management who did a corticosteroid injection which is slowly helping per patient report. Will continue plaquenil 200mg BID and orencia 125mg SQ weekly. Has failed MTX, leflunomide, SSZ, enbrel, and humira in the past. Routine labs today as well as a repeat quantiferon. Follow up in 3 months. Sooner if needed. 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 No obvious synovitis noted on exam, however left 3rd-5th MCP tender on exam and patient gave a high pain score today. Recent Vectra was 46. Denies much difference with plaquenil however has only been 2 months so will give this more time. Recent UA showed blood in urine, so followed with urology who did a CT scan. Patient unsure of results at this time. Continue plaquenil 200mg BID and orencia 125mg SQ weekly. Based on the Vectra showing high disease activity, if patient continues to have progressive worsening of symptoms then could consider changing his biologic in the future. Has failed MTX, leflunomide, SSZ, enbrel, and humira in the past. Routine labs today. Follow up in 2 months. Sooner if needed. 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 His right 2nd PIP joint is tender and swollen on exam today. Will initiate hydroxychloroquine 200 mg b.i.d. for additional management. Continue Orencia 125 mg subcutaneous weekly. Will obtain labs as below. He is to obtain a baseline eye exams to monitor for hydroxychloroquine toxicity. Follow up in 2 months. Assessment & Plan (08/02/2018 11:44 AM CDT): This appears stable clinically. He feels he is doing better with the orencia and that this has helped more than his previous rheumatoid arthritis meds. He has no active synovitis or peripheral joint complaints on exam today. Continue Orencia 125 mg subcutaneous weekly. Obtain labs as below. Follow-up in 3 months. Assessment & Plan (05/03/2018 11:45 AM CDT): He has a positive rheumatoid factor based on [facility] CTD labs. His anti CCP antibodies which had been positive per chart review when seing Dr. Conley is now negative. The ultrasound of his left hand and wrist only revealed mild inflammatory changes. X-ray his bilateral hands and feet did reveal degenerative changes. Symptoms mainly involves the left wrist currently although he reports essentially all joints hurt which I suspect is likely a combination of his fibromyalgia, osteoarthritis as well as rheumatoid arthritis although it appears his rheumatoid arthritis does appear fairly stable. He does have questionable swelling in the left wrist associated with tenderness in the left wrist although no other obvious synovitis on exam today. He is tender essentially everywhere to touch. Continue Orencia 125 mg subcutaneous weekly which he has been on for approximately 2 months as started by Dr. Conley. Depending on how he is doing next visit will consider checking a Vectra and could consider the addition of hydroxychloroquine although at this time I do not feel it is warranted. Will follow up in 3 months. Assessment & Plan (04/15/2018 4:08 PM CDT): Hx of prior seropositive RA diagnosis (anti-ccp), which has been poorly controlled on several medications, including failing MTX, Arava, Enbrel, and Humira. Notes generalized joint and muscle pains, primarily affecting the hands, feet, elbows, shoulders, and wrists. Worse in the morning, which improves minimally during the day with notable stiffness. Also notes occasional photosensitive rash, sicca dx, dyspnea on exertion, and pleuritic chest pains. Notable tenderness with swelling present across MCP and PIP joints on exam. Has recently started Orencia weekly SQ medication ~4 weeks prior with minimal relief. Symptoms appear compatible with RA. Although cannot rule out CTD at this time, as patient has some symptoms for this. Also, patient has a history of FM and >11 tender points on exam. Appears to be contributing to some of his symptoms. Will perform appropriate serologies, radiographs, and right hand US to further evaluate. Fu 2-3 weeks to discuss. Seen with Dr. Bell. Fibromyalgia 04/15/2018 Assessment & Plan (07/19/2021 1:54 PM CDT): Generalized pain and fatigue. Previously was on Lyrica 150mg TID and baclofen 20mg prn per pain management without any benefit. Encouraged to participate in routine exercise. Assessment & Plan (04/18/2021 4:16 PM CDT): Generalized pain and fatigue. Previously was on Lyrica 150mg TID and baclofen 20mg prn per pain management without any benefit. Encouraged to participate in routine exercise. Assessment & Plan (03/23/2021 3:09 PM CDT): Still has generalized pain. Follows with pain management and remains on Lyrica 150mg TID and baclofen 20mg prn per pain management, although dose not take baclofen very frequently as he denies benefit. Does not take Lyrica routinely as he feels it worsens his pain. Encouraged to participate in routine exercise. 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 Follows with pain management and remains on Lyrica 150mg TID and baclofen 20mg prn per pain management, although dose not take baclofen very frequently as he denies benefit. Does not take Lyrica routinely as he feels it worsens his pain. Encouraged to participate in routine exercise. Assessment & Plan (09/21/2020 12:37 PM LINK AND LINK KNITTING MACHINE OPERATOR): Still has generalized pain. Follows with pain management and remains on Lyrica 150mg TID and baclofen 20mg prn per pain management, although dose not take baclofen very frequently as he denies benefit. Does not take Lyrica routinely as he feels it worsens his pain. Encouraged to participate in routine exercise. Assessment & Plan (05/17/2020 12:47 PM CDT): Still has generalized pain. Follows with pain management and remains on Lyrica 150mg TID and baclofen 20mg prn per pain management, although dose not take baclofen very frequently as he denies benefit. Does not take Lyrica routinely as he feels it worsens his pain. Encouraged to participate in routine exercise. Assessment & Plan (02/16/2020 12:03 PM CDT): Still has generalized pain. Follows with pain management and remains on Lyrica 150mg TID and baclofen 20mg prn per pain management, although dose not take baclofen very frequently as he denies benefit. Does not take Lyrica routinely as he feels it worsens his pain. Encouraged to participate in routine exercise. Assessment & Plan (11/28/2019 11:04 AM LINK AND LINK KNITTING MACHINE OPERATOR): Still has generalized pain. Follows with pain management and remains on Lyrica 150mg TID and baclofen 20mg prn per pain management, although dose not take baclofen very frequently as he denies benefit. Does not take Lyrica routinely as he feels it worsens his pain. Encouraged to participate in routine exercise. Assessment & Plan (08/28/2019 12:04 PM CDT): Still has generalized pain which appears to be contributing to most of his pain complaints today. Follows with pain management and remains on Lyrica 150mg TID and baclofen 20mg prn per pain management, although dose not take baclofen very frequently as he denies benefit. Encouraged to participate in routine exercise. Assessment & Plan (05/22/2019 12:20 PM CDT): Still has generalized pain which appears to be contributing to most of his pain complaints today. Follows with pain management and remains on Lyrica 150mg TID and baclofen 20mg prn per pain management, although dose not take baclofen very frequently as he denies benefit. Encouraged to participate in routine exercise. Assessment & Plan (02/20/2019 11:03 AM CDT): Still has generalized pain which appears to be contributing to most of his pain complaints today. Follows with pain management and remains on Lyrica 150mg TID and baclofen 20mg prn per pain management, although has been out of lyrica for the past few weeks per patient report. Encouraged to participate in routine exercise. 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 Follows with pain management and remains on Lyrica 150mg TID and baclofen 20mg prn per pain management. Encouraged to participate in routine exercise. Assessment & Plan (10/21/2018 5:06 PM LINK AND LINK KNITTING MACHINE OPERATOR): He still has widespread pain which I suspect is causing the majority of his pain complaints. He does follow with Pain Management and remains on Lyrica 150 mg 3 times a day and baclofen 20 mg as needed. He was encouraged to participate in routine exercise. Assessment & Plan (08/02/2018 11:46 AM CDT): He still has widespread pain although this appears stable. He does follow with Pain Management and he did have a cervical spine epidural yesterday which he feels has helped with quite a bit of his pain complaints. He does have some mild generalized nonspecific soft tissue tenderness on exam today although symptoms do appear improved. Continue Lyrica 150 mg 3 times a day and baclofen 20 mg as prescribed by Pain Management. He was encouraged to participate in routine exercise. Assessment & Plan (05/03/2018 11:48 AM CDT): He does have generalized pain essentially everywhere as well as tenderness throughout his soft tissues on exam today. I suspect his fibromyalgia is causing the majority of his overall pain complaints as it appears his rheumatoid arthritis is fairly well controlled. He is following with pain management who has him on Lyrica and baclofen. It is noted the Lyrica was recently increased this week to 150 mg 3 times a day. Assessment & Plan (04/15/2018 2:34 PM CDT): Hx of FM with >11 tender points on exam. Treated with lyrica and baclofen at this time prescribed by Dr. Goodrich? PCP. Likely contributing to some of patient's complaints today. Resolved Problems Problem Noted Date Diagnosed Date Resolved Date Arthralgia 04/15/2018 05/03/2018 Surgical History Surgery Date Site/Laterality Comments UPPER GASTROINTESTINAL ENDOSCOPY ROTATOR CUFF REPAIR Medical History Medical History Date Comments Luu esophagus GERD (gastroesophageal reflux disease) Family History Medical History Relation Name Comments Diabetes Father Family history of diabetes mellitus - (Added by TW Conv) Hypertension Father Family history of hypertension - (Added by TW Conv) Relation Name Status Comments Father Social History Tobacco Use Types Packs/Day Years Used Date Smoking Tobacco: Every Day Cigarettes AUDIT-C Answer Date Recorded Q1: How often do you have a drink containing alc ohol? Never 06/30/2022 Average Number of Drinks Not on file 022 Frequency of Binge Drinking Not on file 06/06 Sex and Gender Information Value Date Recorded Sex Assigned at Not on file Legal Sex Male 1:56 AM LINK AND LINK KNITTING MACHINE OPERATOR Gender Identity Not on file Sexual Orientation Not on file Obstetrics History Last Filed Vital Signs Vital Sign Reading Time Taken Comments Blood Pressure 107/69 06/30/2022 11:59 AM CDT Pulse 73 06/30/2022 11:59 AM CDT Temperature 36.5 ??C (97.7 ??F) 07/19/2021 9:59 AM CD T Respiratory Rate 18 06/30/2022 11:59 AM CDT Oxygen Saturation 97% 06/30/2022 11:59 AM CDT Inhaled Oxygen Concentration - - Weight 99.8 kg (220 lb) 06/30/2022 10:13 AM CDT Height 177.8 cm (5' 10 ) 06/30/2022 10:13 AM CDT Body Mass Index 31.57 06/30/2022 10:13 AM CDT Plan of Treatment Health Maintenance Due Date Last Done Comments Colon Cancer Screening-Colonoscopy 1969 Depression Screening 1969 Prostate Cancer Screening-PSA 1969 DTaP/Tdap/Td Vaccine (1 - Tdap) 01/09/1980 Hepatitis B Screening 1987 Regular Well Visit/Exam 18-64 1987 Pneumococcal vaccine <65 (2 of 2 - PCV) 08/04/2017 08/04/2016 Influenza Vaccine (#1) 2024 0, 08/29/2019, 08/23/2018, Additional history exists Hepatitis C Screening Completed 04/15/2018, 015 Zoster Vaccine Completed 09/22/2020, 06/10/2020 Procedures Procedure Name Priority Date/Time Associated Diagnosis Comments HEPATITIS C ANTIBODY Routine 04/15/2018 3:00 PM CDT from Last 3 Months or Most Recently Relevant to Health Maintenance Results * Hepatitis C antibody (04/15/2018 3:00 PM CDT) Hep C Ab Non-Reactiv e Non-Reactiv e [facility] Blood specimen (specimen) 04/15/2018 3:00 PM CDT 04/15/2018 5:15 PM CDT Narrative [facility] - 04/15/2018 9:03 PM CDT us Pierce Griffiths MD LAB MICROBIOLOGY - GENE RAL ORDERABLES Final Result [facility] [address] Department [place] [address] from Last 3 Months or Most Recently Relevant to Health Maintenance Insurance MEDICARE MEDICARE MEDICARE MEDICARE Advance Directives For more information, please contact: [phone] Documents on File Type Date Recorded Patient Supervisor Delivery Department Expl anation ADVANCE DIRECTIVE 04/15/2018 5:09 PM * Full Code (Latest Code Status on File) Date Activated Date Inactivated Comments 06/30/2022 10:05 AM 06/30/2022 4:15 PM Care Teams Ecommerce Marketing Specialist Relationship Specialty Start Date End Date Thai Cruz PA [address] [place], [place] [id number] PCP - General Physician Tool Chaser 06/21/22 Gustavo Bell MD [address] [facility] [address] [place] [address] Consulting Physician Rheumatology 05/03/18 Carlos Culp MD [address] [facility] [address] [place] [address] Referring Physician Internal Medicine 05/18/20 Sebastian Up MD [address] [place] [address] Referring Physician Physical Medicine and Rehabilitation 07/19/21
--- OUTSIDE RECORDS SUMMARY | 2024-12-07 12:09 | XMS_ITS | Clinical Summary ---
Author Organization [facility] Address [address] [place] [address]. [place], [place] [id number] [place] [id number] Care Team Providers Care Paramedic Rn Name Role Phone Joe Goodrich MD Primary Care Provider Allergies Active Allergy Reactions Criticality Noted Date Comments Cephalexin Other (see comment),Syncope Low 02/16/2016 WOUND UP IN ER, PASSED OUT ON FLOOR WOUND UP IN ER, PASSED OUT ON FLOOR Statins Anaphylaxis High 09/09/2018 Tongue swelling Medications ALPRAZolam 1 MG tablet Take 1 mg by mouth. Active baclofen 20 MG tablet Take 20 mg by mouth. Active Abatacept 125 MG/ML Solution Auto-injector 05/10/2018 Activ e duloxetine 30 MG capsule 10/02/2018 Active EMGALITY 120 MG/ML Solution Auto-injector 09/25/2018 Activ e omeprazole 40 MG capsule Take 40 mg by mouth. 07/19/2018 Active LYRICA 150 MG capsule 0 09/23/2018 Active butalbital-acet aminophen-caffe ine (FIORICET) 50-300-40 MG capsule Take 1 capsule by mouth every 4 (four) hours as needed for Pain. 12 capsule 05/03/2022 Active Active Problems No known active problems Family History Medical History Relation Comments Hyperlipidemia Father Relation Status Comments Father Social History Tobacco Use Types Packs/Day Years Used Date Smoking Tobacco: Every Day Cigarettes Smokeless Tobacco: Never Alcohol Use Standard Drinks/Week Comments No 0 (1 standard drink = 0.6 oz pur e alcohol) AUDIT-C Answer Date Recorded Frequency of Alcohol Consumption Never 10/07/2018 Average Number of Drinks Not on file 018 Frequency of Binge Drinking Not on file 01/2018 Sex and Gender Information Value Date Recorded Sex Assigned at Not on file Legal Sex Male 4:58 PM CDT Gender Identity Not on file Sexual Orientation Not on file Last Filed Vital Signs Vital Sign Reading Time Taken Comments Blood Pressure 162/90 05/03/2022 5:59 PM CDT Pulse 75 05/03/2022 5:59 PM CDT Temperature 36.7 ??C (98 ??F) 05/03/2022 5:59 PM CDT Respiratory Rate 16 05/03/2022 5:59 PM CDT Oxygen Saturation 99% 05/03/2022 5:59 PM CDT Inhaled Oxygen Concentration - - Weight 104.3 kg (230 lb) 05/03/2022 3:37 PM CDT Height 177.8 cm (5' 10 ) 05/03/2022 3:37 PM CDT Body Mass Index 33 05/03/2022 3:37 PM CDT Plan of Treatment Health Maintenance Due Date Last Done Comments Colorectal Cancer Screening Colonoscopy (10 Years) 1969 Annual Physical 01/09/1972 Hepatitis C 1987 DTaP, Tdap and Td Vaccines (1 - Tdap) 01/09/1988 Hepatitis B Vaccines (1 of 3 - 19+ 3-dose series) 01/09/1988 Pneumococcal Vaccine: Pediatrics (0 to 5 Years) and At-Risk Patients (6 to 64 Years) (2 of 2 - PCV) 08/04/2017 08/04/2016 COVID-19 Vaccine ( season) 2024 07/19/2021, 02/20/2021, 01/30/2021 Influenza Adult (#1) 2024 08/07/2020, 08/29/2019, 08/23/2018, Additional history exists Zoster Vaccines Completed 09/22/2020, 06/10/2020 Meningococcal B Vaccine Aged Out No l onger eligible based on patient's age to complete this topic Meningococcal Vaccine Aged Out No wilbur angelina eligible based on patient's age to complete this topic RSV Immunizations Under 20 Months Aged Out No longer eligible based on patient's age to complete this topic Insurance [facility] MEDICARE Care Teams Paramedic Rn Relationship Specialty Start Date End Date Joe Goodrich MD [address] [place] [address] PCP - General INTERNAL MEDICINE 10/07/18
--- OUTSIDE RECORDS SUMMARY | 2024-12-07 12:09 | XMS_ITS | Clinical Summary ---
Author Organization [facility] Address [address] [place] [address] Phone Care Team Providers Care Print Developer Name Role Phone Danielle Phelps APRN, SENIOR ELECTRICAL DESIGNER Unavailable Chano Leggett DO Unavailable [phone] Provider, None Primary Care Provider Unavailabl e Allergies Active Allergy Reactions Criticality Noted Date Comments Cephalexin Other (see Comments) WOUND UP IN ER, PASSED OUT ON FLOOR Statins Anaphylaxis High 09/09/2018 Tongue swelling Medications ALPRAZolam (XANAX PO) Take 1 mg by mouth nightly. Active BACLOFEN PO Take 20 mg by mouth 3 times daily as needed. Active famotidine (Pepcid) 40 MG Tablet Take 1 Tab by mouth 2 times daily. 180 Tab 3 1 Active Additional Information Patient not taking.Reported on 05/27/2021 SITagliptin (Januvia) 25 MG Tablet Take 25 mg by mouth daily. Active losartan (COZAAR) 50 MG Tablet Take by mouth every morning. Active omeprazole (PriLOSEC) 40 MG CAPSULE DELAYED RELEASE Take 1 Cap by mouth 2 times daily. 180 Cap 3 1 Active ondansetron (Zofran) 4 MG TabletIndication s:Gastroesophage al reflux disease without esophagitis Take 1 Tablet by mouth every 8 hours as needed for Nausea - 1st line. 15 Tablet 1 1 Active amitriptyline (ELAVIL) 10 MG TabletIndication s:Gastroesophage al reflux disease without esophagitis Take 1-2 tabs at bedtime 30 Tablet 1 Active Additional Information Patient not taking.Reported on 05/27/2021 Active Problems Problem Noted Date Diagnosed Date Chronic pain syndrome 08/02/2018 Somatic symptom disorder, pe rsistent, severe, with predominant pain 08/02/2018 Gastroesophageal reflux disease without esophagi tis 05/10/2016 Hx of diverticulitis of colon 05/10/2016 Left lower quadrant pain 05/10/2016 Thrombocytopenia unspecified Immunizations Immunization Administration Dates Next Due Influenza Vaccine 07/28/2017,08/04/2016 Influenza Vaccine greater than 3 yrs 08/10/2015 Influenza Vaccine, Quadrivalent, PF 08/07/2020,1 ,08/23/2018 Influenza, Seasonal, Injectable, Undefined 08/10,10/21/2012 Pneumococcal Vaccine Adult - 23 Valent 6 Zoster Vaccine Recombinant 09/22/2020,06/10/2020 Family History Medical History Relation Name Comments Chronic Obstructive Pulmonary Disease Father Diabetes Father Heart Disease Father Relation Name Status Comments Father Mother Alive Social History Tobacco Use Types Packs/Day Years Used Date Smoking Tobacco: Every Day Cigarettes 1.5 46.1 Started: 11/05/1978 Smokeless Tobacco: Never Tobacco Cessation:Ready to Q uit: Yes; Counseling Given: Yes Alcohol Use Standard Drinks/Week Comments No 0 (1 standard drink = 0.6 oz pur e alcohol) None Sexually Active Control Partners Comments Not Currently Sex and Gender Information Value Date Recorded Sex Assigned at Not on file Legal Sex Male 7:59 PM CDT Gender Identity Not on file Sexual Orientation Not on file 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 Not on file Not on file Not on file Last Filed Vital Signs Vital Sign Reading Time Taken Comments Blood Pressure 122/68 06/03/2021 11:18 AM CDT Pulse 93 06/03/2021 11:18 AM CDT Temperature 36 ??C (96.8 ??F) 06/03/2021 7:31 AM CDT Respiratory Rate 18 06/03/2021 11:18 AM CDT Oxygen Saturation 97% 06/03/2021 11:18 AM CDT Inhaled Oxygen Concentration - - Weight 107 kg (236 lb) 05/27/2021 9:00 AM CDT Height 177.8 cm (5' 10 ) 05/27/2021 9:00 AM CDT Body Mass Index 33.86 05/27/2021 9:00 AM CDT Plan of Treatment Health Maintenance Due Date Last Done Comments Hepatitis C Virus (HCV) Screening 1970 TdaP Immunization 1969 Hepatitis B Immunization (1 of 3 - 19+ 3-dose series) 01/09/1988 Cologuard 2019 Immunochemical Fecal Occult Blood 2019 Pneumococcal Immunization (50+ years) (2 of 2 - PCV) 2019 08/04/2016 Influenza Immunization (#1) 2024 1001/2020, 08/29/2019, 08/23/2018, Additional history exists SARS-COV-2 Immunization ( - season) 2024 07/19/2021, 02/20/2021, 01/30/2021 Colonoscopy 09/26/2024 09/26/2019, 08/31/2016 Colorectal Cancer Screening 09/26/2024 Respiratory Syncytial Virus (RSV) Immunization (Adult) (1 - 1-dose 75+ series) 01/09/2044 09/26/2019, 08/31/2016 Pneumococcal Immunization Combined Discontinued 08/04/2016 PSA Discussion Completed 12/25/2016 Zoster Immunization Completed 09/22/2020, Lung Cancer Screening Discontinued 04/15/2021 , 09/12/2019, 07/30/2018, Additional history exists Meningococcal Immunization (ACWY) Aged Out No longer eligible based on patient's age to complete this topic Rotavirus Immunization Aged Out No lo nger eligible based on patient's age to complete this topic Procedures Procedure Name Priority Date/Time Associated Diagnosis Comments CT CHEST W/O CONTRAST Routine 09/12/2019 7:52 PM ANTIQUE AUTOMOBILES REPAIRER Pulmonary nodule PSA DIAGNOSTIC,TOTAL Routine 12/25/2016 Enlarged prostate HM COLONOSCOPY Routine 08/31/2016 from Last 3 Months or Most Recently Relevant to Health Maintenance Results * CT CHEST W/O CONTRAST (09/12/2019 7:52 PM ANTIQUE AUTOMOBILES REPAIRER) Anatomical Region Laterality Modality Chest N/A Computed Tomogra phy 09/15/2019 12:0 7 PM ANTIQUE AUTOMOBILES REPAIRER Impressions 09/15/2019 12:09 PM ANTIQUE AUTOMOBILES REPAIRER IMPRESSION: ??Stable appearance of pulmonary nodules as above. ??No new pulmonary nodules. ??These have demonstrated stability since July 2017 and likely benign. Narrative 09/15/2019 12:09 PM ANTIQUE AUTOMOBILES REPAIRER EXAM DESCRIPTION: ??CT CHEST W/O CONTRAST REASON FOR STUDY: ??History of solitary pulmonary nodule for 1 year follow-up. ??Initial detection July 30, 2018 TECHNIQUE: ??CT scan of the chest performed without intravenous contrast using helical scanning technique. Reconstructed coronal and sagittal MPR images reviewed. ??All images stored on PACS. ??Automated exposure control was used as a dose optimization technique for this examination. COMPARISON: ??CT chest dated July 30, 2018. ??CT chest dated July 21, 2017 FINDINGS: ??The sensitivity for detection of solid visceral lesions is diminished without the use of intravenous contrast. LUNGS: The central airway is patent. ??There is a 0.2 cm pulmonary nodule within the left lung apex laterally (axial image 23). ??Stable 0.4 cm pulmonary nodule adjacent to the minor fissure (axial image 63). PLEURA: No effusion. No pneumothorax. MEDIASTINUM/HEATHER: No identified masses or abnormal nodes. HEART: Heart size is normal with no pericardial effusion. VASCULATURE: No thoracic aortic aneurysm. AXILLA: No adenopathy. CHEST WALL: No masses. ??No subcutaneous air. HARDWARE/LINES/TUBES: None. UPPER ABDOMEN: No significant abnormality. MUSCULOSKELETAL: No significant abnormality. OTHER: No other significant abnormality. THIS IS AN ELECTRONICALLY VERIFIED FINAL REPORT 09/15/2019 12:07 PM - Electronically signed by Del Chaudhary M.D. JA: PAL D: ??09/15/2019 12:07 PM T: ??09/15/2019 12:07 PM Report ID: [id number] Reading Location: ??[id number] Procedure Note Del Chaudhary MD - 09/15/2019 EXAM DESCRIPTION: CT CHEST W/O CONTRAST REASON FOR STUDY: History of solitary pulmonary nodule for 1 year follow-up. Initial detection July 30, 2018 TECHNIQUE: CT scan of the chest performed without intravenous contrast using helical scanning technique. Reconstructed coronal and sagittal MPR images reviewed. All images stored on PACS. Automated exposure control was used as a dose optimization technique for this examination. COMPARISON: CT chest dated July 30, 2018. CT chest dated July 21, 2017 FINDINGS: The sensitivity for detection of solid visceral lesions is diminished without the use of intravenous contrast. LUNGS: The central airway is patent. There is a 0.2 cm pulmonary nodule within the left lung apex laterally (axial image 23). Stable 0.4 cm pulmonary nodule adjacent to the minor fissure (axial image 63). PLEURA: No effusion. No pneumothorax. MEDIASTINUM/HEATHER: No identified masses or abnormal nodes. HEART: Heart size is normal with no pericardial effusion. VASCULATURE: No thoracic aortic aneurysm. AXILLA: No adenopathy. CHEST WALL: No masses. No subcutaneous air. HARDWARE/LINES/TUBES: None. UPPER ABDOMEN: No significant abnormality. MUSCULOSKELETAL: No significant abnormality. OTHER: No other significant abnormality. THIS IS AN ELECTRONICALLY VERIFIED FINAL REPORT 09/15/2019 12:07 PM - Electronically signed by Del Chaudhary M.D. JA: PAL Report ID: [id number] Reading Location: [place] [id number] IMPRESSION: Stable appearance of pulmonary nodules as above. No new pulmonary nodules. These have demonstrated stability since July 2017 and likely benign. Danielle Phelps RESEARCH PROGRAM INTERN, SENIOR ELECTRICAL DESIGNER IMG CT ORDERABLES Final Result * PSA DIAGNOSTIC,TOTAL (12/25/2016) PSA (PROSTATE SPECIFIC ANTIGEN) 0.5 ng/mL Blood specimen (specimen) 12/25/2016 Chano Leggett DO CHEMISTRY ORDERABLES Final Resu lt * HM COLONOSCOPY (08/31/2016) Nitesh Matta MD PROCEDURE/MINOR SURGICAL ORDER CRISTHIAN Final Result from Last 3 Months or Most Recently Relevant to Health Maintenance Insurance [place] Care Teams Print Developer Relationship Specialty Start Date End Date Provider, None [place] PCP - General 06/03/21 Danielle Phelps, KARSON, SENIOR ELECTRICAL DESIGNER Nurse Practitioner Advanced Practice Nurse 05/10/16 Chano Leggett DO Gastroenterology 09/01/16
--- OUTSIDE RECORDS SUMMARY | 2024-12-07 12:09 | XMS_ITS | Referral Summary ---
Author Organization [facility] Address [address] [place] [address] Care Team Providers Care Auto Hauler Name Role Phone Gustavo Bell MD Unavailable Carlos Culp MD Unavailable Sebastian Up MD Unavailable [phone] Thai Cruz Primary Care Provider Allergies Active Allergy Reactions Criticality Noted Date Comments Cephalexin Other (See comments) Low WOUND UP IN ER, PASSED OUT ON FLOOR Cusqvdh-Ahr-Sbz Reductase Inhibitors Swelling Medium 06/13/2022 Medications ALPRAZolam [...] Culp. Assessment & Plan (01/05/2021 11:46 AM SUPERVISOR SHOP): Follows with marshal. Doing whole blood phlebotomy [...] when laying on his back at night. [facility] neurology refused referral as they do not [...] when laying on his back at night. [facility] neurology refused referral as they do not [...] neurology. Assessment & Plan (01/05/2021 11:50 AM SUPERVISOR SHOP): Notes left anterior thigh paresthesias that radiates [...] crest. Assessment & Plan (01/05/2021 11:44 AM SUPERVISOR SHOP): Xray (03/04/2020) revealed mild OA. Recent MRI right hip was revealing for mild tendinopathy of right gluteus minimus and mild bilateral trochanteric bursitis. Did not do PT. States he has done PT 4 different times without benefit in the past. Pain localized over the anterosuperior iliac spine and radiates along the iliac crest. Assessment & Plan (09/21/2020 12:39 PM SUPERVISOR SHOP): Xray (03/04/2020) revealed mild OA. Recent MRI [...] 11/28/2019 Assessment & Plan (11/28/2019 11:07 AM SUPERVISOR SHOP): Pt has red, flaky rash between the eyebrows and scattered throughout his interiano. He states it developed over the past 6 months and denies change in soaps/detergents. HCQ can cause/worsen psoriasis. Will hold plaquenil and watch for improvement. Recommend patient see dermatology. If rash is diagnosed as psoriasis, then likely patient has overlap with psoriatic arthritis. Patient given fulling mill operator Dr. Abraham's information. Neck pain 08/28/2019 Assessment [...] into hands as well and has diminished junior programmer strength as well. Patient was told in [...] into hands as well and has diminished junior programmer strength as well. Patient was told in [...] into hands as well and has diminished junior programmer strength as well. Will give referral to neurology. Assessment & Plan (01/05/2021 11:41 AM SUPERVISOR SHOP): History of chronic neck pain for which [...] referral from pcp for a spinal surgeon. group home current use of therapeutic drug 2018 Overview [...] rash Assessment & Plan (01/05/2021 11:40 AM SUPERVISOR SHOP): Hepatitis negative: 04/2018 CXR negative: 04/2018 Quantiferon negative: 03/15/2020 Has failed MTX, leflunomide, SSZ, enbrel, and humira. Orencia - loss of benefit HCQ - stopped due to psoriasis-like rash Assessment & Plan (09/21/2020 12:36 PM SUPERVISOR SHOP): Hepatitis negative: 04/2018 CXR negative: 04/2018 Quantiferon [...] rash Assessment & Plan (11/28/2019 11:03 AM SUPERVISOR SHOP): Hepatitis negative: 04/2018 CXR negative: 04/2018 Quantiferon [...] 08/02/2018 Assessment & Plan (01/05/2021 11:46 AM SUPERVISOR SHOP): Chronic. Denied benefit with kenalog injection given [...] benefit. Assessment & Plan (11/28/2019 11:03 AM SUPERVISOR SHOP): Denied benefit with kenalog injection given at [...] benefit. Assessment & Plan (12/24/2018 11:18 AM SUPERVISOR SHOP): Recently followed with orthopedics for additional evaluation. Was told that he had fluid build up that was causing his elbow pain and could not be offered any specific treatment. Has recently been having pain in his left elbow also. If becomes more bothersome, could consider physical therapy in the future. Assessment & Plan (10/21/2018 5:04 PM SUPERVISOR SHOP): He has persistent pain in his right [...] ng multiple sites with positive rheumatoid factor ([facility]) 04/15/2018 Overview (03/05/2020): Serologies 2014: negative hepatitis [...] with simponi aria. Continue Actemra 8mg/kg IV k3edxby and give this more time to take [...] office. Assessment & Plan (01/05/2021 11:43 AM SUPERVISOR SHOP): Moderate cdai. Synovitis with increased tenderness of [...] office. Assessment & Plan (09/21/2020 12:37 PM SUPERVISOR SHOP): Moderate cdai. Synovitis without much tenderness noted [...] needed. Assessment & Plan (11/28/2019 12:08 PM SUPERVISOR SHOP): High cdai. Several swollen and tender joints [...] needed. Assessment & Plan (12/24/2018 11:19 AM SUPERVISOR SHOP): Moderate cdai. No obvious synovitis noted on [...] needed. Assessment & Plan (10/21/2018 5:00 PM SUPERVISOR SHOP): He is having increased pain complaints in [...] exercise. Assessment & Plan (01/05/2021 11:42 AM SUPERVISOR SHOP): Still has generalized pain. Follows with pain management and remains on Lyrica 150mg TID and baclofen 20mg prn per pain management, although dose not take baclofen very frequently as he denies benefit. Does not take Lyrica routinely as he feels it worsens his pain. Encouraged to participate in routine exercise. Assessment & Plan (09/21/2020 12:37 PM SUPERVISOR SHOP): Still has generalized pain. Follows with pain [...] exercise. Assessment & Plan (11/28/2019 11:04 AM SUPERVISOR SHOP): Still has generalized pain. Follows with pain [...] exercise. Assessment & Plan (12/24/2018 11:45 AM SUPERVISOR SHOP): Still has generalized pain which appears to be contributing to most of his pain complaints today. Follows with pain management and remains on Lyrica 150mg TID and baclofen 20mg prn per pain management. Encouraged to participate in routine exercise. Assessment & Plan (10/21/2018 5:06 PM SUPERVISOR SHOP): He still has widespread pain which I [...] Diagnosed Date Resolved Date Arthralgia 04/15/2018 05/03/2018 Social History Tobacco Use Types Packs/Day Years [...] on file Legal Sex Male 1:56 AM SUPERVISOR SHOP Gender Identity Not on file Sexual Orientation [...] 06/30/2022 10:13 AM CDT Plan of Treatment Not on file Procedures Procedure Name Priority Date/Time Associated Diagnosis Comments HEPATITIS C ANTIBODY Routine 04/15/2018 3:00 PM CDT from Last 3 Months or Most Recently Relevant to Health Maintenance Results * Hepatitis C antibody (04/15/2018 3:00 PM CDT) Hep C Ab Non-Reactiv e Non-Reactiv e [facility] Blood specimen (specimen) 04/15/2018 3:00 PM CDT 04/15/2018 5:15 PM CDT Narrative [facility] - 04/15/2018 9:03 PM CDT us Pierce Griffiths MD LAB MICROBIOLOGY - GENE RAL ORDERABLES Final Result [facility] Kavin Hess Department [place] [address] from Last 3 Months or Most Recently Relevant to Health Maintenance Insurance [address] [place] [address] [place] [address] [place] [address] MEDICARE MEDICARE Advance Directives For more information, please contact: [phone] Documents on File Type Date Recorded Patient Campground Attendant Expl anation ADVANCE DIRECTIVE 04/15/2018 5:09 PM * Full Code (Latest Code Status on File) Date Activated Date Inactivated Comments 06/30/2022 10:05 AM 06/30/2022 4:15 PM Care Teams Auto Hauler Relationship Specialty Start Date End Date Thai Cruz PA [address] [facility] [address] [place] [address] PCP - General Physician Hospital Pharmacy Director 06/21/22 Gustavo Bell MD [address] [facility] [address] [place] [address] Consulting Physician Rheumatology 05/03/18 Carlos Culp MD [address] [facility] [address] [place] [address] Referring Physician Internal Medicine 05/18/20 Sebastian Up MD [address] [place] [address] Referring Physician Physical Medicine and Rehabilitation 07/19/21
--- OUTSIDE RECORDS SUMMARY | 2024-12-07 12:09 | XMS_ITS | Clinical Summary ---
Author Organization [facility] Address [address] [place] [address] Care Team Providers Care Branch Office Administrator Name Role Phone Joe Goodrich MD Primary Care Provider Source Comments [facility] Affiliates and Associated Physician Practices is amultiple site organization consisting of ambulatory clinics and hospital sitesin [place], [place], [place] and [place]. This disclosure is being madepursuant to the Care Everywhere program and may not contain all information available regarding this patient. Last updated 18.[facility] Allergies Active Allergy Reactions Criticality Noted Date [...] has overlap with psoriatic arthritis. 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 Cervical spondylosis without myelopathy 10/10/20 19 Cigarette smoker 10/10/2019 [facility] current use of therapeutic drug 2018 Overview [...] Zoster Hzv Vacc Recombinant Inj Im 09/22/2020, Family History Medical History Relation Name Comments Hypertension Father Other Mother HTN, Relation Name Status Comments Brother Alive Father Mother Alive Social History Tobacco Use [...] T Respiratory Rate 16 10/23/2021 6:35 PM [employer] Oxygen Saturation 100% 10/23/2021 6:35 PM [employer] Inhaled Oxygen Concentration - - Weight 97.5 kg (215 lb) 01/17/2024 10:35 AM CDT Height 177.8 cm (5' 10 ) 01/17/2024 10:35 AM CDT Body Mass Index 30.85 01/17/2024 10:35 AM CDT Plan of Treatment Upcoming Encounters Date Type Department Care Team (Late st Contact Info) Description 02/05/2025 11:00 AM CDT Office Visit [facility] [address] [place] [address] Kiara Sifuentes, SUPERVISOR SCREEN MAKING-ROVING OR YARN COLOR CHECKER [address] [place] [id number] Health Maintenance Due Date Last Done Comments COLOGUARD (AGES 45-75) - COLON CA SCREENING 1969 COLON MONITORING 1969 COLONOSCOPY - COLON CA SCREENING 1969 CT COLONOGRAPHY - COLON CA SCREENING 1969 Colorectal Cancer Screening 1969 FIT - COLON CA SCREENING 1969 FLEX SIG - COLON CA SCREENING 1969 MEDICARE AWV ? 12 MONTHS 1969 DTAP/TDAP/TD VACCINES (1 - Tdap) 01/09/1988 HEPATITIS B VACCINE (1 of 3 - 19+ 3-dose series) 01/09/1988 DIABETES-STATIN 2009 PNEUMOCOCCAL VACCINE 50+ (2 of 2 - PCV) 08/04/2017 08/04/2016 PNEUMOCOCCAL VACCINE (2 of 2 - PCV) 08/04/2017 08/04/2016 LUNG CANCER SCREENING 2019 DIABETES-SERUM CREATININE 05/03/20232021, 05/03/2022, 10/23/2021, Additional history exists DIABETES RETINOPATHY SCREENING 07/19/2023 DIABETES-FOOT EXAM WITH MONOFILAMENT 07/19/2023 DIABETES-HGB A1C 07/19/2023 COVID-19 VACCINE ( season) 2024 02/20/2021, 01/30/2021 INFLUENZA VACCINE (#1) 2024 , 08/29/2019, 08/23/2018, Additional history exists DEPRESSION SCREENING 11/05/2024 DIABETES - URINE PROTEIN SCREENING 11/05/2024 HEPATITIS C SCREENING Completed 06/08/2020 HIV SCREENING Completed 06/08/2020 ZOSTER VACCINE Completed 09/22/2020, 06/10/2020 HIB VACCINE Aged Out No longer eligi ble based on patient's age to complete this topic HPV VACCINE Aged Out No longer eligi ble based on patient's age to complete this topic MENINGOCOCCAL (Group B) VACCINE Aged Out No longer eligible based on patient's age to complete this topic MENINGOCOCCAL VACCINE Aged Out No wilbur angelina eligible based on patient's age to complete this topic Procedures Procedure Name Priority Date/Time Associated Diagnosis Comments COMPREHENSIVE METABOLIC PANEL STAT 10/23/2021 9:38 PM [employer] HEPATITIS C ANTIBODY Routine 06/08/2020 4:51 PM CDT Thrombocytopenia, 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) Polycythemia Secondary polycythemia HIV-1 HIV-2 ANTIBODY + HIV P24 AG PANEL Routine 06/08/2020 4:46 PM CDT Thrombocytopenia, 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) from Last 3 Months or Most Recently Relevant to Health Maintenance Results * (ABNORMAL) COMPREHENSIVE METABOLIC PANEL (10/23/2021 9:38 PM [facility]) BUN 16 7 - 26 mg/dL 10/23/2021 10:16 PM [facility] Creatinine 1.29(H) 0.71 - 1.16 mg/dL 10/23/2021 10:16 PM [facility] Sodium 141 136 - 145 mmol/L 10/23/2021 10:16 PM [facility] Potassium 3.8 3.5 - 4.5 mmol/L 10/23/2021 10:16 PM [facility] Chloride 105 98 - 107 mmol/L 10/23/2021 10:16 PM [facility] CO2 25 22 - 29 mmol/L 10/23/2021 10:16 PM [facility] Glucose 189(H) 70 - 115 mg/dL 10/23/2021 10:16 PM [facility] Calcium 9.7 8.4 - 10.2 mg/dL 10/23/2021 10:16 PM [facility] Protein Total 7.3 6.0 - 8.3 g/dL 10/23/2021 10:16 PM [facility] Albumin 3.9 3.4 - 5.0 g/dL 10/23/2021 10:16 PM [facility] Bilirubin Total 0.8 0.2 - 1.2 mg/dL 10/23/2021 10:16 PM [facility] Alkaline Phosphatase 111 40 - 150 U/L 10/23/2021 10:16 PM [facility] ALT 23 5 - 55 U/L 10/23/2021 10:16 PM [facility] AST 20 5 - 34 U/L 10/23/2021 10:16 PM [facility] Anion Gap 15 8 - 18 10/23/2021 10:16 PM [facility] BUN/Creatinine Ratio 12 7 - 23 10/23/2021 10:16 PM [facility] Osmolality Calculated 298 270 - 300 mOsm/kg 10/23/2021 10:16 PM [facility] Albumin/Globulin Ratio 1.1 1.1 - 2.3 10/23/2021 10:16 PM [employer] [facility] eGFR by CKD-EPI 63(L) >=90 mL/min/1.7 3 m2 10/23/2021 10:16 PM [facility] Blood BLOOD SPECIMEN / Unknown Venipuncture / Unknown 10/23/2021 9:38 PM [employer] 10/23/2021 9:50 PM [employer] Willy Garcia PA-C LAB - CHEM ISTRY ORDERABLES [facility] [address] [place] [address], [facility] [phone] * HEPATITIS C ANTIBODY (06/08/2020 4:51 PM CDT) Hepatitis C Antibody <0.1 0.0 - 0.9 s/co ratio [facility] INSURANCE BILL Comment: ? Negative: ? < 0.8 ?Indeterminate: 0.8 - 0.9 ? Positive: ? > 0.9 ? . ?The CDC recommends that a positive HCV antibody result ?be followed up with a HCV Nucleic Acid Amplification ?test ([id number]). Blood BLOOD SPECIMEN / Unknown 06/08/2020 4:51 PM CDT 06/08/2020 Narrative Resulting Agency Comment Lab Testing performed at: [facility] [address] ??[facility] [id number] Carlos Culp MD LAB - CHEMISTRY BILL FLOWERS [facility] INSURANCE BILL [address] [place] [address] * HIV-1 HIV-2 ANTIBODY + HIV P24 AG PANEL (06/08/2020 4:46 PM CDT) [facility] Signature HIV Screen 4th Generation w Reflex Non Reactive Non Reactive [facility] INSURANCE BILL Blood BLOOD SPECIMEN / Unknown 06/08/2020 4:46 PM CDT 06/08/2020 Narrative Resulting Agency Comment Lab Testing performed at: [facility] ??[facility] [id number] Carlos Culp MD LAB - CHEMISTRY BILL FLOWERS [facility] INSURANCE BILL [address] [place] [address] from Last 3 Months or Most Recently Relevant to Health Maintenance Insurance Payer Benefit Plan / Group Subscriber ID Effective Dates Phone Address Type MEDICARE MEDICARE PART A AND B [id number] Effective for all dates [address] [place] [address] Medicare SELF PAY NO INSURANCE SELF PAY NO INSURANCE Effective for all dates [place] Self Pay MEDICARE MEDICARE PART A AND B [id number] Effective for all dates [address] [place] [address] Medicare SELF PAY NO INSURANCE SELF PAY NO INSURANCE Effective for all dates [place] Self Pay MEDICARE MEDICARE PART A AND B [id number] Effective for all dates [address] [place] [address] Medicare SELF PAY NO INSURANCE SELF PAY NO INSURANCE Effective for all dates [place] Self [place] MEDICARE MEDICARE PART A AND B [id number] Effective for all dates [address] [place] [address] Medicare SELF PAY NO INSURANCE SELF PAY NO INSURANCE Effective for all dates . [facility] Self Pay MEDICARE MEDICARE PART A AND B [id number] Effective for all dates [address] [place] [address] Medicare SELF PAY NO INSURANCE SELF PAY NO INSURANCE Effective for all dates [facility] Self Pay MEDICARE MEDICARE PART A AND B [id number] Effective for all dates [address] [place] [address] Medicare SELF PAY NO INSURANCE SELF PAY NO INSURANCE Effective for all dates [place] Self Pay MEDICARE WPS MEDICARE PART B [id number] 02/04/2020-Prese nt [address] [address] [place] [address] Medicare MEDICARE MEDICARE PART A AND B [id number] 02/04/2020-Prese nt [address] [place] [address] Medicare Care Teams Branch Office Administrator Relationship Specialty Start Date End Date Joe Goodrich MD [address] [address] PCP - General Internal Medicine 06/30/20
--- OUTSIDE RECORDS SUMMARY | 2024-12-07 12:09 | XMS_ITS | Patient Health Summary ---
Author Organization [facility] Address [address] [place] [address] Care Team Providers Care Primary [employer] Principal Name Role Phone Joe Goodrich MD Primary Care Provider Note from [facility],non-owned Affiliates and Associated Physician Practices is amultiple site organization consisting of ambulatory clinics and hospital sitesin [place], [place], [place] and [place]. This disclosure is being madepursuant to the Care Everywhere program and may not contain all information available regarding this patient. Last updated 18.[facility] Allergies * Cephalexin(Other) * Hmg-Coa-R Inhibitors(Angioedema) -High Criticality Medications * Be aware that medications may not be up to date on this document. Alwaysverify current medications with the patient. * omeprazole (PRILOSEC) 40 MG capsule(Started 12/03/2020) Take 1 (one) capsule by mouth 2 times daily * HYDROcodone-acetaminophen (NORCO) 7.5-325 MG tablet(Started 09/26/2021) Take 1 (one) tablet by mouth every 4 hours as needed Every 8-12 hours * ALPRAZolam (Xanax) 0.5 MG tablet(Started 06/22/2023) Take 1 (one) tablet by mouth at bedtime * fluticasone propionate (Flonase) 50 MCG/ACT nasal spray(Started 09/15/2022) as needed * lisinopril (Prinivil; Zestril) 20 MG tablet(Started 07/17/2023) 1 (one) tablet once daily * meclizine (Antivert) 25 MG tablet(Started 07/11/2023) Take 1 (one) tablet by mouth 3 times daily as needed For dizziness. * divalproex DR (Depakote) 250 MG tablet(Started 07/19/2023) Take 1 (one) tablet by mouth 2 times daily 4 refills by 07/18/2024 * nortriptyline (Pamelor) 50 MG capsule(Started 01/11/2024) 2 (two) capsules to 3 (three) capsules at bedtime * erenumab-aooe (Aimovig) 140 MG/ML auto injector pen(Started 01/17/2024) Inject 1 mL subcutaneously every 30 days 3 refills by 01/16/2025 Active Problems Problem Noted Date Diagnosed Date Chronic obstructive pulmonary disease (COPD) Diabetes 07/19/2023 HTN (hypertension) 07/19/2023 Migraines 07/19/2023 DDD (degenerative disc disease), cervical 2022 Lumbar radiculopathy 01/05/2021 Polycythemia 07/28/2020 Thrombocytopenia 05/17/2020 Right hip pain 05/14/2020 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 03/19/2020 Dermatitis 11/28/2019 Cervical spondylosis without myelopathy 10/10/20 19 Cigarette smoker 10/10/2019 [employer] current use of therapeutic drug 2018 Chronic pain disorder 08/02/2018 Medial epicondylitis of right elbow 08/02/2018 Somatic symptom disorder, pe rsistent, severe, with predominant pain 08/02/2018 Fibromyalgia 04/15/2018 Gastroesophageal reflux disease without esophagi tis 05/10/2016 Hx of diverticulitis of colon 05/10/2016 Left lower quadrant pain 05/10/2016 Post-op pain Cubital tunnel syndrome on right Carpal tunnel syndrome of right wrist Immunizations * INFLUENZA VACCINE, TRIV. (AFLURIA, FLUZONE TRIVALENT; 6MO+) (IIV3)(Given 08/10/2015) * FLU VACCINE TRI IIV3 SPLIT PF IM (FLUVIRIN)(Given 07/28/2017, 08/04/2016) * INFLUENZA VACCINE, QUADR. (FLUZONE; FLULAVAL; FLUARIX; AFLURIA QUADRIVALENT; 6MO+), 0.5 ML (IIV4)(Given 08/29/2019, 08/23/2018) * PNEUMOCOCCAL PPSV23(Given 08/04/2016) * Zoster Hzv Vacc Recombinant Inj Im(Given 09/22/2020, 06/10/2020) Social History Tobacco Use Types Packs/Day Years [...] T Respiratory Rate 16 10/23/2021 6:35 PM HEAT SEALING MACHINE OPERATOR Oxygen Saturation 100% 10/23/2021 6:35 PM HEAT SEALING MACHINE OPERATOR Inhaled Oxygen Concentration - - Weight 97.5 kg (215 lb) 01/17/2024 10:35 AM CDT Height 177.8 cm (5' 10 ) 01/17/2024 10:35 AM CDT Body Mass Index 30.85 01/17/2024 10:35 AM CDT Procedures * C-REACTIVE PROTEIN(Performed 10/23/2021) * ERYTHROCYTE SEDIMENTATION RATE(Performed 10/23/2021) * COMPREHENSIVE METABOLIC PANEL(Performed 10/23/2021) * CBC W AUTO DIFFERENTIAL(Performed 10/23/2021) * XR FOREARM RIGHT 2VW OR MORE(Performed 10/23/2021) Performed for Surgical site infection * XR ELBOW RIGHT 3VW OR MORE(Performed 10/23/2021) Performed for Surgical site infection * PERIPHERAL BLOCK(Performed 09/26/2021) * GLUCOSE - POINT OF CARE(Performed 09/26/2021) * ENDOTRACHEAL TUBE NOTE(Performed 09/26/2021) * MI REVISE MEDIAN N/CARPAL TUNNEL SURG(Performed 09/26/2021) Performed for Ulnar neuropathy at elbow, right, Carpal tunnel syndrome of right wrist * MI REVISE ULNAR NERVE AT ELBOW(Performed 09/26/2021) Performed for Ulnar neuropathy at elbow, right, Carpal tunnel syndrome of right wrist * BASIC METABOLIC PANEL (CALCIUM TOTAL)(Performed 09/26/2021) Performed for Thrombocytopenia (HCC), Polycythemia * GLUCOSE - POINT OF CARE(Performed 09/26/2021) * PTT SLH(Performed 09/26/2021) Performed for Thrombocytopenia (HCC), Polycythemia * PT-INR SLH(Performed 09/26/2021) Performed for Thrombocytopenia (HCC), Polycythemia * CBC W/O DIFFERENTIAL(Performed 09/26/2021) Performed for Thrombocytopenia (HCC), Polycythemia * MRI LUMBAR SPINE WO CONTRAST(Performed 09/03/2021) Performed for Lumbar radiculopathy * EMG WITH NERVE CONDUCTION STUDY(Performed 08/26/2021) Performed for Chronic neck and back pain, Medial epicondylitis of right elbow, Cubital tunnel syndrome on right * XR SPINE ENTIRE 2 OR 3VW(Performed 08/23/2021) Performed for Chronic neck and back pain * PATHOLOGY PERIPHERAL SMEAR REVIEW(Performed 07/13/2021) Performed for Secondary polycythemia, Thrombocytopenia, secondary * COMPREHENSIVE METABOLIC PANEL(Performed 07/13/2021) Performed for Secondary polycythemia * ERYTHROPOIETIN(Performed 07/13/2021) Performed for Secondary polycythemia * CBC W AUTO DIFFERENTIAL(Performed 07/13/2021) Performed for Secondary polycythemia * CT CHEST WO CONTRAST(Performed 04/15/2021) Performed for Pulmonary nodule * REF LAB-PLEASE NOTE(Performed 03/09/2021) * CARDIOLIPIN ANTIBODY IGA/IGG/IGM PANEL(Performed 03/09/2021) * COMPREHENSIVE METABOLIC PANEL(Performed 03/09/2021) Performed for Secondary polycythemia, Hypoxemia * ERYTHROPOIETIN(Performed 03/09/2021) Performed for Secondary polycythemia, Hypoxemia * CBC W AUTO DIFFERENTIAL (CANCER CARE)(Performed 03/09/2021) Performed for Secondary polycythemia, Hypoxemia * CBC W AUTO DIFFERENTIAL (CANCER CARE)(Performed 01/21/2021) Performed for Secondary polycythemia * CBC W AUTO DIFFERENTIAL (CANCER CARE)(Performed 12/31/2020) Performed for Secondary polycythemia * CBC W AUTO DIFFERENTIAL (CANCER CARE)(Performed 12/03/2020) Performed for Secondary polycythemia * COMPREHENSIVE METABOLIC PANEL(Performed 11/10/2020) Performed for Secondary polycythemia * ERYTHROPOIETIN(Performed 11/10/2020) Performed for Secondary polycythemia * CBC W AUTO DIFFERENTIAL (CANCER CARE)(Performed 11/10/2020) Performed for Secondary polycythemia * XR CHEST 2VW(Performed 09/29/2020) Performed for Smoking history, Restrictive lung disease * AMB REFERRAL TO LODGING FACILITIES MANAGER(Performed 09/29/2020) Performed for Thrombocytopenia, secondary * CBC W AUTO DIFFERENTIAL (CANCER CARE)(Performed 09/21/2020) Performed for Secondary polycythemia * CBC W AUTO DIFFERENTIAL (CANCER CARE)(Performed 08/10/2020) Performed for Secondary polycythemia * IMMUNOFIXATION BLOOD(Performed 07/28/2020) Performed for Secondary polycythemia, Thrombocytopenia, secondary, Hypoxemia, Seropositive rheumatoid arthritis of multiple sites (HCC), Anti-cardiolipin antibody positive * CARDIOLIPIN ANTIBODY IGA/IGG/IGM PANEL(Performed 07/28/2020) Performed for Secondary polycythemia, Thrombocytopenia, secondary, Hypoxemia, Seropositive rheumatoid arthritis of multiple sites (HCC), Anti-cardiolipin antibody positive * COMPREHENSIVE METABOLIC PANEL(Performed 07/28/2020) Performed for Secondary polycythemia, Thrombocytopenia, secondary, Hypoxemia, Seropositive rheumatoid arthritis of multiple sites (HCC), Anti-cardiolipin antibody positive * LDH BLOOD(Performed 07/28/2020) Performed for Secondary polycythemia, Thrombocytopenia, secondary, Hypoxemia, Seropositive rheumatoid arthritis of multiple sites (HCC), Anti-cardiolipin antibody positive * CBC W AUTO DIFFERENTIAL (CANCER CARE)(Performed 07/28/2020) Performed for Secondary polycythemia * CARDIAC RHYTHM STRIP ORDER(Performed 07/15/2020) * FISH MPN W/HYPEREOSINOPHILIA(Performed 07/09/2020) Performed for Thrombocytopenia (HCC) * FISH MULTIPLE MYELOMA PANEL BONE MARROW(Performed 07/09/2020) Performed for Thrombocytopenia (HCC) * FISH MDS PANEL ADDTL SRCS(Performed 07/09/2020) Performed for Thrombocytopenia (HCC) * FLOW CYTOMETRY BONE MARROW(Performed 07/09/2020) Performed for Thrombocytopenia (HCC) * CHROMOSOME ANALYSIS LEUKEMIA/LYMPHOMA(Performed 07/09/2020) Performed for Thrombocytopenia (HCC) * CT BONE MARROW BIOPSY(Performed 07/09/2020) Performed for Secondary polycythemia, Thrombocytopenia, secondary * BONE MARROW BIOPSY (STL)(Performed 07/09/2020) Performed for Unknown cause of injury, initial encounter * PTT(Performed 07/09/2020) Performed for Thrombocytopenia (HCC) * PT-INR(Performed 07/09/2020) Performed for Thrombocytopenia (HCC) * PRETTY URINE(Performed 06/29/2020) Performed for Secondary polycythemia, Thrombocytopenia, secondary, Hypoxemia, Seropositive rheumatoid arthritis of multiple sites (HCC), Anti-cardiolipin antibody positive * [id number] BLOOD(Performed 06/29/2020) Performed for Secondary polycythemia, Thrombocytopenia, secondary, Hypoxemia, Seropositive rheumatoid arthritis of multiple sites (HCC), Anti-cardiolipin antibody positive * KAPPA/LAMBDA LITE CHAIN FREE PANEL(Performed 06/29/2020) Performed for Secondary polycythemia, Thrombocytopenia, secondary, Hypoxemia, Seropositive rheumatoid arthritis of multiple sites (HCC), Anti-cardiolipin antibody positive * PROTEIN ELECTROPHORESIS BLOOD(Performed 06/29/2020) Performed for Secondary polycythemia, Thrombocytopenia, secondary, Hypoxemia, Seropositive rheumatoid arthritis of multiple sites (HCC), Anti-cardiolipin antibody positive * LAB MISC TEST(Performed 06/29/2020) Performed for Secondary polycythemia, Thrombocytopenia, secondary, Hypoxemia, Seropositive rheumatoid arthritis of multiple sites (HCC), Anti-cardiolipin antibody positive * CBC W AUTO DIFFERENTIAL (CANCER CARE)(Performed 06/29/2020) Performed for Secondary polycythemia * US ABDOMEN LIMITED(Performed 06/25/2020) Performed for Thrombocytopenia, secondary * BLOOD GASES ARTERIAL(Performed 06/25/2020) Performed for Thrombocytopenia, primary (HCC) * HEPATITIS A IGM ANTIBODY(Performed 06/24/2020) Performed for Hepatitis A antibody positive * REF LAB-SPECIMEN STATUS REPORT(Performed 06/08/2020) * HEPATITIS B SURFACE ANTIGEN W RFLX CONFIRMATION(Performed 06/08/2020) Performed for Encounter for screening for other viral diseases , Thrombocytopenia, secondary, Seropositive rheumatoid arthritis of multiple sites (HCC), Polycythemia, Secondary polycythemia * HEPATITIS B SURFACE ANTIBODY(Performed 06/08/2020) Performed for Encounter for screening for other viral diseases , Thrombocytopenia, secondary, Seropositive rheumatoid arthritis of multiple sites (HCC), Polycythemia, Secondary polycythemia * HEPATITIS B CORE ANTIBODY IGM(Performed 06/08/2020) Performed for Thrombocytopenia, secondary, Seropositive rheumatoid arthritis of multiple sites (HCC), Polycythemia, Secondary polycythemia * HEPATITIS A ANTIBODY(Performed 06/08/2020) Performed for Thrombocytopenia, secondary, Seropositive rheumatoid arthritis of multiple sites (HCC), Polycythemia, Secondary polycythemia * HEPATITIS C ANTIBODY(Performed 06/08/2020) Performed for Thrombocytopenia, secondary, Seropositive rheumatoid arthritis of multiple sites (HCC), Polycythemia, Secondary polycythemia * LUPUS ANTICOAGULANT PANEL W RFLX(Performed 06/08/2020) Performed for Thrombocytopenia, secondary, Seropositive rheumatoid arthritis of multiple sites (HCC) * REF LAB-PLEASE NOTE(Performed 06/08/2020) * TRACEY STAINING PATTERNS REFLEXED(Performed 06/08/2020) Performed for Thrombocytopenia, secondary, Seropositive rheumatoid arthritis of multiple sites (HCC) * ILSA DIRECT(Performed 06/08/2020) Performed for Thrombocytopenia, secondary, Seropositive rheumatoid arthritis of multiple sites (HCC) * ANTIBODY SCREEN(Performed 06/08/2020) Performed for Thrombocytopenia, secondary, Seropositive rheumatoid arthritis of multiple sites (HCC) * DRVVT MIX(Performed 06/08/2020) Performed for Thrombocytopenia, secondary, Seropositive rheumatoid arthritis of multiple sites (HCC) * VISCOSITY(Performed 06/08/2020) * ERYTHROPOIETIN(Performed 06/08/2020) Performed for Thrombocytopenia, secondary, Seropositive rheumatoid arthritis of multiple sites (HCC) * TESTOSTERONE TOTAL(Performed 06/08/2020) Performed for Thrombocytopenia, secondary, Seropositive rheumatoid arthritis of multiple sites (HCC) * PLATELET ANTIBODY PANEL(Performed 06/08/2020) Performed for Thrombocytopenia, secondary, Seropositive rheumatoid arthritis of multiple sites (HCC) * JAK2 GENE V617F MUTATION QUANTITATIVE(Performed 06/08/2020) Performed for Secondary polycythemia , Thrombocytopenia, secondary, Seropositive rheumatoid arthritis of multiple sites (HCC) * BCR-ABL1 CML+AML PCR QUANT PNL(Performed 06/08/2020) Performed for Secondary polycythemia , Thrombocytopenia, secondary, Seropositive rheumatoid arthritis of multiple sites (HCC) * PT PTT PANEL(Performed 06/08/2020) Performed for Thrombocytopenia, secondary, Seropositive rheumatoid arthritis of multiple sites (HCC) * BETA-2 GLYCOPROTEIN 1 ANTIBODY IGG/IGM PANEL(Performed 06/08/2020) Performed for Thrombocytopenia, secondary, Seropositive rheumatoid arthritis of multiple sites (HCC) * CARDIOLIPIN ANTIBODY IGG/IGM PANEL(Performed 06/08/2020) Performed for Thrombocytopenia, secondary, Seropositive rheumatoid arthritis of multiple sites (HCC) * IMMUNOFIXATION BLOOD(Performed 06/08/2020) Performed for Thrombocytopenia, secondary, Seropositive rheumatoid arthritis of multiple sites (HCC) * LDH BLOOD(Performed 06/08/2020) Performed for Thrombocytopenia, secondary, Seropositive rheumatoid arthritis of multiple sites (HCC) * COPPER BLOOD(Performed 06/08/2020) Performed for Thrombocytopenia, secondary, Seropositive rheumatoid arthritis of multiple sites (HCC) * C-REACTIVE PROTEIN(Performed 06/08/2020) Performed for Thrombocytopenia, secondary, Seropositive rheumatoid arthritis of multiple sites (HCC) * HODAN BLOOD SCREEN W/REFLEX TITER(Performed 06/08/2020) Performed for Thrombocytopenia, secondary, Seropositive rheumatoid arthritis of multiple sites (HCC) * RHEUMATOID FACTOR BLOOD QUANTITATIVE(Performed 06/08/2020) Performed for Thrombocytopenia, secondary, Seropositive rheumatoid arthritis of multiple sites (HCC) * VITAMIN B12 FOLATE PANEL(Performed 06/08/2020) Performed for Thrombocytopenia, secondary, Seropositive rheumatoid arthritis of multiple sites (HCC) * HIV-1 HIV-2 ANTIBODY + HIV P24 AG PANEL(Performed 06/08/2020) Performed for Thrombocytopenia, secondary, Seropositive rheumatoid arthritis of multiple sites (HCC) * COMPREHENSIVE METABOLIC PANEL(Performed 06/08/2020) Performed for Thrombocytopenia, secondary, Seropositive rheumatoid arthritis of multiple sites (HCC) * CBC W AUTO DIFFERENTIAL (CANCER CARE)(Performed 06/08/2020) Performed for Thrombocytopenia, secondary, Seropositive rheumatoid arthritis of multiple sites (HCC) * CARDIAC EKG ORDER(Performed 06/09/2019) * XR CHEST 2VW(Performed 06/08/2019) Performed for Other chest pain * COMPREHENSIVE METABOLIC PANEL(Performed 06/08/2019) * CBC W AUTO DIFFERENTIAL(Performed 06/08/2019) * TROPONIN I(Performed 06/08/2019) * EKG 12-LEAD(Performed 06/08/2019) Performed for Other chest pain Results * (ABNORMAL) C-REACTIVE PROTEIN (10/23/2021 9:38 PM HEAT SEALING MACHINE OPERATOR) Only the most recent of2 resultswithin the time period is included. C-Reactive Protein 6.1(H) <=0.5 mg/dL 10/23/2021 10:05 PM [facility] Blood BLOOD SPECIMEN / Unknown Venipuncture / Unknown 10/23/2021 9:38 PM HEAT SEALING MACHINE OPERATOR 10/23/2021 9:49 PM HEAT SEALING MACHINE OPERATOR Willy Garcia PA-C LAB - CHEM ISTRY ORDERABLES [address] [id number], [facility] [phone] * (ABNORMAL) ERYTHROCYTE SEDIMENTATION RATE (10/23/2021 9:38 PM HEAT SEALING MACHINE OPERATOR) Erythrocyte Sedimentation Rate Westergren 39(H) 0 - 20 MM/HR 10/23/2021 10:11 PM [facility] Blood BLOOD SPECIMEN / Unknown Venipuncture / Unknown 10/23/2021 9:38 PM HEAT SEALING MACHINE OPERATOR 10/23/2021 9:50 PM HEAT SEALING MACHINE OPERATOR Willy Garcia PA-C LAB - SUMAN TOLOGY ORDERABLES [address] [address], [facility] [phone] * (ABNORMAL) CBC W AUTO DIFFERENTIAL (10/23/2021 9:38 PM HEAT SEALING MACHINE OPERATOR) Only the most recent of3 resultswithin the time period is included. WBC 11.3(H) 3.5 - 10.5 10? 3 /uL 10/23/2021 10:06 PM [facility] RBC 5.10 4.30 - 5.70 10? 6 /uL 10/23/2021 10:06 PM [facility] Hemoglobin 16.2 12.0 - 17.6 g/dL 10/23/2021 10:06 PM [facility] Hematocrit 47.8 35.2 - 51.7 % 10/23/2021 10:06 PM [facility] MCV 93.7 80.7 - 98.3 fL 10/23/2021 10:06 PM [facility] MCH 31.8 26.7 - 34.0 pg 10/23/2021 10:06 PM [facility] MCHC 33.9 30.8 - 35.9 g/dL 10/23/2021 10:06 PM [facility] Platelet Count 70(L) 150 - 400 10? 3 /uL 10/23/2021 10:06 PM [facility] Comment:Confirmed by repeat analysis. RDW-SD 45.1 36.0 - 50.0 fL 10/23/2021 10:06 PM [facility] RDW-CV 13.0 11.2 - 14.8 % 10/23/2021 10:06 PM [facility] MPV 12.6 9.4 - 12.9 fL 10/23/2021 10:06 PM [facility] nRBC Absolute 0.00 0 10? 3 /uL 10/23/2021 10:06 PM [facility] nRBC Auto 0.0 0 /100 WBC 10/23/2021 10:06 PM [facility] Neutrophils % 70.5(H) 35.0 - 70.0 % 10/23/2021 10:06 PM [facility] Lymphocytes % 17.6(L) 20.0 - 43.0 % 10/23/2021 10:06 PM [facility] Monocytes % 9.0 5.0 - 13.0 % 10/23/2021 10:06 PM [facility] Eosinophils % 2.1 0.0 - 6.0 % 10/23/2021 10:06 PM [facility] Basophil % 0.4 0.0 - 2.0 % 10/23/2021 10:06 PM [facility] Neutrophils Absolute 7.9(H) 1.6 - 7.0 10? 3 /uL 10/23/2021 10:06 PM [facility] Lymphocyte Absolute 2.0 1.1 - 3.9 10? 3 /uL 10/23/2021 10:06 PM [facility] Monocytes Absolute 1.02 0.26 - 1.07 10? 3 /uL 10/23/2021 10:06 PM [facility] Eosinophils Absolute 0.24 0.00 - 0.47 10? 3 /uL 10/23/2021 10:06 PM [facility] Basophils Absolute 0.04 0.00 - 0.08 10? 3 /uL 10/23/2021 10:06 PM [facility] Immature Granulocytes % 0.4 0.0 - 1.0 % 10/23/2021 10:06 PM [facility] Immature Granulocytes Absolute 0.05 10/23/2021 10:06 PM [facility] Blood BLOOD SPECIMEN / Unknown Venipuncture / Unknown 10/23/2021 9:38 PM HEAT SEALING MACHINE OPERATOR 10/23/2021 9:50 PM HEAT SEALING MACHINE OPERATOR Willy Garcia PA-C LAB - SUMAN TOLOGY ORDERABLES [facility] [address] [place] [phone], [facility] [phone] * (ABNORMAL) COMPREHENSIVE METABOLIC PANEL (10/23/2021 9:38 PM HEAT SEALING MACHINE OPERATOR) Only the most recent of7 resultswithin the time period is included. BUN 16 7 - 26 mg/dL 10/23/2021 10:16 PM [facility] Creatinine 1.29(H) 0.71 - 1.16 mg/dL 10/23/2021 10:16 PM [facility] Sodium 141 136 - 145 mmol/L 10/23/2021 10:16 PM [facility] Potassium 3.8 3.5 - 4.5 mmol/L 10/23/2021 10:16 PM [facility] Chloride 105 98 - 107 mmol/L 10/23/2021 10:16 PM [facility] CO2 25 22 - 29 mmol/L 10/23/2021 10:16 PM [facility] Glucose 189(H) 70 - 115 mg/dL 10/23/2021 10:16 PM [facility] Calcium 9.7 8.4 - 10.2 mg/dL 10/23/2021 10:16 PM [facility] Protein Total 7.3 6.0 - 8.3 g/dL 10/23/2021 10:16 PM [facility] Albumin 3.9 3.4 - 5.0 g/dL 10/23/2021 10:16 PM [facility] Bilirubin Total 0.8 0.2 - 1.2 mg/dL 10/23/2021 10:16 PM [facility] Alkaline Phosphatase 111 40 - 150 U/L 10/23/2021 10:16 PM [facility] ALT 23 5 - 55 U/L 10/23/2021 10:16 PM [facility] AST 20 5 - 34 U/L 10/23/2021 10:16 PM [facility] Anion Gap 15 8 - 18 10/23/2021 10:16 PM [facility] BUN/Creatinine Ratio 12 7 - 23 10/23/2021 10:16 PM [facility] Osmolality Calculated 298 270 - 300 mOsm/kg 10/23/2021 10:16 PM [facility] Albumin/Globulin Ratio 1.1 1.1 - 2.3 10/23/2021 10:16 PM [facility] eGFR by CKD-EPI 63(L) >=90 mL/min/1.7 3 m2 10/23/2021 10:16 PM [facility] Blood BLOOD SPECIMEN / Unknown Venipuncture / Unknown 10/23/2021 9:38 PM HEAT SEALING MACHINE OPERATOR 10/23/2021 9:50 PM HEAT SEALING MACHINE OPERATOR Willy Garcia PA-C LAB - CHEM ISTRY ORDERABLES [facility] [address] [place] [address], [facility] [phone] * XR FOREARM RIGHT 2VW (10/23/2021 8:38 PM HEAT SEALING MACHINE OPERATOR) Anatomical Region Laterality Modality Upper Extremity Radiographic Tammy ging 10/23/2021 8:38 PM HEAT SEALING MACHINE OPERATOR Impressions 10/24/2021 1:58 PM HEAT SEALING MACHINE OPERATOR IMPRESSION: No acute fracture or dislocation identified within the limits of nonstandard projections. Diffuse soft tissue swelling. Dictated by Chucho Garcia MD (Clinical Support Specialist) I, Dr. Jackie TAYLOR M.D. have personally reviewed and interpreted this examination/study. This report was electronically signed by Jackie TAYLOR M.D. ??on 10/24/2021 1:58 PM . Narrative 10/24/2021 1:58 PM HEAT SEALING MACHINE OPERATOR EXAMINATION: XR ELBOW RIGHT 3VW OR MORE, XR FOREARM RIGHT 2VW HISTORY: T81.49XA: Surgical site infection COMPARISON: FINDINGS: Right elbow: The positioning is nonstandard. No acute fracture or dislocation. The joint spaces are preserved. No joint effusion is seen, however limited evaluation secondary to patient positioning. Bone density and texture are normal. Diffuse soft tissue swelling is present. Right forearm: The positioning is nonstandard. The radius and ulna are intact without evidence of acute fracture. Bone density and texture are normal. Diffuse soft tissue swelling is present. Procedure Note Briana Taylor MD - 10/24/2021 EXAMINATION: XR ELBOW RIGHT 3VW OR MORE, XR FOREARM RIGHT 2VW HISTORY: T81.49XA: Surgical site infection COMPARISON: FINDINGS: Right elbow: The positioning is nonstandard. No acute fracture or dislocation. The joint spaces are preserved. Nojoint effusion is seen, however limited evaluation secondary to patient positioning. Bone density and texture are normal. Diffuse soft tissue swelling is present. Right forearm: The positioning is nonstandard. The radius and ulna are intact without evidence of acute fracture. Bone density and texture are normal. Diffuse soft tissue swelling is present. IMPRESSION: No acute fracture or dislocation identified within the limits of nonstandard projections. Diffuse soft tissue swelling. Dictated by Chucho Garcia MD (Clinical Support Specialist) Dr. Jackie Mitchell M.D. have personally reviewed and interpretedthis examination/study. This report was electronically signed by Jackie TAYLOR M.D. on 10/24/2021 1:58 PM . Willy GUILLORY-[facility]er[facility] DIAGNOST[facility] IMAGING ORDERABLES * XR ELBOW RIGHT 3VW OR MORE (10/23/2021 8:38 PM HEAT SEALING MACHINE OPERATOR) Anatomical Region Laterality Modality Upper Extremity Radiographic Tammy ging 10/23/2021 8:38 PM HEAT SEALING MACHINE OPERATOR Impressions 10/24/2021 1:58 PM HEAT SEALING MACHINE OPERATOR IMPRESSION: No acute fracture or dislocation identified within the limits of nonstandard projections. Diffuse soft tissue swelling. Dictated by Chucho Garcia MD (Clinical Support Specialist) Dr. Jackie Mitchell M.D. have personally reviewed and interpreted this examination/study. This report was electronically signed by Jackie TAYLOR M.D. ??on 10/24/2021 1:58 PM . Narrative 10/24/2021 1:58 PM HEAT SEALING MACHINE OPERATOR EXAMINATION: XR ELBOW RIGHT 3VW OR MORE, XR FOREARM RIGHT 2VW HISTORY: T81.49XA: Surgical site infection COMPARISON: FINDINGS: Right elbow: The positioning is nonstandard. No acute fracture or dislocation. The joint spaces are preserved. No joint effusion is seen, however limited evaluation secondary to patient positioning. Bone density and texture are normal. Diffuse soft tissue swelling is present. Right forearm: The positioning is nonstandard. The radius and ulna are intact without evidence of acute fracture. Bone density and texture are normal. Diffuse soft tissue swelling is present. Procedure Note Briana Taylor MD - 10/24/2021 EXAMINATION: XR ELBOW RIGHT 3VW OR MORE, XR FOREARM RIGHT 2VW HISTORY: T81.49XA: Surgical site infection COMPARISON: FINDINGS: Right elbow: The positioning is nonstandard. No acute fracture or dislocation. The joint spaces are preserved. Nojoint effusion is seen, however limited evaluation secondary to patient positioning. Bone density and texture are normal. Diffuse soft tissue swelling is present. Right forearm: The positioning is nonstandard. The radius and ulna are intact without evidence of acute fracture. Bone density and texture are normal. Diffuse soft tissue swelling is present. IMPRESSION: No acute fracture or dislocation identified within the limits of nonstandard projections. Diffuse soft tissue swelling. Dictated by Chucho Garcia MD (Clinical Support Specialist) Dr. Jackie Mitchell M.D. have personally reviewed and interpretedthis examination/study. This report was electronically signed by Jackie TAYLOR M.D. on 10/24/2021 1:58 PM . Willy Garcia PA-C DIAGNOSTIC IMAGING ORDERABLES * Peripheral Nerve Block (09/26/2021 11:42 AM HEAT SEALING MACHINE OPERATOR) Narrative Bita Monahan MD - 09/26/2021 11:42 AM HEAT SEALING MACHINE OPERATOR Bita Monahan MD ? 09/26/2021 11:55 AM Peripheral ??Nerve Block ?? Procedure: Peripheral Nerve Block Patient Location: ??PACU Preprocedure Section: ?? Indications: at surgeon's request, at patient's request, procedure for pain and postop pain management. Pre-anesthetic Checklist: Patient identified, IV Checked, Site examined and clear, Risks and benefits discussed, Surgical consent verified, Monitors and equipment, Time-out performed, Informed consent obtained, Pre-op evaluation done, Questions answered/anesthesia questions answered, Allergies reviewed and Removal hand/wrist jewelry Monitors: BP, Pulse Ox, EKG and ETCO2. Patient Condition: ??awake Patient Position: supine Patient Sedated? ??Yes Procedure Section ?? Laterality: left Block Performed: ??supraclavicular Prep: ??Chloraprep Strerile Field: gloves, mask, hat/cap, patient draped and sterile ultrasound sleeve Skin localized with: lidocaine (XYLOCAINE) 1 % injection, 3 mL Needle Type: ??nerve stimulator, Echogenic insultaed and short-bevel Needle Gauge: ??21 Needle Length: ??50 mm Catheter?No Nerve Stimulator? ?? Yes Ultrasound Guided? ?? Yes ? Technique: ??in plane ? Visualization: ??Preliminary scan performed, Important anatomical structures identified, Needle tip visualized throughout the procedure, Target identified, No intraneural or intravascular puncture occurred, Local visualized surrounding nerve on ultrasound and Hydrodissection utilized Injection was made incrementally with constant monitoring and aspirations every 5 mL's Injection Assessment: ?? Slow fractionated injection Block Agents or Additives used? Yes Block agents used: bupivacaine PF (MARCAINE PF) 0.25 % injection, 20 mL dexamethasone (DECADRON) injection, 5 mg Procedure Tolerance: tolerated well Procedure Start Time: 09/26/2021 11:30 AM. Procedure End Time: 09/26/2021 11:40 AM. Procedure Total Time: 10 ??minutes. Staff Section ? Anesthesia Provider: Bita Monahan MD ? Provider #1: Chucho Dietrich, DO, Performed the procedure. Additional Comments: Pre-precedure: PLT 64 today, good hemostasis during surgery, no signs of active bleeding/coagulapathy. Risks of bleeding/hemotoma/nerve injury discussed with patient and family. All questions answered. Will use ultrasound, and avoid multiple attempts. Close monitoring post-procedural. I was present the entire time and supervised the nerve block. ??Ultrasound guidance used. ??For post op pain management. . Mita Garcia DO GENERAL ANESTHESIA ORDERABLES * GLUCOSE - POINT OF CARE (09/26/2021 10:14 AM HEAT SEALING MACHINE OPERATOR) Only the most recent of2 resultswithin the time period is included. Glucose WB/POC 112 70 - 115 mg/dL 09/26/2021 10:18 AM HEAT SEALING MACHINE OPERATOR [facility] Specimen Type Cap Fingerstick 2020 10:18 AM HEAT SEALING MACHINE OPERATOR [facility] Blood BLOOD SPECIMEN / Unknown 09/26/2021 10:14 AM HEAT SEALING MACHINE OPERATOR 09/26/2021 10:18 AM HEAT SEALING MACHINE OPERATOR Tj Ross DO LAB - POINT OF CARE ORDERABLES [facility] [address] [place] [address], [facility] [phone] * ETT LINE PERFORMABLE (09/26/2021 8:17 AM HEAT SEALING MACHINE OPERATOR) Narrative Luis Fallon Anes Asst - 09/26/2021 8:17 AM HEAT SEALING MACHINE OPERATOR Luis Fallon Anes Asst ? 09/26/2021 ??8:21 AM Endotracheal Tube Placement: ? Patient Location: OR. Intubation Event Date/Time: ??09/26/2021 7:46 AM Procedure: intubation ([id number]). Procedure Section: ?? Sedation: under general anesthesia. Indications for Airway Management: ??anesthesia Procedure pretreatments used? ??No Induction: standard IV Patient Position: ??sniffing and supine Mask Ventilation: not attempted. Blade Type: Ranjan Blade Size: 4 Laryngoscopy View: grade 1 (full cords) (mustach in the partially obstructing field of view) Intubation Adjuncts: stylet Tube: endotracheal tube Placement: oral Tube type: cuff - inflated Tube Size (MM): 8 Depth of Insertion (CM): 21 Measured From: lips Cuff Inflated With: air Number of Attempts: 1. Placement Verified By: direct visualization, bilateral breath sounds, chest auscultation and CO2 monitor CXR Findings: ETT in proper place. Tube secured with: ??adhesive tape. Dentition unchanged? ??Yes Difficult Airway? ??No. Procedure Start Time: 09/26/2021 7:46 AM. Procedure End Time: 09/26/2021 7:47 AM. Procedure Total Time: 1 ??minutes. Staff Section ? Anesthesia Provider: Luis Fallon Anes Assracquel, Performed the procedure ? Provider #1: Mita Garcia DO. Additional Comments: ELISE Gardner intubated x1. Mita Garcia DO GENERAL ANESTHESIA ORDERABLES * (ABNORMAL) BASIC METABOLIC PANEL (CALCIUM TOTAL) (09/26/2021 7:27 AM [facility]) BUN 17 7 - 26 mg/dL 09/26/2021 8:03 AM [facility] Creatinine 1.27(H) 0.71 - 1.16 mg/dL 09/26/2021 8:03 AM [facility] Sodium 140 136 - 145 mmol/L 09/26/2021 8:03 AM [facility] Potassium 4.5 3.5 - 4.5 mmol/L 09/26/2021 8:03 AM [facility] Comment:Hemolysis detected i n this specimen. Hemolysis is known to cause elevations in this analyte. Caution should be exercised in the interpretation of this result. Recommend repeat testing if clinically indicated. Chloride 107 98 - 107 mmol/L 09/26/2021 8:03 AM [facility] CO2 22 22 - 29 mmol/L 09/26/2021 8:03 AM [facility] Glucose 104 70 - 115 mg/dL 09/26/2021 8:03 AM [facility] Calcium 9.0 8.4 - 10.2 mg/dL 09/26/2021 8:03 AM [facility] Anion Gap 16 8 - 18 09/26/2021 8:03 AM [facility] BUN/Creatinine Ratio 13 7 - 23 09/26/2021 8:03 AM [facility] Osmolality Calculated 292 270 - 300 mOsm/kg 09/26/2021 8:03 AM [facility] eGFR by CKD-EPI 65(L) >=90 mL/min/1. 73 m2 09/26/2021 8:03 AM [facility] Blood BLOOD SPECIMEN / Unknown Venipuncture / Unknown 09/26/2021 7:27 AM HEAT SEALING MACHINE OPERATOR 09/26/2021 7:33 AM HEAT SEALING MACHINE OPERATOR Tj Ross DO LAB - CHEMISTRY ORDE RABLES Performing Organization Address [facility]/ZIP Co de Phone Number [address] [address], [facility] [phone] * PTT [facility] (09/26/2021 6:29 AM [facility]) APTT 30.6 23.0 - 38.4 Seconds 09/26/2021 6:58 AM [facility] Comment:Suggested therapeuti c range for full dose I.V. unfractionated heparin therapy for venous thromboembolism is 71 to 109 seconds. Blood BLOOD SPECIMEN / Unknown Venipuncture / Unknown 09/26/2021 6:29 AM HEAT SEALING MACHINE OPERATOR 09/26/2021 6:36 AM HEAT SEALING MACHINE OPERATOR Tj Ross DO LAB - COAGULATION OR DERABLES Performing Organization Address [facility] Co de Phone Number [address] [address], [place] [phone] * PT-INR [facility] (09/26/2021 6:29 AM [facility]) PT 14.1 12.1 - 14.8 Seconds 09/26/2021 6:57 AM [facility] INR 1.1 See Comment 09/26/2021 6:57 AM [facility] Comment:The suggested therap eutic range for standard coumadin (warfarin) therapy is an INR of 2.0-3.0. For high-risk patients (Mechanical Mitral Valve Prosthesis, etc.), the suggested prophylactic therapeutic range is an INR of 2.5-3.5. Blood BLOOD SPECIMEN / Unknown Venipuncture / Unknown 09/26/2021 6:29 AM HEAT SEALING MACHINE OPERATOR 09/26/2021 6:36 AM HEAT SEALING MACHINE OPERATOR Tj Ross DO LAB - COAGULATION OR DERABLES Performing Organization Address [facility]/State/ZIP Co de Phone Number [facility] [address] [place] [address], [facility] [phone] * (ABNORMAL) CBC W/O DIFFERENTIAL (09/26/2021 6:29 AM HEAT SEALING MACHINE OPERATOR) WBC 9.2 3.5 - 10.5 10? 3 /uL 09/26/2021 7:42 AM [facility] RBC 5.75(H) 4.30 - 5.70 10? 6 /uL 09/26/2021 7:42 AM [facility] Hemoglobin 17.9(H) 12.0 - 17.6 g/dL 09/26/2021 7:42 AM [facility] Hematocrit 52.8(H) 35.2 - 51.7 % 09/26/2021 7:42 AM [facility] MCV 91.8 80.7 - 98.3 fL 09/26/2021 7:42 AM [facility] MCH 31.1 26.7 - 34.0 pg 09/26/2021 7:42 AM [facility] MCHC 33.9 30.8 - 35.9 g/dL 09/26/2021 7:42 AM [facility] Platelet Count 64(L) 150 - 400 10? 3 /uL 09/26/2021 7:42 AM [facility] Comment: Checked by peripheral smear. This is an appended report. ??These results have been appended to a previously preliminary verified report. RDW-SD 46.1 36.0 - 50.0 fL 09/26/2021 7:42 AM [facility] RDW-CV 13.6 11.2 - 14.8 % 09/26/2021 7:42 AM [facility] MPV 12.8 9.4 - 12.9 fL 09/26/2021 7:42 AM [facility] nRBC Absolute 0.00 0 10? 3 /uL 09/26/2021 7:42 AM [facility] nRBC Auto 0.0 0 /100 WBC 09/26/2021 7:42 AM HEAT SEALING MACHINE OPERATOR [facility] Blood BLOOD SPECIMEN / Unknown Venipuncture / Unknown 09/26/2021 6:29 AM HEAT SEALING MACHINE OPERATOR 09/26/2021 6:38 AM HEAT SEALING MACHINE OPERATOR Tj Ross DO LAB - HEMATOLOGY ORD ERABLES Performing Organization Address City/State/[facility] Co de Phone Number [facility] [address] [place] [address], [facility] [phone] * MRI LUMBAR SPINE WO CONTRAST (09/03/2021 4:56 PM CDT) Anatomical Region Laterality Modality Spine Magnetic Resonan ce 09/04/2021 8:20 PM CDT Impressions 09/04/2021 8:36 PM CDT IMPRESSION: 1. There are no significant interval changes since the outside MRI study on 01/13/2021. No fracture, marrow edema, neural impingement or abnormality in the conus and lower cord is identified. 2. The severity of disc bulging at L3-L4, L4-L5 and L5-S1 as well as the size and morphology of the superimposed posterior disc extrusion at L5-S1 have not changed from the outside study. 3. Facet osteoarthritis is minimal. This report was electronically signed by EFREN OAKES ??on 09/04/2021 8:36 PM . Narrative 09/04/2021 8:36 PM CDT EXAMINATION: MRI OF THE LUMBAR SPINE WITHOUT CONTRAST HISTORY: M54.16: Lumbar radiculopathy COMPARISON: MRI lumbar spine without contrast, 01/13/2021-[facility] CORRELATION: Lumbar spine radiographs dated 01/05/2021 and total spine radiographs dated 08/23/2021 TECHNIQUE: MRI of the lumbar spine was performed without contrast according to standard protocol. FINDINGS: The alignment is normal. Vertebral bodies are normal in height without evidence of compression fractures. Marrow signal intensity is normal. The conus medullaris terminates at the level of L2-L3 and is normal. The imaged lower thoracic spinal cord is normal in size, contour and signal intensity on sagittal images. The anterior and posterior longitudinal ligaments as well as the posterior ligamentous complex appear intact. No soft tissue abnormality is identified. The intervertebral disc spaces are stable and normal in heights. The L3-L4, L4-L5 and L5-S1 discs remain desiccated. A tiny Schmorl's node with surrounding Modic type II degenerative changes is seen in inferior endplate of L4, posteriorly. Endplate syndesmophytes arising from the superior endplate of L4 and L5 extending cephalad, are better seen radiographically than on this MRI examination. There is no evidence of diffuse idiopathic skeletal hyperostosis. T12-L1 and L1-L2: The discs, central canal, cord, neural foramina and exiting nerves are normal. There is mild symmetric bilateral facet osteoarthritis. L2-L3: The disc, central canal, conus, neural foramina and exiting nerves are normal. There is mild symmetric bilateral facet osteoarthritis. L4-L5: There is borderline circumferential disc bulging without causing spinal stenosis, lateral recess stenosis, neuroforaminal stenosis or neural impingement. Mild symmetric hypertrophy of ligamentum flavum and mild bilateral facet osteoarthritis is present. L4-L5: There is [id number]-aq-vthrpwke circumferential bulging of the disc and mild symmetric hypertrophy of ligamentum flavum. There is mild bilateral facet osteoarthritis. No spinal stenosis in midline or significant lateral recess stenosis is identified. The neural foramina are normal in size. There is no evidence of neural impingement. L5-S1: Superimposed on the broad-based posterior disc bulging, there is central dorsal extrusion of the disc with minimal cephalad and minimal caudal migration. The bulged and extruded disc efface the ventral epidural space and do not cause significant mass effect on thecal sac, spinal stenosis, lateral recess stenosis or neural impingement. No significant neural foraminal stenosis or impingement on the exiting nerves is identified. Procedure Note Efren Oakes MD - 09/04/2021 EXAMINATION: MRI OF THE LUMBAR SPINE WITHOUT CONTRAST HISTORY: M54.16: Lumbar radiculopathy COMPARISON: MRI lumbar spine without contrast, 01/13/2021-[facility] CORRELATION: Lumbar spine radiographs dated 01/05/2021 and total spine radiographs dated 08/23/2021 TECHNIQUE: MRI of the lumbar spine was performed without contrast according to standard protocol. FINDINGS: The alignment is normal. Vertebral bodies are normal in height without evidence of compression fractures. Marrow signal intensity is normal.The conus medullaris terminates at the level of L2-L3 and is normal. The imaged lower thoracic spinal cord is normal in size, contour and signal intensity on sagittal images. The anterior and posterior longitudinal ligaments as well as the posterior ligamentous complex appear intact. No soft tissue abnormality is identified. The intervertebral disc spaces are stable and normal in heights. The L3-L4, L4-L5 and L5-S1 discs remain desiccated. A tiny Schmorl's nodewith surrounding Modic type II degenerative changes is seen in inferior endplate of L4, posteriorly. Endplate syndesmophytes arising from the superior endplate of L4 and L5 extending cephalad, are better seen radiographically than on this MRI examination. There is no evidence of diffuse idiopathic skeletal hyperostosis. T12-L1 and L1-L2: The discs, central canal, cord, neural foramina and exiting nerves are normal. There is mild symmetric bilateral facet osteoarthritis. L2-L3: The disc, central canal, conus, neural foramina and exitingnerves are normal. There is mild symmetric bilateral facet osteoarthritis. L4-L5: There is borderline circumferential disc bulging without causing spinal stenosis, lateral recess stenosis, neuroforaminal stenosis or neural impingement. Mild symmetric hypertrophy of ligamentum flavum and mild bilateral facet osteoarthritis is present. L4-L5: There is iyba-tt-[id number] circumferential bulging of the disc and mild symmetric hypertrophy of ligamentum flavum. There is mild bilateral facet osteoarthritis. No spinal stenosis in midline or significantlateral recess stenosis is identified. The neural foramina are normal in size. There is no evidence of neural impingement. L5-S1: Superimposed on the broad-based posterior disc bulging, there is central dorsal extrusion of the disc with minimal cephalad and minimal caudal migration. The bulged and extruded disc efface the ventralepidural space and do not cause significant mass effect on thecal sac, spinal stenosis, lateral recess stenosis or neural impingement. No significant neural foraminal stenosis or impingement on the exiting nerves is identified. IMPRESSION: 1. There are no significant interval changes since the outside MRI study on 01/13/2021. No fracture, marrow edema, neural impingement orabnormality in the conus and lower cord is identified. 2. The severity of disc bulging at L3-L4, L4-L5 and L5-S1 as well as the size and morphology of the superimposed posterior disc extrusion atL5-S1 have not changed from the outside study. 3. Facet osteoarthritis is minimal. This report was electronically signed by EFREN OAKES on 18:36 PM . Jesus Cooney MD MR ORDERABLES * EMG WITH NERVE CONDUCTION STUDY (08/26/2021 9:57 AM CDT) Narrative Prerna Chakraborty MD - 08/26/2021 9:57 AM CDT Prerna Chakraborty MD ? 08/26/2021 ??9:57 AM ?? Full Name: Hans Horton Procedure #: [id number] Gender: Male Date of : 1970 ?? Visit Date: 08/26/2021 09:01 Age: 51 Years Examining Physician: Prerna Chakraborty M.D Referring Physician: Tj Ross DO Reason for Test: Right cubital tunnel History: Patient with chronic pain and tingling of the left hand affecting all digits all to the shoulder. Limited exam of the left upper limb is unremarkable. ?? SNC ?? Nerve / Sites Rec. Site Onset Lat Peak Lat PP Amp Segments Distance Peak Diff Velocity Temp. ??ms ms ??V ??mm ms m/s ??C R Ulnar - Digit V (Antidromic) 14 ?? Wrist Dig V 2.6 3.2 11.8 Wrist - Dig V 140 ??54 30.7 ?? Ref. ?? ?3.1 ?5.0 Ref. ?? ?44 ? A.Elbow - Wrist ? R Radial - Anatomical snuff box (Forearm) ?? Forearm Wrist 1.6 2.3 43.5 Forearm - Wrist 100 ??61 33.4 ?? Ref. ?? ?2.5 ?15.0 Ref. ?? ?53 ?? R Median, Ulnar - Transcarpal comparison ?? Median Palm Wrist 1.9 2.5 38.4 Median Palm - Wrist 80 ??42 31 ?? Ref. ?? ?2.2 ?40.0 Ref. ?? ?53 ? Ulnar Palm Wrist 1.7 2.2 4.8 Ulnar Palm - Wrist 80 ??47 31 ?? Ref. ?? ?2.1 ?11.0 Ref. ?? ?53 ? Median Palm - Ulnar Palm ??0.3 ??31 ? Ref. ???0.4 ? MNC ?? Nerve / Sites Muscle Latency Amplitude Segments Lat Diff Distance Velocity ??ms mV ??ms mm m/s R Median - APB ?? Wrist APB 3.9 11.6 Wrist - APB ??70 ? Ref. ???4.5 ?3.0 Ref. ? Elbow APB 8.5 11.1 Elbow - Wrist 4.6 230 50 ?? Ref. ?Ref. ?? ?48 R Ulnar - ADM ?? Wrist ADM 3.3 8.2 Wrist - ADM ??70 ? Ref. ???3.6 ?5.0 Ref. ? B.Elbow ADM 7.3 7.8 B.Elbow - Wrist 4.0 215 54 ?? Ref. ?Ref. ?? ?48 ?? A.Elbow ADM 9.9 7.3 A.Elbow - B.Elbow 2.6 100 39 ?? Ref. ?Ref. ?? ?48 ?A.Elbow - Wrist 6.6 ?? R Ulnar - FDI ?? Wrist FDI 4.0 9.1 Wrist - FDI ??70 ? B.Elbow FDI 8.2 8.8 B.Elbow - Wrist 4.2 215 52 ?? Ref. ?Ref. ?? ?49 ?? A.Elbow FDI 10.9 8.8 A.Elbow - B.Elbow 2.7 100 37 ?? Ref. ?Ref. ?? ?49 ?A.Elbow - Wrist 6.9 ? Motor NCS ?? Nerve / Sites Muscle Latency Amplitude Rel Amp Segments Distance Lat Diff Temp. ??ms mV % ??mm ms ??C R Median, Ulnar - Lumbrical-Interossei ?? Median Wrist Lumb II 3.71 2.3 100 Median Wrist - Lumb II 100 ?? 30.8 ?? Ulnar Wrist Interos 2.67 3.6 154 Ulnar Wrist - Interos 100 ?? 30.8 ? Median Wrist - Ulnar Wrist ??1.04 30.8 ?? F ??Wave ?? Nerve F Lat Ref. M Lat Min F Lat Ref. Min M Lat ms ms ms ms ms ms R Median - APB 28.6 ?31.0 3.8 25.5 ?31.0 3.8 ?? F ??Wave ?? Nerve F min ms R Ulnar - ADM 31.7 ?? EMG Summary Table ?? Insertional Spontaneous Volitional MUAPs Muscle Nerve Roots Insertional Fib PSW Fasc Duration Amplitude Poly Recruitment R. APB Median C8-T1 Normal None None None Normal Normal None Normal R. First dorsal interosseous Ulnar C8-T1 Normal None None None Normal Normal None Normal ?? Interpretation: The right radial sensory SNAP response is normal. The right ulnar sensory SNAP response is normal when recording at the D5. The right median sensory SNAP amplitude is decreased when recording at the wrist; the peak latency is prolonged; and the conduction velocity is reduced. The right ulnar sensory SNAP amplitude is decreased when recording at the wrist; the peak latency is prolonged; and the conduction velocity is reduced. The right median motor CMAP response is normal. The right ulnar motor CMAP amplitude is normal when recording at the FDI; the distal latency is normal and the conduction velocity is reduced across the elbow. The right ulnar motor CMAP amplitude is normal when recording at the ADM; the distal latency is normal and the conduction velocity is reduced across the elbow. The difference in the distal latencies between the right median and ulnar motor CMAP responses when recording at L2D1 is abnormal. The F latencies of the right median and ulnar motor nerves are normal. The needle EMG exam of few muscles on the right upper limb shows no abnormal spontaneous activity. The motor unit action potentials MUAPs are normal in shape and duration. Conclusions: This study is abnormal. There is evidence for: 1. 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 2. 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 Prerna Chakraborty M.D ? Tj Ross DO NEUROLOGY ORDERABLES * XR SPINE ENTIRE 2 OR 3VW (08/23/2021 9:41 AM CDT) Anatomical Region Laterality Modality Spine Radiographic Tammy ging 08/23/2021 9:43 AM CDT Impressions 08/23/2021 9:56 AM CDT IMPRESSION: Mild to moderate degenerative changes. IDr. RAY MD have personally reviewed and interpreted this examination/study. This report was electronically signed by RAY BARLOW MD ??on 08/23/2021 9:56 AM . Narrative 08/23/2021 9:56 AM CDT EXAMINATION: XR SPINE ENTIRE 2 VW HISTORY: M54.2: Chronic neck and back pain M54.9: Chronic neck and back pain G89.29: Chronic neck and back pain COMPARISON: Cervical and lumbar spine radiograph dated 01/05/2021 and cervical and lumbar MRI dated 1121 Comparison: Cervical and lumbar spine radiographs dated 01/05/2021 FINDINGS: There is mild lumbar dextrocurvature measuring 9 degrees. There is no sagittal or coronal plane imbalance. There is mild to moderate degenerative change throughout the spine, including large bridging and near bridging anterior osteophytes in the cervical and thoracic region. Surgical tacks are noted in the pelvis. Procedure Note Ray Barlow MD - 08/23/2021 EXAMINATION: XR SPINE ENTIRE 2 VW HISTORY: M54.2: Chronic neck and back pain M54.9: Chronic neck and back pain G89.29: Chronic neck and back pain COMPARISON: Cervical and lumbar spine radiograph dated 01/05/2021 and cervical and lumbar MRI dated 1121 Comparison: Cervical and lumbar spine radiographs dated 01/05/2021 FINDINGS: There is mild lumbar dextrocurvature measuring 9 degrees. There is no sagittal or coronal plane imbalance. There is mild to moderate degenerative change throughout the spine, including large bridging and near bridging anterior osteophytes in the cervical and thoracic region. Surgical tacks are noted in the pelvis. IMPRESSION: Mild to moderate degenerative changes. Dr. RAY Mitchell MD have personally reviewed and interpreted this examination/study. This report was electronically signed by RAY BARLOW MD on 08/23/2021 9:56 AM . Jesus Cooney MD DIAGNOSTIC IMAGING O RDERABLES * PATHOLOGY PERIPHERAL SMEAR REVIEW (07/13/2021 4:05 PM CDT) Case Report Pathology Interpretation Report ? Case: [id number] ? Authorizing Provider: ??Carlos Culp MD ? Collected: ? 07/13/2021 04:05 PM ? Ordering Location: ? [facility] ?? Received: ?07/13/2021 04:05 PM ? Pathologist: ? Melvin Rendon MD ? Specimen: ?Blood ? 07/14/2021 2:55 PM CDT [facility] Final Diagnosis Peripheral blood: Thrombocytopenia. 07/14/2021 2:55 PM CDT [facility] Peripheral Smear Description Review the peripheral smear shows normochromic normocytic red blood cells. Leukocytes are adequate. Platelets are decreased. 07/14/2021 2:55 PM CDT [facility] Blood BLOOD SPECIMEN / Unknown 07/13/2021 4:05 PM CDT 07/13/2021 4:05 PM CDT Carlos Culp MD LAB - PATHOLOGY/CYTO LOGY ORDERABLES Performing Organization Address City/[facility]/ZIP Co de Phone Number [facility] [address] [place] [address] * (ABNORMAL) ERYTHROPOIETIN (07/13/2021 11:21 AM CDT) Only the most recent of4 resultswithin the time period is included. Erythropoietin 28.1(H) 2.6 - 18.5 mIU/mL 07/14/2021 3:08 PM CDT [facility] ([facility]) Comment: [email or web address] DxI 800 Immunoassay System Values obtained with different assay methods or kits cannot be used interchangeably. Results cannot be interpreted as absolute evidence of the presence or absence of malignant disease. Blood BLOOD SPECIMEN / Unknown Venipuncture / Unknown 07/13/2021 11:21 AM CDT 07/13/2021 11:30 AM CDT Narrative [facility] ([facility]) - 07/14/2021 3:08 PM CDT Performed at: ??01 - [facility] ??[id number] Towboat Operator: Colt Riley PhD, Phone: ??[phone] Carlos Culp MD LAB - CHEMISTRY BILL FLOWERS Performing Organization Address City/[facility]/ZIP Co de Phone Number [facility] ([facility]) [address] [place] [address] * CT CHEST WO CONTRAST (04/15/2021 7:16 AM CDT) Anatomical Region Laterality Modality Chest Computed Tomogra phy 04/15/2021 8:13 AM CDT Impressions 04/15/2021 12:51 PM CDT Impression: No suspicious pulmonary nodules identified. Report drafted by Fabio Guzman (resident) I, Dr. HANS SALAZAR have personally reviewed and interpreted this examination/study. This report was electronically signed by HANS SALAZAR ??on 04/15/2021 12:51 PM . Narrative 04/15/2021 12:51 PM CDT Procedure Information DATE: 04/15/2021 7:16 AM EXAMINATION: Computed tomography (CT) of the chest without contrast TECHNIQUE: CT of the chest was performed without contrast according to standard protocol. Clinical Information HISTORY: R91.1: Pulmonary nodule COMPARISON: None. Findings Evaluation of visceral and vascular structures is degraded due to lack of intravenous contrast administration. Lines/Tubes: None. Lower neck and axillae: Normal. Mediastinum and Gertrude: No bulky adenopathy. Heart and Pericardium: Heart size is normal. No pericardial fluid. There are calcifications of the coronary arteries. Lung Parenchyma, Airways, and Pleural Spaces: No consolidation. Mild patchy emphysema is present. Right upper lobe calcified granuloma. No suspicious pulmonary nodule. No pleural effusion or pneumothorax. Bones and Soft Tissue: The visible osseous structures are intact. Mild degenerative changes are seen in the spine. Upper Abdomen: Hypodense lesion in the superior aspect of the spleen measures 2.3 cm, likely a benign cyst or hemangioma. There is a small hiatal hernia. Procedure Note Hans Salazar MD - 04/15/2021 Procedure Information DATE: 04/15/2021 7:16 AM EXAMINATION: Computed tomography (CT) of the chest without contrast TECHNIQUE: CT of the chest was performed without contrast according to standard protocol. Clinical Information HISTORY: R91.1: Pulmonary nodule COMPARISON: None. Findings Evaluation of visceral and vascular structures is degraded due to lackof intravenous contrast administration. Lines/Tubes: None. Lower neck and axillae: Normal. Mediastinum and Gertrude: No bulky adenopathy. Heart and Pericardium: Heart size is normal. No pericardial fluid. There are calcifications of the coronary arteries. Lung Parenchyma, Airways, and Pleural Spaces: No consolidation. Mild patchy emphysema is present. Right upper lobe calcified granuloma. No suspicious pulmonary nodule. No pleural effusion or pneumothorax. Bones and Soft Tissue: The visible osseous structures are intact. Mild degenerative changes are seen in the spine. Upper Abdomen: Hypodense lesion in the superior aspect of the spleen measures 2.3 cm, likely a benign cyst or hemangioma. There is a small hiatal hernia. Impression: No suspicious pulmonary nodules identified. Report drafted by Fabio Guzman (resident) I, Dr. HANS SALAZAR have personally reviewed and interpreted this examination/study. This report was electronically signed by HANS SALAZAR on 04/15/2021 12:51 PM . Maximo Lozoya MD CT ORDERABLES * REF LAB-PLEASE NOTE (03/09/2021 11:23 AM CDT) Only the most recent of2 resultswithin the time period is included. Please Note [facility] INSURANCE BILL Comment: We have received your request for additional testing or test verification. ??You will be notified if we are unable to process your request. 03/09/2021 11:2 3 AM CDT 03/09/2021 Narrative Resulting Agency Comment Lab Testing performed at: [facility] ??[facility] [phone] Carlos Culp MD LAB - CHEMISTRY BILL FLOWERS [facility] INSURANCE BILL [address] [place] [address] * (ABNORMAL) CARDIOLIPIN ANTIBODY IGA/IGG/IGM PANEL (03/09/2021 11:23 AM CDT) Only the most recent of2 resultswithin the time period is included. Cardiolipin Antibody IgG <9 0 - 14 GPL U/mL [facility] INSURANCE BILL Comment: ? Negative: ?<15 ? Indeterminate: ? 15 - 20 ? Low-Med Positive: >20 - 80 ? High Positive: ? >80 Cardiolipin Antibody IgM 48(H) 0 - 12 MPL U/mL [facility] INSURANCE BILL Comment: ? Negative: ?<13 ? Indeterminate: ? 13 - 20 ? Low-Med Positive: >20 - 80 ? High Positive: ? >80 Cardiolipin Antibody IgA <9 0 - 11 APL U/mL [facility] INSURANCE BILL Comment: ? Negative: ?<12 ? Indeterminate: ? 12 - 20 ? Low-Med Positive: >20 - 80 ? High Positive: ? >80 03/09/2021 11:2 3 AM CDT 03/09/2021 Narrative Resulting Agency Comment [facility]: [facility] [address] ??[facility] [phone] Carlos Culp MD LAB - SEROLOGY ORDER [facility] INSURANCE BILL [address] [place] [address] * (ABNORMAL) CBC W AUTO DIFFERENTIAL (CANCER CARE) (03/09/2021 10:38 AM CDT) Only the most recent of10 resultswithin the time period is included. WBC 7.0 4.4 - 10.7 x10E9/L 03/09/2021 10:44 AM CDT [facility] Neutrophils % 52.4 44.0 - 73.0 % 03/09/2021 10:44 AM CDT [facility] Lymphocytes % 36.8 20.0 - 43.0 % 03/09/2021 10:44 AM CDT [facility] Monocytes % 6.7 5.0 - 13.0 % 03/09/2021 10:44 AM CDT [facility] Eosinophils % 3.1 0.0 - 6.0 % 03/09/2021 10:44 AM CDT [facility] Basophils % 0.6 0.0 - 2.0 % 03/09/2021 10:44 AM CDT [facility] Immature Granulocytes 0.4 % 03/09/2021 10:44 AM CDT [facility] Neutrophil Absolute 3.68 2.01 - 7.14 x10E9/L 03/09/2021 10:44 AM CDT [facility] Lymphocytes Absolute 2.59 1.07 - 3.94 x10E9/L 03/09/2021 10:44 AM CDT [facility] Monocytes Absolute 0.47 0.26 - 1.07 x10E9/L 03/09/2021 10:44 AM CDT [facility] Eosinophils Absolute 0.22 0 - 0.47 x10E9/L 03/09/2021 10:44 AM CDT [facility] Basophils Absolute 0.04 0 - 0.08 x10E9/L 03/09/2021 10:44 AM CDT [facility] RBC 5.62(H) 3.80 - 5.40 x10E12/L 03/09/2021 10:44 AM CDT [facility] Hemoglobin 15.4 12.0 - 17.6 gm/dL 03/09/2021 10:44 AM CDT [facility] Hematocrit 48.7 35.2 - 51.7 % 03/09/2021 10:44 AM CDT [facility] MCV 86.7 80.7 - 98.3 fl 03/09/2021 10:44 AM CDT [facility] MCH 27.4 26.7 - 34.0 pg 03/09/2021 10:44 AM CDT [facility] STM MCHC 31.6 30.8 - 35.9 gm/dL 03/09/2021 10:44 AM CDT [facility] STM RDW-CV 13.9 12.1 - 14.9 % 03/09/2021 10:44 AM CDT [facility] LAB STM Platelet Count 110(L) 153 - 416 x10E9/L 03/09/2021 10:44 AM CDT [facility] LAB STM MPV 12.2 9.4 - 12.9 fl 03/09/2021 10:44 AM CDT [facility] CC LAB STM NRBC 0.0 /100 WBC 03/09/2021 10:44 AM CDT [facility] CC LAB [facility] Blood BLOOD SPECIMEN / Unknown 03/09/2021 10:38 AM CDT 03/09/2021 10:38 AM CDT Carlos Culp MD LAB - HEMATOLOGY ORD ERABLES [facility] CC LAB [facility] [address] * XR CHEST 2VW (09/29/2020 10:15 AM HEAT SEALING MACHINE OPERATOR) Only the most recent of2 resultswithin the time period is included. Anatomical Region Laterality Modality Chest Radiographic Tammy ging 09/29/2020 10:2 6 AM HEAT SEALING MACHINE OPERATOR Narrative 09/29/2020 10:35 AM HEAT SEALING MACHINE OPERATOR CHEST 2 VIEW HISTORY: Restrictive lung disease. Since 06/08/2019, there has been no change in the heart size or the mediastinal contours which are normal. The pulmonary vascularity and gertrude are normal. A small nodule in the right upper lobe is present and unchanged. The lungs are otherwise clear. There is no lung infiltrate or interstitial lung infiltrate. No pleural effusion or pneumothorax is present. Soft tissues and bony thorax are stable. DIAGNOSIS: No acute cardiopulmonary disease, no change. Edited by Peri Fraser on 09/29/2020 10:28 AM *Reading Radiologist: Jesus Veloz on 09/29/2020 at 10:35 AM Procedure Note Jesus Veloz MD - 09/29/2020 CHEST 2 VIEW HISTORY: Restrictive lung disease. Since 06/08/2019, there has been no change in the heart size or the mediastinal contours which are normal. The pulmonary vascularity and gertrude are normal. A small nodule in the right upper lobe is present and unchanged. The lungs are otherwise clear. There is no lung infiltrate or interstitial lung infiltrate. No pleural effusion or pneumothorax is present. Soft tissues and bony thorax are stable. DIAGNOSIS: No acute cardiopulmonary disease, no change. Edited by Peri Fraser on 09/29/2020 10:28 AM *Reading Radiologist: Jesus Veloz on 09/29/2020 at 10:35 AM Maximo Lozoya MD DIAGNOSTIC IMAGING O RDERABLES * [facility] Pulmonology @ [facility] (Medicaid) Devora Chun (09/29/2020 9:44 AM HEAT SEALING MACHINE OPERATOR) Carlos Culp MD OUTPATIENT REFERRALS * (ABNORMAL) IMMUNOFIXATION BLOOD (07/28/2020 1:57 PM CDT) Only the most recent of2 resultswithin the time period is included. Immunofixation Result Comment: [facility] INSURANCE BILL Comment: Presence of monoclonal protein is unclear at this time. Suggest repeat in 3 to 6 months if clinically indicated. IgG Quantitative 794 603 - 1,613 mg/dL [facility] INSURANCE BILL IgA Quantitative 287 90 - 386 mg/dL [facility] INSURANCE BILL IgM Quantitative 240(H) 20 - 172 mg/dL [facility] INSURANCE BILL Blood BLOOD SPECIMEN / Unknown 07/28/2020 1:57 PM CDT 07/28/2020 Narrative Resulting Agency Comment [facility]: [facility] [address] [facility] ??[facility] [phone] Carlos Culp MD LAB - CHEMISTRY BILL FLOWERS Performing Organization Address City/[facility] de Phone Number [facility] INSURANCE BILL [address] [place] [address] * (ABNORMAL) LDH BLOOD (07/28/2020 1:57 PM CDT) Only the most recent of2 resultswithin the time period is included. [facility] LDH 229(H) 125 - 220 U/L [facility] INSURANCE BILL Blood BLOOD SPECIMEN / Unknown 07/28/2020 1:57 PM CDT 07/28/2020 Narrative Resulting Agency Comment Lab Testing performed at: [address] ??[facility] [phone] Carlos Culp MD LAB - CHEMISTRY BILL FLOWERS Performing Organization Address [facility] de Phone Number [facility] INSURANCE BILL [address] [place] [address] * CARDIAC RHYTHM STRIP ORDER (07/15/2020 1:31 AM CDT) Narrative 07/15/2020 1:31 AM CDT Ordered by an unspecified provider. Scanned Document CARDIAC SERVICES ORD ERABLES * FLOW CYTOMETRY BONE MARROW (07/09/2020 10:30 AM CDT) Pathologist [facility] Case Report Flow Cytometry ?Case: [id number] ? Authorizing Provider: ??Carlos Culp MD ? Collected: ? 07/09/2020 10:30 AM ? Ordering Location: ? [facility] CT ?Received: ?07/09/2020 10:38 AM ? Pathologist: ? Linda Cedeno MD ? Specimen: ?Bone Marrow ? 07/09/2020 5:33 PM [facility] Final Diagnosis Bone marrow, flow cytometric immunophenotypic analysis: - No evidence of non-Hodgkin lymphoma or high-grade myeloid neoplasm. - See interpretation. 07/09/2020 5:33 PM [facility] Flow Cytometry Interpretation The bone marrow specimen has a viability of 96%. The lymphocyte, dim CD45, monocyte, and granulocyte linares are normal in relative proportion. Within the lymphocyte gate, there is no monoclonal B-cell population identified (kappa:lambda ratio = 1.5:1). There is no expanded T-cell population seen. By CD34, 0.6% of all events analyzed are blasts. A bone marrow aspirate smear prepared from the flow cytometry specimen is reviewed for construction quality control manager purposes. The bone marrow specimen shows no evidence of involvement by non-Hodgkin lymphoma or a high-grade myeloid neoplasm. Correlation with clinical findings, the concurrent bone marrow biopsy ([id number]), and relevant cytogenetic/molecu lar studies is required. 07/09/2020 5:33 PM [facility] Flow Cytometry Results Differential Result Comment Flow Cell Count /uL 15,000 Total Viability % 96.0 Lymphocytes % 25 Dim CD45 Region % 2 Monocytes % 6 Granulocytes % 66 07/09/2020 5:33 PM CDT [facility] Reason for test Thrombocytopenia 287.5 07/09/2020 5:33 PM CDT [facility] Client Specimen ID # [id number] 07/09/2020 5:33 PM T [facility] Number of markers 19 were performed. A-2 Flow CD10 A-3 Flow CD13 A-5 Flow CD20 A-11 Flow CD2 A-13 Flow CD14 A-16 Flow CD117 A-17 Flow CD11b A-18 Flow CD11c A-1 Flow CD5 A-4 Flow CD19 A-6 Flow CD33 A-7 Flow CD34 A-8 Flow CD45 A-12 Flow CD7 A-14 Flow CD56 A-15 Flow CD64 A-9 [place]+CD19+ A-10 Lambda+CD19+ A-19 Flow HLA-DR 07/09/2020 5:33 PM T [facility] Disclaimer Test performed at [facility], [address] [place] [address], [facility]. *The established laboratory minimum viability is 70%. Values below the minimum may result in the failure to find an abnormal population of cells. This test was developed and its performance characteristics determined by the Flow Cytometry Laboratory. It has not been cleared by the [place] Food and Drug Administration (FDA). The FDA has determined that such clearance or approval is not necessary. This test is used for clinical purposes. It should not be regarded as investigational or for research. This laboratory is regulated under the Clinical Laboratory Improvement Amendments of 1998 (CLIA) as a qualified to perform high complexity clinical testing. 07/09/2020 5:33 PM CDT [facility] Embedded Images 0 5:33 PM CDT [facility] Pathology/Cytolo gy BONE MARROW SPECIMEN / Unknown Collection / Unknown 07/09/2020 10:30 AM CDT 07/09/2020 10:38 AM CDT Carlos Culp MD LAB - PATHOLOGY/CYTO LOGY ORDERABLES [facility] [address] [place] [address] * CHROMOSOME ANALYSIS LEUKEMIA/LYMPHOMA (07/09/2020 10:30 AM CDT) Specimen Type Comment: 07/21/2020 5:08 PM CDT [facility] ([facility]) Comment:BONE MARROW Cells Counted 20 07/21/2020 5:08 PM CDT [facility] ([facility]) Cells Analyzed 20 07/21/2020 5:08 PM CDT [facility] ([facility]) Cells Karyotyped 2 07/21/20 20 5:08 PM CDT [facility] ([facility]) GTG Band Resolution Achieved 400 07/21/2020 5:08 PM CDT [facility] ([facility]) Cytogenetic Result Comment: 2019 5:08 PM CDT [facility] ([facility]) Comment:46,XY[20] Interpretation Comment: 07/21/2020 5:08 PM CDT [facility] ([facility]) Comment: NORMAL MALE KARYOTYPE ?Cytogenetic analysis of unstimulated cultures revealed a male karyotype with an apparently normal GTG banding pattern in all cells analyzed. ?A normal karyotype does not rule out clonal molecular alterations below the resolution of light microscopy. In some cases additional molecular or FISH testing may be warranted, (e.g., BCR/ABL, PML/KATALINA, T and B cell rearrangements, etc.). In addition, indolent clones may have mitotic rates below the level of cytogenetic detection within the standard 20 cell analyses. A FISH panel (test #[id number]) may be effectively used in low mitotic multiple myeloma, for example, to detect high incidence, prognosis-related alterations. ??. ?A test option for a whole genome SNP microarray is also available (test #436574) that can resolve genomic imbalance at a level of sensitivity over 200 times cytogenetic resolution. This testing can be performed from the current remaining sample, if available. Call x [phone]. Director Review Comment: 0 5:08 PM CDT [facility] ([facility]) Comment:Danny Rendon, PhD, [facility] Other BONE MARROW SPECIMEN / Unknown Collection / Unknown 07/09/2020 10:30 AM CDT 07/09/2020 10:38 AM CDT Narrative [facility] ([facility]) - 07/21/2020 5:08 PM CDT Performed at: ??01 - [facility] [address] [facility], [place] ??[id number] Towboat Operator: Catalina Johnson [facility], Phone: ??[phone] Carlos Culp MD LAB - CHEMISTRY BILL FLOWERS [facility] ([facility]) [address] [place] [address] * FISH MULTIPLE MYELOMA PANEL BONE MARROW (07/09/2020 10:30 AM CDT) Specimen Type Comment: 07/15/2020 5:08 PM CDT [facility] ([facility]) Comment:BONE MARROW Cells Counted 0 07/15/2020 5:08 PM CDT [facility] ([facility]) Cells Analyzed 0 07/15/2020 5:08 PM CDT [facility] ([facility]) FISH Result Comment: 07/15/2020 5:08 PM CDT [facility] ([facility]) Comment:NO RESULT Interpretation Comment: 07/15/2020 5:08 PM CDT [facility] ([facility]) Comment: INSUFFICIENT PLASMA CELLS - TESTING NOT PERFORMED ??(SEE BELOW*) ?The CD138+ enriched cell fraction contained very few plasma cells. Therefore multiple myeloma interphase fluorescence in situ hybridization (FISH) panel analysis testing was not possible. Please submit a new sample, if possible. ? *For patients who do not have plasma cell disease, who are under going effective treatment, or who are in remission, the number of plasma cells following CD138 enrichment is typically insufficient to complete the MM FISH panel assay. . ??SPECIFIC PROBE RESULTS: ??FGFR3/IGH: ??INSUFFICIENT PLASMA CELLS: ASSAY NOT PERFORMED. ??CCND1/IGH: ??INSUFFICIENT PLASMA CELLS: ASSAY NOT PERFORMED ?IGH/MAF: ?INSUFFICIENT PLASMA CELLS: ASSAY NOT PERFORMED ??1p36/1q21: ??INSUFFICIENT PLASMA CELLS: ASSAY NOT PERFORMED. ??CEP 7/9/15: INSUFFICIENT PLASMA CELLS: ASSAY NOT PERFORMED. ??13q: ?INSUFFICIENT PLASMA CELLS: ASSAY NOT PERFORMED. ??TP53: ? INSUFFICIENT PLASMA CELLS: ASSAY NOT PERFORMED Director Review Comment: 0 5:08 PM CDT [facility] ([facility]) Comment:Danny Rendon, PhD, [facility] Other BONE MARROW SPECIMEN / Unknown Collection / Unknown 07/09/2020 10:30 AM CDT 07/09/2020 10:38 AM CDT Narrative [facility] ([facility]) - 07/15/2020 5:08 PM CDT Performed at: ??01 - [facility] [address] [facility], [facility], [place] ??[id number] Towboat Operator: Catalina Johnson [facility], Phone: ??[phone] Carlos Culp MD LAB - PATHOLOGY/CYTO LOGY ORDERABLES [facility] ([facility]) [address] [place] [address] * FISH MDS PANEL ADDTL SRCS (07/09/2020 10:30 AM CDT) Cells Counted Comment: 07/21/2020 5:08 PM CDT [facility] ([facility]) Comment:200/PROBE Cells Analyzed Comment: 07/21/2020 5:08 PM CDT [facility] ([facility]) Comment:200/PROBE FISH Result Comment: 07/21/2020 5:08 PM CDT [facility] ([facility]) Comment:NORMAL MDS PANEL Interpretation Comment: 07/21/2020 5:08 PM CDT [facility] ([facility]) Comment: ?The fluorescence in situ hybridization (FISH) analysis of MDS specific chromosome changes was normal. DNA probes specific for chromosome regions 5q33, 7q31, 8q24, and 20q12 showed normal signals in all interphase cells examined. No deletion or trisomy associated with MDS was observed. ?SPECIFIC PROBE RESULTS: ??5q: ??NORMAL . ? nuc deborah 5q33(CSF1R,RPS14)x2[200]. ??7q: ??NORMAL. ? nuc deborah 7q31(MDFICx2)[200]. ??8q: ??NORMAL. ? nuc deborah 8q24(MYCx2)[200]. ??20q: NORMAL. ? nuc deborah 20q12(PTPRTx2)[200] ?This analysis is limited to abnormalities detectable by the specific probes included in the study. FISH results should be interpreted within the context of a full cytogenetic analysis and hematologic evaluation. ??References: ??Emery Broussard (2013) Hematology Am Soc Hematol Educ Program 2013:504-10. PMID: 39282322 ??Pamela Munson and Aubree Bee (2011) Hematology 16(3):131-8. PMID: 75771637 ?This test was developed and its performance characteristics determined by [employer] ([employer]). It has not been cleared or approved by the U.S. Food and Drug Administration. The DNA probe vendor for this study was [employer] ([place]). Specimen Type Comment: 07/21/2020 5:08 PM CDT [facility] ([facility]) Comment:BONE MARROW Director Review Comment: 0 5:08 PM CDT [facility] ([facility]) Comment:Ross Mora, PhD , [facility] Other BONE MARROW SPECIMEN / Unknown Collection / Unknown 07/09/2020 10:30 AM CDT 07/09/2020 10:38 AM CDT Narrative [facility] ([facility]) - 07/21/2020 5:08 PM CDT Performed at: ??01 - [facility] [address] [place], [place] ??[id number] Towboat Operator: Catalina Johnson [facility], Phone: ??[phone] Carlos Culp MD LAB - PATHOLOGY/CYTO LOGY ORDERABLES [facility] ([facility]) [address] [place] [address] * FISH MPN W/HYPEREOSINOPHILIA (07/09/2020 10:30 AM CDT) Specimen Type Comment: 07/21/2020 5:08 PM CDT [facility] ([facility]) Comment:BONE MARROW Cells Counted 100 07/21/2020 5:08 PM CDT [facility] ([facility]) Cells Analyzed 100 07/21/2020 5:08 PM CDT [facility] ([facility]) FISH Result Comment: 07/21/2020 5:08 PM CDT [facility] ([facility]) Comment: NO DELETION OF LNX1 (CHIC2) OR REARRANGEMENT OF PDGFRA, PDGFRB, OR FGFR1 Interpretation Comment: 07/21/2020 5:08 PM CDT [facility] ([facility]) Comment: NEGATIVE ?The MPN with hypereosinophilia fluorescence panel in situ hybridization (FISH) analysis was normal. No deletion of LNX1 or rearrangements of PDGFRA, PDGFRB, or FGFR1 were observed. ?SPECIFIC PROBE RESULTS: ?PDGFRA: NORMAL ?nuc deborah 4q12(FIP1L1,LNX1,PDGFRA)x2[100] ?PDGFRB: NORMAL ?nuc deborah 5q33(PDGFRBx2)[100] ?FGFR1: ??NORMAL ?nuc deborah 8p12(HMIU9m5)[100]. ?This analysis is limited to abnormalities detectable by the specific probes included in the study. FISH results should be interpreted within the context of a full cytogenetic analysis and hematologic evaluation. ?? . ?This test was developed and its performance characteristics determined by [employer] ([employer]). It has not been cleared or approved by the U.S. Food and Drug Administration. The DNA probe vendors for this study were [employer] and [employer] ([employer]). Director Review Comment: 0 5:08 PM CDT [facility] Comment:Ross Mora, PhD , [facility] Other BONE MARROW SPECIMEN / Unknown Collection / Unknown 07/09/2020 10:30 AM CDT 07/09/2020 10:38 AM CDT Narrative [facility]) - 07/21/2020 5:08 PM CDT Performed at: ??01 - [facility] [address] [facility], [facility], [place] ??[id number] Towboat Operator: Catalina Johnson [facility], Phone: ??[phone] Carlos Culp MD LAB - PATHOLOGY/CYTO LOGY ORDERABLES [facility]) [address] [place] [address] * CT BONE MARROW BIOPSY (07/09/2020 9:38 AM CDT) Anatomical Region Laterality Modality Computed Tomogra phy 07/09/2020 2:21 PM CDT Narrative 07/09/2020 2:24 PM CDT History: Secondary polycythemia Operators: 1. ??Dr. Flores, Attending Physician Anesthesia: 1. ??Local anesthesia - 10 mL of 1% lidocaine 2. ??Intravenous conscious sedation - Versed 1.5 mg and Fentanyl 75 mcg Procedure: 1. ??Limited non-contrast CT of the pelvis. 2. ??CT-guided bone marrow aspiration and biopsy of the right iliac bone. Procedure in detail: The procedure and possible complications were explained to the patient in detail, and informed consent was obtained. The patient was placed in a prone position on the CT table and a radio-opaque grid was placed over the region of interest. Limited non-contrast CT of the pelvis showed unremarkable iliac bones. A percutaneous entry site was marked on the skin to access the right iliac bone. The marked site and skin around the region was prepped and draped in a sterile fashion. Local anesthesia was provided with 1% Lidocaine. An 11 gauge coaxial needle system was advanced in stages under CT guidance using a power drill On-control system. With the needle tip within the iliac wing bone marrow, the inner stylet was removed and marrow aspiration was performed per protocol. In addition, one core sample was acquired by advancing the coaxial system across the iliac wing bone marrow. Final post-biopsy imaging did not show any immediate complications. The patient tolerated the procedure well and was transferred to the holding area in stable condition. Impression: CT-guided bone marrow aspiration and biopsy of the right iliac bone, as described above. The pathology report is pending at the time of this dictation. I, Dr. Flores, was present and performed/supervised the entire procedure. Moderate sedation on this adult patient was ordered by me, administered intravenously in my presence, and monitored by the procedure nurse as an independent trained observer who was present throughout the procedure. The following parameters were monitored: oxygen saturation, heart rate, blood pressure, and response to care. Intra-service sedation start time was 08 and end time was 904 during which I was present. Total physician intra-service sedation time was 25 minutes. For details on pre moderate sedation and post moderate sedation patient evaluation, please review the evaluation forms in [facility]. For details on monitored clinical parameters during the intra-service sedation time, please review the procedure nurse documentation in [facility]. *Reading Radiologist: Herrera Flores on 07/09/2020 at 2:24 PM Procedure Note Herrera Flores MD - 07/09/2020 History: Secondary polycythemia Operators: 1. Dr. Flores, Attending Physician Anesthesia: 1. Local anesthesia - 10 mL of 1% lidocaine 2. Intravenous conscious sedation - Versed 1.5 mg and Fentanyl 75 mcg Procedure: 1. Limited non-contrast CT of the pelvis. 2. CT-guided bone marrow aspiration and biopsy of the right iliac bone. Procedure in detail: The procedure and possible complications were explained to the patient in detail, and informed consent was obtained. The patient was placed in a prone position on the CT table and a radio-opaque grid was placed over the region of interest. Limited non-contrast CT of the pelvis showed unremarkable iliac bones. A percutaneous entry site was marked on the skin to access the right iliac bone. The marked site and skin around the region was prepped and draped in a sterile fashion. Local anesthesia was provided with 1% Lidocaine. An 11 gauge coaxial needle system was advanced in stages under CT guidance using a power drill On-control system. With the needle tip within the iliac wing bone marrow, the inner stylet was removed and marrow aspiration was performed per protocol. In addition, one core sample was acquired by advancing the coaxial system across the iliac wing bone marrow. Final post-biopsy imaging did not show any immediate complications. The patient tolerated the procedure well and was transferred to the holding area in stable condition. Impression: CT-guided bone marrow aspiration and biopsy of the right iliac bone, as described above. The pathology report is pending at the time of this dictation. I, Dr. Flores, was present and performed/supervised the entire procedure. Moderate sedation on this adult patient was ordered by me, administered intravenously in my presence, and monitored by the procedure nurse as an independent trained observer who was present throughout the procedure. The following parameters were monitored: oxygen saturation, heart rate, blood pressure, and response to care. Intra-service sedation start time was 08 and end time was 09 during which I was present. Total physician intra-service sedation time was 25 minutes. For details on pre moderate sedation and post moderate sedation patient evaluation, please review the evaluation forms in [facility]. For details on monitored clinical parameters during the intra-service sedation time, please review the procedure nurse documentation in [facility]. *Reading Radiologist: Herrera Flores on 07/09/2020 at 2:24 PM Carlos Culp MD CT ORDERABLES * BONE MARROW BIOPSY (STL) (07/09/2020 9:36 AM CDT) Case Report Bone Marrow Report ?Case: [id number] ? Authorizing Provider: ??Carlos Culp MD ? Collected: ? 07/09/2020 09:36 AM ? Ordering Location: ? [facility] ?Received: ?07/09/2020 09:38 AM ? Pathologist: ? Linda Cedeno MD ? Specimens: ?? A) - Bone Marrow Clot ? B) - Bone Marrow Core ? C) - Bone Marrow Aspirate ? D) - Bone Marrow ? E) - Blood Peripheral ? F) - Bone Marrow ? 07/13/2020 5:40 PM CDT [facility] Final Diagnosis Bone marrow, aspirate, touch imprint, clot section, and core biopsy: - Normocellular marrow with maturing trilineage hematopoiesis. - No evidence of lymphoma or high-grade myeloid neoplasm. - See description. 07/13/2020 5:40 PM CDT [facility] Clinical History Thrombocytopenia, secondary polycythemia, h/o RA. Rule-out MDS, MDS/MPD vs. autoimmune thrombocytopenia. 07/13/2020 5:40 PM [facility] Gross Description The requisition and specimens are identified with the patient's name, Hans Horton. Received in formalin, specimen A; clot, is a 1.0 x 0.8 x 0.3 cm red-bustamante clot. The specimen is entirely submitted in cassette A1. Received in formalin, specimen B; core, is a 2.0 cm in length and 0.2 cm in diameter bony core. The specimen is entirely submitted in cassette B1 following decalcification. DS/ns 07/13/2020 5:40 PM [facility] Bone Marrow Description Bone marrow aspirate: The aspirate smears are hemodilute and paucicellular. Differential count is performed on the touch imprint. Differential count (200 cells): 3% blasts, 62% maturing myeloid precursors, 14% erythroid progenitors, 1% monocytes, 1% eosinophils, and 19% lymphocytes. Trilineage Hematopoiesis: present. Myeloid: Erythroid ratio: 4.6:1. Myeloid Maturation: normal. Erythroid Maturation: normal. Megakaryocyte morphology: normal. Storage iron (by special stain): not evaluable due to lack of spicules. Sideroblastic iron (by special stain): no ring sideroblasts (control worked appropriately). Bone marrow core biopsy and clot section: Specimen quality: adequate. Cellularity: normocellular for age, estimated 40-50%. Trilineage Hematopoiesis: present. Myeloid: Erythroid ratio: normal. Myeloid maturation and localization: normal. Erythroid maturation and localization: normal. Megakaryocyte number: normal. Megakaryocyte distribution: normal. Lymphoid aggregates: absent. Bone trabeculae: normal. Blood vessels: normal. Clot section marrow particles: absent. Clot section morphology: clotted blood and some marrow elements. Clot section storage iron (by special stain): not evaluable due to lack of spicules. 07/13/2020 5:40 PM [facility] Flow Cytometry Summary Concurrent flow cytometry ([id number]) shows no evidence of non-Hodgkin lymphoma or high-grade myeloid neoplasm. 07/13/2020 5:40 PM [facility] AP Comment Overall, the bone marrow specimen is normocellular for age with maturing trilineage hematopoiesis and no evidence of lymphoma, a high-grade myeloid neoplasm, or significant dyspoiesis. Concurrent bone marrow flow cytometry ([id number]) corroborates this diagnosis. Correlation with clinical findings and relevant cytogenetic/molecular testing is required. 07/13/2020 5:40 PM T [facility] Disclaimer All histochemical and/or immunohistochemical results are interpreted with controls that demonstrate appropriate staining reactions before reporting results. Note on use of immunocytochemistry reagents: This test was developed and its performance characteristic determined by [facility], Department of Laboratory Medicine. It has not been cleared or approved by the U.S. Food and Drug Administration (FDA). The FDA has determined that such clearance or approval is not necessary. The test is used for clinical purpose. It should not be regarded as investigational or for research. This laboratory is certified to perform high complexity testing. The performance characteristics of the IHC/DEBORAH assays have been validated on formalin-fixed paraffin embedded tissues only. The assays have not been validated on decalcified tissues. Results should be interpreted with caution. The interpretation of this [facility], [address] [place] [address]. 07/13/2020 5:40 PM [facility] Embedded Images 07/13/2020 5:40 PM [facility] Pathology/Cytology BONE MARROW SPECIMEN / Unknown 07/09/2020 9:36 AM CDT 07/09/2020 9:38 AM CDT Miscellaneous samples (specimen) BONE MARROW SPECIMEN / Unknown 07/09/2020 9:36 AM CDT 07/09/2020 9:38 AM CDT Miscellaneous samples (specimen) SPECIMEN FROM BONE MARROW OBTAINED BY ASPIRATION / Unknown 07/09/2020 9:36 AM CDT 07/09/2020 9:38 AM CDT Miscellaneous samples (specimen) BONE MARROW SPECIMEN / Unknown 07/09/2020 9:36 AM CDT 07/09/2020 9:38 AM CDT Miscellaneous samples (specimen) PERIPHERAL BLOOD / Unknown 07/09/2020 9:36 AM CDT 07/09/2020 9:38 AM CDT Miscellaneous samples (specimen) BONE MARROW SPECIMEN / Unknown 07/09/2020 9:36 AM CDT 07/09/2020 9:38 AM CDT Carlos Culp MD LAB - PATHOLOGY/CYTO LOGY ORDERABLES Performing Organization Address [facility]/ZIP Co de Phone Number [facility] [address] [place] [address] * PTT (07/09/2020 7:53 AM CDT) PTT 34.2 23.0 - 38.4 sec 07/09/2020 8:30 AM CDT [facility] Blood BLOOD SPECIMEN / Unknown Venipuncture / Unknown 07/09/2020 7:53 AM CDT 07/09/2020 7:56 AM CDT Narrative [facility] - 07/09/2020 8:30 AM CDT Heparin Therapeutic Range for PTT: ??71.0 - 109.0 seconds. Herrera Flores MD LAB - COAGULATION ORDERABLES Performing Organization Address [facility] Co de Phone Number [facility] [address] [place] [address] * PT-INR (07/09/2020 7:53 AM CDT) PT 13.4 12.1 - 14.8 sec 07/09/2020 8:29 AM CDT [facility] INR 1.1 0.9 - 1.1 07/09/2020 8:29 AM CDT [facility] Blood BLOOD SPECIMEN / Unknown Venipuncture / Unknown 07/09/2020 7:53 AM CDT 07/09/2020 7:56 AM CDT Narrative [facility] - 07/09/2020 8:29 AM CDT Conventional Warfarin Anticoagulant Therapy: INR Reference Range: ??2.0-3.0 Intensive Warfarin Anticoagulant Therapy: INR Reference Range: ? 2.5-3.5 Herrera Flores MD LAB - COAGULATION ORDERABLES Performing Organization Address [facility] Co de Phone Number [facility] [address] [place] [address] * PRETTY URINE (06/29/2020 3:16 PM CDT) Pathologist [facility] Interpretation PRETTY Comment: [facility] INSURANCE BILL Comment: Presence of monoclonal protein is unclear at this time. Suggest repeat in 3 to 6 months if clinically indicated. Urine URINE / Unknown 06/29/2020 3 :16 PM CDT 06/29/2020 Narrative Resulting Agency Comment Lab Testing performed at: [facility] [address] [facility] ??[facility] [id number] Carlos Culp MD LAB - URINE CHEMISTR Y ORDERABLES Performing Organization Address [facility] Co de Phone Number [employer] INSURANCE BILL [address] [place] [address] * [id number] BLOOD (06/29/2020 3:16 PM CDT) [facility] Beta-2 Microglobulin 1.6 0.6 - 2.4 mg/L [email or web address] INSURANCE BILL Comment: Siemens Immulite 2000 Immunochemiluminometric assay (ICMA) ? . Values obtained with different assay methods or kits cannot be used interchangeably. Results cannot be interpreted as absolute evidence of the presence or absence of malignant disease. Blood BLOOD SPECIMEN / Unknown 06/29/2020 3:16 PM CDT 06/29/2020 Narrative Resulting Agency Comment Lab Testing performed at: [facility] [employer] ??[facility] [id number] Carlos Culp MD LAB - CHEMISTRY ORDE RABLES Performing Organization Address [facility] de Phone Number [employer] INSURANCE BILL [address] [place] [address] * (ABNORMAL) KAPPA/LAMBDA LITE CHAIN FREE PANEL (06/29/2020 3:16 PM CDT) [facility] Free [place] Light Chains 28.0(H) 3.3 - 19.4 mg/L [facility] INSURANCE BILL Free Lambda Light Chains 38.0(H) 5.7 - 26.3 mg/L [facility] INSURANCE BILL Sed[place]/Lambda Ratio 0.74 0.26 - 1.65 [facility] INSURANCE BILL Blood BLOOD SPECIMEN / Unknown 06/29/2020 3:16 PM CDT 06/29/2020 Narrative Resulting Agency Comment Lab Testing performed at: [employer] [employer] ??[facility] [id number] Carlos Culp MD LAB - CHEMISTRY BILL FLOWERS Performing Organization Address City/[facility] Co de Phone Number [facility] INSURANCE BILL [address] [place] [address] * PROTEIN ELECTROPHORESIS BLOOD (06/29/2020 3:16 PM CDT) Protein Total 6.7 6.0 - 8.5 g/dL [facility] INSURANCE BILL Albumin 3.4 2.9 - 4.4 g/dL [facility] INSURANCE BILL Alpha-1 Globulin 0.3 0.0 - 0.4 g/dL [facility] INSURANCE BILL Ewsgd-[id number] 0.9 0.4 - 1.0 g/dL [facility] INSURANCE BILL Beta-Globulin 1.1 0.7 - 1.3 g/dL [facility] INSURANCE BILL Gamma Globulin 1.0 0.4 - 1.8 g/dL [facility] INSURANCE BILL M-Thang Not Observed Not Observed g/dL [facility] INSURANCE BILL Globulin Total 3.3 2.2 - 3.9 g/dL [facility] INSURANCE BILL Albumin/Globulin Ratio 1.0 0.7 - 1.7 [facility] INSURANCE BILL Please Note [facility] INSURANCE BILL Comment: Protein electrophoresis scan will follow via computer, mail, or geophysics scientist delivery. P E Interpretation, S [facility] INSURANCE BILL Comment: The SPE pattern appears unremarkable. Evidence of monoclonal protein is not apparent. Blood BLOOD SPECIMEN / Unknown 06/29/2020 3:16 PM CDT 06/29/2020 Narrative Resulting Agency Comment Lab Testing performed at: Lab[address] ??[facility] [id number] Carlos Culp MD LAB - CHEMISTRY BILL FLOWERS [facility] INSURANCE BILL [address] [place] [address] * LAB MISC TEST (06/29/2020 10:40 AM CDT) Test Name EPOR Mutation Detection by Sequencing 07/09/2020 8:02 AM CDT [facility] OTHER LAB Test Result See Scanned Report 07/09/2020 8:02 AM CDT [facility] LAB Blood BLOOD SPECIMEN / Unknown Venipuncture / Unknown 06/29/2020 10:40 AM CDT 06/29/2020 11:57 AM CDT Carlos Culp MD LAB SEND OUT [facility] * US ABDOMEN LIMITED (06/25/2020 11:40 AM CDT) Anatomical Region Laterality Modality Abdomen Ultrasound 06/25/2020 12:0 3 PM CDT Impressions 06/25/2020 12:47 PM CDT Unremarkable survey. Edited by Christiane Hyman on 06/25/2020 12:13 PM *Reading Radiologist: Florin Narvaez on 06/25/2020 at 12:47 PM Narrative 06/25/2020 12:47 PM CDT ULTRASOUND ABDOMEN. HISTORY: Thrombocytopenia. Images show an unremarkable pancreas and liver. Portal vein and hepatic veins are patent. Common duct is 4 mm. Gallbladder is normal. Right kidney is unremarkable. The spleen is 11.3 x 5.1 x 5.7 cm and is homogeneous. Procedure Note Florin Narvaez MD - 06/25/2020 ULTRASOUND ABDOMEN. HISTORY: Thrombocytopenia. Images show an unremarkable pancreas and liver. Portal vein and hepatic veins are patent. Common duct is 4 mm. Gallbladder is normal. Right kidney is unremarkable. The spleen is 11.3 x 5.1 x 5.7 cm and is homogeneous. IMPRESSION Unremarkable survey. Edited by Christiane Hyman on 06/25/2020 12:13 PM *Reading Radiologist: Florin Narvaez on 06/25/2020 at 12:47 PM Carlos Culp MD US ORDERABLES * (ABNORMAL) BLOOD GASES ARTERIAL (06/25/2020 11:33 AM CDT) pH Arterial 7.42 7.35 - 7.45 pH 06/25/2020 12:03 PM CDT [facility]P THERAP[facility] pCO2 Arterial 39 35 - 45 mm hg 06/25/2020 12:03 PM CDT [facility] RESP THERAP[facility] pO2 Arterial 77(L) 80 - 100 mm hg 06/25/2020 12:03 PM CDT [facility]P THERAP[facility] Comment:L HCO3 Arterial 25 22 - 26 mmol/L 06/25/2020 12:03 PM CDT [facility] RESP THERAP[facility] BE Arterial 0.3 -2.0 - 2.0 mmol/L 06/25/2020 12:03 PM CDT [facility] RESP [facility]ERAPY O2 Saturation Arterial 96 90 - 100 % 06/25/2020 12:03 PM CDT [facility] RESP THERAPY Hemoglobin Arterial 18.2(H) 14.0 - 16.0 gm/dL 06/25/2020 12:03 PM CDT [facility] RESP THERAPY Carboxyhemoglobin Arterial 3.6(H) 0.0 - 2.5 % 06/25/2020 12:03 PM CDT [facility]P THERAPY Comment:H Methemoglobin Arterial 0.5 0.0 - 2.0 % 06/25/2020 12:03 PM CDT [facility] RESP THERAPY Oxyhemoglobin Arterial 92 % 06/25/2020 12:03 PM CDT [facility] RESP THERAPY O2 Content Arterial 23.6 % 06/25 12:03 PM CDT [facility]ERAP[facility] Comment:H Beltran's Test Positive 06/25/2020 12:03 PM CDT [facility] RESP THERAPY Sample Site L Brachial 06/25/2020 12:03 PM CDT [facility] RESP THERAPY Sample Type Arterial 06/25/2020 12:03 PM CDT [facility] RESP THERAPY [employer] ID [id number] 06/25/2020 12:03 PM CDT [facility] RESP THERAPY Blood, arterial ARTERIAL BLOOD SPECIMEN / Unknown 06/25/2020 11:33 AM CDT 06/25/2020 11:33 AM CDT Carlos Culp MD LAB - BLOOD GASES OR DERABLES [facility] RESP THERAPY [address] [phone] * HEPATITIS A IGM ANTIBODY (06/24/2020 9:30 AM CDT) HAV Antibody IgM Non Reactive Non Reactive 06/24/2020 10:26 AM CDT [facility] Blood BLOOD SPECIMEN / Unknown Venipuncture / Unknown 06/24/2020 9:30 AM CDT 06/24/2020 9:39 AM CDT Carlos Culp MD LAB - CHEMISTRY BILL FLOWERS Performing Organization Address [facility] Co de Phone Number [facility] [address] [place] [address] * REF LAB-SPECIMEN STATUS REPORT (06/08/2020 4:51 PM CDT) Specimen Status Report [facility] INSURANCE BILL Comment: We have received your request for additional testing, however we are unable to add the test you requested. ??The following test(s) were not performed: Quantity was not sufficient for add-on test. Test# [id number] Hepatitis A (Prof V) 06/08/2020 4:51 PM CDT 06/08/2020 Narrative Resulting Agency Comment Lab Testing performed at: [facility] [address] [place] [address] ??[facility] [id number] Carlos Culp MD LAB - CHEMISTRY BILL FLOWERS Performing Organization Address [facility] de Phone Number [facility] INSURANCE BILL [address] [place] [address] * HEPATITIS B SURFACE ANTIBODY (06/08/2020 4:51 PM CDT) Hepatitis B Virus Surface Antibody Non Reactive [facility] INSURANCE BILL Comment: ? Non Reactive: Inconsistent with immunity, ? less than 10 mIU/mL ? Reactive: ? Consistent with immunity, ? greater than 9.9 mIU/mL Blood BLOOD SPECIMEN / Unknown 06/08/2020 4:51 PM CDT 06/08/2020 Narrative Resulting Agency Comment Lab Testing performed at: [employer] [address] ??[place] [id number] Carlos Culp MD LAB - CHEMISTRY BILL FLOWERS Performing Organization Address [facility]/ZIP Co de Phone Number [facility] INSURANCE BILL [address] [place] [address] * HEPATITIS B SURFACE ANTIGEN W RFLX CONFIRMATION (06/08/2020 4:51 PM CDT) Hepatitis B Virus Surface Antigen Negative Negative [facility] INSURANCE BILL Blood BLOOD SPECIMEN / Unknown 06/08/2020 4:51 PM CDT 06/08/2020 Narrative Resulting Agency Comment Lab Testing performed at: [employer] [place] [address] ??[place] [id number] Carlos Culp MD LAB - CHEMISTRY BILL FLOWERS Performing Organization Address [facility] de Phone Number [facility] INSURANCE BILL [address] [place] [address] * HEPATITIS C ANTIBODY (06/08/2020 4:51 PM CDT) Hepatitis C Antibody <0.1 0.0 - 0.9 s/co ratio [facility] INSURANCE BILL Comment: ? Negative: ? < 0.8 ?Indeterminate: 0.8 - 0.9 ? Positive: ? > 0.9 ? . ?The CDC recommends that a positive HCV antibody result ?be followed up with a HCV Nucleic Acid Amplification ?test ([id number]). Blood BLOOD SPECIMEN / Unknown 06/08/2020 4:51 PM CDT 06/08/2020 Narrative Resulting Agency Comment Lab Testing performed at: [employer] [address] ??[place] [phone] Carlos Culp MD LAB - CHEMISTRY BILL FLOWERS Performing Organization Address [facility] Co de Phone Number [facility] INSURANCE BILL [address] [place] [address] * (ABNORMAL) HEPATITIS A ANTIBODY (06/08/2020 4:51 PM CDT) Hepatitis A Virus Antibody Total Positive(A ) Negative [facility] INSURANCE BILL Blood BLOOD SPECIMEN / Unknown 06/08/2020 4:51 PM CDT 06/08/2020 Narrative Resulting Agency Comment Lab Testing performed at: [employer] [address] ??[place] [id number] Carlos Culp MD LAB - CHEMISTRY BILL FLOWERS [facility] INSURANCE BILL [address] [place] [address] * HEPATITIS B CORE ANTIBODY IGM (06/08/2020 4:51 PM CDT) Pathologist [facility] Hepatitis B Core Virus Antibody IgM Negative Negative [facility] INSURANCE BILL Blood BLOOD SPECIMEN / Unknown 06/08/2020 4:51 PM CDT 06/08/2020 Narrative Resulting Agency Comment Lab [facility] performed [facility]: [facility] [address] ??[facility] [id number] Carlos Culp MD LAB - CHEMISTRY ORDHaley FLOWERS Performing Organization Address [facility] Co de Phone Number [facility] INSURANCE BILL [address] [place] [address] * (ABNORMAL) LUPUS ANTICOAGULANT PANEL W RFLX (06/08/2020 4:47 PM CDT) [facility] PTT-LA 45.1 0.0 - 51.9 sec [facility] INSURANCE BILL dRVVT 61.4(H) 0.0 - 47.0 sec [facility] INSURANCE BILL Interpretation Comment: [facility] INSURANCE BILL Comment: No lupus anticoagulant was detected. An extended dRVVT that corrects on mixing with normal plasma can be caused by a deficiency of one of the common pathway factors (X, V, II or fibrinogen). Blood BLOOD SPECIMEN / Unknown 06/08/2020 4:47 PM CDT 06/09/2020 Narrative Resulting Agency Comment Lab Testing performed at: [address] ??[facility] [phone] Carlos Culp MD LAB - HEMATOLOGY ORD ERABLES Performing Organization Address City/[facility] Co de Phone Number [facility] INSURANCE BILL [address] [place] [address] * HIV-1 HIV-2 ANTIBODY + HIV P24 AG PANEL (06/08/2020 4:46 PM CDT) Pathologist [facility] HIV Screen 4th Generation w Reflex Non Reactive Non Reactive [facility] INSURANCE BILL Blood BLOOD SPECIMEN / Unknown 06/08/2020 4:46 PM CDT 06/08/2020 Narrative Resulting Agency Comment [facility]: [facility] [address] ??[facility] [id number] Carlos Culp MD LAB - CHEMISTRY BILL FLOWERS [facility] INSURANCE BILL [address] [place] [address] * JAK2 GENE V617F MUTATION QUANTITATIVE (06/08/2020 4:46 PM CDT) JAK2 V617F Mutation Quantitative [facility] INSURANCE BILL Comment: NEGATIVE ? . The JAK2 V617F mutation is not detected in the provided specimen of this individual. This result does not rule out the presence of the JAK2 mutation at a level below the sensitivity of detection of this assay, or the presence of other mutations within JAK2 not detected by this assay. Background [facility] INSURANCE BILL Comment: The Quantitative Real-Time PCR assay detects V617F mutation (c.1849 G>T) observed in approximately 95% polycythemia vera (PV), 55% essential thrombocythemia (ET) and 55% primary myelofibrosis (PMF). It is also infrequently present (3-5%) in myelodysplastic syndrome, chronic myelomonocytic leukemia, and other atypical chronic myeloid disorders. The results should be interpreted in the context of all clinical and laboratory findings. No therapeutic action should be taken based solely on these results. This assay detects only the JAK2 V617F point mutation. Other mutations that may occur in the JAK2 gene will not be detected. Methodology [facility] INSURANCE BILL Comment: This test was developed and its performance characteristics determined by [employer]. It has not been cleared or approved by the Food and Drug Administration. Total genomic DNA was extracted and subjected to TaqMan real-time PCR amplification/detection. Two amplification products per sample were monitored by real-time PCR using primers/probes specific to JAK2 wild type (WT) and JAK2 mutant V617F. The [employer] Absolute Quantitation software will compare the patient specimen values to the standard curves and generate percent values for wild type and mutant type. The numerical values of Sample Mutant Quantity/(Sample Mutant Quantity+ Sample Wild Type Quantity)X100 is reported as a percentage. In vitro studies have indicated that this assay has an analytical sensitivity of 1%. References JAK2 V617F QNT [facility] INSURANCE BILL Comment: ??Emile EJ, Ananth LM, Abhi PJ, et al. Acquired mutation of the tyrosine kinase JAK2 in human myeloproliferative disorders. Lancet. 2005 Jan 21; 365(7091):7551-4610. Hang C, Abdifatah V, Makayla Stock MARIELA. A unique clonal JAK2 mutation leading to constitutive signaling causes polycythaemia vera. Nature. 2005 Feb 28; 434(8125):9114-1021. Prabhu R, Nomi F, Eulalia , et al. A fcys-sc-zaamglen mutation of JAK2 in myeloproliferative disorders. N Engl J Med. 2005 Mar 02; 35217):7763-7425. Director Review [facility] INSURANCE BILL Comment: Jalyn Villanueva, PhD, [facility] ? Director, Molecular Genetics ? [facility] ? Biology and Pathology ? [place], [place] ? . Blood BLOOD SPECIMEN / Unknown 06/08/2020 4:46 PM CDT 06/08/2020 Narrative Resulting Agency Comment Lab Testing performed at: [facility] [address] [facility] ??[facility] [id number] Carlos Culp MD LAB - CHEMISTRY BILL FLOWERS [facility] INSURANCE BILL [address] [place] [address] * BCR-ABL1 CML+AML PCR QUANT PNL (06/08/2020 4:46 PM CDT) e13a2 (b2a2) transcript % [facility] INSURANCE B[facility] Comment: ?<0.0032 % ?(sensitivity limit of assay) e14a2 (b3a2) transcript % [facility] INSURANCE BILL Comment: ?<0.0032 % ?(sensitivity limit of assay) e1a2 transcript % [facility] INSURANCE BILL Comment: ?<0.0032 % ?(sensitivity limit of assay) Interpretation [facility] Comment: NEGATIVE for the BCR-ABL1 e1a2 (p190), e13a2 (b2a2, p210) and e14a2 (b3a2, p210) fusion transcripts. These results do not rule out the presence of rare BCR-ABL1 transcripts not detected by this assay. Director Review [facility] INSURANCE BILL Comment: Jalyn Villanueva, PhD, [facility] ? Director, Molecular Genetics ? [facility] ? Biology and Pathology ? [facility], [place] ? . Background [facility] INSURANCE BILL Comment: This assay can detect three different types of BCR-ABL1 fusion transcripts associated with CML, ALL, and AML: e13a2 (previously b2a2) and e14a2 (previously b3a2) (major breakpoint, p210), as well as e1a2 (minor breakpoint, p190). The e13a2 and e14a2 transcript values are titrated to the current International Scale (IS). The standardized baseline is 100% BCR-ABL1 (IS) and major molecular response (MMR) is equivalent to 0.1% BCR-ABL1 (IS) corresponding to a 3-log reduction. Results should be correlated with appropriate clinical and laboratory information as indicated. Methodology [facility] INSURANCE BILL Comment: Total RNA is isolated from the sample and subject to a real-time, reverse transcriptase polymerase chain reaction (RT-PCR). The PCR primers and probes are specific for BCR-ABL1 e13a2, e14a2 and e1a2 fusion transcripts. The ABL1 transcript is amplified as the control for cDNA quantity and quality. Serial dilutions of a validated positive control RNA with known t(9;22) BCR-ABL1 are used as reference for quantification of BCR-ABL1 relative to ABL1. The numeric BCR-ABL1 level is reportd as % BCR-ABL1/ABL1 and the detection sensitivity is 4.5 log below the standard baseline. ? . This test was developed and its performance characteristics determined by [employer]. It has not been cleared or approved by the Food and Drug Administration. ? . References: ? . ?1. Melissa T and Markus S: Seminars in Hematology 2003; ? 40 (suppl2):62-68. ?2. Devin TADEO, et al. Blood 2010; 116: u457-162. ?3. NCCN Clinical Practice Guidelines in Oncology, Chronic ? Myeloid Leukemia. V2. 2017. Blood BLOOD SPECIMEN / Unknown 06/08/2020 4:46 PM CDT 06/08/2020 Narrative Resulting Agency Comment Lab Testing performed at: [facility] [address] [facility] ??[place] [id number] Carlos Culp MD LAB - CHEMISTRY BILL FLOWERS [facility] INSURANCE BILL [address] [place] [address] * (ABNORMAL) TRACEY STAINING PATTERNS REFLEXED (06/08/2020 4:46 PM CDT) Homogeneous Pattern 1:160(H) [facility] INSURANCE BILL Nucleolar Pattern NOT NEEDED [facility] INSURANCE BILL Comment:Ancillary determined the test is not needed. Speckled Pattern NOT NEEDED [facility] INSURANCE BILL Comment:Ancillary determined the test is not needed. Centromere Pattern NOT NEEDED [facility] INSURANCE BILL Comment:Ancillary determined the test is not needed. Spindle Apparatus Pattern NOT NEEDED [facility] INSURANCE BILL Comment:Ancillary determined the test is not needed. Nuclear Membrane Pattern NOT NEEDED [facility] INSURANCE BILL Comment:Ancillary determined the test is not needed. Midbody Pattern NOT NEEDED [facility] INSURANCE BILL Comment:Ancillary determined the test is not needed. Nuclear Dot Pattern NOT NEEDED [facility] INSURANCE BILL Comment:Ancillary determined the test is not needed. PCNA Pattern NOT NEEDED [facility] INSURANCE BILL Comment:Ancillary determined the test is not needed. Centriole Pattern NOT NEEDED [facility] INSURANCE BILL Comment:Ancillary determined the test is not needed. Note [facility] INSURANCE BILL Comment: A positive HODAN result may occur in healthy individuals (low titer) or be associated with a variety of diseases. ??See interpretation chart which is not all inclusive: ? . Pattern ?Antigen Detected ??Suggested Disease Association ? Homogeneous ??DNA(ds,ss), ? SLE - High titers ? Nucleosomes, ? Histones ?Drug-induced SLE ? Speckled ? Sm, SALES COMPENSATION ANALYST, SCL-70, ??SLE,MCTD,PSS (diffuse form), ? SS-A/SS-B ? Sjogrens ? Nucleolar ?SCL-70, PM-1/SCL ??High titers Scleroderma, ? PM/DM ? Centromere ?? Centromere ?PSS (limited form) w/Crest ? syndrome variable ? Nuclear Dot ??Sp100,[id number] ??Primary Biliary Cirrhosis ? Nuclear ?GP210, ?Primary Biliary Cirrhosis Membrane ? varghese A,B,C ? 06/08/2020 4:46 PM CDT 06/09/2020 Narrative Resulting Agency Comment Lab Testing performed at: [facility] [place] [address] [facility] ??[facility] [id number] Carlos Culp MD LAB - PATHOLOGY/CYTO LOGY ORDERABLES Performing Organization Address [facility]/ZIP Co de Phone Number [facility] INSURANCE BILL [address] [place] [address] * DRVVT MIX (06/08/2020 4:46 PM CDT) dRVVT 1:1 Mix 42.6 0.0 - 47.0 sec [facility] INSURANCE BILL 06/08/2020 4:46 PM CDT 06/09/2020 Narrative Resulting Agency Comment Lab Testing performed at: [facility] ??[facility] [id number] Carlos Culp MD LAB - COAGULATION OR DERABLES Performing Organization Address [facility]/ZIP Co de Phone Number [facility] INSURANCE BILL [address] [place] [address] * (ABNORMAL) CARDIOLIPIN ANTIBODY IGG/IGM PANEL (06/08/2020 4:46 PM CDT) Cardiolipin Antibody IgG <9 0 - 14 GPL U/mL [facility] INSURANCE BILL Comment: ? Negative: ?<15 ? Indeterminate: ? 15 - 20 ? Low-Med Positive: >20 - 80 ? High Positive: ? >80 Cardiolipin Antibody IgM 17(H) 0 - 12 MPL U/mL [facility] INSURANCE BILL Comment: ? Negative: ?<13 ? Indeterminate: ? 13 - 20 ? Low-Med Positive: >20 - 80 ? High Positive: ? >80 Blood BLOOD SPECIMEN / Unknown 06/08/2020 4:46 PM CDT 06/08/2020 Narrative Resulting Agency Comment Lab Testing performed at: [facility] [address] ??[place] [id number] Carlos Culp MD LAB - SEROLOGY ORDER CRISTHIAN Performing Organization Address [facility] Co de Phone Number [facility] INSURANCE BILL [address] [place] [address] * RHEUMATOID FACTOR BLOOD QUANTITATIVE (06/08/2020 4:46 PM CDT) Pathologist [facility] Rheumatoid Factor <10.0 0.0 - 13.9 IU/mL [facility] INSURANCE BILL Blood BLOOD SPECIMEN / Unknown 06/08/2020 4:46 PM CDT 06/09/2020 Narrative Resulting Agency Comment Lab Testing performed at: [facility] [address] ??[place] [id number] Carlos Culp MD LAB - CHEMISTRY ORDE RABLES Performing Organization Address [facility] de Phone Number [facility] INSURANCE BILL [address] [place] [address] * (ABNORMAL) HODAN BLOOD SCREEN W/REFLEX TITER (06/08/2020 4:46 PM CDT) Pathologist [facility] HODAN Positive(A ) [facility] INSURANCE BILL Comment: ?Negative ?? <1:80 ?Borderline ??1:80 ?Positive ?? >1:80 Blood BLOOD SPECIMEN / Unknown 06/08/2020 4:46 PM CDT 06/09/2020 Narrative Resulting Agency Comment Lab Testing performed at: [facility] [address] [facility] ??[facility] [phone] Carlos Culp MD LAB - CHEMISTRY BILL FLOWERS [facility] INSURANCE BILL [address] [place] [address] * PLATELET ANTIBODY PANEL (06/08/2020 4:46 PM CDT) [facility] HLA Class I Antibody Negative Negative [facility] INSURANCE BILL IIb/IIIa Antibody Negative Negative [facility] INSURANCE BILL Ib/IX Antibody Negative Negative [facility] INSURANCE BILL Ia/IIa Antibody Negative Negative [facility] INSURANCE BILL Glycoprotein IV Antibody Negative Negative [facility] INSURANCE BILL Blood BLOOD SPECIMEN / Unknown 06/08/2020 4:46 PM CDT 06/08/2020 Narrative Resulting Agency Comment Lab Testing performed at: [address] ??[facility] [id number] Carlos Culp MD LAB - CHEMISTRY BILL FLOWERS Performing Organization Address [facility] Co de Phone Number [facility] INSURANCE BILL [address] [place] [address] * VISCOSITY (06/08/2020 4:46 PM CDT) [facility] Viscosity 1.7 1.6 - 1.9 rel.salin e [facility] INSURANCE BILL Comment: Values above 2.7 may indicate paraproteinemia is present. This test was developed and its performance characteristics determined by [facility]. It has not been cleared or approved by the Food and Drug Administration. 06/08/2020 4:46 PM CDT 06/08/2020 Narrative Resulting Agency Comment Lab Testing performed at: [address] ??[facility] [id number] Carlos Culp MD LAB - HEMATOLOGY ORD ERABLES Performing Organization Address City/[facility]/ZIP Co de Phone Number [facility] INSURANCE BILL [address] [place] [address] * (ABNORMAL) TESTOSTERONE TOTAL (06/08/2020 4:46 PM CDT) Testosterone 245(L) 264 - 916 ng/dL [facility] INSURANCE BILL Comment: Adult male reference interval is based on a population of healthy nonobese males (BMI <30) between 19 and 39 years old. ross Wright.al. JCEM 2017,102;5400-1428. PMID: [id number]. Blood BLOOD SPECIMEN / Unknown 06/08/2020 4:46 PM CDT 06/08/2020 Narrative Resulting Agency Comment Lab Testing performed at: [facility] ??[facility] [id number] Carlos Culp MD LAB - CHEMISTRY BILL FLOWERS Performing Organization Address City/[facility]/ZIP Co de Phone Number [facility] INSURANCE BILL [address] [place] [address] * COPPER BLOOD (06/08/2020 4:46 PM CDT) [facility] Copper 119 72 - 166 ug/dL [facility] INSURANCE BILL Comment:Detection Limit = 5 Blood BLOOD SPECIMEN / Unknown 06/08/2020 4:46 PM CDT 06/09/2020 Narrative [facility] INSURANCE BILL - 06/10/2020 7:08 AM CDT Test(s) [id number], Serum was developed and its performance characteristics determined by [facility] [place]. It has not been cleared or approved by the Food and Drug Administration. Resulting Agency Comment Lab Testing performed at: [address] ??[facility] [id number] Carlos Culp MD LAB - CHEMISTRY BILL FLOWERS [facility] INSURANCE BILL [address] [place] [address] * BETA-2 GLYCOPROTEIN 1 ANTIBODY IGG/IGM PANEL (06/08/2020 4:46 PM CDT) [facility] Beta-2 Glycoprotein I Antibody IgG <9 0 - 20 GPI IgG units [facility] INSURANCE BILL Comment: The reference interval reflects a 3SD or 99th percentile interval, which is thought to represent a potentially clinically significant result in accordance with the International Consensus Statement on the classification criteria for definitive antiphospholipid syndrome (APS). J Thromb Haem 2006;4:295-306. Beta-2 Glycoprotein I Antibody IgM <9 0 - 32 GPI IgM units [facility] INSURANCE BILL Comment: The reference interval reflects a 3SD or 99th percentile interval, which is thought to represent a potentially clinically significant result in accordance with the International Consensus Statement on the classification criteria for definitive antiphospholipid syndrome (APS). J Thromb Haem 2006;4:295-306. Blood BLOOD SPECIMEN / Unknown 06/08/2020 4:46 PM CDT 06/08/2020 Narrative Resulting Agency Comment Lab Testing performed at: [facility] [address] ??[facility] [id number] Carlos Culp MD [facility] INSURANCE BILL [address] [place] [address] * LISA DIRECT (06/08/2020 4:46 PM CDT) Lisa Direct Negative Negative [facility] INSURANCE BILL Blood BLOOD SPECIMEN / Unknown 06/08/2020 4:46 PM CDT 06/09/2020 Narrative Resulting Agency Comment Lab Testing performed at: [facility] [place] [place] [address] ??[facility] [id number] Carlos Culp MD LAB - BLOOD BANK ORD PARKERBLES Performing Organization Address [facility]/ZIP Co de Phone Number [facility] INSURANCE BILL [address] [place] [address] * ANTIBODY SCREEN (06/08/2020 4:46 PM CDT) Antibody Screen Negative Negative [facility] INSURANCE BILL Blood BLOOD SPECIMEN / Unknown 06/08/2020 4:46 PM CDT 06/08/2020 Narrative Resulting Agency Comment Lab Testing performed at: [facility] [place] [address] ??[facility] [id number] Carlos Culp MD LAB - BLOOD BANK ORD ERABLES [facility] INSURANCE BILL [address] [place] [address] * PT PTT PANEL (06/08/2020 4:46 PM CDT) Pathologist [facility] INR 1.1 0.8 - 1.2 [facility] INSURANCE BILL Comment: ? Reference interval is for non-anticoagulated patients. ?. ? Suggested INR therapeutic range for Vitamin K ? antagonist therapy: ?Standard Dose (moderate intensity ? therapeutic range): ? 2.0 - 3.0 ?Higher intensity therapeutic range ? 2.5 - 3.5 PT 11.4 9.1 - 12.0 sec [facility] INSURANCE BILL PTT 31 24 - 33 sec [facility] INSURANCE BILL Comment: This test has not been validated for monitoring unfractionated heparin therapy. aPTT-based therapeutic ranges for unfractionated heparin therapy have not been established. For general guidelines on Heparin monitoring, refer to the [facility] Directory of Services. Blood BLOOD SPECIMEN / Unknown 06/08/2020 4:46 PM CDT 06/08/2020 Narrative Resulting Agency Comment Lab Testing performed [facility]: [facility] [address] [facility] ??[facility] [id number] Carlos Culp MD LAB - COAGULATION OR DERABLES [facility] INSURANCE BILL [address] [place] [address] * VITAMIN B12 FOLATE PANEL (06/08/2020 4:46 PM CDT) Pathologist [facility] Vitamin B12 527 232 - 1,245 pg/mL [facility] INSURANCE BILL Folate 7.1 >3.0 ng/mL [facility] INSURANCE BILL Comment: A serum folate concentration of less than 3.1 ng/mL is considered to represent clinical deficiency. Blood BLOOD SPECIMEN / Unknown 06/08/2020 4:46 PM CDT 06/09/2020 Narrative Resulting Agency Comment [facility]: [facility] [address] [facility] ??[facility] [id number] Carlos Culp MD LAB - CHEMISTRY BILL FLOWERS [facility] INSURANCE BILL [address] [place] [address] * CARDIAC EKG ORDER (06/09/2019 8:14 PM CDT) Narrative 06/09/2019 8:14 PM CDT Ordered by an unspecified provider. Scanned Document CARDIAC SERVICES ORD ERABLES * TROPONIN I (06/08/2019 8:05 PM CDT) [facility] Troponin I <0.010 <0.038 ng/mL 06/08/2019 8:30 PM CDT [facility] Blood BLOOD SPECIMEN / Unknown Venipuncture / Unknown 06/08/2019 8:05 PM CDT 06/08/2019 8:09 PM CDT Shen Mckeon DO LAB - CHEMISTRY BILL FLOWERS [facility] [address] [place] [address] * EKG 12-LEAD (06/08/2019 7:59 PM CDT) [facility] Ventricular Rate 70 BPM [facility] Atrial Rate 70 BPM [facility] P-R Interval 152 ms [facility] QRS Duration ms 98 ms [facility] Q-T Interval ms 400 ms [facility] QTC Calculation (Bezet) 432 ms [facility] Calculated P [place] 51 degrees [facility] Calculated R [place] -47 degrees [facility] Calculated T [place] 23 degrees [facility] Interpretation EKG NORMAL SINUS RHYTHM LEFT ANTERIOR FASCICULAR BLOCK CANNOT RULE OUT ANTERIOR INFARCT , AGE UNDETERMINED ABNORMAL ECG NO PREVIOUS ECGS AVAILABLE Confirmed by DO Beltran Stephanie ([id number]) on 06/09/2019 7:53:29 PM [facility] 06/08/2019 7:59 PM CDT 06/09/2019 7:53 PM CDT Shen Mckeon DO ECG ORDERABLES [facility] Care Teams Primary School Principal Relationship Specialty Start Date End Date Joe Goodrcih MD [address] [address] PCP - General Internal Medicine 06/30/20
--- NOTE | 2024-12-07 12:14 | ECG_ITS ---
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
[2024-12-07 12:56] LABS: Basophils Percent Auto 0.4 % (0.2-1.2); Eosinophils Absolute Auto 0.2 K/mm3 (0-0.3); Eosinophils Percent Auto 2.8 % (0-4.4); Hemoglobin 17.2 g/dL (14.0-18.0); Immature Granulocyte Absolute 0.03 K/mm3 (0.00-0.031); Immature Granulocyte Percent A 0.4 % (0-0.5); Immature Platelet Fraction Pct 12.9 % (0.9-11.2); Lymphocytes Absolute Auto 1.48 K/mm3 (0.9-3.2); Lymphocytes Percent Auto 20.7 % (18.3-44.2); Mean Corpuscular HGB Conc 31.9 g/dl (32-36); Mean Corpuscular Hemoglobin 28.9 pg (26-34); Mean Corpuscular Volume 90.8 fl (80-100); Mean Platelet Volume 11.8 fl (7.4-10.4); Monocytes Absolute Auto 0.3 K/mm3 (0.1-0.6); Monocytes Percent Auto 3.8 % (2.6-8.5); Neutrophils Absolute Auto 5.1 K/mm3 (1.3-6.7); Neutrophils Percent Auto 71.9 % (45.5-73.1); Platelet Count Result 75 k/mm3 (150-375); Red Blood Count 5.95 M/mm3 (4.6-6.20); Red Cell Distribution Width 13.3 % (11.5-14.5); White Blood Count 7.2 K/mm3 (4.5-10.0)
[2024-12-07 13:04] LABS: Alanine Aminotransferase 23 U/L (6-50); Albumin Level 4.4 g/dL (3.5-5.1); Alkaline Phosphatase 109 U/L (38-126); Anion Gap 13 mmol/L (4-12); Aspartate Amino Transferase 25 U/L (17-59); Bilirubin,Total 0.7 mg/dL (0.2-1.3); Blood Urea Nitrogen 16 mg/dL (9-20); Calcium 9.6 mg/dL (8.4-10.2); Carbon Dioxide 25 mmol/L (22-30); Chloride 100 mmol/L (98-107); Estimated Glomerular Filt Rate 51; Glucose 202 mg/dL (65-110); Lipase 107 U/L (23-300); Potassium 4.5 mmol/L (3.4-5.0); Sodium 138 mmol/L (137-145)
[2024-12-07 13:12] LABS: Partial Thromboplastin Time 34.9 Seconds (22.3-36.8)
[2024-12-07 13:15] LABS: Troponin I < 0.012 ng/mL (0.000-0.034)
--- NOTE | 2024-12-07 15:08 | ED.CHESTPAIN ---
HPI - Chest Pain General Chief Complaint: Chest Pain Stated Complaint: chest pain Time Seen by Provider: 12/07/24 15:07 Source: patient Mode of arrival: ambulatory Limitations: no limitations History of Present Illness HPI narrative: Patient is a 55-year-old male, with past medical history of hypertension, diabetes, fibromyalgia, rheumatoid arthritis, CKD, cirrhosis with hx of heavy alcohol use, who presents the ED with report of chest pain. Patient reports intermittent pain across his anterior chest wall. States this is typical of his fibromyalgia. Complain of worsening pain today with intermittent heart palpitations, described as a fluttering of his heart. Took a pain pill and his acid reflux medication at home but denied improvement. Reports some shortness of breath. Denies significant cough or cold sx's. States his family wanted him to be evaluated and urged him to come to the ED. Also reports having intermittent LLQ abd pain over the past 1 week. States he has a hx of multiple previous episodes of diverticulitis which felt similar. Denies diarrhea, constipation, fevers, urinary trouble, rectal bleeding, melena. Last colonoscopy was last year. Related Data Home Medications ?Medication ?Instructions ?Recorded ?Confirmed ?Last Taken ?Type erenumab-aooe 140 mg/mL 140 mg subcut MONTHLY 02/18/24 12/07/24 Unknown History subcutaneous auto-injector (Aimovig Autoinjector) hydrocodone 7.5 mg-acetaminophen 1 tablet PO Q8H PRN Pain 02/29/24 12/07/24 12/06/24 History 325 mg tablet Allergies Allergy/AdvReac Type Severity Reaction Status Date / Time cephalexin Allergy Severe PASSED Verified 12/07/24 15:57 OUT , VOMITING Nlzgygc-AZL-CvS Reductase Allergy Severe Swelling Verified 12/07/24 15:57 Inhibitor (Qqkzses-Cma-Xum of Reductase Inhibitor) Lip/Tongue/Throat Review of Systems Review of Systems: All systems reviewed & are unremarkable except as noted in HPI. 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 Generalized osteoarthritis of multiple sites Rheumatoid arthritis with rheumatoid factor of multiple sites without organ or systems involvement Hypertension Allergies [place] (obstructive sleep apnea) Thrombocytopenia Obesity Gastric ulcer Granular cell tumor Esophagus Barretts esophagus Migraines Hx of renal calculi Rheumatoid arthritis Hx of adenomatous colonic polyps GERD (gastroesophageal reflux disease) Surgical History Surgical History H/O hemorrhoidectomy 09/25/22 Rectal exam under anesthesia with internal and external hemorrhoidectomy x2 columns History of elbow surgery Status post medial meniscus repair of right knee S/P left rotator cuff repair History of lithotripsy Hx of inguinal hernia repair Hx of esophagogastroduodenoscopy Hx of colonoscopy Hx of sinus surgery Family History Family History Father Heart disease Diabetes mellitus Hypertension Grandparent Cerebrovascular accident Mother No problems noted. Sibling No problems noted. Social History Social History Smoking packs per day: 2 Smoking cigarettes per day: 40.0 Years smoked: 40 Smoking pack-years: 80.00 Smoking status: Current every day smoker Tobacco type: cigarettes Second hand tobacco smoke exposure: No Alcohol intake: former Alcohol use details: HEAVY DRINKER IN PAST, QUIT 15 YEARS AGO Substance use: current Substance use type: opiates and painkillers Do You Feel Safe in your Home?: Yes Lack of Transportation: No Lack of Food: Never True Current Housing: I Have Housing Concerned About Future Housing: No Difficulty Paying Gas/Electric Bills: No Difficulty Paying for Meds: No Currently Unemployed: No Education: High School Diploma/GED Difficulty w/ Childcare or Family Care: No Living arrangements: alone Occupation/Education: occupation 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 HEAD: Normocephalic, atraumatic. RESPIRATORY: Airway patent, respirations nonlabored. Clear to auscultation bilaterally, no rales, rhonchi, wheezing. No focal lung sounds. CARDIOVASCULAR: Regular rate and rhythm without murmurs, rubs, or gallops. ABDOMINAL: Soft, TTP in epigastric region and LLQ, no rebound, nondistended. Normoactive BS. MUSCULOSKELETAL: Moves all extremities. No gross deformities. No significant peripheral edema. SKIN: Warm, dry, normal color. NEURO: A&O X3. Speech clear. Cranial nerves II-XII grossly intact. Steady gait. No ataxic movements. PSYCHIATRIC: Appropriate mood and affect. Normal interaction. Course Vital Signs Vital signs: Vital Signs Temperature 98.3 F 12/07/24 12:17 Pulse Rate 97 12/07/24 12:17 Blood Pressure 150/88 H 12/07/24 12:17 Pulse Oximetry 100 12/07/24 12:17 Oxygen Delivery Room Air 12/07/24 12:17 Temperature 97.6 F 12/07/24 15:26 Pulse Rate 85 12/07/24 16:43 Respiratory Rate 16 12/07/24 16:43 Blood Pressure 116/84 12/07/24 16:43 Pulse Oximetry 100 12/07/24 16:43 Oxygen Delivery Room Air 12/07/24 15:26 MDM - Chest Pain MDM Narrative Medical decision making narrative: Patient presented to ED with chest pain, left-sided abdominal pain. VS stable upon arrival. Patient is in no acute distress. States symptoms have been intermittent for some time now, however family wanted patient to come to the ED. EKG with sinus rhythm, nonspecific ST changes. Troponin is undetectable x2. Chest x-ray is clear. Low suspicion for ACS. HEART score =3. Basic laboratory studies are otherwise fairly unremarkable. No leukocytosis. Stable electrolytes. Minimal anion gap of 13. Stable kidney function. Blood glucose mildly elevated to 202. Given fluids. Viral swabs are negative. D-dimer is mildly elevated to 1.00. CTA of chest with abdomen/pelvis was obtained and showed no evidence of PE or diverticulitis. Does show emphysema, known cirrhosis changes. 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 Portions of the upper and lower poles are spared and supplied via a pair of separate small accessory renal arteries. Patient is established with Dr. Connors with Nephrology. History of CKD. Had normal renal ultrasound in September. Discussed case with Dr. Byrne, nephrology on-call, advised to have patient call office tomorrow to have follow-up appointment. Likely more chronic finding given normal pressure, stable kidney function, accessory arteries present. Will discuss with Vascular. Discussed case with Dr. Pierce Monsalve, vascular surgery @ [facility], advised patient can f/u in office as outpatient. Call: [phone]. Discussed these recommendations with patient. He is in agreement with plan. Feels comfortable with d/c home and close OP f/u. Advised to continue home medications, given strict return precautions. Patient in agreement with plan. Discharged in stable condition. Medical Records Data Attestation: I reviewed the patient's medical records. Lab Data Attestation: I reviewed the patient's lab results. 12/07/24 12:48 12/07/24 12:48 Labs: Lab Results 12/07/24 12/07/24 12/07/24 Range/Units 12:48 15:25 15:47 WBC 7.2 (4.5-10.0) K/mm3 RBC 5.95 (4.6-6.20) M/mm3 Hgb 17.2 (14.0-18.0) g/dL Hct 54.0 H (42.0-52.0) % MCV 90.8 (80-100) fl MCH 28.9 (26-34) pg MCHC 31.9 L (32-36) g/dl RDW 13.3 (11.5-14.5) % Plt Count 75 L (150-375) k/mm3 MPV 11.8 H (7.4-10.4) fl Immature Gran % (Auto) 0.4 (0-0.5) % Neut % (Auto) 71.9 (45.5-73.1) % Lymph % (Auto) 20.7 (18.3-44.2) % [place] % (Auto) 3.8 (2.6-8.5) % Eos % (Auto) 2.8 (0-4.4) % Baso % (Auto) 0.4 (0.2-1.2) % Lymph # (Auto) 1.48 (0.9-3.2) K/mm3 [place] # (Auto) 0.3 (0.1-0.6) K/mm3 Eos # (Auto) 0.2 (0-0.3) K/mm3 Baso # (Auto) 0.0 (0.0-0.1) K/mm3 Abs Immat Gran (auto) 0.03 (0.00-0.031) K/mm3 Absolute Neuts (auto) 5.1 (1.3-6.7) K/mm3 Absolute Nucleated RBC 0.000 (0.0-0.012) K/mm3 Nucleated RBC % 0.0 (0.0-0.2) % % Immature Plt Fraction 12.9 H (0.9-11.2) % PT 14.0 (11.1-14.7) Seconds INR 1.0 APTT 34.9 (22.3-36.8) Seconds D-Dimer 1.00 H (<0.48) ug/mL Sodium 138 (137-145) mmol/L Potassium 4.5 (3.4-5.0) mmol/L Chloride 100 (98-107) mmol/L Carbon Dioxide 25 (22-30) mmol/L Anion Gap 13 H (4-12) mmol/L BUN 16 (9-20) mg/dL Creatinine 1.45 H (0.7-1.3) mg/dL Estim Creat Clear Calc Not Reportable Estimated GFR 51 L (59 - ) Glucose 202 H (65-110) mg/dL POC Capillary Glucose 93 (65-105) mg/dl Calcium 9.6 (8.4-10.2) mg/dL Magnesium 2.1 (1.6-2.3) mg/dL Total Bilirubin 0.7 (0.2-1.3) mg/dL AST 25 (17-59) U/L ALT 23 (6-50) U/L Alkaline Phosphatase 109 (38-126) U/L Troponin I < 0.012 < 0.012 (0.000-0.034) ng/mL Total Protein 8.0 (6.3-8.2) g/dL Albumin 4.4 (3.5-5.1) g/dL Lipase 107 (23-300) U/L Urine Color (Yellow) Urine Appearance (Clear) Urine pH (5.0-9.0) Ur Specific [place] (1.001-1.035) Urine Protein (Negative) mg/dL Urine Glucose (UA) (Negative) mg/dL Urine Ketones (Negative) mg/dL Ur Blood (Man) (Negative) Urine Nitrate (Negative) Urine Bilirubin (Negative) Urine Urobilinogen (<2.0) mg/dL Leukocyte Esterase Rfl (Negative) AUTUMN/UL Influenza A (RT-PCR) (Negative) Influenza B (RT-PCR) (Negative) RSV (RT-PCR) (Negative) SARS-CoV-2 RNA (RT-PCR) (Negative) 12/07/24 12/07/24 12/07/24 Range/Units 16:05 16:45 18:23 WBC (4.5-10.0) K/mm3 RBC (4.6-6.20) M/mm3 Hgb (14.0-18.0) g/dL Hct (42.0-52.0) % MCV (80-100) fl MCH (26-34) pg MCHC (32-36) g/dl RDW (11.5-14.5) % Plt Count (150-375) k/mm3 MPV (7.4-10.4) fl Immature Gran % (Auto) (0-0.5) % Neut % (Auto) (45.5-73.1) % Lymph % (Auto) (18.3-44.2) % [place] % (Auto) (2.6-8.5) % Eos % (Auto) (0-4.4) % Baso % (Auto) (0.2-1.2) % Lymph # (Auto) (0.9-3.2) K/mm3 [place] # (Auto) (0.1-0.6) K/mm3 Eos # (Auto) (0-0.3) K/mm3 Baso # (Auto) (0.0-0.1) K/mm3 Abs Immat Gran (auto) (0.00-0.031) K/mm3 Absolute Neuts (auto) (1.3-6.7) K/mm3 Absolute Nucleated RBC (0.0-0.012) K/mm3 Nucleated RBC % (0.0-0.2) % % Immature Plt Fraction (0.9-11.2) % PT (11.1-14.7) Seconds INR APTT (22.3-36.8) Seconds D-Dimer (<0.48) ug/mL Sodium (137-145) mmol/L Potassium (3.4-5.0) mmol/L Chloride (98-107) mmol/L Carbon Dioxide (22-30) mmol/L Anion Gap (4-12) mmol/L BUN (9-20) mg/dL Creatinine (0.7-1.3) mg/dL Estim Creat Clear Calc Estimated GFR (59 - ) Glucose (65-110) mg/dL POC Capillary Glucose (65-105) mg/dl Calcium (8.4-10.2) mg/dL Magnesium (1.6-2.3) mg/dL Total Bilirubin (0.2-1.3) mg/dL AST (17-59) U/L ALT (6-50) U/L Alkaline Phosphatase (38-126) U/L Troponin I Pending (0.000-0.034) ng/mL Total Protein (6.3-8.2) g/dL Albumin (3.5-5.1) g/dL Lipase (23-300) U/L Urine Color Yellow (Yellow) Urine Appearance Clear (Clear) Urine pH 5.0 (5.0-9.0) Ur Specific [place] > 1.045 H (1.001-1.035) Urine Protein Negative (Negative) mg/dL Urine Glucose (UA) 3+ H (Negative) mg/dL Urine Ketones Negative (Negative) mg/dL Ur Blood (Man) Negative (Negative) Urine Nitrate Negative (Negative) Urine Bilirubin Negative (Negative) Urine Urobilinogen 1.0 (<2.0) mg/dL Leukocyte Esterase Rfl Negative (Negative) AUTUMN/UL Influenza A (RT-PCR) Negative (Negative) Influenza B (RT-PCR) Negative (Negative) RSV (RT-PCR) Negative (Negative) SARS-CoV-2 RNA (RT-PCR) Negative (Negative) Imaging Data Attestation: I personally reviewed and interpreted this imaging study as follows: Radiologist's impression: ITS Impressions Chest X-Ray 12/07/24 13:09 IMPRESSION: No focal infiltrate or effusion. Chest/Abdomen/Pelvis CTA 12/07/24 17:10 IMPRESSION: 1. Mild emphysema. No pulmonary embolism or other acute cardiopulmonary disease. 2. 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 Portions of the upper and lower poles are spared and supplied via a pair of separate small accessory renal arteries. 3. Cirrhotic liver with splenomegaly consistent with secondary portal venous hypertension. ECG Data EKG #1: Attestation: I personally reviewed and interpreted this ECG as follows: ECG completion date: 12/07/24 ECG completion time: 12:14 EKG Interpretation: normal rate (90), sinus rhythm and non-specific ST changes Discharge Plan Discharge Clinical Impression: Atypical chest pain, Stenosis of left renal artery, Left lower quadrant abdominal pain CKD (chronic kidney disease) Qualifiers: Chronic kidney disease stage: unspecified stage Qualified Code(s): N18.9 - Chronic kidney disease, unspecified Patient Disposition: Home, Self-Care Condition: Stable Instructions: Antibiotic Form, Chest Pain (ED), GERD (Gastroesophageal Reflux Disease) (ED) Additional Instructions: Your workup here was reassuring against a cardiac cause of your chest pain. Your CT imaging today does show evidence of stenosis of your left renal artery with evidence of decreased blood flow to your kidney. You will need to follow-up with your nephrology team and vascular surgery for further evaluation of this. Call Dr. Connors with nephrology tomorrow. Call vascular surgery team at [facility] tomorrow for follow up appointment: [phone]. Continue home medications. Return to the ED if you experience worsening or severe pain, difficulty urinating, unable to keep down food or drink, persistent fevers, difficulty breathing or feeling short of breath, or any other symptoms of concern. Patient Language: Beninese Prescriptions: No Action (DME) Space Chamber Spacer See Rx Instructions .ROUTE .MEDSUPPLY Qty: 1 0RF Rx Instructions: As directed Jardiance 25 mg tablet 25 mg PO DAILY Qty: 90 1RF Januvia 50 mg tablet 50 mg PO DAILY Qty: 90 2RF Aimovig Autoinjector 140 mg/mL auto-injector 140 mg subcut MONTHLY ondansetron 4 mg tablet,disintegrating 4 mg PO Q6H PRN (Reason: nausea and vomiting) Qty: 30 2RF sucralfate 1 gram tablet See Rx Instructions .ROUTE .COMPLEX Qty: 120 0RF Dose Instruction: TAKE 1 TABLET BY MOUTH EVERY 6 HOURS Rx Instructions: TAKE 1 TABLET BY MOUTH EVERY 6 HOURS pantoprazole 40 mg tablet,delayed release (DR/EC) 40 mg PO Q12H Qty: 60 12RF fluticasone propionate 50 mcg/actuation spray,suspension 2 spray intranasal DAILY PRN (Reason: nasal congestion) Qty: 15.8 1RF Rx Instructions: administer into each nostril albuterol sulfate [Ventolin HFA] 90 mcg/actuation HFA aerosol inhaler 2 puff inhalation Q4-6H PRN (Reason: shortness of breath or wheezing) Qty: 8 2RF lisinopril 20 mg tablet 20 mg PO DAILY Qty: 90 2RF Rx Instructions: TAKES IN AM hydrocodone-acetaminophen 7.5-325 mg tablet 1 tablet PO Q8H PRN (Reason: Pain) (DME) Accu-Chek Guide test strips Strip See Rx Instructions .Route Qty: 100 2RF Rx Instructions: Check daily (DME) blood-glucose meter [Accu-Chek Guide Glucose Meter] Misc See Rx Instructions .Route Qty: 1 1RF Rx Instructions: As directed (DME) lancets [Accu-Chek Softclix Lancets] Misc See Rx Instructions .Route Qty: 100 2RF Rx Instructions: As directed alprazolam [Xanax] 1 mg tablet 1 mg PO QHS Qty: 30 0RF meclizine 25 mg tablet 25 mg PO TID PRN (Reason: dizziness) Qty: 30 0RF Follow-up/Referrals: Ashutosh Connors MD [Physician] - (NEPHROLOGY) Yury Barnes DO [Primary Care Provider] - Time of Disposition: 19:10 Quality HEART score for chest pain patients History: slightly suspicious ECG: non specific repolarization disturbance/LBTB/PM Age: > 45 and < 65 years Risk factors: 1 or 2 risk factors Troponin: < or = to 1x normal limit Heart score: 3
--- NOTE | 2024-12-07 15:26 | ECG_ITS ---
Test Date: 2024-12-07 15:50:59 Measurements Intervals [place] Rate: 89 P: 62 WI: 172 QRS: -62 QRSD: 114 T: 75 QT: 343 QTc: 418 Interpretive Statements SINUS RHYTHM LEFT AXIS DEVIATION INCOMPLETE RIGHT BUNDLE BRANCH BLOCK CONSIDER ANTERIOR INFARCT, AGE INDETERMINATE INFERIOR INFARCT, AGE INDETERMINATE BASELINE ARTIFACT- I, II, AVR, AVL, AVF ABNORMAL ECG Compared to ECG 12/07/2024 12:14:57 NO SIGNIFICANT CHANGE Electronically Signed On 12-07-2024 19:03:03 HEAD SUGAR REPROCESS OPERATOR by Villa Aguilar D.O.
[2024-12-07 15:54] LABS: Troponin I < 0.012 ng/mL (0.000-0.034)
[2024-12-07] MEDS: ASPIRIN 81 MG CHEWABLE TABLET 324 MG PO (15:55)
[2024-12-07] MEDS: BELLADONNA ALK/PHENOB ELIX 10 ML, MAG HYDROX/ALUMINUM HYD/SIMETH 30 ML, LIDOCAINE 2% VI... PO (16:03)
[2024-12-07 16:07] LABS: Magnesium 2.1 mg/dL (1.6-2.3)
[2024-12-07] MEDS: HYDROcodone/acetaminophen (*CRX) 5-325 MG TABLET 1 TAB PO (16:08)
[2024-12-07] MEDS: SODIUM CHLORIDE 0.9% IV 1,000 ML 999 ML IV CONT (16:11)
--- OUTSIDE RECORDS SUMMARY | 2024-12-07 16:11 | XMS_ITS | Patient Health Summary ---
Author Organization [facility] Address [address] [place] [address] Care Team Providers Care Container Filler Name Role Phone Joe Goodrich MD Primary Care Provider Note from [facility],non-owned Affiliates and Associated Physician Practices is amultiple site organization consisting of ambulatory clinics and hospital sitesin [place], [place], [place] and [place]. This disclosure is being madepursuant to the Care Everywhere program and may not contain all information available regarding this patient. 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, right, Carpal tunnel syndrome of right wrist * MA REVISE ULNAR NERVE AT ELBOW(Performed 09/26/2021) Performed [...] Restrictive lung disease * AMB REFERRAL TO FACER OPERATOR(Performed 09/29/2020) Performed for Thrombocytopenia, secondary * CBC [...] multiple sites (HCC), Anti-cardiolipin antibody positive * RONA-7-[id number] BLOOD(Performed 06/29/2020) Performed for Secondary polycythemia, Thrombocytopenia, [...] rheumatoid arthritis of multiple sites (HCC) * LISA DIRECT(Performed 06/08/2020) Performed for Thrombocytopenia, secondary, Seropositive [...] * (ABNORMAL) C-REACTIVE PROTEIN (10/23/2021 9:38 PM HAND TIER) Only the most recent of2 resultswithin the time period is included. C-Reactive Protein 6.1(H) <=0.5 mg/dL 10/23/2021 10:05 PM [facility] Blood BLOOD SPECIMEN / Unknown Venipuncture / Unknown 10/23/2021 9:38 PM HAND TIER 10/23/2021 9:49 PM HAND TIER Willy Garcia PA-C LAB - CHEM ISTRY ORDERABLES [address] [address], [facility] [phone] * (ABNORMAL) ERYTHROCYTE SEDIMENTATION RATE (10/23/2021 9:38 PM HAND TIER) Erythrocyte Sedimentation Rate Westergren 39(H) 0 - 20 MM/HR 10/23/2021 10:11 PM [facility] Blood BLOOD SPECIMEN / Unknown Venipuncture / Unknown 10/23/2021 9:38 PM HAND TIER 10/23/2021 9:50 PM HAND TIER Willy Garcia PA-C LAB - SUMAN TOLOGY ORDERABLES [address] [address], [facility] [phone] * (ABNORMAL) CBC W AUTO DIFFERENTIAL (10/23/2021 9:38 PM HAND TIER) Only the most recent of3 resultswithin the time period is included. WBC 11.3(H) 3.5 - 10.5 10? 3 /uL 10/23/2021 10:06 PM [facility] RBC 5.10 4.30 - 5.70 10? 6 /uL 10/23/2021 10:06 PM [facility] Hemoglobin 16.2 12.0 - 17.6 g/dL 10/23/2021 10:06 PM [facility] Hematocrit 47.8 35.2 - 51.7 % 10/23/2021 10:06 PM [facility] MCV 93.7 80.7 - 98.3 fL 10/23/2021 10:06 PM [facility] MCH 31.8 26.7 - 34.0 pg 10/23/2021 10:06 PM [facility] MCHC 33.9 30.8 - 35.9 g/dL 10/23/2021 10:06 PM [facility] Platelet Count 70(L) 150 - 400 10? 3 /uL 10/23/2021 10:06 PM [facility] Comment:Confirmed by repeat analysis. RDW-SD 45.1 36.0 - 50.0 fL 10/23/2021 10:06 PM [facility] RDW-CV 13.0 11.2 - 14.8 % 10/23/2021 10:06 PM [facility] MPV 12.6 9.4 - 12.9 fL 10/23/2021 10:06 PM [facility] nRBC Absolute 0.00 0 10? 3 /uL 10/23/2021 10:06 PM [facility] nRBC Auto 0.0 0 /100 WBC 10/23/2021 10:06 PM [facility] Neutrophils % 70.5(H) 35.0 - 70.0 % 10/23/2021 10:06 PM [facility] Lymphocytes % 17.6(L) 20.0 - 43.0 % 10/23/2021 10:06 PM [facility] Monocytes % 9.0 5.0 - 13.0 % 10/23/2021 10:06 PM [facility] Eosinophils % 2.1 0.0 - 6.0 % 10/23/2021 10:06 PM [facility] Basophil % 0.4 0.0 - 2.0 % 10/23/2021 10:06 PM [facility] Neutrophils Absolute 7.9(H) 1.6 - 7.0 10? 3 /uL 10/23/2021 10:06 PM [facility] Lymphocyte Absolute 2.0 1.1 - 3.9 10? 3 /uL 10/23/2021 10:06 PM [facility] Monocytes Absolute 1.02 0.26 - 1.07 10? 3 /uL 10/23/2021 10:06 PM [facility] Eosinophils Absolute 0.24 0.00 - 0.47 10? 3 /uL 10/23/2021 10:06 PM [facility] Basophils Absolute 0.04 0.00 - 0.08 10? 3 /uL 10/23/2021 10:06 PM [facility] Immature Granulocytes % 0.4 0.0 - 1.0 % 10/23/2021 10:06 PM [facility] Immature Granulocytes Absolute 0.05 10/23/2021 10:06 PM [facility] Blood BLOOD SPECIMEN / Unknown Venipuncture / Unknown 10/23/2021 9:38 PM HAND TIER 10/23/2021 9:50 PM HAND TIER Willy Garcia PA-C LAB - SUMAN TOLOGY ORDERABLES [facility] [address] [place] [address], [facility] [phone] * (ABNORMAL) COMPREHENSIVE METABOLIC PANEL (10/23/2021 9:38 PM HAND TIER) Only the most recent of7 resultswithin the time period is included. BUN 16 7 - 26 mg/dL 10/23/2021 10:16 PM [facility] Creatinine 1.29(H) 0.71 - 1.16 mg/dL 10/23/2021 10:16 PM [facility] Sodium 141 136 - 145 mmol/L 10/23/2021 10:16 PM [facility] Potassium 3.8 3.5 - 4.5 mmol/L 10/23/2021 10:16 PM [facility] Chloride 105 98 - 107 mmol/L 10/23/2021 10:16 PM [facility] CO2 25 22 - 29 mmol/L 10/23/2021 10:16 PM [facility] Glucose 189(H) 70 - 115 mg/dL 10/23/2021 10:16 PM [facility] Calcium 9.7 8.4 - 10.2 mg/dL 10/23/2021 10:16 PM [facility] Protein Total 7.3 6.0 - 8.3 g/dL 10/23/2021 10:16 PM [facility] Albumin 3.9 3.4 - 5.0 g/dL 10/23/2021 10:16 PM [facility] Bilirubin Total 0.8 0.2 - 1.2 mg/dL 10/23/2021 10:16 PM [facility] Alkaline Phosphatase 111 40 - 150 U/L 10/23/2021 10:16 PM [facility] ALT 23 5 - 55 U/L 10/23/2021 10:16 PM [facility] AST 20 5 - 34 U/L 10/23/2021 10:16 PM [facility] Anion Gap 15 8 - 18 10/23/2021 10:16 PM [facility] BUN/Creatinine Ratio 12 7 - 23 10/23/2021 10:16 PM [facility] Osmolality Calculated 298 270 - 300 mOsm/kg 10/23/2021 10:16 PM [facility] Albumin/Globulin Ratio 1.1 1.1 - 2.3 10/23/2021 10:16 PM [facility] eGFR by CKD-EPI 63(L) >=90 mL/min/1.7 3 m2 10/23/2021 10:16 PM [facility] Blood BLOOD SPECIMEN / Unknown Venipuncture / Unknown 10/23/2021 9:38 PM HAND TIER 10/23/2021 9:50 PM HAND TIER Willy Garcia PA-C LAB - CHEM ISTRY ORDERABLES [facility] [address] [place] [address], [facility] [phone] * XR FOREARM RIGHT 2VW (10/23/2021 8:38 PM HAND TIER) Anatomical Region Laterality Modality Upper Extremity Radiographic Tammy ging 10/23/2021 8:38 PM HAND TIER Impressions 10/24/2021 1:58 PM HAND TIER IMPRESSION: No acute fracture or dislocation identified within the limits of nonstandard projections. Diffuse soft tissue swelling. Dictated by Chucho Garcia MD (Operator [employer]) I, Dr. Jackie TAYLOR M.D. have personally reviewed and interpreted this examination/study. This report was electronically signed by Jackie TAYLOR M.D. ??on 10/24/2021 1:58 PM . Narrative 10/24/2021 1:58 PM HAND TIER EXAMINATION: XR ELBOW RIGHT 3VW OR MORE, [...] tissue swelling. Dictated by Chucho Garcia MD (Operator [employer]) Dr. Jackie Mitchell M.D. have personally reviewed and interpretedthis examination/study. This report was electronically signed by Jackie TAYLOR M.D. on 10/24/2021 1:58 PM . Willy GUILLORY-Neeraj DIAGNOSTIC IMAGING ORDERABLES * XR ELBOW RIGHT 3VW OR MORE (10/23/2021 8:38 PM HAND TIER) Anatomical Region Laterality Modality Upper Extremity Radiographic Tammy ging 10/23/2021 8:38 PM HAND TIER Impressions 10/24/2021 1:58 PM HAND TIER IMPRESSION: No acute fracture or dislocation identified within the limits of nonstandard projections. Diffuse soft tissue swelling. Dictated by Chucho Garcia MD (Operator [employer]) Dr. Jackie Mitchell M.D. have personally reviewed and interpreted this examination/study. This report was electronically signed by Jackie TAYLOR M.D. ??on 10/24/2021 1:58 PM . Narrative 10/24/2021 1:58 PM HAND TIER EXAMINATION: XR ELBOW RIGHT 3VW OR MORE, [...] tissue swelling. Dictated by Chucho Garcia MD (Operator [employer]) Dr. Jackie Mitchell M.D. have personally reviewed and interpretedthis examination/study. This report was electronically signed by Jackie TAYLOR M.D. on 10/24/2021 1:58 PM . Willy Garcia PA-C DIAGNOSTIC IMAGING ORDERABLES * Peripheral Nerve Block (09/26/2021 11:42 AM HAND TIER) Narrative Bita Monahan MD - 09/26/2021 11:42 AM HAND TIER Bita Moanhan MD ? 09/26/2021 11:55 AM Peripheral ??Nerve [...] - POINT OF CARE (09/26/2021 10:14 AM HAND TIER) Only the most recent of2 resultswithin the time period is included. Glucose WB/POC 112 70 - 115 mg/dL 09/26/2021 10:18 AM HAND TIER [facility] Specimen Type Cap Fingerstick 2020 10:18 AM HAND TIER [facility] Blood BLOOD SPECIMEN / Unknown 09/26/2021 10:14 AM HAND TIER 09/26/2021 10:18 AM HAND TIER Tj Ross DO LAB - POINT OF CARE ORDERABLES [facility] [address] [place] [address], [facility] [phone] * ETT LINE PERFORMABLE (09/26/2021 8:17 AM HAND TIER) Narrative Luis Fallon Anes Asst - 09/26/2021 8:17 AM HAND TIER Luis Fallon Anes Asst ? 09/26/2021 ??8:21 AM Endotracheal Tube Placement: ? Patient Location: OR. Intubation Event Date/Time: ??09/26/2021 7:46 AM Procedure: intubation (08628). Procedure Section: ?? Sedation: under general anesthesia. [...] METABOLIC PANEL (CALCIUM TOTAL) (09/26/2021 7:27 AM [facility]) BUN 17 7 - 26 mg/dL 09/26/2021 8:03 AM [facility] Creatinine 1.27(H) 0.71 - 1.16 mg/dL 09/26/2021 8:03 AM [facility] Sodium 140 136 - 145 mmol/L 09/26/2021 8:03 AM [facility] Potassium 4.5 3.5 - 4.5 mmol/L 09/26/2021 8:03 AM [facility] Comment:Hemolysis detected i n this specimen. Hemolysis is known to cause elevations in this analyte. Caution should be exercised in the interpretation of this result. Recommend repeat testing if clinically indicated. Chloride 107 98 - 107 mmol/L 09/26/2021 8:03 AM [facility] CO2 22 22 - 29 mmol/L 09/26/2021 8:03 AM [facility] Glucose 104 70 - 115 mg/dL 09/26/2021 8:03 AM [facility] Calcium 9.0 8.4 - 10.2 mg/dL 09/26/2021 8:03 AM [facility] Anion Gap 16 8 - 18 09/26/2021 8:03 AM [facility] BUN/Creatinine Ratio 13 7 - 23 09/26/2021 8:03 AM [facility] Osmolality Calculated 292 270 - 300 mOsm/kg 09/26/2021 8:03 AM [facility] eGFR by CKD-EPI 65(L) >=90 mL/min/1. 73 m2 09/26/2021 8:03 AM [facility] Blood BLOOD SPECIMEN / Unknown Venipuncture / Unknown 09/26/2021 7:27 AM HAND TIER 09/26/2021 7:33 AM HAND TIER Tj Ross DO LAB - CHEMISTRY ORDE RABLES Performing Organization Address [facility]/ZIP Co de Phone Number [address] [address], [facility] [phone] * PTT [facility] (09/26/2021 6:29 AM [facility]) APTT 30.6 23.0 - 38.4 Seconds 09/26/2021 6:58 AM [facility] Comment:Suggested therapeuti c range for full dose I.V. unfractionated heparin therapy for venous thromboembolism is 71 to 109 seconds. Blood BLOOD SPECIMEN / Unknown Venipuncture / Unknown 09/26/2021 6:29 AM HAND TIER 09/26/2021 6:36 AM HAND TIER Tj Ross DO LAB - COAGULATION OR DERABLES Performing Organization Address [facility] Co de Phone Number [address] [address], [place] [phone] * PT-INR [facility] (09/26/2021 6:29 AM [facility]) PT 14.1 12.1 - 14.8 Seconds 09/26/2021 6:57 AM [facility] INR 1.1 See Comment 09/26/2021 6:57 AM [facility] Comment:The suggested therap eutic range for standard coumadin (warfarin) therapy is an INR of 2.0-3.0. For high-risk patients (Mechanical Mitral Valve Prosthesis, etc.), the suggested prophylactic therapeutic range is an INR of 2.5-3.5. Blood BLOOD SPECIMEN / Unknown Venipuncture / Unknown 09/26/2021 6:29 AM HAND TIER 09/26/2021 6:36 AM HAND TIER Tj Ross DO LAB - COAGULATION OR DERABLES Performing Organization Address [facility]/State/ZIP Co de Phone Number [facility] [address] [place] [address], [facility] [phone] * (ABNORMAL) CBC W/O DIFFERENTIAL (09/26/2021 6:29 AM HAND TIER) WBC 9.2 3.5 - 10.5 10? 3 /uL 09/26/2021 7:42 AM [facility] RBC 5.75(H) 4.30 - 5.70 10? 6 /uL 09/26/2021 7:42 AM [facility] Hemoglobin 17.9(H) 12.0 - 17.6 g/dL 09/26/2021 7:42 AM [facility] Hematocrit 52.8(H) 35.2 - 51.7 % 09/26/2021 7:42 AM [facility] MCV 91.8 80.7 - 98.3 fL 09/26/2021 7:42 AM [facility] MCH 31.1 26.7 - 34.0 pg 09/26/2021 7:42 AM [facility] MCHC 33.9 30.8 - 35.9 g/dL 09/26/2021 7:42 AM [facility] Platelet Count 64(L) 150 - 400 10? 3 /uL 09/26/2021 7:42 AM [facility] Comment: Checked by peripheral smear. This is an appended report. ??These results have been appended to a previously preliminary verified report. RDW-SD 46.1 36.0 - 50.0 fL 09/26/2021 7:42 AM [facility] RDW-CV 13.6 11.2 - 14.8 % 09/26/2021 7:42 AM [facility] MPV 12.8 9.4 - 12.9 fL 09/26/2021 7:42 AM [facility] nRBC Absolute 0.00 0 10? 3 /uL 09/26/2021 7:42 AM [facility] nRBC Auto 0.0 0 /100 WBC 09/26/2021 7:42 AM HAND TIER [facility] Blood BLOOD SPECIMEN / Unknown Venipuncture / Unknown 09/26/2021 6:29 AM HAND TIER 09/26/2021 6:38 AM HAND TIER Tj Ross DO LAB - HEMATOLOGY ORD ERABLES Performing Organization Address City/State/[facility] Co de Phone Number [facility] [address] [place] [address], [facility] [phone] * MRI LUMBAR SPINE WO CONTRAST (09/03/2021 [...] radiculopathy COMPARISON: MRI lumbar spine without contrast, 01/13/2021-[facility] CORRELATION: Lumbar spine radiographs dated 01/05/2021 [...] facet osteoarthritis is present. L4-L5: There is puwx-zh-syenvckg circumferential bulging of the disc and mild [...] facet osteoarthritis is present. L4-L5: There is ebcl-ye-fsvpmqlv circumferential bulging of the disc and mild [...] Case Report Pathology Interpretation Report ? Case: [id number] ? Authorizing Provider: ??Carlos Culp MD ? Collected: ? 07/13/2021 04:05 PM ? Ordering Location: ? [facility] ?? Received: ?07/13/2021 04:05 PM ? Pathologist: ? Melvin Rendon MD ? Specimen: ?Blood ? 07/14/2021 2:55 PM CDT [facility] Final Diagnosis Peripheral blood: Thrombocytopenia. 07/14/2021 2:55 PM CDT [facility] Peripheral Smear Description Review the peripheral smear shows normochromic normocytic red blood cells. Leukocytes are adequate. Platelets are decreased. 07/14/2021 2:55 PM CDT [facility] Blood BLOOD SPECIMEN / Unknown 07/13/2021 4:05 PM CDT 07/13/2021 4:05 PM CDT Carlos Culp MD LAB - PATHOLOGY/CYTO LOGY ORDERABLES Performing Organization Address City/[facility]/ZIP Co de Phone Number [facility] [address] [place] [address] * (ABNORMAL) ERYTHROPOIETIN (07/13/2021 11:21 AM CDT) Only the most recent of4 resultswithin the time period is included. Erythropoietin 28.1(H) 2.6 - 18.5 mIU/mL 07/14/2021 3:08 PM CDT [facility] ([facility]) Comment: Tatango DxI 800 Immunoassay System Values obtained with different assay methods or kits cannot be used interchangeably. Results cannot be interpreted as absolute evidence of the presence or absence of malignant disease. Blood BLOOD SPECIMEN / Unknown Venipuncture / Unknown 07/13/2021 11:21 AM CDT 07/13/2021 11:30 AM CDT Narrative [facility] ([facility]) - 07/14/2021 3:08 PM CDT Performed at: ??01 - [facility] ??[id number] [employer] Artist: Colt Riley PhD, Phone: ??[phone] Carlos Culp MD LAB - CHEMISTRY BILL FLOWERS Performing Organization Address City/[facility]/ZIP Co de Phone Number [facility] ([facility]) [address] [place] [address] * CT CHEST WO CONTRAST (04/15/2021 7:16 [...] Resulting Agency Comment Lab Testing performed at: [address] ??[facility] [phone] Carlos Culp MD LAB - CHEMISTRY BILL FLOWERS [facility] INSURANCE BILL [address] [place] [address] * (ABNORMAL) CARDIOLIPIN ANTIBODY IGA/IGG/IGM PANEL (03/09/2021 [...] Resulting Agency Comment Lab Testing performed at[facility] [address] ??[facility] [phone] Carlos Culp MD LAB - SEROLOGY ORDER [facility] [address] [place] [address] * (ABNORMAL) CBC W AUTO DIFFERENTIAL (CANCER [...] - 35.9 gm/dL 03/09/2021 10:44 AM CDT [facility] STM RDW-CV 13.9 12.1 - 14.9 % 03/09/2021 10:44 AM CDT [facility] STM Platelet Count 110(L) 153 - 416 x10E9/L 03/09/2021 10:44 AM CDT [facility] STM MPV 12.2 9.4 - 12.9 fl 03/09/2021 10:44 AM CDT [facility] STM NRBC 0.0 /100 WBC 03/09/2021 10:44 AM CDT [facility] Blood BLOOD SPECIMEN / Unknown 03/09/2021 10:38 AM CDT 03/09/2021 10:38 AM CDT Carlos Culp MD LAB - HEMATOLOGY ORD ERABLES [facility] [address] * XR CHEST 2VW (09/29/2020 10:15 AM HAND TIER) Only the most recent of2 resultswithin the time period is included. Anatomical Region Laterality Modality Chest Radiographic Tammy ging 09/29/2020 10:2 6 AM HAND TIER Narrative 09/29/2020 10:35 AM HAND TIER CHEST 2 VIEW HISTORY: Restrictive lung disease. [...] Veloz on 09/29/2020 at 10:35 AM Maximo oLzoya MD DIAGNOSTIC IMAGING O RDERABLES * [facility] Pulmonology @ [facility] (Medicaid) Devora Chun (09/29/2020 9:44 AM HAND TIER) Carlos Culp MD OUTPATIENT REFERRALS * (ABNORMAL) [...] Resulting Agency Comment Lab Testing performed at: [facility] [address] [facility] ??[facility] [phone] Carlos Culp MD LAB - CHEMISTRY BILL FLOWERS Performing Organization Address City/[facility] de Phone Number [facility] INSURANCE BILL [address] [place] [address] * (ABNORMAL) LDH BLOOD (07/28/2020 1:57 PM CDT) Only the most recent of2 resultswithin the time period is included. [facility] LDH 229(H) 125 - 220 U/L [facility] INSURANCE BILL Blood BLOOD SPECIMEN / Unknown 07/28/2020 1:57 PM CDT 07/28/2020 Narrative Resulting Agency Comment Lab Testing performed at: [address] ??[facility] [phone] Carlos Culp MD LAB - CHEMISTRY BILL FLOWERS Performing Organization Address [facility] de Phone Number [facility] INSURANCE BILL [address] [place] [address] * CARDIAC RHYTHM STRIP ORDER (07/15/2020 1:31 AM CDT) Narrative 07/15/2020 1:31 AM CDT Ordered by an unspecified provider. Scanned Document CARDIAC SERVICES ORD ERABLES * FLOW CYTOMETRY BONE MARROW (07/09/2020 10:30 AM CDT) Pathologist [facility] Case Report Flow Cytometry ?Case: [id number] ? Authorizing Provider: ??Carlos Culp MD ? Collected: ? 07/09/2020 10:30 AM ? Ordering Location: ? [facility] ?Received: ?07/09/2020 10:38 AM ? Pathologist: ? Linda Cedeno MD ? Specimen: ?Bone Marrow ? 07/09/2020 5:33 PM [facility] Final Diagnosis Bone marrow, flow cytometric immunophenotypic analysis: - No evidence of non-Hodgkin lymphoma or high-grade myeloid neoplasm. - See interpretation. 07/09/2020 5:33 PM [facility] Flow Cytometry Interpretation [...] the flow cytometry specimen is reviewed for quality assurance specialist purposes. The bone marrow specimen shows no evidence of involvement by non-Hodgkin lymphoma or a high-grade myeloid neoplasm. Correlation with clinical findings, the concurrent bone marrow biopsy ([id number]), and relevant cytogenetic/molecu lar studies is required. 07/09/2020 5:33 PM [facility] Flow Cytometry Results Differential Result Comment Flow Cell Count /uL 15,000 Total Viability % 96.0 Lymphocytes % 25 Dim CD45 Region % 2 Monocytes % 6 Granulocytes % 66 07/09/2020 5:33 PM CDT [facility] Reason for test Thrombocytopenia 287.5 07/09/2020 5:33 PM CDT [facility] Client Specimen ID # [id number] 07/09/2020 5:33 PM T [facility] Number of markers 19 were performed. A-2 Flow CD10 A-3 Flow CD13 A-5 Flow CD20 A-11 Flow CD2 A-13 Flow CD14 A-16 Flow CD117 A-17 Flow CD11b A-18 Flow CD11c A-1 Flow CD5 A-4 Flow CD19 A-6 Flow CD33 A-7 Flow CD34 A-8 Flow CD45 A-12 Flow CD7 A-14 Flow CD56 A-15 Flow CD64 A-9 [place]+CD19+ A-10 Lambda+CD19+ A-19 Flow HLA-DR 07/09/2020 5:33 PM T [facility] Disclaimer Test performed at [facility], [address] [place] [address], [facility]. *The established laboratory minimum viability is 70%. [...] complexity clinical testing. 07/09/2020 5:33 PM CDT [facility] Embedded Images 0 5:33 PM CDT [facility] Pathology/Cytolo gy BONE MARROW SPECIMEN / Unknown Collection / Unknown 07/09/2020 10:30 AM CDT 07/09/2020 10:38 AM CDT Carlos Culp MD LAB - PATHOLOGY/CYTO LOGY ORDERABLES [facility] [address] [place] [address] * CHROMOSOME ANALYSIS LEUKEMIA/LYMPHOMA (07/09/2020 10:30 AM CDT) Specimen Type Comment: 07/21/2020 5:08 PM CDT [facility] ([facility]) Comment:BONE MARROW Cells Counted 20 07/21/2020 5:08 PM CDT [facility] ([facility]) Cells Analyzed 20 07/21/2020 5:08 PM CDT [facility] ([facility]) Cells Karyotyped 2 07/21/20 20 5:08 PM CDT [facility] ([facility]) GTG Band Resolution Achieved 400 07/21/2020 5:08 PM CDT [facility] ([facility]) Cytogenetic Result Comment: 2019 5:08 PM CDT [facility] ([facility]) Comment:46,XY[20] Interpretation Comment: 07/21/2020 5:08 PM CDT [facility] ([facility]) Comment: NORMAL MALE KARYOTYPE ?Cytogenetic analysis [...] 20 cell analyses. A FISH panel (test #[id number]) may be effectively used in low mitotic multiple myeloma, for example, to detect high incidence, prognosis-related alterations. ??. ?A test option for a whole genome SNP microarray is also available (test #[id number]) that can resolve genomic imbalance at a level of sensitivity over 200 times cytogenetic resolution. This testing can be performed from the current remaining sample, if available. Call x [phone]. Director Review Comment: 0 5:08 PM CDT [facility] ([facility]) Comment:Danny Rendon, PhD, [facility] Other BONE MARROW SPECIMEN / Unknown Collection / Unknown 07/09/2020 10:30 AM CDT 07/09/2020 10:38 AM CDT Narrative [facility] ([facility]) - 07/21/2020 5:08 PM CDT Performed at: ??01 - [facility] [address] [facility], [place] ??[id number] Potter Or Ceramic Artist: Catalina Johnson [facility], Phone: ??[phone] Carlos Culp MD LAB - CHEMISTRY BILL FLOWERS [facility] ([facility]) [address] [place] [address] * FISH MULTIPLE MYELOMA PANEL BONE MARROW [...] Review Comment: 0 5:08 PM CDT [facility] ([facility]) Comment:Danny Rendon, PhD, [facility] Other BONE MARROW SPECIMEN / Unknown Collection / Unknown 07/09/2020 10:30 AM CDT 07/09/2020 10:38 AM CDT Narrative [facility] ([facility]) - 07/15/2020 5:08 PM CDT Performed at: ??01 - [facility] RT [address] [facility], [facility], [place] ??[id number] Potter Or Ceramic Artist: Catalina Johnson [facility], Phone: ??[phone] Carlos Culp MD LAB - PATHOLOGY/CYTO LOGY ORDERABLES [facility] ([facility]) [address] [place] [address] * FISH MDS PANEL ADDTL SRCS (07/09/2020 10:30 AM CDT) Cells Counted Comment: 07/21/2020 5:08 PM CDT [facility] ([facility]) Comment:200/PROBE Cells Analyzed Comment: 07/21/2020 5:08 PM CDT [facility] ([facility]) Comment:200/PROBE FISH Result Comment: 07/21/2020 5:08 PM CDT [facility] ([facility]) Comment:NORMAL MDS PANEL Interpretation Comment: 07/21/2020 5:08 PM CDT [facility] ([facility]) Comment: ?The fluorescence in situ hybridization [...] Am Soc Hematol Educ Program 2013:504-10. PMID: 77807207 ??Pamela Munson and Aubree Bee (2011) Hematology 16(3):131-8. PMID: 11147313 ?This test was developed and its performance characteristics determined by [employer] ([employer]). It has not been cleared or approved by the U.S. Food and Drug Administration. The DNA probe vendor for this study was [employer] ([employer]). Specimen Type Comment: 07/21/2020 5:08 PM CDT [facility] ([facility]) Comment:BONE MARROW Director Review Comment: 0 5:08 PM CDT [facility] ([facility]) Comment:Ross Mora, PhD , [facility] Other BONE MARROW SPECIMEN / Unknown Collection / Unknown 07/09/2020 10:30 AM CDT 07/09/2020 10:38 AM CDT Narrative [facility] ([facility]) - 07/21/2020 5:08 PM CDT Performed at: ??01 - [facility] [id number] [place], [place] ??[id number] Potter Or Ceramic Artist: Catalina Johnson [facility], Phone: ??[phone] Carlos Culp MD LAB - PATHOLOGY/CYTO LOGY ORDERABLES [facility] ([facility]) [address] [place] [address] * FISH MPN W/HYPEREOSINOPHILIA (07/09/2020 10:30 AM CDT) Specimen Type Comment: 07/21/2020 5:08 PM CDT [facility] ([facility]) Comment:BONE MARROW Cells Counted 100 07/21/2020 5:08 PM CDT [facility] ([facility]) Cells Analyzed 100 07/21/2020 5:08 PM CDT [facility] ([facility]) FISH Result Comment: 07/21/2020 5:08 PM CDT [facility] ([facility]) Comment: NO DELETION OF LNX1 (CHIC2) OR REARRANGEMENT OF PDGFRA, PDGFRB, OR FGFR1 Interpretation Comment: 07/21/2020 5:08 PM CDT [facility] ([facility]) Comment: NEGATIVE ?The MPN with hypereosinophilia fluorescence panel in situ hybridization (FISH) analysis was normal. No deletion of LNX1 or rearrangements of PDGFRA, PDGFRB, or FGFR1 were observed. ?SPECIFIC PROBE RESULTS: ?PDGFRA: NORMAL ?nuc deborah 4q12(FIP1L1,LNX1,PDGFRA)x2[100] ?PDGFRB: NORMAL ?nuc deborah 5q33(PDGFRBx2)[100] ?FGFR1: ??NORMAL ?nuc deborah 8p12(FVLY2h9)[100]. ?This analysis is limited to abnormalities detectable by the specific probes included in the study. FISH results should be interpreted within the context of a full cytogenetic analysis and hematologic evaluation. ?? . ?This test was developed and its performance characteristics determined by [employer] ([employer]). It has not been cleared or approved by the U.S. Food and Drug Administration. The DNA probe vendors for this study were [employer] and [employer] ([employer]). Director Review Comment: 0 5:08 PM CDT [facility] Comment:Ross Mora, PhD , [facility] Other BONE MARROW SPECIMEN / Unknown Collection / Unknown 07/09/2020 10:30 AM CDT 07/09/2020 10:38 AM CDT Narrative [facility]) - 07/21/2020 5:08 PM CDT Performed [facility]: ??01 - [facility] [address] [facility], [facility], [place] ??[id number] Potter [employer]amic Artist: Catalina Johnson [facility], Phone: ??[phone] Carlos Culp MD LAB - PATHOLOGY/CYTO LOGY ORDERABLES [facility]) [address] [place] [address] * CT BONE MARROW BIOPSY (07/09/2020 9:38 [...] evaluation, please review the evaluation forms in [facility]. For details on monitored clinical parameters during the intra-service sedation time, please review the procedure nurse documentation in [facility]. *Reading Radiologist: Herrera Flores on 07/09/2020 at 2:24 PM Procedure Note Herrera Flores MD - 07/09/2020 History: Secondary polycythemia Operators: 1. Dr. Flroes, Attending Physician Anesthesia: 1. Local anesthesia - [...] evaluation, please review the evaluation forms in [facility]. For details on monitored clinical parameters during the intra-service sedation time, please review the procedure nurse documentation in [facility]. *Reading Radiologist: Herrera Flores on 07/09/2020 at 2:24 PM Carlos Culp MD CT ORDERABLES * BONE MARROW BIOPSY (STL) (07/09/2020 9:36 AM CDT) Case Report Bone Marrow Report ?Case: [id number] ? Authorizing Provider: ??Carlos Culp MD ? Collected: ? 07/09/2020 09:36 AM ? Ordering Location: ? [facility] ?Received: ?07/09/2020 09:38 AM ? [...] MDS/MPD vs. autoimmune thrombocytopenia. 07/13/2020 5:40 PM [facility] Gross Description The requisition and specimens [...] B1 following decalcification. DS/ns 07/13/2020 5:40 PM [facility] Bone Marrow Description Bone marrow aspirate: [...] to lack of spicules. 07/13/2020 5:40 PM [facility] Flow Cytometry Summary Concurrent flow cytometry ([id number]) shows no evidence of non-Hodgkin lymphoma or high-grade myeloid neoplasm. 07/13/2020 5:40 PM [facility] AP Comment Overall, the bone marrow specimen is normocellular for age with maturing trilineage hematopoiesis and no evidence of lymphoma, a high-grade myeloid neoplasm, or significant dyspoiesis. Concurrent bone marrow flow cytometry ([id number]) corroborates this diagnosis. Correlation with clinical findings and relevant cytogenetic/molecular testing is required. 07/13/2020 5:40 PM T [facility] Disclaimer All histochemical and/or immunohistochemical results are interpreted with controls that demonstrate appropriate staining reactions before reporting results. Note on use of immunocytochemistry reagents: This test was developed and its performance characteristic determined by [facility], Department of Laboratory Medicine. It has not [...] interpretation of this case [facility], [address] [place] [address]. 07/13/2020 5:40 PM [facility] Embedded Images 07/13/2020 5:40 PM [facility] Pathology/Cytology BONE MARROW SPECIMEN / Unknown [...] - PATHOLOGY/CYTO LOGY ORDERABLES Performing Organization Address [facility]/ZIP Co de Phone Number [facility] [address] [place] [address] * PTT (07/09/2020 7:53 AM CDT) PTT 34.2 23.0 - 38.4 sec 07/09/2020 8:30 AM CDT [facility] Blood BLOOD SPECIMEN / Unknown Venipuncture / Unknown 07/09/2020 7:53 AM CDT 07/09/2020 7:56 AM CDT Narrative [facility] - 07/09/2020 8:30 AM CDT Heparin Therapeutic Range for PTT: ??71.0 - 109.0 seconds. Herrera Flores MD LAB - COAGULATION ORDERABLES Performing Organization Address [facility] Co de Phone Number [facility] [address] [place] [address] * PT-INR (07/09/2020 7:53 AM CDT) PT 13.4 12.1 - 14.8 sec 07/09/2020 8:29 AM CDT [facility] INR 1.1 0.9 - 1.1 07/09/2020 8:29 AM CDT [facility] Blood BLOOD SPECIMEN / Unknown Venipuncture / Unknown 07/09/2020 7:53 AM CDT 07/09/2020 7:56 AM CDT Narrative [facility] - 07/09/2020 8:29 AM CDT Conventional Warfarin Anticoagulant Therapy: INR Reference Range: ??2.0-3.0 Intensive Warfarin Anticoagulant Therapy: INR Reference Range: ? 2.5-3.5 Herrera Flores MD LAB - COAGULATION ORDERABLES Performing Organization Address [facility] Co de Phone Number [facility] [address] [place] [address] * PRETTY URINE (06/29/2020 3:16 PM CDT) Pathologist [facility] Interpretation PRETTY Comment: [facility] INSURANCE BILL Comment: Presence of monoclonal protein is unclear at this time. Suggest repeat in 3 to 6 months if clinically indicated. Urine URINE / Unknown 06/29/2020 3 :16 PM CDT 06/29/2020 Narrative Resulting Agency Comment [facility] performed [facility]: [facility] [address] [facility] ??[facility] [phone] Carlos Culp MD LAB - URINE CHEMISTR Y ORDERABLES Performing Organization Address [facility] Co de Phone Number [employer] INSURANCE BILL [address] [place] [address] * [id number] BLOOD (06/29/2020 3:16 PM CDT) [facility] Beta-2 Microglobulin 1.6 0.6 - 2.4 mg/L [facility] INSURANCE BILL Comment: Siemens Immulite 2000 Immunochemiluminometric assay (ICMA) ? . Values obtained with different assay methods or kits cannot be used interchangeably. Results cannot be interpreted as absolute evidence of the presence or absence of malignant disease. Blood BLOOD SPECIMEN / Unknown 06/29/2020 3:16 PM CDT 06/29/2020 Narrative Resulting Agency Comment Lab Testing performed at: [facility] ??[facility] [phone] Carlos Culp MD LAB - CHEMISTRY ORDE RABLES Performing Organization Address [facility] de Phone Number [employer] INSURANCE BILL [address] [place] [address] * (ABNORMAL) KAPPA/LAMBDA LITE CHAIN FREE PANEL (06/29/2020 3:16 PM CDT) [facility] Free [place] Light Chains 28.0(H) 3.3 - 19.4 mg/L [facility] INSURANCE BILL Free Lambda Light Chains 38.0(H) 5.7 - 26.3 mg/L [facility] INSURANCE BILL [place]/Lambda Ratio 0.74 0.26 - 1.65 [facility] INSURANCE BILL Blood BLOOD SPECIMEN / Unknown 06/29/2020 3:16 PM CDT 06/29/2020 Narrative Resulting Agency Comment Lab Testing performed at: [facility] ??[facility] [phone] Carlos Culp MD LAB - CHEMISTRY BILL FLOWERS Performing Organization Address City/[facility] Co de Phone Number [facility] INSURANCE BILL [address] [place] [address] * PROTEIN ELECTROPHORESIS BLOOD (06/29/2020 3:16 PM CDT) Protein Total 6.7 6.0 - 8.5 g/dL [facility] INSURANCE BILL Albumin 3.4 2.9 - 4.4 g/dL [facility] INSURANCE BILL Alpha-1 Globulin 0.3 0.0 - 0.4 g/dL [facility] INSURANCE BILL Inqzs-4-Shxywtim 0.9 0.4 - 1.0 g/dL [facility] INSURANCE [...] scan will follow via computer, mail, or jack winder delivery. P E Interpretation, S [facility] INSURANCE BILL Comment: The SPE pattern appears unremarkable. Evidence of monoclonal protein is not apparent. Blood BLOOD SPECIMEN / Unknown 06/29/2020 3:16 PM CDT 06/29/2020 Narrative Resulting Agency Comment Lab Testing performed at: Lab[address] ??[facility] [phone] Carlos Culp MD LAB - CHEMISTRY BILL FLOWERS [facility] INSURANCE BILL [address] [place] [address] * LAB MISC TEST (06/29/2020 10:40 AM CDT) Test Name EPOR Mutation Detection by Sequencing 07/09/2020 8:02 AM CDT [facility] OTHER LAB Test Result See Scanned Report 07/09/2020 8:02 AM CDT [facility] OTHER LAB Blood BLOOD SPECIMEN / Unknown Venipuncture / Unknown 06/29/2020 10:40 AM CDT 06/29/2020 11:57 AM CDT Carlos Culp MD LAB SEND OUT [facility] OTHER LAB * US ABDOMEN LIMITED [...] - 2.0 mmol/L 06/25/2020 12:03 PM CDT [facility] RESP THERAPY O2 Saturation Arterial 96 90 - 100 % 06/25/2020 12:03 PM CDT [facility] RESP THERAPY Hemoglobin Arterial 18.2(H) 14.0 - 16.0 gm/dL 06/25/2020 12:03 PM CDT [facility] RESP THERAPY Carboxyhemoglobin Arterial 3.6(H) 0.0 - 2.5 % 06/25/2020 12:03 PM CDT [facility] RESP THERAPY Comment:H Methemoglobin Arterial 0.5 0.0 - 2.0 % 06/25/2020 12:03 PM CDT [facility] RESP THERAPY Oxyhemoglobin Arterial 92 % 06/25/2020 12:03 PM CDT [facility] RESP THERAPY O2 Content Arterial 23.6 % 06/25 12:03 PM CDT [facility] RESP THERAPY Comment:H Beltran's Test Positive 06/25/2020 12:03 PM CDT [facility] RESP THERAPY Sample Site L Brachial 06/25/2020 12:03 PM CDT [facility] RESP THERAPY Sample Type Arterial 06/25/2020 12:03 PM CDT [facility] RESP THERAPY Black Off Worker ID [id number] 06/25/2020 12:03 PM CDT [facility] RESP THERAPY Blood, arterial ARTERIAL BLOOD SPECIMEN / Unknown 06/25/2020 11:33 AM CDT 06/25/2020 11:33 AM CDT Carlos Culp MD LAB - BLOOD GASES OR DERABLES [facility] RESP THERAPY [address] [phone] * HEPATITIS A IGM ANTIBODY (06/24/2020 9:30 AM CDT) HAV Antibody IgM Non Reactive Non Reactive 06/24/2020 10:26 AM CDT [facility] Blood BLOOD SPECIMEN / Unknown Venipuncture / Unknown 06/24/2020 9:30 AM CDT 06/24/2020 9:39 AM CDT Carlos Culp MD LAB - CHEMISTRY BILL FLOWERS Performing Organization Address [facility] Co de Phone Number [facility] [address] [place] [address] * REF LAB-SPECIMEN STATUS REPORT (06/08/2020 4:51 PM CDT) Specimen Status Report [facility] INSURANCE BILL Comment: We have received your request for additional testing, however we are unable to add the test you requested. ??The following test(s) were not performed: Quantity was not sufficient for add-on test. Test# [id number] Hepatitis A (Prof V) 06/08/2020 4:51 PM CDT 06/08/2020 Narrative Resulting Agency Comment Lab Testing performed [facility]: [facility] [address] [place] [address] ??[facility] [phone] Carlos Culp MD LAB - CHEMISTRY BILL FLOWERS Performing Organization Address [facility] de Phone Number [facility] INSURANCE BILL [address] [place] [address] * HEPATITIS B SURFACE ANTIBODY (06/08/2020 4:51 PM CDT) Hepatitis B Virus Surface Antibody Non Reactive [facility] INSURANCE BILL Comment: ? Non Reactive: Inconsistent with immunity, ? less than 10 mIU/mL ? Reactive: ? Consistent with immunity, ? greater than 9.9 mIU/mL Blood BLOOD SPECIMEN / Unknown 06/08/2020 4:51 PM CDT 06/08/2020 Narrative Resulting Agency Comment Lab Testing performed at: [facility] [address] ??[place] [phone] Carlos Culp MD LAB - CHEMISTRY BILL FLOWERS Performing Organization Address [facility]/ZIP Co de Phone Number [facility] INSURANCE BILL [address] [place] [address] * HEPATITIS B SURFACE ANTIGEN W RFLX CONFIRMATION (06/08/2020 4:51 PM CDT) Hepatitis B Virus Surface Antigen Negative Negative [facility] INSURANCE BILL Blood BLOOD SPECIMEN / Unknown 06/08/2020 4:51 PM CDT 06/08/2020 Narrative Resulting Agency Comment Lab Testing performed at: [facility] [place] [address] ??[place] [phone] Carlos Culp MD LAB - CHEMISTRY BILL FLOWERS Performing Organization Address [facility] de Phone Number [facility] INSURANCE BILL [address] [place] [address] * HEPATITIS C ANTIBODY (06/08/2020 4:51 PM CDT) Hepatitis C Antibody <0.1 0.0 - 0.9 s/co ratio [facility] INSURANCE BILL Comment: ? Negative: ? < 0.8 ?Indeterminate: 0.8 - 0.9 ? Positive: ? > 0.9 ? . ?The CDC recommends that a positive HCV antibody result ?be followed up with a HCV Nucleic Acid Amplification ?test (313934). Blood BLOOD SPECIMEN / Unknown 06/08/2020 4:51 PM CDT 06/08/2020 Narrative Resulting Agency Comment Lab Testing performed at: [facility] [address] ??[place] [phone] Carlos Culp MD LAB - CHEMISTRY BILL FLOWERS Performing Organization Address [facility] Co de Phone Number [facility] INSURANCE BILL [address] [place] [address] * (ABNORMAL) HEPATITIS A ANTIBODY (06/08/2020 4:51 PM CDT) Hepatitis A Virus Antibody Total Positive(A ) Negative [facility] INSURANCE BILL Blood BLOOD SPECIMEN / Unknown 06/08/2020 4:51 PM CDT 06/08/2020 Narrative Resulting Agency Comment Lab Testing performed at: [facility] [address] ??[place] [id number] Carlos Culp MD LAB - CHEMISTRY BILL FLOWERS [facility] INSURANCE BILL [address] [place] [address] * HEPATITIS B CORE ANTIBODY IGM (06/08/2020 4:51 PM CDT) Pathologist [facility] Hepatitis B Core Virus Antibody IgM Negative Negative [facility] INSURANCE BILL Blood BLOOD SPECIMEN / Unknown 06/08/2020 4:51 PM CDT 06/08/2020 Narrative Resulting Agency Comment Lab Testing performed at: [facility] [address] ??[facility] [phone] Carlos Culp MD LAB - CHEMISTRY ORDHaley FLOWERS Performing Organization Address [facility] Co de Phone Number [facility] INSURANCE BILL [address] [place] [address] * (ABNORMAL) LUPUS ANTICOAGULANT PANEL W RFLX (06/08/2020 4:47 PM CDT) [facility] PTT-LA 45.1 0.0 - 51.9 sec [facility] [...] Resulting Agency Comment Lab Testing performed at: Lab[address] ??[facility] [phone] Carlos Culp MD LAB - HEMATOLOGY ORD ERABLES Performing Organization Address City/[facility] Co de Phone Number [facility] INSURANCE BILL [address] [place] [address] * HIV-1 HIV-2 ANTIBODY + HIV P24 AG PANEL (06/08/2020 4:46 PM CDT) Pathologist [facility] HIV Screen 4th Generation w Reflex Non Reactive Non Reactive [facility] INSURANCE BILL Blood BLOOD SPECIMEN / Unknown 06/08/2020 4:46 PM CDT 06/08/2020 Narrative Resulting Agency Comment Lab Testing performed at: [facility] [address] ??[facility] [phone] Carlos Culp MD LAB - CHEMISTRY BILL FLOWERS [facility] INSURANCE BILL [address] [place] [address] * JAK2 GENE V617F MUTATION QUANTITATIVE (06/08/2020 4:46 PM CDT) JAK2 V617F Mutation Quantitative [facility] INSURANCE BILL Comment: NEGATIVE ? . The JAK2 V617F mutation is not detected in the provided specimen of this individual. This result does not rule out the presence of the JAK2 mutation at a level below the sensitivity of detection of this assay, or the presence of other mutations within JAK2 not detected by this assay. Background [facility] INSURANCE BILL Comment: The Quantitative Real-Time [...] JAK2 gene will not be detected. Methodology [facility] INSURANCE BILL Comment: This test was developed and its performance characteristics determined by [employer]. It has not been cleared or approved by the Food and Drug Administration. Total genomic DNA was extracted and subjected to TaqMan real-time PCR amplification/detection. Two amplification products per sample were monitored by real-time PCR using primers/probes specific to JAK2 wild type (WT) and JAK2 mutant V617F. The Data Stream CBOT Absolute Quantitation software will compare the patient specimen values to the standard curves and generate percent values for wild type and mutant type. The numerical values of Sample Mutant Quantity/(Sample Mutant Quantity+ Sample Wild Type Quantity)X100 is reported as a percentage. In vitro studies have indicated that this assay has an analytical sensitivity of 1%. References JAK2 V617F QNT [facility] INSURANCE BILL Comment: ??Emile EJ, Ananth LM, Abhi PJ, et al. Acquired mutation of the tyrosine kinase JAK2 in human myeloproliferative disorders. Lancet. 2005 Jan 21; 365(2341):7922-4621. Hang C, Abdifatah V, Makayla Stock MARIELA. A unique clonal JAK2 mutation leading to constitutive signaling causes polycythaemia vera. Nature. 2005 Feb 28; 434(6279):7330-4913. Prabhu R, Nomi F, Eulalia , et al. A sfrd-jn-liplxkjn mutation of JAK2 in myeloproliferative disorders. N Engl J Med. 2005 Mar 02; 35217):7212-3839. Director Review [facility] INSURANCE BILL Comment: Jalyn Villanueva, PhD, [facility] ? Director, Molecular Genetics ? [facility] ? Biology and Pathology ? [place], [place] ? . Blood BLOOD SPECIMEN / Unknown 06/08/2020 4:46 PM CDT 06/08/2020 Narrative Resulting Agency Comment Lab Testing performed at: [facility] [address] [facility] ??[facility] [id number] Carlos Culp MD LAB - CHEMISTRY BILL FLOWERS [facility] INSURANCE BILL [address] [place] [address] * BCR-ABL1 CML+AML PCR QUANT PNL (06/08/2020 4:46 PM CDT) e13a2 (b2a2) transcript % [facility] Comment: ?<0.0032 % ?(sensitivity limit of assay) e14a2 (b3a2) transcript % [facility] Comment: ?<0.0032 % ?(sensitivity limit of assay) e1a2 transcript % [facility] INSURANCE BILL Comment: ?<0.0032 % ?(sensitivity limit of assay) Interpretation [facility] INSURANCE BILL Comment: NEGATIVE for the BCR-ABL1 e1a2 (p190), e13a2 (b2a2, p210) and e14a2 (b3a2, p210) fusion transcripts. These results do not rule out the presence of rare BCR-ABL1 transcripts not detected by this assay. Director Review [facility] INSURANCE BILL Comment: Jalyn Villanueva, PhD, [facility] ? Director, Molecular Genetics ? [facility] ? Biology and Pathology ? [facility], [place] ? . Background [facility] INSURANCE BILL Comment: This assay can [...] developed and its performance characteristics determined by [employer]. It has not been cleared or approved by the Food and Drug Administration. ? . References: ? . ?1. Melissa T and Markus S: Seminars in Hematology 2003; ? 40 (suppl2):62-68. ?2. Devin TADEO, et al. Blood 2010; 116: w645-077. ?3. NCCN Clinical Practice Guidelines in Oncology, Chronic ? Myeloid Leukemia. V2. 2017. Blood BLOOD SPECIMEN / Unknown 06/08/2020 4:46 PM CDT 06/08/2020 Narrative Resulting Agency Comment Lab Testing performed at: [facility] RT[facility] [address] [facility] C ??RTP [place] [id number] Carlos Culp MD LAB - CHEMISTRY BILL FLOWERS [facility] INSURANCE BILL [address] [place] [address] * (ABNORMAL) TRACEY STAINING PATTERNS REFLEXED (06/08/2020 [...] Histones ?Drug-induced SLE ? Speckled ? Sm, SUPPORT TEAM MEMBER, SCL-70, ??SLE,MCTD,PSS (diffuse form), ? SS-A/SS-B ? Sjogrens ? Nucleolar ?SCL-70, PM-1/SCL ??High titers Scleroderma, ? PM/DM ? Centromere ?? Centromere ?PSS (limited form) w/Crest ? syndrome variable ? Nuclear Dot ??Sp100,[id number] ??Primary Biliary Cirrhosis ? Nuclear ?GP210, ?Primary Biliary Cirrhosis Membrane ? varghese A,B,C ? 06/08/2020 4:46 PM CDT 06/09/2020 Narrative Resulting Agency Comment Lab Testing performed at: [facility] [place] [address] [facility] ??[facility] [phone] Carlos Culp MD LAB - PATHOLOGY/CYTO LOGY ORDERABLES Performing Organization Address [facility]/ZIP Co de Phone Number [facility] INSURANCE BILL [address] [place] [address] * DRVVT MIX (06/08/2020 4:46 PM CDT) dRVVT 1:1 Mix 42.6 0.0 - 47.0 sec [facility] INSURANCE BILL 06/08/2020 4:46 PM CDT 06/09/2020 Narrative Resulting Agency Comment Lab Testing performed at: [facility] ??[facility] [phone] Carlos Culp MD LAB - COAGULATION OR DERABLES Performing Organization Address [facility]/ZIP Co de Phone Number [facility] INSURANCE BILL [address] [place] [address] * (ABNORMAL) CARDIOLIPIN ANTIBODY IGG/IGM PANEL (06/08/2020 [...] Resulting Agency Comment Lab Testing performed at: [facility] [address] ??[place] [id number] Carlos Culp MD LAB - SEROLOGY ORDER CRISTHIAN Performing Organization Address [facility] Co de Phone Number [facility] INSURANCE BILL [address] [place] [address] * RHEUMATOID FACTOR BLOOD QUANTITATIVE (06/08/2020 4:46 PM CDT) Pathologist [facility] Rheumatoid Factor <10.0 0.0 - 13.9 IU/mL [facility] INSURANCE BILL Blood BLOOD SPECIMEN / Unknown 06/08/2020 4:46 PM CDT 06/09/2020 Narrative Resulting Agency Comment Lab Testing performed at: [facility] [address] ??[place] [id number] Carlos Culp MD LAB - CHEMISTRY ORDE RABLES Performing Organization Address [facility] de Phone Number [facility] INSURANCE BILL [address] [place] [address] * (ABNORMAL) HODAN BLOOD SCREEN W/REFLEX TITER (06/08/2020 4:46 PM CDT) Pathologist [facility] HODAN Positive(A ) [facility] INSURANCE BILL Comment: ?Negative ?? <1:80 ?Borderline ??1:80 ?Positive ?? >1:80 Blood BLOOD SPECIMEN / Unknown 06/08/2020 4:46 PM CDT 06/09/2020 Narrative Resulting Agency Comment Lab Testing performed at: [facility] [address] [facility] ??[facility] [phone] Carlos Culp MD LAB - CHEMISTRY BILL FLOWERS [facility] INSURANCE BILL [address] [place] [address] * PLATELET ANTIBODY PANEL (06/08/2020 4:46 PM CDT) [facility] HLA Class I Antibody Negative Negative [facility] INSURANCE BILL IIb/IIIa Antibody Negative Negative [facility] INSURANCE BILL Ib/IX Antibody Negative Negative [facility] INSURANCE BILL Ia/IIa Antibody Negative Negative [facility] INSURANCE BILL Glycoprotein IV Antibody Negative Negative [facility] INSURANCE BILL Blood BLOOD SPECIMEN / Unknown 06/08/2020 4:46 PM CDT 06/08/2020 Narrative Resulting Agency Comment Lab Testing performed at: [address] ??[facility] [id number] Carlos Culp MD LAB - CHEMISTRY BILL FLOWERS Performing Organization Address [facility] Co de Phone Number [facility] INSURANCE BILL [address] [place] [address] * VISCOSITY (06/08/2020 4:46 PM CDT) [facility] Viscosity 1.7 1.6 - 1.9 rel.salin e [facility] INSURANCE BILL Comment: Values above 2.7 may indicate paraproteinemia is present. This test was developed and its performance characteristics determined by [facility]. It has not been cleared or approved by the Food and Drug Administration. 06/08/2020 4:46 PM CDT 06/08/2020 Narrative Resulting Agency Comment Lab Testing performed at: [address] ??[facility] [phone] Carlos Culp MD LAB - HEMATOLOGY ORD ERABLES Performing Organization Address City/[facility]/ZIP Co de Phone Number [facility] INSURANCE BILL [address] [place] [address] * (ABNORMAL) TESTOSTERONE TOTAL (06/08/2020 4:46 PM CDT) Testosterone 245(L) 264 - 916 ng/dL [facility] INSURANCE BILL Comment: Adult male reference interval is based on a population of healthy nonobese males (BMI <30) between 19 and 39 years old. ross Wright.al. JCEM 2017,102;1679-2014. PMID: [id number]. Blood BLOOD SPECIMEN / Unknown 06/08/2020 4:46 PM CDT 06/08/2020 Narrative Resulting Agency Comment Lab Testing performed at: [facility] ??[facility] [id number] Carlos Culp MD LAB - CHEMISTRY BILL FLOWERS Performing Organization Address City/[facility]/ZIP Co de Phone Number [facility] [address] [place] [address] * COPPER BLOOD (06/08/2020 4:46 PM CDT) [facility] Copper 119 72 - 166 ug/dL [facility] Comment:Detection Limit = 5 Blood BLOOD SPECIMEN / Unknown 06/08/2020 4:46 PM CDT 06/09/2020 Narrative [facility] - 06/10/2020 7:08 AM CDT Test(s) 902010-[id number], Serum was developed and its performance characteristics determined by [facility]. It has not been cleared or approved by the Food and Drug Administration. Resulting Agency Comment Lab Testing performed at: [address] ??[facility] [id number] Carlos Culp MD LAB - CHEMISTRY BILL FLOWERS [facility] INSURANCE BILL [address] [place] [address] * BETA-2 GLYCOPROTEIN 1 ANTIBODY IGG/IGM PANEL (06/08/2020 4:46 PM CDT) [facility] Beta-2 Glycoprotein I Antibody IgG <9 0 [...] Resulting Agency Comment Lab Testing performed at: [facility] ??[facility] [phone] Carlos Culp MD [facility] INSURANCE BILL [address] [place] [address] * LISA DIRECT (06/08/2020 4:46 PM CDT) Lisa Direct Negative Negative [facility] INSURANCE BILL Blood BLOOD SPECIMEN / Unknown 06/08/2020 4:46 PM CDT 06/09/2020 Narrative Resulting Agency Comment Lab Testing performed at: [facility] [place] [address] ??[facility] [id number] Carlos Culp MD LAB - BLOOD BANK ORD PARKERBLES Performing Organization Address [facility]/ZIP Co de Phone Number [facility] INSURANCE BILL [address] [place] [address] * ANTIBODY SCREEN (06/08/2020 4:46 PM CDT) Antibody Screen Negative Negative [facility] INSURANCE BILL Blood BLOOD SPECIMEN / Unknown 06/08/2020 4:46 PM CDT 06/08/2020 Narrative Resulting Agency Comment Lab Testing performed at: [facility] [place] [address] ??[facility] [id number] Carlos Culp MD LAB - BLOOD BANK ORD ERABLES [facility] INSURANCE BILL [address] [place] [address] * PT PTT PANEL (06/08/2020 4:46 PM CDT) Pathologist [facility] INR 1.1 0.8 - 1.2 [facility] INSURANCE BILL Comment: ? Reference interval is for non-anticoagulated patients. ?. ? Suggested INR therapeutic range for Vitamin K ? antagonist therapy: ?Standard Dose (moderate intensity ? therapeutic range): ? 2.0 - 3.0 ?Higher intensity therapeutic range ? 2.5 - 3.5 PT 11.4 9.1 - 12.0 sec [facility] PTT 31 24 - 33 sec [facility] INSURANCE BILL Comment: This test has not been validated for monitoring unfractionated heparin therapy. aPTT-based therapeutic ranges for unfractionated heparin therapy have not been established. For general guidelines on Heparin monitoring, refer to the [facility] Directory of Services. Blood BLOOD SPECIMEN / Unknown 06/08/2020 4:46 PM CDT 06/08/2020 Narrative Resulting Agency Comment Lab Testing performed at: [facility] [address] [facility] ??[facility] [id number] Carlos Culp MD LAB - COAGULATION OR DERABLES [facility] INSURANCE BILL [address] [place] [address] * VITAMIN B12 FOLATE PANEL (06/08/2020 4:46 PM CDT) Pathologist [facility] Vitamin B12 527 232 - 1,245 pg/mL [facility] Folate 7.1 >3.0 ng/mL [facility] INSURANCE BILL Comment: A serum folate concentration of less than 3.1 ng/mL is considered to represent clinical deficiency. Blood BLOOD SPECIMEN / Unknown 06/08/2020 4:46 PM CDT 06/09/2020 Narrative Resulting Agency Comment Lab Testing performed at: [facility] [address] [facility] ??[facility] [id number] Carlos Culp MD LAB - CHEMISTRY BILL FLOWERS [facility] [address] [place] [address] * CARDIAC EKG ORDER (06/09/2019 8:14 PM CDT) Narrative 06/09/2019 8:14 PM CDT Ordered by an unspecified provider. Scanned Document CARDIAC SERVICES ORD ERABLES * TROPONIN I (06/08/2019 8:05 PM CDT) [facility] Troponin I <0.010 <0.038 ng/mL 06/08/2019 8:30 PM CDT [facility] Blood BLOOD SPECIMEN / Unknown Venipuncture / Unknown 06/08/2019 8:05 PM CDT 06/08/2019 8:09 PM CDT Shen Mckeon DO LAB - CHEMISTRY BILL FLOWERS [facility] [address] [place] [address] * EKG 12-LEAD (06/08/2019 7:59 PM CDT) [facility] Ventricular Rate 70 BPM [facility] Atrial Rate 70 BPM [facility] P-R Interval 152 ms [facility] QRS Duration ms 98 ms [facility] Q-T Interval ms 400 ms [facility] QTC Calculation (Bezet) 432 ms [facility] Calculated P [place] 51 degrees [facility] Calculated R [place] -47 degrees [facility] Calculated T [place] 23 degrees [facility] Interpretation EKG NORMAL SINUS RHYTHM LEFT ANTERIOR FASCICULAR BLOCK CANNOT RULE OUT ANTERIOR INFARCT , AGE UNDETERMINED ABNORMAL ECG NO PREVIOUS ECGS AVAILABLE Confirmed by DO Beltran Stephanie ([id number]) on 06/09/2019 7:53:29 PM [facility] 06/08/2019 7:59 PM CDT 06/09/2019 7:53 PM CDT Shen Mckeon DO ECG ORDERABLES [facility] Care Teams Container Filler Relationship Specialty Start Date End Date Joe Goodrich MD [address] [address] PCP - General Internal Medicine 06/30/20
--- OUTSIDE RECORDS SUMMARY | 2024-12-07 16:11 | XMS_ITS | Clinical Summary ---
Author Organization [facility] Address [address] [facility] [address] Care Team Providers Care Detective Captain Name Role Phone Joe Goodrich MD Primary Care Provider Source Comments [facility],non-[facility] Affiliates and Associated Physician Practices is amultiple site organization consisting of ambulatory clinics and hospital sitesin [place], [place], [place] and [place]. This disclosure is being madepursuant to the Care Everywhere program and may not contain all information available regarding this patient. Last updated 18.[facility] Allergies Active Allergy Reactions Criticality Noted Date [...] has overlap with psoriatic arthritis. Patient given energy analyst Dr. Abraham's information. Cervical spondylosis without myelopathy 10/10/20 19 Cigarette smoker 10/10/2019 [facility] current use of therapeutic drug 2018 Overview [...] T Respiratory Rate 16 10/23/2021 6:35 PM [employer]OO[employer] HEL[employer] Oxygen Saturation 100% 10/23/2021 6:35 PM [employer]ATE [employer]OO[employer] HEL[employer] Inhaled Oxygen Concentration - - Weight 97.5 kg (215 lb) 01/17/2024 10:35 AM CDT Height 177.8 cm (5' 10 ) 01/17/2024 10:35 AM CDT Body Mass Index 30.85 01/17/2024 10:35 AM CDT Plan of Treatment Upcoming Encounters Date Type Department Care Team (Late st Contact Info) Description 02/05/2025 11:00 AM CDT Office Visit [facility] [address] [facility] [address] [place] [address] Kiara Sifuentes, STAINED GLASS GLAZIER HELPER-SOLAR SYSTEM DESIGNER [address] [facility] [address] [place] [phone] Health Maintenance Due Date Last Done Comments [...] COMPREHENSIVE METABOLIC PANEL STAT 10/23/2021 9:38 PM [employer] HEPATITIS C ANTIBODY Routine 06/08/2020 4:51 PM CDT Thrombocytopenia, 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) Polycythemia Secondary polycythemia HIV-1 HIV-2 ANTIBODY + HIV P24 AG PANEL Routine 06/08/2020 4:46 PM CDT Thrombocytopenia, 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) from Last 3 Months or Most Recently Relevant to Health Maintenance Results * (ABNORMAL) COMPREHENSIVE METABOLIC PANEL (10/23/2021 9:38 PM [facility]) BUN 16 7 - 26 mg/dL 10/23/2021 10:16 PM [facility] Creatinine 1.29(H) 0.71 - 1.16 mg/dL 10/23/2021 10:16 PM [facility] Sodium 141 136 - 145 mmol/L 10/23/2021 10:16 PM [facility] Potassium 3.8 3.5 - 4.5 mmol/L 10/23/2021 10:16 PM [facility] Chloride 105 98 - 107 mmol/L 10/23/2021 10:16 PM [facility] CO2 25 22 - 29 mmol/L 10/23/2021 10:16 PM [facility] Glucose 189(H) 70 - 115 mg/dL 10/23/2021 10:16 PM [facility] Calcium 9.7 8.4 - 10.2 mg/dL 10/23/2021 10:16 PM [facility] Protein Total 7.3 6.0 - 8.3 g/dL 10/23/2021 10:16 PM [facility] Albumin 3.9 3.4 - 5.0 g/dL 10/23/2021 10:16 PM [facility] Bilirubin Total 0.8 0.2 - 1.2 mg/dL 10/23/2021 10:16 PM [facility] Alkaline Phosphatase 111 40 - 150 U/L 10/23/2021 10:16 PM [facility] ALT 23 5 - 55 U/L 10/23/2021 10:16 PM [facility] AST 20 5 - 34 U/L 10/23/2021 10:16 PM [facility] Anion Gap 15 8 - 18 10/23/2021 10:16 PM [facility] BUN/Creatinine Ratio 12 7 - 23 10/23/2021 10:16 PM [facility] Osmolality Calculated 298 270 - 300 mOsm/kg 10/23/2021 10:16 PM [facility] Albumin/Globulin Ratio 1.1 1.1 - 2.3 10/23/2021 10:16 PM [employer]ATE ROOFER HELPER [facility] eGFR by CKD-EPI 63(L) >=90 mL/min/1.7 3 m2 10/23/2021 10:16 PM [facility] Blood BLOOD SPECIMEN / Unknown Venipuncture / Unknown 10/23/2021 9:38 PM [employer]ATE ROOFER HELPER 10/23/2021 9:50 PM [employer]ATE ROOFER HELPER Willy Garcia PA-C LAB - CHEM ISTRY ORDERABLES [facility] [address] [place] [address], [facility] [phone] * HEPATITIS C ANTIBODY (06/08/2020 4:51 PM CDT) Hepatitis C Antibody <0.1 0.0 - 0.9 s/co ratio [facility] INSURANCE BILL Comment: ? Negative: ? < 0.8 ?Indeterminate: 0.8 - 0.9 ? Positive: ? > 0.9 ? . ?The CDC recommends that a positive HCV antibody result ?be followed up with a HCV Nucleic Acid Amplification ?test (821669). Blood BLOOD SPECIMEN / Unknown 06/08/2020 4:51 PM CDT 06/08/2020 Narrative Resulting Agency Comment Lab Testing performed at: [facility] [address] ??[facility] [id number] Carlos Culp MD LAB - CHEMISTRY BILL FLOWERS [facility] INSURANCE BILL [address] [place] [address] * HIV-1 HIV-2 ANTIBODY + HIV P24 AG PANEL (06/08/2020 4:46 PM CDT) [facility] Signature HIV Screen 4th Generation w Reflex Non Reactive Non Reactive [facility] INSURANCE BILL Blood BLOOD SPECIMEN / Unknown 06/08/2020 4:46 PM CDT 06/08/2020 Narrative Resulting Agency Comment Lab Testing performed at: [facility] ??[facility] [id number] Carlos Culp MD LAB - CHEMISTRY BILL FLOWERS [facility] INSURANCE BILL [address] [place] [address] from Last 3 Months or Most Recently Relevant to Health Maintenance Care Teams Detective Captain Relationship Specialty Start Date End Date Joe Goodrich MD [address] [address] PCP - General Internal Medicine 06/30/20
--- OUTSIDE RECORDS SUMMARY | 2024-12-07 16:11 | XMS_ITS | Clinical Summary ---
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 ??No new pulmonary nodules. ??These have demonstrated stability since July 2017 and likely benign. Narrative 09/15/2019 12:09 PM [facility] EXAM DESCRIPTION: ??CT CHEST W/O CONTRAST REASON [...] PM T: ??09/15/2019 12:07 PM Report ID: [id number] Reading Location: ??[id number] Procedure Note Del Chaudhary MD - 09/15/2019 [...] Del Chaudhary M.D. JA: PAL Report ID: [id number] Reading Location: [place] [address] IMPRESSION: Stable appearance of pulmonary nodules as above. No new pulmonary nodules. These have demonstrated stability since July 2017 and likely benign. Danielle Phelps C[employer] E[employer]S, HELICOPTER MECHANIC IMG CT ORDERABLES Final Result * PSA DIAGNOSTIC,TOTAL (12/25/2016) PSA (PROSTATE SPECIFIC ANTIGEN) 0.5 ng/mL Blood specimen (specimen) 12/25/2016 Chano Leggett DO CHEMISTRY ORDERABLES Final Resu lt * HM COLONOSCOPY (08/31/2016) Nitesh Matta MD PROCEDURE/MINOR SURGICAL ORDER CRISTHIAN Final Result from Last 3 Months or Most Recently Relevant to Health Maintenance Insurance [place] Care Teams Substance Abuse Services Director Relationship Specialty Start Date End Date Provider, None [place] PCP - General 06/03/21 Danielle Phelps, KARSON, HELICOPTER MECHANIC Nurse Practitioner Advanced Practice Nurse 05/10/16 Chano Leggett DO Gastroenterology 09/01/16
--- OUTSIDE RECORDS SUMMARY | 2024-12-07 16:11 | XMS_ITS | Referral Summary ---
Author Organization [facility] [employer] Address [address] [place] [address] Care Team Providers Care Telephone Clerk Name Role Phone Joe Goodrich MD Primary Care Provider Source Comments [facility] Affiliates and Associated Physician Practices is amultiple site organization consisting of ambulatory clinics and hospital sitesin [place], [place], [place] and [place]. This disclosure is being madepursuant to the Care Everywhere program and may not contain all information available regarding this patient. Last updated 18.[facility] [employer] Allergies Active Allergy Reactions Criticality Noted Date [...] has overlap with psoriatic arthritis. Patient given consumer insight manager Dr. Abraham's information. Cervical spondylosis without myelopathy 10/10/20 19 Cigarette smoker 10/10/2019 [facility] current use of therapeutic drug 2018 Overview [...] T Respiratory Rate 16 10/23/2021 6:35 PM SCENE PAINTER Oxygen Saturation 100% 10/23/2021 6:35 PM SCENE PAINTER Inhaled Oxygen Concentration - - Weight 97.5 kg (215 lb) 01/17/2024 10:35 AM CDT Height 177.8 cm (5' 10 ) 01/17/2024 10:35 AM CDT Body Mass Index 30.85 01/17/2024 10:35 AM CDT Plan of Treatment Upcoming Encounters Date Type Department Care Team (Late st Contact Info) Description 02/05/2025 11:00 AM CDT Office Visit [facility] [address] [facility] [address] [place] [address] Kiara Sifuentes, HEALTH COMMUNICATIONS SPECIALIST-[facility] [address] [facility] [address] [place] [address] Procedures Procedure Name Priority Date/Time Associated Diagnosis Comments COMPREHENSIVE METABOLIC PANEL STAT 10/23/2021 9:38 PM SCENE PAINTER HEPATITIS C ANTIBODY Routine 06/08/2020 4:51 PM CDT Thrombocytopenia, 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) Polycythemia Secondary polycythemia HIV-1 HIV-2 ANTIBODY + HIV P24 AG PANEL Routine 06/08/2020 4:46 PM CDT Thrombocytopenia, 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) from Last 3 Months or Most Recently Relevant to Health Maintenance Results * (ABNORMAL) COMPREHENSIVE METABOLIC PANEL (10/23/2021 9:38 PM RUST) BUN 16 7 - 26 mg/dL 10/23/2021 10:16 PM [facility] Creatinine 1.29(H) 0.71 - 1.16 mg/dL 10/23/2021 10:16 PM [facility] Sodium 141 136 - 145 mmol/L 10/23/2021 10:16 PM [facility] Potassium 3.8 3.5 - 4.5 mmol/L 10/23/2021 10:16 PM [facility] Chloride 105 98 - 107 mmol/L 10/23/2021 10:16 PM [facility] CO2 25 22 - 29 mmol/L 10/23/2021 10:16 PM [facility] Glucose 189(H) 70 - 115 mg/dL 10/23/2021 10:16 PM [facility] Calcium 9.7 8.4 - 10.2 mg/dL 10/23/2021 10:16 PM [facility] Protein Total 7.3 6.0 - 8.3 g/dL 10/23/2021 10:16 PM [facility] Albumin 3.9 3.4 - 5.0 g/dL 10/23/2021 10:16 PM [facility] Bilirubin Total 0.8 0.2 - 1.2 mg/dL 10/23/2021 10:16 PM [facility] Alkaline Phosphatase 111 40 - 150 U/L 10/23/2021 10:16 PM [facility] ALT 23 5 - 55 U/L 10/23/2021 10:16 PM [facility] AST 20 5 - 34 U/L 10/23/2021 10:16 PM [facility] Anion Gap 15 8 - 18 10/23/2021 10:16 PM [facility] BUN/Creatinine Ratio 12 7 - 23 10/23/2021 10:16 PM [facility] Osmolality Calculated 298 270 - 300 mOsm/kg 10/23/2021 10:16 PM [facility] Albumin/Globulin Ratio 1.1 1.1 - 2.3 10/23/2021 10:16 PM [facility] eGFR by CKD-EPI 63(L) >=90 mL/min/1.7 3 m2 10/23/2021 10:16 PM [facility] Blood BLOOD SPECIMEN / Unknown Venipuncture / Unknown 10/23/2021 9:38 PM SCENE PAINTER 10/23/2021 9:50 PM SCENE PAINTER Willy Garcia PA-C LAB - CHEM ISTRY ORDERABLES [facility] [address] [place] [address], [facility] [phone] * HEPATITIS C ANTIBODY (06/08/2020 4:51 PM CDT) Hepatitis C Antibody <0.1 0.0 - 0.9 s/co ratio [facility] INSURANCE BILL Comment: ? Negative: ? < 0.8 ?Indeterminate: 0.8 - 0.9 ? Positive: ? > 0.9 ? . ?The CDC recommends that a positive HCV antibody result ?be followed up with a HCV Nucleic Acid Amplification ?test (659291). Blood BLOOD SPECIMEN / Unknown 06/08/2020 4:51 PM CDT 06/08/2020 Narrative Resulting Agency Comment Lab Testing performed at: [facility] [address] ??[facility] [id number] Carlos Culp MD LAB - CHEMISTRY BILL FLOWERS [facility] INSURANCE BILL [address] [place] [address] * HIV-1 HIV-2 ANTIBODY + HIV P24 AG PANEL (06/08/2020 4:46 PM CDT) HIV Screen 4th Generation w Reflex Non Reactive Non Reactive [facility] INSURANCE BILL Blood BLOOD SPECIMEN / Unknown 06/08/2020 4:46 PM CDT 06/08/2020 Narrative Resulting Agency Comment Lab Testing performed at: [facility] [address] ??[facility] [id number] Carlos Culp MD LAB - CHEMISTRY BILL FLOWERS [facility] INSURANCE BILL [address] [place] [address] from Last 3 Months or Most Recently Relevant to Health Maintenance Care Teams Telephone Clerk Relationship Specialty Start Date End Date Joe Goodrich MD [address] [address] PCP - General Internal Medicine 06/30/20
--- OUTSIDE RECORDS SUMMARY | 2024-12-07 16:12 | XMS_ITS | Clinical Summary ---
Author Organization [facility] Address [address] [place] [address]. [place], [place] [id number] [place] [address] Care Team Providers Care Repair Order Clerk Name Role Phone Joe Goodrich MD [...] patient's age to complete this topic Insurance [facility] MEDICARE Care Teams Repair Order Clerk Relationship Specialty Start Date End Date Joe Goodrich MD [address] [place] [address] PCP - General INTERNAL MEDICINE 10/07/18
--- OUTSIDE RECORDS SUMMARY | 2024-12-07 16:12 | XMS_ITS | Clinical Summary ---
Author Organization [facility] Address [address] [place] [address] Care Team Providers Care Cardiac Care Unit Nurse Name Role Phone Gustavo Bell MD Unavailable [phone] Carlos Culp MD Unavailable Sebastian Up MD Unavailable [phone] Thai Cruz Primary Care Provider Allergies Active Allergy Reactions Criticality Noted Date Comments Cephalexin Other (See comments) Low WOUND UP IN ER, PASSED OUT ON FLOOR Tnfvgyr-Iyf-Cyq Reductase Inhibitors Swelling Medium 06/13/2022 Medications ALPRAZolam [...] 50 mg by mouth daily 11/15/2020 Active HYDROcodone-aelc taminophen (NORCO) 7.5-325 mg per tablet TAKE [...] Culp. Assessment & Plan (01/05/2021 11:46 AM IN ROOM DINING SERVER): Follows with marshal. Doing whole blood phlebotomy [...] when laying on his back at night. [facility] neurology refused referral as they do [...] when laying on his back at night. [facility] neurology refused referral as they do [...] neurology. Assessment & Plan (01/05/2021 11:50 AM IN ROOM DINING SERVER): Notes left anterior thigh paresthesias that radiates [...] crest. Assessment & Plan (01/05/2021 11:44 AM IN ROOM DINING SERVER): Xray (03/04/2020) revealed mild OA. Recent MRI right hip was revealing for mild tendinopathy of right gluteus minimus and mild bilateral trochanteric bursitis. Did not do PT. States he has done PT 4 different times without benefit in the past. Pain localized over the anterosuperior iliac spine and radiates along the iliac crest. Assessment & Plan (09/21/2020 12:39 PM IN ROOM DINING SERVER): Xray (03/04/2020) revealed mild OA. Recent MRI [...] 11/28/2019 Assessment & Plan (11/28/2019 11:07 AM IN ROOM DINING SERVER): Pt has red, flaky rash between the eyebrows and scattered throughout his interiano. He states it developed over the past 6 months and denies change in soaps/detergents. HCQ can cause/worsen psoriasis. Will hold plaquenil and watch for improvement. Recommend patient see dermatology. If rash is diagnosed as psoriasis, then likely patient has overlap with psoriatic arthritis. Patient given r developer Dr. Abraham's information. Neck pain 08/28/2019 Assessment [...] into hands as well and has diminished sales associate strength as well. Patient was told in [...] into hands as well and has diminished sales associate strength as well. Patient was told in [...] into hands as well and has diminished sales associate strength as well. Will give referral to neurology. Assessment & Plan (01/05/2021 11:41 AM IN ROOM DINING SERVER): History of chronic neck pain for which [...] referral from pcp for a spinal surgeon. retirement current use of therapeutic drug 2018 Overview [...] rash Assessment & Plan (01/05/2021 11:40 AM IN ROOM DINING SERVER): Hepatitis negative: 04/2018 CXR negative: 04/2018 Quantiferon negative: 03/15/2020 Has failed MTX, leflunomide, SSZ, enbrel, and humira. Orencia - loss of benefit HCQ - stopped due to psoriasis-like rash Assessment & Plan (09/21/2020 12:36 PM IN ROOM DINING SERVER): Hepatitis negative: 04/2018 CXR negative: 04/2018 Quantiferon [...] rash Assessment & Plan (11/28/2019 11:03 AM IN ROOM DINING SERVER): Hepatitis negative: 04/2018 CXR negative: 04/2018 Quantiferon [...] 08/02/2018 Assessment & Plan (01/05/2021 11:46 AM IN ROOM DINING SERVER): Chronic. Denied benefit with kenalog injection given [...] benefit. Assessment & Plan (11/28/2019 11:03 AM IN ROOM DINING SERVER): Denied benefit with kenalog injection given at [...] benefit. Assessment & Plan (12/24/2018 11:18 AM IN ROOM DINING SERVER): Recently followed with orthopedics for additional evaluation. Was told that he had fluid build up that was causing his elbow pain and could not be offered any specific treatment. Has recently been having pain in his left elbow also. If becomes more bothersome, could consider physical therapy in the future. Assessment & Plan (10/21/2018 5:04 PM IN ROOM DINING SERVER): He has persistent pain in his right [...] ng multiple sites with positive rheumatoid factor ([facility]) 04/15/2018 Overview (03/05/2020): Serologies 2014: [...] with simponi aria. Continue Actemra 8mg/kg IV [id number] and give this more time to take [...] office. Assessment & Plan (01/05/2021 11:43 AM IN ROOM DINING SERVER): Moderate cdai. Synovitis with increased tenderness of [...] office. Assessment & Plan (09/21/2020 12:37 PM IN ROOM DINING SERVER): Moderate cdai. Synovitis without much tenderness noted [...] needed. Assessment & Plan (11/28/2019 12:08 PM IN ROOM DINING SERVER): High cdai. Several swollen and tender joints [...] needed. Assessment & Plan (12/24/2018 11:19 AM IN ROOM DINING SERVER): Moderate cdai. No obvious synovitis noted on [...] needed. Assessment & Plan (10/21/2018 5:00 PM IN ROOM DINING SERVER): He is having increased pain complaints in [...] exercise. Assessment & Plan (01/05/2021 11:42 AM IN ROOM DINING SERVER): Still has generalized pain. Follows with pain management and remains on Lyrica 150mg TID and baclofen 20mg prn per pain management, although dose not take baclofen very frequently as he denies benefit. Does not take Lyrica routinely as he feels it worsens his pain. Encouraged to participate in routine exercise. Assessment & Plan (09/21/2020 12:37 PM IN ROOM DINING SERVER): Still has generalized pain. Follows with pain [...] exercise. Assessment & Plan (11/28/2019 11:04 AM IN ROOM DINING SERVER): Still has generalized pain. Follows with pain [...] exercise. Assessment & Plan (12/24/2018 11:45 AM IN ROOM DINING SERVER): Still has generalized pain which appears to be contributing to most of his pain complaints today. Follows with pain management and remains on Lyrica 150mg TID and baclofen 20mg prn per pain management. Encouraged to participate in routine exercise. Assessment & Plan (10/21/2018 5:06 PM IN ROOM DINING SERVER): He still has widespread pain which I [...] on file Legal Sex Male 1:56 AM IN ROOM DINING SERVER Gender Identity Not on file Sexual Orientation [...] C Ab Non-Reactiv e Non-Reactiv e [facility] Blood specimen (specimen) 04/15/2018 3:00 PM CDT 04/15/2018 5:15 PM CDT Narrative [facility] - 04/15/2018 9:03 PM CDT us Pierce Griffiths MD LAB MICROBIOLOGY - GENE RAL ORDERABLES Final Result [facility] [address] [place] [address] from Last 3 Months or Most Recently Relevant to Health Maintenance Insurance MEDICARE MEDICARE MEDICARE MEDICARE Advance Directives For more information, please contact: [phone] Documents on File Type Date Recorded Patient Forest Pathologist Expl anation ADVANCE DIRECTIVE 04/15/2018 5:09 PM * Full Code (Latest Code Status on File) Date Activated Date Inactivated Comments 06/30/2022 10:05 AM 06/30/2022 4:15 PM Care Teams Cardiac Care Unit Nurse Relationship Specialty Start Date End Date Thai Cruz PA [address] [facility] [address] [place], [place] [id number] PCP - General Physician Granular Operator 06/21/22 Gustavo Bell MD [address] [facility] [address] [place] [address] Consulting Physician Rheumatology 05/03/18 Carlos Culp MD [address] [facility] [address] [place] [address] Referring Physician Internal Medicine 05/18/20 Sebastian Up MD [address] [place] [address] Referring Physician Physical Medicine and Rehabilitation 07/19/21
--- OUTSIDE RECORDS SUMMARY | 2024-12-07 16:12 | XMS_ITS | Referral Summary ---
Author Organization [facility] Address [address] [place] [address] Care Team Providers Care Fur Storage Clerk Name Role Phone Gustavo Bell MD Unavailable [phone] Carlos Culp MD Unavailable Sebastian Up MD Unavailable [phone] Thai Cruz Primary Care Provider Allergies Active Allergy Reactions Criticality Noted Date Comments Cephalexin Other (See comments) Low WOUND UP IN ER, PASSED OUT ON FLOOR Qmvodsn-Ztd-Pko Reductase Inhibitors Swelling Medium 06/13/2022 Medications ALPRAZolam [...] Culp. Assessment & Plan (01/05/2021 11:46 AM FREEZER UNLOADER): Follows with marshal. Doing whole blood phlebotomy [...] when laying on his back at night. [facility] neurology refused referral as they do not [...] when laying on his back at night. [facility] neurology refused referral as they do not [...] neurology. Assessment & Plan (01/05/2021 11:50 AM FREEZER UNLOADER): Notes left anterior thigh paresthesias that radiates [...] crest. Assessment & Plan (01/05/2021 11:44 AM FREEZER UNLOADER): Xray (03/04/2020) revealed mild OA. Recent MRI right hip was revealing for mild tendinopathy of right gluteus minimus and mild bilateral trochanteric bursitis. Did not do PT. States he has done PT 4 different times without benefit in the past. Pain localized over the anterosuperior iliac spine and radiates along the iliac crest. Assessment & Plan (09/21/2020 12:39 PM FREEZER UNLOADER): Xray (03/04/2020) revealed mild OA. Recent MRI [...] 11/28/2019 Assessment & Plan (11/28/2019 11:07 AM FREEZER UNLOADER): Pt has red, flaky rash between the eyebrows and scattered throughout his interiano. He states it developed over the past 6 months and denies change in soaps/detergents. HCQ can cause/worsen psoriasis. Will hold plaquenil and watch for improvement. Recommend patient see dermatology. If rash is diagnosed as psoriasis, then likely patient has overlap with psoriatic arthritis. Patient given body wirer Dr. Abraham's information. 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 Will give referral to neurology. Assessment & Plan (01/05/2021 11:41 AM FREEZER UNLOADER): History of chronic neck pain for which [...] referral from pcp for a spinal surgeon. prison current use of therapeutic drug 2018 Overview [...] rash Assessment & Plan (01/05/2021 11:40 AM FREEZER UNLOADER): Hepatitis negative: 04/2018 CXR negative: 04/2018 Quantiferon negative: 03/15/2020 Has failed MTX, leflunomide, SSZ, enbrel, and humira. Orencia - loss of benefit HCQ - stopped due to psoriasis-like rash Assessment & Plan (09/21/2020 12:36 PM FREEZER UNLOADER): Hepatitis negative: 04/2018 CXR negative: 04/2018 Quantiferon [...] rash Assessment & Plan (11/28/2019 11:03 AM FREEZER UNLOADER): Hepatitis negative: 04/2018 CXR negative: 04/2018 Quantiferon [...] 08/02/2018 Assessment & Plan (01/05/2021 11:46 AM FREEZER UNLOADER): Chronic. Denied benefit with kenalog injection given [...] benefit. Assessment & Plan (11/28/2019 11:03 AM FREEZER UNLOADER): Denied benefit with kenalog injection given at [...] benefit. Assessment & Plan (12/24/2018 11:18 AM FREEZER UNLOADER): Recently followed with orthopedics for additional evaluation. Was told that he had fluid build up that was causing his elbow pain and could not be offered any specific treatment. Has recently been having pain in his left elbow also. If becomes more bothersome, could consider physical therapy in the future. Assessment & Plan (10/21/2018 5:04 PM FREEZER UNLOADER): He has persistent pain in his right [...] ng multiple sites with positive rheumatoid factor ([facility]) 04/15/2018 Overview (03/05/2020): Serologies 2014: negative [...] with simponi aria. Continue Actemra 8mg/kg IV [id number] and give this more time to take [...] office. Assessment & Plan (01/05/2021 11:43 AM FREEZER UNLOADER): Moderate cdai. Synovitis with increased tenderness of [...] office. Assessment & Plan (09/21/2020 12:37 PM FREEZER UNLOADER): Moderate cdai. Synovitis without much tenderness noted [...] needed. Assessment & Plan (11/28/2019 12:08 PM FREEZER UNLOADER): High cdai. Several swollen and tender joints [...] needed. Assessment & Plan (12/24/2018 11:19 AM FREEZER UNLOADER): Moderate cdai. No obvious synovitis noted on [...] needed. Assessment & Plan (10/21/2018 5:00 PM FREEZER UNLOADER): He is having increased pain complaints in [...] exercise. Assessment & Plan (01/05/2021 11:42 AM FREEZER UNLOADER): Still has generalized pain. Follows with pain management and remains on Lyrica 150mg TID and baclofen 20mg prn per pain management, although dose not take baclofen very frequently as he denies benefit. Does not take Lyrica routinely as he feels it worsens his pain. Encouraged to participate in routine exercise. Assessment & Plan (09/21/2020 12:37 PM FREEZER UNLOADER): Still has generalized pain. Follows with pain [...] exercise. Assessment & Plan (11/28/2019 11:04 AM FREEZER UNLOADER): Still has generalized pain. Follows with pain [...] exercise. Assessment & Plan (12/24/2018 11:45 AM FREEZER UNLOADER): Still has generalized pain which appears to be contributing to most of his pain complaints today. Follows with pain management and remains on Lyrica 150mg TID and baclofen 20mg prn per pain management. Encouraged to participate in routine exercise. Assessment & Plan (10/21/2018 5:06 PM FREEZER UNLOADER): He still has widespread pain which I [...] on file Legal Sex Male 1:56 AM FREEZER UNLOADER Gender Identity Not on file Sexual Orientation [...] C Ab Non-Reactiv e Non-Reactiv e [facility] Blood specimen (specimen) 04/15/2018 3:00 PM CDT 04/15/2018 5:15 PM CDT Narrative [facility] - 04/15/2018 9:03 PM CDT us Pierce Griffiths MD LAB MICROBIOLOGY - GENE RAL ORDERABLES Final Result [facility] [address] Department [place] [address] from Last 3 Months or Most Recently Relevant to Health Maintenance Insurance [address] [place] [address] [place] [address] [place] [address] MEDICARE MEDICARE Advance Directives For more information, please contact: [phone] Documents on File Type Date Recorded Patient Logistic Specialist Expl anation ADVANCE DIRECTIVE 04/15/2018 5:09 PM * Full Code (Latest Code Status on File) Date Activated Date Inactivated Comments 06/30/2022 10:05 AM 06/30/2022 4:15 PM Care Teams Fur Storage Clerk Relationship Specialty Start Date End Date Thai Cruz PA [address] [facility] [address] [place] [address] PCP - General Physician Order Entry 06/21/22 Gustavo Bell MD [address] [facility] [address] [place] [address] Consulting Physician Rheumatology 05/03/18 Carlos Culp MD [address] [facility] [address] [place] [address] Referring Physician Internal Medicine 05/18/20 Sebastian Up MD [address] [place] [address] Referring Physician Physical Medicine and Rehabilitation 07/19/21
--- OUTSIDE RECORDS SUMMARY | 2024-12-07 16:12 | XMS_ITS | Clinical Summary ---
Author Organization [facility] [place] [id number] [facility] Address [address] [place] [address] Care Team Providers Care Loan Servicing Officer Name Role Phone Lai Goodrich MD Primary Care Provider [phone] Allergies Active Allergy Reactions Criticality Noted Date Comments Sbdibrs-Hle-Vsx Reductase Inhibitors Anaphylaxis High 09/09/2018 Tongue swelling [...] Comments Blood Pressure 148/88 10/10/2019 12:39 PM SET BUILDER Pulse - - Temperature - - Respiratory Rate - - Oxygen Saturation - - Inhaled Oxygen Concentration - - Weight 98.9 kg (218 lb) 10/10/2019 12:39 PM SET BUILDER Height 177.8 cm (5' 10 ) 10/10/2019 12:39 PM SET BUILDER Body Mass Index 31.28 10/10/2019 12:39 PM SET BUILDER Plan of Treatment Health Maintenance Due Date [...] 2024 08/10/2015 Insurance [place]ICAID [place] Care Teams Loan Servicing Officer Relationship Specialty Start Date End Date Lai Goodrich MD [address] [place], [place] [id number] PCP - General Internal Medicine 09/19/19
[2024-12-07 16:14] LABS: Glucose Point of Care 93 mg/dl (65-105)
[2024-12-07 16:45] LABS: Influenza A QL RT-PCR Negative (Negative); Influenza B QL RT-PCR Negative (Negative); RSV RNA, RT-PCR Negative (Negative); SARS-CoV-2 RNA PCR Negative (Negative)
[2024-12-07 16:56] LABS: Add Urine Microscopic? NO; Appearance Urine Clear (Clear); Bilirubin Urine Negative (Negative); Blood Urine Negative (Negative); Color Urine Yellow (Yellow); Glucose Urine UA 3+ mg/dL (Negative); Ketones Urine Negative (Negative); Leukocyte Esterase Ur Negative LEU/UL (Negative); Nitrate Urine Negative (Negative); Protein Urine Negative (Negative); Specific Grav Ur > 1.045 (1.001-1.035)
[2024-12-07 19:16] LABS: Troponin I < 0.012 ng/mL (0.000-0.034)
== END 2024-12-07 19:34 | disposition home or self-care (01) ==
PROVIDERS: Emergency Medicine; Emergency Provider Physician Assistant; PCP Internal Medicine
DX: R07.89 Other chest pain (principal); I70.1 Atherosclerosis of renal artery; R10.32 Left lower quadrant pain; N18.9 Chronic kidney disease, unspecified; Z20.822 Contact with and (suspected) exposure to COVID-19; I12.9 Hypertensive chronic kidney disease with stage 1 through stage 4 chronic kidney disease, or unspecified chronic kidney disease; E11.22 Type 2 diabetes mellitus with diabetic chronic kidney disease; K74.60 Unspecified cirrhosis of liver; M79.7 Fibromyalgia; M05.79 Rheumatoid arthritis with rheumatoid factor of multiple sites without organ or systems involvement; G47.33 Obstructive sleep apnea (adult) (pediatric); K22.70 Barrett's esophagus without dysplasia; K21.9 Gastro-esophageal reflux disease without esophagitis; F17.210 Nicotine dependence, cigarettes, uncomplicated; Z87.442 Personal history of urinary calculi; Z86.0101 Personal history of adenomatous and serrated colon polyps; R16.1 Splenomegaly, not elsewhere classified; J43.9 Emphysema, unspecified; Z79.84 Long term (current) use of oral hypoglycemic drugs; Z79.899 Other long term (current) drug therapy; I45.10 Unspecified right bundle-branch block; R94.31 Abnormal electrocardiogram [ECG] [EKG]
CPT/HCPCS: 36415; 71046; 71275; 74177; 80053; 81003; 82948; 83690; 83735; 84484; 85025; 85055; 85380; 85610; 85730; 87637; 93005; 96360; 99284; A9270; J7030; Q9967

== ENCOUNTER 2025-02-11 11:41 | Emergency (ER) | payer OTHER, MEDICARE, SELFPAY ==
[2025-02-11 11:50] VITALS: BP 130/79; PULSE 92; RESP 16; TEMP 36.2; O2SAT 100
--- NOTE | 2025-02-11 12:19 | ED.GENADULT ---
HPI - General Adult General Chief complaint: Abdominal Pain Stated complaint: left side abdominal pain Time Seen by Provider: 02/11/25 12:11 Source: patient Mode of arrival: ambulatory Limitations: no limitations History of Present Illness HPI narrative: 55-year-old male with multiple chronic health problems presents with concern for left lower abdominal/groin pain that starts reports a low back and radiates around the left groin, reports it is exacerbated when he lifts up either 1 of his legs. Reports that is relieved when he pushes on his stomach. Reports this pain is been going on for about 4 months. He reports it has gotten slightly worse lately. He denies nausea, diarrhea, constipation, vomiting. Reports decreased appetite and recent weight loss of 30 lb without trying. Patient has chronic kidney disease and sees a sterile products processor. He denies dysuria, frequency, urgency, hematuria. He denies fever, body aches, chills, sweats. Denies weakness in any extremity. MD complaint: Abdominal pain Related Data Home Medications ?Medication ?Instructions ?Recorded ?Confirmed ?Last Taken ?Type erenumab-aooe 140 mg/mL 140 mg subcut MONTHLY 02/18/24 02/11/25 Unknown History subcutaneous auto-injector (Aimovig Autoinjector) hydrocodone 7.5 mg-acetaminophen 1 tablet PO Q8H PRN Pain 02/29/24 02/11/25 12/06/24 History 325 mg tablet Allergies Allergy/AdvReac Type Severity Reaction Status Date / Time cephalexin Allergy Severe PASSED Verified 02/11/25 11:43 OUT , VOMITING Jhhqsjf-GKL-NsM Reductase Allergy Severe Swelling Verified 02/11/25 11:43 Inhibitor (Dflyupn-Msl-Rop of Reductase Inhibitor) Lip/Tongue/Throat Review of Systems Review of Systems: CONSTITUTIONAL: Denies malaise, chills, sweats, or fever. CARDIOVASCULAR: Denies chest pain, palpitations, or edema. RESPIRATORY: Denies cough or dyspnea. GASTROINTESTINAL: Reports left lower quadrant abdominal pain that radiates towards the groin, nausea, vomiting, diarrhea. Denies bloody or mucous stools. GENITOURINARY: Denies dysuria or hematuria. SKIN: Denies rash or itching. MUSCULOSKELETAL: Reports chronic back pain, joint pain. Denies myalgia. NEUROLOGIC: Denies new numbness, weakness, or headache. 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 organ or systems involvement Hypertension Allergies R[place] (obstructive sleep apnea) Thrombocytopenia Obesity Gastric ulcer Granular cell tumor Esophagus Barretts esophagus Migraines Hx of renal calculi Rheumatoid arthritis Hx of adenomatous colonic polyps GERD (gastroesophageal reflux disease) Surgical History Surgical History H/O hemorrhoidectomy 09/25/22 Rectal exam under anesthesia with internal and external hemorrhoidectomy x2 columns History of elbow surgery Status post medial meniscus repair of right knee S/P left rotator cuff repair History of lithotripsy Hx of inguinal hernia repair Hx of esophagogastroduodenoscopy Hx of colonoscopy Hx of sinus surgery Family History Family History Father Heart disease Diabetes mellitus Hypertension Grandparent Cerebrovascular accident Mother No problems noted. Sibling No problems noted. Social History Social History Smoking packs per day: 2 Smoking cigarettes per day: 40.0 Years smoked: 40 Smoking pack-years: 80.00 Smoking status: Current every day smoker Tobacco type: cigarettes Second hand tobacco smoke exposure: No Alcohol intake: former Alcohol use details: HEAVY DRINKER IN PAST, QUIT 15 YEARS AGO Substance use: current Substance use type: opiates and painkillers Do You Feel Safe in your Home?: Yes Lack of Transportation: No Lack of Food: Never True Current Housing: I Have Housing Concerned About Future Housing: No Difficulty Paying Gas/Electric Bills: No Difficulty Paying for Meds: No Currently Unemployed: No Education: High School Diploma/GED Difficulty w/ Childcare or Family Care: No Living arrangements: alone Occupation/Education: occupation 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 There is no relevant family history pertinent to the presenting complaint Exam Narrative: GENERAL: Well-appearing, well-nourished, and in no acute distress. HEAD: Normocephalic, atraumatic. EYES: PERRLA, sclera clear. ENT: Nares clear. Mucous membranes moist. NECK: Supple. CHEST: No respiratory distress. Speaks in full sentences. HEART: Regular rate and rhythm. EXTREMITIES: Grossly Normal range of motion. SKIN: Warm, dry, no visible rash. NEURO: Alert and oriented x3. PSYCH: Normal mood and affect Course Course Emergency Course: Based on patient's symptoms, chronic health conditions I recommended transfer to emergency room for further evaluation of patient's symptoms. Patient reports he does not want to go to the emergency room, reports he will walk over to his primary care doctor's office who is across the parking lot to get an appointment. Discussed reasons to go to the emergency room if symptoms worsen or change. Anticipatory guidance given. Patient is aware of reasons to seek care at the emergency department. Portions of this record may have been created with voice recognition software Level of Care: Express Care Visit Vital Signs Vital signs: Vital Signs Temperature 97.1 F L 02/11/25 11:50 Pulse Rate 92 02/11/25 11:50 Respiratory Rate 16 02/11/25 11:50 Blood Pressure 130/79 02/11/25 11:50 Pulse Oximetry 100 02/11/25 11:50 Oxygen Delivery Room Air 02/11/25 11:50 Temperature 97.1 F L 02/11/25 11:50 Pulse Rate 92 02/11/25 11:50 Respiratory Rate 16 02/11/25 11:50 Blood Pressure 130/79 02/11/25 11:50 Pulse Oximetry 100 02/11/25 11:50 Oxygen Delivery Room Air 02/11/25 11:50 Reviewed. Medical Decision Making MDM Narrative Medical decision making narrative: This patient is nontoxic appearing and in no acute distress Vital Signs Vital Signs: Vital Signs Temperature 97.1 F L 02/11/25 11:50 Pulse Rate 92 02/11/25 11:50 Respiratory Rate 16 02/11/25 11:50 Blood Pressure 130/79 02/11/25 11:50 Pulse Oximetry 100 02/11/25 11:50 Oxygen Delivery Room Air 02/11/25 11:50 Temperature 97.1 F L 02/11/25 11:50 Pulse Rate 92 02/11/25 11:50 Respiratory Rate 16 02/11/25 11:50 Blood Pressure 130/79 02/11/25 11:50 Pulse Oximetry 100 02/11/25 11:50 Oxygen Delivery Room Air 02/11/25 11:50 Critical Care Time Critical Care Time Critical Care Time: No Discharge Plan Discharge Clinical Impression: Left lower quadrant pain Patient Disposition: Home Condition: Stable Instructions: Abdominal Pain (ED) Additional Instructions: 1) Please follow-up with your primary care doctor for further evaluation. 2) If you have any worsening of symptoms or any other urgent concerns please go to the ER. 3) Please continue taking your home medications as usual. 4) Please read and follow information included in discharge instructions. Patient Language: Mongolian Prescriptions: No Action (DME) Space Chamber Spacer See Rx Instructions .ROUTE .MEDSUPPLY Qty: 1 0RF Rx Instructions: As directed Jardiance 25 mg tablet 25 mg PO DAILY Qty: 90 1RF Januvia 50 mg tablet 50 mg PO DAILY Qty: 90 2RF Aimovig Autoinjector 140 mg/mL auto-injector 140 mg subcut MONTHLY sucralfate 1 gram tablet See Rx Instructions .ROUTE .COMPLEX Qty: 120 0RF Dose Instruction: TAKE 1 TABLET BY MOUTH EVERY 6 HOURS Rx Instructions: TAKE 1 TABLET BY MOUTH EVERY 6 HOURS pantoprazole 40 mg tablet,delayed release (DR/EC) 40 mg PO Q12H Qty: 60 12RF fluticasone propionate 50 mcg/actuation spray,suspension 2 spray intranasal DAILY PRN (Reason: nasal congestion) Qty: 15.8 1RF Rx Instructions: administer into each nostril albuterol sulfate [Ventolin HFA] 90 mcg/actuation HFA aerosol inhaler 2 puff inhalation Q4-6H PRN (Reason: shortness of breath or wheezing) Qty: 8 2RF hydrocodone-acetaminophen 7.5-325 mg tablet 1 tablet PO Q8H PRN (Reason: Pain) (DME) Accu-Chek Guide test strips Strip See Rx Instructions .Route Qty: 100 2RF Rx Instructions: Check daily (DME) blood-glucose meter [Accu-Chek Guide Glucose Meter] Misc See Rx Instructions .Route Qty: 1 1RF Rx Instructions: As directed (DME) lancets [Accu-Chek Softclix Lancets] Misc See Rx Instructions .Route Qty: 100 2RF Rx Instructions: As directed lisinopril 20 mg tablet 20 mg PO DAILY Qty: 90 2RF Rx Instructions: TAKES IN AM alprazolam [Xanax] 1 mg tablet 1 mg PO QHS Qty: 30 0RF ondansetron 4 mg tablet,disintegrating See Rx Instructions .ROUTE .COMPLEX Qty: 30 2RF Dose Instruction: DISSOLVE 1 TABLET IN MOUTH EVERY 6 HOURS NEEDED FOR NAUSEA AND VOMITING Rx Instructions: DISSOLVE 1 TABLET IN MOUTH EVERY 6 HOURS NEEDED FOR NAUSEA AND VOMITING meclizine 25 mg tablet 25 mg PO TID PRN (Reason: dizziness) Qty: 30 0RF Follow-up/Referrals: Yury Barnes DO [Primary Care Provider] - 1 Day (Patient having chronic LLQ pain, unable to work up symptoms at ) Time of Disposition: 12:34
== END 2025-02-11 12:42 | disposition home or self-care (01) ==
PROVIDERS: Emergency Provider Nurse Practitioner; PCP Internal Medicine
DX: R10.32 Left lower quadrant pain (principal); I10 Essential (primary) hypertension; K21.9 Gastro-esophageal reflux disease without esophagitis; K22.70 Barrett's esophagus without dysplasia; E66.9 Obesity, unspecified; D69.6 Thrombocytopenia, unspecified; M05.79 Rheumatoid arthritis with rheumatoid factor of multiple sites without organ or systems involvement; D36.0 Benign neoplasm of lymph nodes; D13.0 Benign neoplasm of esophagus; Z86.0101 Personal history of adenomatous and serrated colon polyps; Z68.29 Body mass index [BMI] 29.0-29.9, adult
CPT/HCPCS: 99212; G0463

== ENCOUNTER 2025-02-23 16:15 | Outpatient (CLI) | payer MEDICARE, SELFPAY ==
--- NOTE | ~2025-02-23 | CT_ITS ---
Non-contrast CT scan of the Abdomen and Pelvis Clinical indication: Abdominal pain Technique: 2.5 mm axial scans were obtained through the abdomen and pelvis without intravenous or or al contrast. Dose reduction technique was used on this scan by utilizing automated exposure control a nd iterative reconstruction technique. The dose-length product (DLP) was 722.34 mGy-cm. COMPARISON: 12/07/2024 Findings: Images through the lung bases reveal no abnormalities. There is no evidence of renal or ureteral calculi. The kidneys and the ureters are nondilated. Mild nodular contour of liver present, most compatible with sclerotic change. Splenomegaly noted, wit h spleen measuring 16.5 cm in anteroposterior dimension. The pancreas, gallbladder, and adrenals appe ar normal. There are mild atherosclerotic calcifications of the aorta. Left renal artery stent prese nt. There is no evidence of bowel obstruction. Prominent stool suggests constipation. Images through the pelvis were performed. There is no evidence of ascites or lymphadenopathy. Urinary bladder unremarkable. No pelvic mass evident. Impression: Cirrhosis of the liver with associated splenomegaly. Left renal artery stent. Constipation. Reviewed, dictated and finalized at location . Impression: Cirrhosis of the liver with associated splenomegaly. Left renal artery stent. Constipation.
--- OUTSIDE RECORDS SUMMARY | 2025-02-23 17:52 | XMS_ITS | Clinical Summary ---
Author Organization [email or web address] [place] [id number] [facility] Address [address] [place] [address] Care Team Providers Care Registration Coordinator Name Role Phone Lai Goodrich MD Primary Care Provider Allergies Active Allergy Reactions Criticality Noted Date Comments Qsmjgdw-Upp-Ulk Reductase Inhibitors Anaphylaxis High 09/09/2018 Tongue swelling [...] Comments Blood Pressure 148/88 10/10/2019 12:39 PM [facility] Pulse - - Temperature - - Respiratory Rate - - Oxygen Saturation - - Inhaled Oxygen Concentration - - Weight 98.9 kg (218 lb) 10/10/2019 12:39 PM [facility] Height 177.8 cm (5' 10 ) 10/10/2019 12:39 PM [facility] Body Mass Index 31.28 10/10/2019 12:39 PM [facility] Plan of Treatment Health Maintenance Due Date Last Done Comments DTAP/TDAP/TD VACCINES (1 - Tdap) 01/09/1988 HEPATITIS B VACCINES (1 of 3 - 19+ 3-dose series) 04/1988 ZOSTER VACCINE (1 of 2) 01/09/1988 COLORECTAL SCREENING 2014 Colorectal Cancer Screening 2014 FIT-DNA Q 3 years 2014 FIT/FOBT Q 1 year 2014 Flex Sig/CT Colonography Q 5 years 2014 INFLUENZA VACCINE (#1) 2024 08/10/2015 Insurance MEDICAID [place] Care Teams Registration Coordinator Relationship Specialty Start Date End Date Lai Goodrich MD [address] [place] [address] PCP - General Internal Medicine 09/19/19
--- OUTSIDE RECORDS SUMMARY | 2025-02-23 17:52 | XMS_ITS | Clinical Summary ---
Author Organization [facility] Address [address] [place] [address] Care Team Providers Care Cell Plasterer Name Role Phone Gustavo Bell MD Unavailable [phone] Carlos Culp MD Unavailable Sebastian Up MD Unavailable [phone] Thai Cruz Primary Care Provider Allergies Active Allergy Reactions Criticality Noted Date Comments Cephalexin Other (See comments) Low WOUND UP IN ER, PASSED OUT ON FLOOR Mmxqsqz-Nzc-Enb Reductase Inhibitors Swelling Medium 06/13/2022 Medications ALPRAZolam [...] Culp. Assessment & Plan (01/05/2021 11:46 AM [facility]): Follows with marshal. Doing whole blood phlebotomy [...] when laying on his back at night. [facility] neurology refused referral as they do not [...] when laying on his back at night. [facility] neurology refused referral as they do not [...] neurology. Assessment & Plan (01/05/2021 11:50 AM [facility]): Notes left anterior thigh paresthesias that radiates [...] crest. Assessment & Plan (01/05/2021 11:44 AM [facility]): Xray (03/04/2020) revealed mild OA. Recent MRI right hip was revealing for mild tendinopathy of right gluteus minimus and mild bilateral trochanteric bursitis. Did not do PT. States he has done PT 4 different times without benefit in the past. Pain localized over the anterosuperior iliac spine and radiates along the iliac crest. Assessment & Plan (09/21/2020 12:39 PM [facility]): Xray (03/04/2020) revealed mild OA. Recent MRI [...] 11/28/2019 Assessment & Plan (11/28/2019 11:07 AM [facility]): Pt has red, flaky rash between the eyebrows and scattered throughout his interiano. He states it developed over the past 6 months and denies change in soaps/detergents. HCQ can cause/worsen psoriasis. Will hold plaquenil and watch for improvement. Recommend patient see dermatology. If rash is diagnosed as psoriasis, then likely patient has overlap with psoriatic arthritis. Patient given chamber walker Dr. Abraham's information. 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 Will give referral to neurology. Assessment & Plan (01/05/2021 11:41 AM [facility]): History of chronic neck pain for which [...] referral from pcp for a spinal surgeon. care home current use of therapeutic drug 2018 [...] rash Assessment & Plan (01/05/2021 11:40 AM [facility]): Hepatitis negative: 04/2018 CXR negative: 04/2018 Quantiferon negative: 03/15/2020 Has failed MTX, leflunomide, SSZ, enbrel, and humira. Orencia - loss of benefit HCQ - stopped due to psoriasis-like rash Assessment & Plan (09/21/2020 12:36 PM [facility]): Hepatitis negative: 04/2018 CXR negative: 04/2018 Quantiferon [...] rash Assessment & Plan (11/28/2019 11:03 AM [facility]): Hepatitis negative: 04/2018 CXR negative: 04/2018 Quantiferon [...] 08/02/2018 Assessment & Plan (01/05/2021 11:46 AM [facility]): Chronic. Denied benefit with kenalog injection given [...] benefit. Assessment & Plan (11/28/2019 11:03 AM [facility]): Denied benefit with kenalog injection given at [...] benefit. Assessment & Plan (12/24/2018 11:18 AM [facility]): Recently followed with orthopedics for additional evaluation. Was told that he had fluid build up that was causing his elbow pain and could not be offered any specific treatment. Has recently been having pain in his left elbow also. If becomes more bothersome, could consider physical therapy in the future. Assessment & Plan (10/21/2018 5:04 PM [facility]): He has persistent pain in his right [...] ng multiple sites with positive rheumatoid factor 04/15/2018 Overview (03/05/2020): Serologies 2015: negative hepatitis panel, neg RF, hx of [...] with simponi aria. Continue Actemra 8mg/kg IV [id number] and give this more time to take [...] office. Assessment & Plan (01/05/2021 11:43 AM [facility]): Moderate cdai. Synovitis with increased tenderness of [...] office. Assessment & Plan (09/21/2020 12:37 PM [facility]): Moderate cdai. Synovitis without much tenderness noted [...] needed. Assessment & Plan (11/28/2019 12:08 PM [facility]): High cdai. Several swollen and tender joints [...] needed. Assessment & Plan (12/24/2018 11:19 AM [facility]): Moderate cdai. No obvious synovitis noted on [...] needed. Assessment & Plan (10/21/2018 5:00 PM [facility]): He is having increased pain complaints in [...] exercise. Assessment & Plan (01/05/2021 11:42 AM [facility]): Still has generalized pain. Follows with pain management and remains on Lyrica 150mg TID and baclofen 20mg prn per pain management, although dose not take baclofen very frequently as he denies benefit. Does not take Lyrica routinely as he feels it worsens his pain. Encouraged to participate in routine exercise. Assessment & Plan (09/21/2020 12:37 PM [facility]): Still has generalized pain. Follows with pain [...] exercise. Assessment & Plan (11/28/2019 11:04 AM [facility]): Still has generalized pain. Follows with pain [...] exercise. Assessment & Plan (12/24/2018 11:45 AM [facility]): Still has generalized pain which appears to be contributing to most of his pain complaints today. Follows with pain management and remains on Lyrica 150mg TID and baclofen 20mg prn per pain management. Encouraged to participate in routine exercise. Assessment & Plan (10/21/2018 5:06 PM [facility]): He still has widespread pain which I [...] on file Legal Sex Male 1:56 AM [facility] Gender Identity Not on file Sexual Orientation Not on file Obstetrics History Last Filed Vital Signs Vital Sign Reading Time Taken Comments Blood Pressure 107/69 06/30/2022 11:59 AM CDT Pulse 73 06/30/2022 11:59 AM CDT Temperature 36.5 C (97.7 F) 07/19/2021 9:59 AM CDT Respiratory Rate 18 06/30/2022 11:59 AM CDT [...] 2 - PCV) 08/04/2017 08/04/2016 Influenza Vaccine (Season Ended) 2025 08/07/2020, 08/29/2019, 08/23/2018, Additional history exists Hepatitis C [...] [facility] - 04/15/2018 9:03 PM CDT Pierce Griffiths MD LAB MICROBIOLOGY - GENE RAL ORDERABLES Final Result [facility] [address] Department [place] [address] from Last 3 Months or Most Recently Relevant to Health Maintenance Insurance * Guarantor: Pierce Horton Account Type Relation to Patient Date of Phone Billing Address Personal/Family Self 1970 [facility] [employer] [address] [place] [address] MEDICARE * Guarantor: Pierce Horton Account Type Relation to Patient Date of Phone Billing Address Personal/Family Self 1970 [facility] [employer] [address] [place], [place] [id number] MEDICARE [address] [place] [address] [address] [place] [address] MEDICARE Advance Directives For more information, please contact: [phone] Documents on File Type Date Recorded Patient Final Coat Sprayer Expl anation ADVANCE DIRECTIVE 04/15/2018 5:09 PM * Full Code (Latest Code Status on File) Date Activated Date Inactivated Comments 06/30/2022 10:05 AM 06/30/2022 4:15 PM Care Teams Cell Plasterer Relationship Specialty Start Date End Date Thai Cruz PA [address] [place] [address] PCP - General Physician Electrical Electronics Technician 06/21/22 Gustavo Bell MD [address] [place] [address] Consulting Physician Rheumatology 05/03/18 Carlos Culp MD [address] [facility] [address] [place] [address] Referring Physician Internal Medicine 05/18/20 Sebastian Up MD [address] [place] [address] Referring Physician Physical Medicine and Rehabilitation 07/19/21
--- OUTSIDE RECORDS SUMMARY | 2025-02-23 17:52 | XMS_ITS | Referral Summary ---
Author Organization [facility] Address [address] [place] [address] Care Team Providers Care Lead Javascript Developer Name Role Phone Gustavo Bell MD Unavailable [phone] Carlos Culp MD Unavailable Sebastian Up MD Unavailable [phone] Thai Cruz Primary Care Provider Allergies Active Allergy Reactions Criticality Noted Date Comments Cephalexin Other (See comments) Low WOUND UP IN ER, PASSED OUT ON FLOOR Ttttuog-Qbs-Qnq Reductase Inhibitors Swelling Medium 06/13/2022 Medications ALPRAZolam [...] Culp. Assessment & Plan (01/05/2021 11:46 AM VIDEO EFFECTS EDITOR): Follows with marshal. Doing whole blood phlebotomy [...] when laying on his back at night. [facility] neurology refused referral as they [...] when laying on his back at night. [facility] neurology refused referral as they [...] neurology. Assessment & Plan (01/05/2021 11:50 AM VIDEO EFFECTS EDITOR): Notes left anterior thigh paresthesias that radiates [...] crest. Assessment & Plan (01/05/2021 11:44 AM VIDEO EFFECTS EDITOR): Xray (03/04/2020) revealed mild OA. Recent MRI right hip was revealing for mild tendinopathy of right gluteus minimus and mild bilateral trochanteric bursitis. Did not do PT. States he has done PT 4 different times without benefit in the past. Pain localized over the anterosuperior iliac spine and radiates along the iliac crest. Assessment & Plan (09/21/2020 12:39 PM VIDEO EFFECTS EDITOR): Xray (03/04/2020) revealed mild OA. Recent MRI [...] 11/28/2019 Assessment & Plan (11/28/2019 11:07 AM VIDEO EFFECTS EDITOR): Pt has red, flaky rash between the eyebrows and scattered throughout his interiano. He states it developed over the past 6 months and denies change in soaps/detergents. HCQ can cause/worsen psoriasis. Will hold plaquenil and watch for improvement. Recommend patient see dermatology. If rash is diagnosed as psoriasis, then likely patient has overlap with psoriatic arthritis. Patient given college counselor Dr. Abraham's information. 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 Will give referral to neurology. Assessment & Plan (01/05/2021 11:41 AM VIDEO EFFECTS EDITOR): History of chronic neck pain for which [...] referral from pcp for a spinal surgeon. skilled nursing current use of therapeutic drug 2018 Overview [...] rash Assessment & Plan (01/05/2021 11:40 AM VIDEO EFFECTS EDITOR): Hepatitis negative: 04/2018 CXR negative: 04/2018 Quantiferon negative: 03/15/2020 Has failed MTX, leflunomide, SSZ, enbrel, and humira. Orencia - loss of benefit HCQ - stopped due to psoriasis-like rash Assessment & Plan (09/21/2020 12:36 PM VIDEO EFFECTS EDITOR): Hepatitis negative: 04/2018 CXR negative: 04/2018 Quantiferon [...] rash Assessment & Plan (11/28/2019 11:03 AM VIDEO EFFECTS EDITOR): Hepatitis negative: 04/2018 CXR negative: 04/2018 Quantiferon [...] 08/02/2018 Assessment & Plan (01/05/2021 11:46 AM VIDEO EFFECTS EDITOR): Chronic. Denied benefit with kenalog injection given [...] benefit. Assessment & Plan (11/28/2019 11:03 AM VIDEO EFFECTS EDITOR): Denied benefit with kenalog injection given at [...] benefit. Assessment & Plan (12/24/2018 11:18 AM VIDEO EFFECTS EDITOR): Recently followed with orthopedics for additional evaluation. Was told that he had fluid build up that was causing his elbow pain and could not be offered any specific treatment. Has recently been having pain in his left elbow also. If becomes more bothersome, could consider physical therapy in the future. Assessment & Plan (10/21/2018 5:04 PM VIDEO EFFECTS EDITOR): He has persistent pain in his right [...] with simponi aria. Continue Actemra 8mg/kg IV [id number] and give this more time to take [...] office. Assessment & Plan (01/05/2021 11:43 AM VIDEO EFFECTS EDITOR): Moderate cdai. Synovitis with increased tenderness of [...] office. Assessment & Plan (09/21/2020 12:37 PM VIDEO EFFECTS EDITOR): Moderate cdai. Synovitis without much tenderness noted [...] needed. Assessment & Plan (11/28/2019 12:08 PM VIDEO EFFECTS EDITOR): High cdai. Several swollen and tender joints [...] needed. Assessment & Plan (12/24/2018 11:19 AM VIDEO EFFECTS EDITOR): Moderate cdai. No obvious synovitis noted on [...] needed. Assessment & Plan (10/21/2018 5:00 PM VIDEO EFFECTS EDITOR): He is having increased pain complaints in [...] exercise. Assessment & Plan (01/05/2021 11:42 AM VIDEO EFFECTS EDITOR): Still has generalized pain. Follows with pain management and remains on Lyrica 150mg TID and baclofen 20mg prn per pain management, although dose not take baclofen very frequently as he denies benefit. Does not take Lyrica routinely as he feels it worsens his pain. Encouraged to participate in routine exercise. Assessment & Plan (09/21/2020 12:37 PM VIDEO EFFECTS EDITOR): Still has generalized pain. Follows with pain [...] exercise. Assessment & Plan (11/28/2019 11:04 AM VIDEO EFFECTS EDITOR): Still has generalized pain. Follows with pain [...] exercise. Assessment & Plan (12/24/2018 11:45 AM VIDEO EFFECTS EDITOR): Still has generalized pain which appears to be contributing to most of his pain complaints today. Follows with pain management and remains on Lyrica 150mg TID and baclofen 20mg prn per pain management. Encouraged to participate in routine exercise. Assessment & Plan (10/21/2018 5:06 PM VIDEO EFFECTS EDITOR): He still has widespread pain which I [...] on file Legal Sex Male 1:56 AM VIDEO EFFECTS EDITOR Gender Identity Not on file Sexual Orientation [...] Ab Non-Reactiv e Non-Reactiv e [facility] Blood specimen (specimen) 04/15/2018 3:00 PM CDT 04/15/2018 5:15 PM CDT Narrative [facility] - 04/15/2018 9:03 PM CDT us Pierce Griffiths MD LAB MICROBIOLOGY - GENE RAL ORDERABLES Final Result [facility] [address] [place] [address] from Last 3 Months or Most Recently Relevant to Health Maintenance Insurance [address] [place] [address] [address] [place] [address] [address] [place] [address] MEDICARE MEDICARE Advance Directives For more information, please contact: [phone] Documents on File Type Date Recorded Patient Store Grocery Merchandiser Expl anation ADVANCE DIRECTIVE 04/15/2018 5:09 PM * Full Code (Latest Code Status on File) Date Activated Date Inactivated Comments 06/30/2022 10:05 AM 06/30/2022 4:15 PM Care Teams Lead Javascript Developer Relationship Specialty Start Date End Date Tahi Cruz PA [address] [facility] [address] [facility] [address] [place] [address] PCP - General Physician Dredge Hand 06/21/22 Gustavo Bell MD [address] [facility] [address] [place] [address] Consulting Physician Rheumatology 05/03/18 Carlos Culp MD [address] [facility] [address] [place] [address] Referring Physician Internal Medicine 05/18/20 Sebastian Up MD [address] [place] [address] Referring Physician Physical Medicine and Rehabilitation 07/19/21
--- OUTSIDE RECORDS SUMMARY | 2025-02-23 17:52 | XMS_ITS | Clinical Summary ---
Author Organization [facility] Address [address] [place] [address] Care Team Providers Care Advanced Registered Nurse Name Role Phone Yury Barnes Primary Care Provider [phone] Source Comments [facility],non-owned Affiliates and Associated Physician Practices is amultiple site organization consisting of ambulatory clinics and hospital sitesin [place], [place], [place] and [place]. This disclosure is being madepursuant to the Care Everywhere program and may not contain all information available regarding this patient. Last updated 18.[facility] Allergies Active Allergy Reactions Criticality Noted Date Comments Cephalexin Other,Vomiting 06/08/2019 Reports passing out Hmg-Coa-R Inhibitors Angioedema High 06/08/2019 Medications * Be aware that medications may not be up to date on this document. Alwaysverify current medications with the patient. HYDROcodone-ac etaminophen (NORCO) 7.5-325 MG tablet Take 1 (one) tablet by mouth every 4 hours as needed Every 8-12 hours 42 tablet 09/26/20 21 Active fluticasone propionate (Flonase) 50 MCG/ACT nasal spray as needed 09/15/20 22 Active lisinopril (Prinivil; Zestril) 20 MG tablet 1 (one) tablet once daily 07/17/20 23 Active meclizine (Antivert) 25 MG tablet Take 1 (one) tablet by mouth 3 times daily as needed For dizziness. 07/11/20 23 Active nortriptyline (Pamelor) 50 MG capsule 2 (two) capsules to 3 (three) capsules at bedtime 01/11/20 24 Active Aimovig 140 MG/ML auto injector pen INJECT 1 ML SUBCUTANEOUSLY ONCE EVERY 30 DAYS 3 mL 3 12/19/19 25 Active Jardiance 25 MG tablet Take 1 (one) tablet by mouth once daily 11/18/19 25 Active Januvia 50 MG tablet Take 1 (one) tablet by mouth once daily 11/14/19 25 Active sucralfate (Carafate) 1 GM tablet Take 1 (one) tablet by mouth every 6 hours 11/14/19 25 Active ALPRAZolam (Xanax) 1 MG tablet Take 1 (one) tablet by mouth at bedtime 01/14/20 25 Active pantoprazole EC (Protonix) 40 MG tablet Take 1 (one) tablet by mouth 2 times daily Active oxyCODONE, immediate release, (Roxicodone) 5 MG tabletIndicati ons:Renal artery stenosis Take 1 (one) tablet by mouth every 6 hours as needed 12 tablet 02/18/20 25 Active acetaminophen (Tylenol) 325 MG tablet Take 2 (two) tablets by mouth every 6 hours as needed for Fever or Pain Maximum allowable Acetaminophen amount = 4 Grams (4000 mg) / 24 hours. 02/18/20 25 Active aspirin (Aspirin) 81 MG chew tablet Take 1 (one) tablet by mouth once daily 30 tablet 1 02/18/20 25 Active polyethylene glycol 3350 (Miralax) 17 g packet Take 17 (seventeen) g by mouth once daily 14 packet 02/18/20 25 Active clopidogrel (plaVIX) 75 MG tablet Take 1 (one) tablet by mouth once daily 30 tablet 1 02/18/20 25 Active omeprazole (PRILOSEC) 40 MG capsule Take 1 (one) capsule by mouth 2 times daily 12/03/19 21 025 Discontin ued(List Clean-Up) ALPRAZolam (Xanax) 0.5 MG tablet Take 1 (one) tablet by mouth at bedtime 06/22/20 23 025 Discontin ued(Dose Adjustmen t) divalproex DR (Depakote) 250 MG tablet Take 1 (one) tablet by mouth 2 times daily 180 tablet 4 07/19/20 23 025 Discontin ued(Tx Complete) Active Problems Problem Noted Date Diagnosed Date Renal artery stenosis 02/16/2025 Chronic obstructive pulmonary disease (COPD) Overview (07/19/2023): [...] has overlap with psoriatic arthritis. 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 Cervical spondylosis without myelopathy 10/10/20 19 Cigarette smoker 10/10/2019 retirement current use of therapeutic drug 2018 [...] right Carpal tunnel syndrome of right wrist Encounters Date Type Department Care Team Description 02/18/2025 Transitional Care [facility] - Care Coordination [address] [place] [address] Evelin Avila MSW Transitional Care 02/16/2025 2:13 PM CDT Anesthesia Event [facility] [address] [place] [address] Hans Hung MD Holtermann, Kirstie, MD 02/16/2025 1:55 PM CDT - 02/16/2025 3:51 PM CDT Surgery [facility] [address] [place] [address] Muriel Vickers MD RENAL ANGIOGRAM/ARTERIOGRA M WITH STENTING 02/16/2025 12:26 PM CDT - 02/17/2025 11:09 AM CDT Hospital Encounter [facility] ICU [address] [place] [address] Muriel Vickers MD Vascular Surgery Discharge Disposition: Home or Self Care 02/16/2025 Travel 02/09/2025 Telephone [facility] [address] [place] [address] Daisy Parr, RN Appointment 02/06/2025 Telephone [facility] [address] [place] [address] Hang Dumont, JEFE 02/05/2025 11:00 AM CDT Office Visit [facility] [address] [place] [address] Kiara Sifuentes, TRANSFER DRIVER-INSTRUCTIONAL AIDE Chronic migraine w/o aura, not intractable, w/o stat migr (Primary Dx); Chronic tension-type headache, intractable 01/26/2025 Telephone [facility] - Vascular Surgery [address] 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, [place] [address] Muriel Vickers MD Left renal artery stenosis (Primary Dx) 12/24/2024 Travel 12/19/2024 Refill [facility] [address] [place] [address] Ching Benson MD Refill Request from Last 3 Months Immunizations Immunization Administration Dates Next Due INFLUENZA VACCINE, TRIV. [...] Date Smoking Tobacco: Every Day Cigarettes 2 44.4 Started: 09/26/1980 Smokeless Tobacco: Never Tobacco Cessation:Ready to Q uit: Not Asked; Counseling Given: Not Answered Comments:average 1.5 to 2 pack a day Alcohol Use Standard Drinks/Week Comments Not Currently 0 (1 standard drink = 0.6 oz pur e alcohol) AUDIT-C Answer Date Recorded Q1: How often do you have a drink containing alcohol? Never 02/16/2025 Q2: How many drinks containi ng alcohol do you have on a typical day when you are drinking? Patient does not drink Q3: How often do you have si x or more drinks on one occasion? Never 02/16/2025 Overall Financial Resource Strain (CARDIA) Answe r Date Recorded How hard is it for you to pa y for the very basics like food, housing, medical care, and heating? Not hard at all 02/16/2025 PHQ-2 Answer Date Recorded Patient Health Questionnaire-2 Score 0 02/05/2025 [facility] - Occupational Stress Questionnaire Answer Date Recorded Do you feel stress - tense, restless, nervous, or anxious, or unable to sleep at night because your mind is troubled all the time - these days? Very much 02/16/2025 Hunger Vital Sign Answer Date Recorded Within the past 12 months, y ou worried that your food would run out before you got the money to buy more. Never true 02/17/20 25 Within the past 12 months, t he food you bought just didn't last and you didn't have money to get more. Never true 02/16/2025 PRAPARE - Transportation Answer Date Re corded In the past 12 months, has l ack of transportation kept you from medical appointments or from getting medications? No 02/03 In the past 12 months, has l ack of transportation kept you from meetings, work, or from getting things needed for daily living? No 02/16/2025 Housing Stability Vital Sign Answer Malick e Recorded In the last 12 months, was t here a time when you were not able to pay the mortgage or rent on time? No 02/16/2025 In the past 12 months, how m any times have you moved where you were living? 0 02/16/2025 At any time in the past 12 m [facility], were you homeless or living in a skilled nursing (including now)? 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 Gender Identity Not on file Sexual Orientation Not on file Occupation Industry Job Start Date Job End Date Disability Not on file Not on file Not on file Last Filed Vital Signs Vital Sign Reading Time Taken Comments Blood Pressure 112/77 02/17/2025 10:00 AM CDT Pulse 92 02/17/2025 10:00 AM CDT Temperature 36.8 C (98.2 F) 02/17/2025 8:00 AM CDT Respiratory Rate 15 02/17/2025 10:00 AM CDT Oxygen Saturation 95% 02/17/2025 10:00 AM CDT Inhaled Oxygen Concentration - - Weight 94.8 kg (209 lb) 02/16/2025 7:00 PM CDT Height 175.3 cm (5' 9 ) 02/16/2025 7:00 PM CDT Body Mass Index 30.86 02/16/2025 7:00 PM CDT Plan of Treatment Upcoming Encounters Date Type Department Care Team (Late st Contact Info) Description 03/11/2025 8:00 AM CDT Appointment [facility] [address] [place] [address] Muriel Vickers MD [address] [place] [address] [address] [place] [address] 03/11/2025 9:30 AM CDT Office Visit [facility] - Vascular Surgery [address] [facility] [place] [address] Muriel Vickers MD [facility] [facility] [address] [place] [address] 02/04/2026 11:40 AM CDT Office Visit [facility] [address] [facility] [address] [place], [place] [id number] Ching Benson MD [address] [place] [phone] Health Maintenance Due Date Last Done Comments COLOGUARD (AGES 45-75) - COLON CA SCREENING 1969 COLON MONITORING 1969 COLONOSCOPY - COLON CA SCREENING 1969 CT COLONOGRAPHY - COLON CA SCREENING 1969 Colorectal Cancer Screening 1969 FIT - COLON CA SCREENING 1969 FLEX SIG - COLON CA SCREENING 1969 MEDICARE AWV 12 MONTHS 1969 DTAP/TDAP/TD VACCINES (1 - Tdap) 01/09/1988 HEPATITIS B VACCINE (1 of 3 - 19+ 3-dose series) 01/09/1988 DIABETES-STATIN 2009 PNEUMOCOCCAL VACCINE 50+ (2 of 2 - PCV) 08/04/2017 08/04/2016 LUNG CANCER SCREENING 2019 DIABETES RETINOPATHY SCREENING 07/19/2023 DIABETES-FOOT EXAM WITH MONOFILAMENT 07/19/2023 COVID-19 VACCINE ( - season) 2024 02/20/2021, 01/30/2021 DIABETES - URINE PROTEIN SCREENING 11/05/2024 INFLUENZA VACCINE (Season Ended) 2025 08/07/2020, 08/29/2019, 08/23/2018, Additional history exists DIABETES-HGB A1C 08/19/2025 02/17/2025 DIABETES-SERUM CREATININE 02/17/20262024, 02/16/2025, 02/16/2025, Additional history exists HEPATITIS C SCREENING Completed 06/08/2020 HIV SCREENING Completed 06/08/2020 ZOSTER VACCINE Completed 09/22/2020, 06/10/2020 DEPRESSION SCREENING Completed 02/05/2025 HIB VACCINE Aged Out No longer eligi ble based on patient's age to complete this topic HPV VACCINE Aged Out No longer eligi ble based on patient's age to complete this topic MENINGOCOCCAL (Group B) VACCINE SHARED DECISION-MAKING Aged Out No longer eligible based on patient's age to complete this topic MENINGOCOCCAL GROUPS A/C/Y/W VACCINE Aged Out No longer eligible based on patient's age to complete this topic Medical Devices Implanted Type Area Beamer Helper Device Identifier Shelf Expiration Date Model / Serial / Lot Stent Trchbr 6mm 6fr 22mm 80cm Cvr Cath - [id number] Implanted:Qty: 1 on 02/16/2025 by Muriel Vickers MD at [facility] Left: Arterial [employer] [id number] 08/08/2025 [id number] / [id number] / NA Description:Left Renal Arter y Stent Trchbr 6mm 22mm 120cm Radopq Cvr - [id number] Implanted:Qty: 1 on 02/16/2025 by Muriel Vickers MD at [facility] Left: Arterial [employer] 11/23/2026 [id number] / [id number] / NA Description:LEFT RENAL ARTER Y Explanted Type Area Beamer Helper Device Identifier Shelf Expiration Date Model / Serial / Lot Stent Trchbr 6mm 7fr 59mm 80cm .035in - [id number] Explanted:Qty: 1 on 02/16/2025 at [facility] Left: Arterial [employer] [id number] 07/24/2025 [id number] / [id number] / NA Description:STENT TOO LONG Procedures Procedure Name Priority Date/Time Associated Diagnosis Comments PREPARE RBC LEUKOREDUCED UNIT Routine 02/18/2025 1:17 AM CDT GLUCOSE - POINT OF CARE Routine 02/17/2025 5:55 AM CDT CBC W/O DIFFERENTIAL Routine 02/17/2025 5:54 AM CDT Renal artery stenosis HEMOGLOBIN A1C Routine 02/17/2025 5:54 AM CDT Renal artery stenosis CALCIUM IONIZED WHOLE BLOOD Routine 02/17/2025 12:15 AM CDT PT-INR [facility] Routine 02/17/2025 12:15 AM CDT Renal artery stenosis PHOSPHORUS BLOOD Routine 02/17/2025 12:1 5 AM CDT Renal artery stenosis MAGNESIUM BLOOD Routine 02/17/2025 12:15 AM CDT Renal artery stenosis BASIC METABOLIC PANEL (CALCIUM TOTAL) Routine 02/17/2025 12:15 AM CDT Renal artery stenosis GLUCOSE - POINT OF CARE Routine 02/16/2025 10:30 PM CDT CBC W/O DIFFERENTIAL NAZ 02/16/2025 10:30 PM CDT Renal artery stenosis RENAL FUNCTION PANEL STAT 02/16/2025 5:19 PM CDT CBC W/O DIFFERENTIAL Routine 02/16/2025 5:08 PM CDT Renal artery stenosis GLUCOSE - POINT OF CARE Routine 02/16/2025 5:03 PM CDT FL TATYANA W ANGIO TEAM Routine 02/16/2025 4:25 PM CDT Post-op pain NJ ANGIO ADRENAL BILAT SELECT 02/16/2025 1:51 PM CDT Renal artery stenosis GLUCOSE - POINT OF CARE Routine 02/16/2025 1:38 PM CDT BLOOD TYPE VERIFICATION Routine 02/16/2025 1:33 PM CDT PT-INR [facility] STAT 02/16/2025 1:22 PM CDT Pre-op examination CBC W AUTO DIFFERENTIAL STAT 02/16/2025 1:22 PM CDT Pre-op examination TYPE + SCREEN PANEL Routine 02/16/2025 1 :17 PM CDT BASIC METABOLIC PANEL (CALCIUM TOTAL) STAT 02/16/2025 1:17 PM CDT Renal artery stenosis VAS BILAT ABD RENAL DOPPLER Routine 01/16/2025 5:15 PM CDT Left renal artery stenosis HEPATITIS C ANTIBODY Routine 06/08/2020 4:51 PM CDT Thrombocytopenia, secondary Seropositive rheumatoid arthritis of multiple sites Polycythemia Secondary polycythemia HIV-1 HIV-2 ANTIBODY + HIV P24 AG PANEL Routine 06/08/2020 4:46 PM CDT Thrombocytopenia, secondary Seropositive rheumatoid arthritis of multiple sites from Last 3 Months or Most Recently Relevant to Health Maintenance Results * PREPARE (CROSSMATCH) RBC UNIT(S), 1 Units (02/18/2025 1:17 AM CDT) Unit Description AS1 LR PRBC [facility] Unit ABO O [facility] Unit Rh NEG [facility] Product Number R43 [facility] Unit Donor # [id number] [facility] Unit Status released [facility] Product Code [id number] [facility] Blood Type Barcode 9500 [facility] Expiration Date [id number] S BLOOD BANK LAB Blood Bank BLOOD SPECIMEN / Unknown 02/16/2025 1:30 PM CDT Muriel Vickers MD LAB - BLOOD BANK ORDERABLES Final Result [facility] [address] [place] [address], [place] [phone] * (ABNORMAL) GLUCOSE - POINT OF CARE (02/17/2025 5:55 AM CDT) Only the most recent of4 resultswithin the time period is included. [facility] Glucose WB/POC 161(H) 70 - 99 mg/dL 02/17/2025 5:56 AM CDT [facility] Specimen Type Venous 02/17/2025 5:56 AM CDT [facility] Blood BLOOD SPECIMEN / Unknown 02/17/2025 5:55 AM CDT 02/17/2025 5:56 AM CDT us Muriel Vickers MD LAB - POINT OF CARE ORDERAB LES Final Result [facility] [address] [place] [address], [place] [phone] * (ABNORMAL) HEMOGLOBIN A1C (02/17/2025 5:54 AM CDT) Hemoglobin A1c 6.0(H) <=5.6 % 02/17/2025 9:01 AM CDT [facility] Estimated Average Glucose 126 mg/dL 02/17/2025 9:01 AM T [facility] Comment: HbA1c Interpretation: Normal : < 5.7% Pre-diabetes: 5.7-6.4% Diabetes: Equal to or greater than 6.5% Test results diagnostic of diabetes should be repeated for confirmation. Treatment target values recommended by ADA and other clinical organizations should be used to evaluate metabolic control in patients. Reference: [place] [employer], Standards of Care in Diabetes -2020 In patients 70 years and older consider HbA1c target range of 7.0-7.5% (Reference: Kirk Finley et al. JAMDA. 2012) The Sebia assay for the measurement of HbA1c is a National Glycohemoglobin Standardization Program (NGSP) certified method. Blood BLOOD SPECIMEN / Unknown Venipuncture / Unknown 02/17/2025 5:54 AM CDT 02/17/2025 6:04 AM CDT Muriel Vickers MD LAB - CHEMISTRY ORDERABLES Final Result [facility] [address] [address], [facility] [phone] * (ABNORMAL) CBC W/O DIFFERENTIAL (02/17/2025 5:54 AM CDT) Only the most recent of3 resultswithin the time period is included. WBC 15.9(H) 4.0 - 10.7 x10E9/L 02/17/2025 6:14 AM CDT [facility] RBC Count 5.41 4.30 - 5.80 x10E12/L 02/17/2025 6:14 AM CDT [facility] Hemoglobin 15.6 13.3 - 17.5 g/dL 02/17/2025 6:14 AM CDT [facility] Hematocrit 46.7 38.7 - 51.1 % 02/17/2025 6:14 AM [facility] MCV 86.3 80.0 - 98.0 fL 02/17/2025 6:14 AM T [facility] MCH 28.8 26.7 - 33.6 pg 02/17/2025 6:14 AM [facility] MCHC 33.4 31.7 - 36.3 g/dL 02/17/2025 6:14 AM [facility] RDW-CV 13.3 11.3 - 14.8 % 02/17/2025 6:14 AM [facility] Platelet Count 87(L) 150 - 420 x10E9/L 02/17/2025 6:14 AM [facility] MPV 12.7(H) 7.8 - 11.4 fL 02/17/2025 6:14 AM [facility] Blood BLOOD SPECIMEN / Unknown Venipuncture / Unknown 02/17/2025 5:54 AM CDT 02/17/2025 6:04 AM CDT us Muriel Vickers MD LAB - HEMATOLOGY ORDERABLES Final Result [facility] [address] [place] [address], [facility] [phone] * PT-INR [facility] (02/17/2025 12:15 AM CDT) Only the most recent of2 resultswithin the time period is included. PT 14.2 12.1 - 14.8 Seconds 02/17/2025 12:59 AM [facility] INR 1.1 See Comment 02/17/2025 12:59 AM [facility] Comment:The suggested therap eutic range for standard coumadin (warfarin) therapy is an INR of 2.0-3.0. For high-risk patients (Mechanical Mitral Valve Prosthesis, etc.), the suggested prophylactic therapeutic range is an INR of 2.5-3.5. Blood BLOOD SPECIMEN / Unknown Venipuncture / Unknown 02/17/2025 12:15 AM CDT 02/17/2025 12:32 AM CDT us Muriel Vickers MD LAB - COAGULATION ORDERABLE S Final Result Performing Organization Address City/[facility]/ZIP Co de Phone Number [address] [address], [facility] [phone] * (ABNORMAL) CALCIUM IONIZED WHOLE BLOOD (02/17/2025 12:15 AM CDT) Calcium Ionized 1.10 mmol/L 02/17/2025 12:32 AM CDT [facility] pH 7.36 7.35 - 7.45 pH 02/17/2025 12:32 AM [facility] Ionized Calcium pH Adjusted 1.08(L) 1.19 - 1.34 mmol/L 02/17/2025 12:32 AM [facility] Blood BLOOD SPECIMEN / Unknown Venipuncture / Unknown 02/17/2025 12:15 AM CDT 02/17/2025 12:25 AM CDT us Muriel Vickers MD LAB - CHEMISTRY ORDERABLES Final Result Performing Organization Address [facility] Co de Phone Number [address] [address], [facility] [phone] * (ABNORMAL) BASIC METABOLIC PANEL (CALCIUM TOTAL) (02/17/2025 12:15 AM CDT) Only the most recent of2 resultswithin the time period is included. BUN 16 7 - 26 mg/dL 02/17/2025 12:57 AM [facility] Creatinine 1.16 0.71 - 1.16 mg/dL 02/17/2025 12:57 AM [facility] Sodium 136 136 - 145 mmol/L 02/17/2025 12:57 AM [facility] Potassium 4.5 3.5 - 4.5 mmol/L 02/17/2025 12:57 AM [facility] Chloride 105 98 - 107 mmol/L 02/17/2025 12:57 AM [facility] CO2 20(L) 22 - 29 mmol/L 02/17/2025 12:57 AM [facility] Glucose 179(H) 70 - 99 mg/dL 02/17/2025 12:57 AM [facility] Calcium 7.9(L) 8.4 - 10.2 mg/dL 02/17/2025 12:57 AM [facility] Anion Gap 11 6 - 16 02/17/2025 12:57 AM [facility] BUN/Creatinine Ratio 14 7 - 23 02/17/2025 12:57 AM [facility] Osmolality Calculated 288 275 - 295 mOsm/kg 02/17/2025 12:57 AM [facility] eGFR by CKD-EPI 74(L) >=90 mL/min/1.7 3 m2 02/17/2025 12:57 AM [facility] Blood BLOOD SPECIMEN / Unknown Venipuncture / Unknown 02/17/2025 12:15 AM CDT 02/17/2025 12:32 AM CDT us Muriel Vickers MD LAB - CHEMISTRY ORDERABLES Final Result [address] [address], [facility] [phone] * PHOSPHORUS BLOOD (02/17/2025 12:15 AM CDT) Phosphorus 3.0 2.8 - 5.1 mg/dL 02/17/2025 12:57 AM T [facility] Blood BLOOD SPECIMEN / Unknown Venipuncture / Unknown 02/17/2025 12:15 AM CDT 02/17/2025 12:32 AM CDT us Muriel Vickers MD LAB - CHEMISTRY ORDERABLES Final Result [address] [address], [facility] [phone] * MAGNESIUM BLOOD (02/17/2025 12:15 AM CDT) Magnesium 1.9 1.6 - 2.6 mg/dL 02/17/2025 12:57 AM [facility] Blood BLOOD SPECIMEN / Unknown Venipuncture / Unknown 02/17/2025 12:15 AM CDT 02/17/2025 12:32 AM CDT Muriel Vickers MD LAB - CHEMISTRY ORDERABLES Final Result Performing Organization Address [facility]/State/ZIP Co de Phone Number [facility] [address] [place] [address], [facility] [phone] * (ABNORMAL) RENAL FUNCTION PANEL (02/16/2025 5:19 PM CDT) BUN 16 7 - 26 mg/dL 02/16/2025 5:49 PM [facility] Creatinine 1.33(H) 0.71 - 1.16 mg/dL 02/16/2025 5:49 PM [facility] Sodium 135(L) 136 - 145 mmol/L 02/16/2025 5:49 PM [facility] Potassium 5.1(H) 3.5 - 4.5 mmol/L 02/16/2025 5:49 PM [facility] Chloride 103 98 - 107 mmol/L 02/16/2025 5:49 PM [facility] CO2 22 22 - 29 mmol/L 02/16/2025 5:49 PM [facility] Glucose 123(H) 70 - 99 mg/dL 02/16/2025 5:49 PM [facility] Albumin 3.7 3.4 - 5.0 g/dL 02/16/2025 5:49 PM [facility] Calcium 8.8 8.4 - 10.2 mg/dL 02/16/2025 5:49 PM [facility] Phosphorus 3.6 2.8 - 5.1 mg/dL 02/16/2025 5:49 PM [facility] Anion Gap 10 6 - 16 02/16/2025 5:49 PM [facility] BUN/Creatinine Ratio 12 7 - 23 02/16/2025 5:49 PM [facility] Osmolality Calculated 283 275 - 295 mOsm/kg 02/16/2025 5:49 PM CDT [facility] eGFR by CKD-EPI 63(L) >=90 mL/min/1.7 3 m2 02/16/2025 5:49 PM CDT [facility] Blood BLOOD SPECIMEN / Unknown Venipuncture / Unknown 02/16/2025 5:19 PM CDT 02/16/2025 5:23 PM CDT Muriel Vickers MD LAB - CHEMISTRY ORDERABLES Final Result [facility] [address] [place] [address], [place] [phone] * [place] Tatyana W Angio Team (02/16/2025 4:25 PM CDT) Narrative [facility] - 02/16/2025 4:26 PM CDT Fluoroscopy was used for this exam in the OR. Please see the Operative report. Korey Acuna MD FLUOROSCOPY ORDERABLES Final Result Performing Organization Address City/[facility]/ZIP Co de Phone Number [facility] * BLOOD TYPE VERIFICATION (02/16/2025 1:33 PM CDT) ABO Rh O NEG 02/16/2025 2:2 3 PM CDT [facility] Blood Bank BLOOD SPECIMEN / Unknown Venipuncture / Unknown 02/16/2025 1:33 PM CDT 02/16/2025 1:41 PM CDT Muriel Vickers MD LAB - BLOOD BANK ORDERABLES Final Result [facility] [address] [place] [address], [place] [phone] * (ABNORMAL) CBC W AUTO DIFFERENTIAL (02/16/2025 1:22 PM CDT) WBC 9.2 4.0 - 10.7 x10E9/L 02/16/2025 1:45 PM CDT [facility] RBC Count 6.10(H) 4.30 - 5.80 x10E12/L 02/16/2025 1:45 PM [facility] Hemoglobin 17.5 13.3 - 17.5 g/dL 02/16/2025 1:45 PM [facility] Hematocrit 53.1(H) 38.7 - 51.1 % 02/16/2025 1:45 PM [facility] MCV 87.0 80.0 - 98.0 fL 02/16/2025 1:45 PM [facility] MCH 28.7 26.7 - 33.6 pg 02/16/2025 1:45 PM [facility] MCHC 33.0 31.7 - 36.3 g/dL 02/16/2025 1:45 PM [facility] RDW-CV 13.4 11.3 - 14.8 % 02/16/2025 1:45 PM [facility] Platelet Count 79(L) 150 - 420 x10E9/L 02/16/2025 1:45 PM [facility] MPV 11.7(H) 7.8 - 11.4 fL 02/16/2025 1:45 PM [facility] Neutrophil % 69.4 41.0 - 74.0 % 02/16/2025 1:45 PM [facility] Lymphocyte % 20.4 17.0 - 47.0 % 02/16/2025 1:45 PM [facility] Monocyte % 7.3 3.0 - 11.0 % 02/16/2025 1:45 PM [facility] Eosinophil % 1.9 0.0 - 7.0 % 02/16/2025 1:45 PM [facility] Basophil % 0.5 0.0 - 1.6 % 02/16/2025 1:45 PM [facility] Immature Granulocytes % 0.5 0.0 - 1.0 % 02/16/2025 1:45 PM [facility] Neutrophil Absolute 6.35 1.60 - 7.50 x10E9/L 02/16/2025 1:45 PM [facility] Lymphocyte Absolute 1.87 1.00 - 4.40 x10E9/L 02/16/2025 1:45 PM CDT [facility] Monocyte Absolute 0.67 0.15 - 1.00 x10E9/L 02/16/2025 1:45 PM CDT [facility] Eosinophil Absolute 0.17 0.00 - 0.60 x10E9/L 02/16/2025 1:45 PM CDT [facility] Basophil Absolute 0.05 0.00 - 0.13 x10E9/L 02/16/2025 1:45 PM CDT [facility] Blood BLOOD SPECIMEN / Unknown Venipuncture / Unknown 02/16/2025 1:22 PM CDT 02/16/2025 1:27 PM CDT Hans Hung MD LAB - HEMATOLOGY ORDERABLES F inal Result [facility] [address] [place] [address], [facility] [phone] * TYPE + SCREEN PANEL (02/16/2025 1:17 PM CDT) Antibody Screen NEG 2:23 PM CDT [facility] ABO Rh O NEG 02/16/2025 2:23 PM CDT [facility] Blood Bank BLOOD SPECIMEN / Unknown Line Draw / Unknown 02/16/2025 1:17 PM CDT 02/16/2025 1:30 PM CDT us Muriel Vickers MD LAB - BLOOD BANK ORDERABLES Final Result [facility] [address] [place] [address], [place] [phone] * VAS Bilat Abd Renal Doppler (01/16/2025 5:15 PM CDT) Anatomical Region Laterality Modality Abdomen Intravascular Ul trasound 01/16/2025 8:15 AM CDT Narrative Procedure Note Nathan Bowden MD - 01/18/2025 Muriel Vickers MD VASCULAR LAB ORDERABLES Vinay kevin Result - Final * HEPATITIS C ANTIBODY (06/08/2020 4:51 PM CDT) [facility] Hepatitis C Antibody <0.1 0.0 - 0.9 s/co ratio [facility] INSURANCE BILL Comment: Negative: < 0.8 Indeterminate: 0.8 - 0.9 Positive: > 0.9 . The CDC recommends that a positive HCV antibody result be followed up with a HCV Nucleic Acid Amplification test (278111). Blood BLOOD SPECIMEN / Unknown 06/08/2020 4:51 PM CDT 06/08/2020 Narrative Resulting Agency Comment Lab Testing performed at: [place] [id number] [facility] [phone] Carlos Culp MD LAB - CHEMISTRY ORDERABLES Final Result [facility] INSURANCE BILL [address] [place] [address] * HIV-1 HIV-2 ANTIBODY + HIV P24 AG PANEL (06/08/2020 4:46 PM CDT) [facility] HIV Screen 4th Generation w Reflex Non Reactive Non Reactive [facility] INSURANCE BILL Blood BLOOD SPECIMEN / Unknown 06/08/2020 4:46 PM CDT 06/08/2020 Narrative Resulting Agency Comment [facility] Testing performed at: [facility] [address] [facility] [phone] Carlos Culp MD LAB - CHEMISTRY ORDERABLES Final Result [facility] INSURANCE BILL [address] [place] [address] from Last 3 Months or Most Recently Relevant to Health Maintenance Insurance MEDICARE * Guarantor: HANS LYN Account Type Relation to Patient Date of Phone Billing Address Personal/Family [address] [place] [address] * Guarantor: HANS LYN Account Type Relation to Patient Date of Phone Billing Address Personal/Family [address] [place] [address] * Guarantor: HANS LYN Account Type Relation to Patient Date of Phone Billing Address Personal/Family [address] [place] [address] * Guarantor: HANS LYN Account Type Relation to Patient Date of Phone Billing Address Personal/Family [address] [place] [address] * Guarantor: HANS LYN Account Type Relation to Patient Date of Phone Billing Address Personal/Family [address] [place] [address] * Guarantor: HANS LYN Account Type Relation to Patient Date of Phone Billing Address Personal/Family [address] [place] [address] Advance Directives * Full Code (Latest Code Status on File) Date Activated Date Inactivated Comments 02/16/2025 4:27 PM 02/17/2025 12:09 PM Care Teams Advanced Registered Nurse Relationship Specialty Start Date End Date Yury Barnes DO [address] [place] [address] PCP - General Internal Medicine 12/24/24
--- OUTSIDE RECORDS SUMMARY | 2025-02-23 17:52 | XMS_ITS | Clinical Summary ---
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 on file Not on file Not on file Last Filed Vital Signs Vital Sign Reading Time Taken Comments Blood Pressure 122/68 06/03/2021 11:18 AM CDT Pulse 93 06/03/2021 11:18 AM CDT Temperature 36 C (96.8 F) 06/03/2021 7:31 AM CDT Respiratory Rate 18 [...] (2 of 2 - PCV) 2019 08/04/2016 SARS-COV-2 Immunization (4 - 2023- season) 2024 07/19/2021, 02/20/2021, 01/30/2021 Colonoscopy 09/26/2024 09/26/2019, 08/31/2016 Colorectal Cancer Screening 09/26/2024 Influenza Immunization (Season Ended) 2025 08/07/2020, 08/29/2019, 08/23/2018, Additional history exists Respiratory Syncytial Virus (RSV) Immunization (Adult) (1 - 1-dose 75+ series) 01/09/2044 09/26/2019, 08/31/2016 Pneumococcal Immunization Combined Discontinued 08/04/2016 PSA Discussion Discontinued 12/25/2016 Zoster Immunization Completed 09/22/2020, Lung Cancer [...] CHEST W/O CONTRAST Routine 09/12/2019 7:52 PM TUBE INSPECTOR Pulmonary nodule PSA DIAGNOSTIC,TOTAL Routine 12/25/2016 Enlarged prostate HM COLONOSCOPY Routine 08/31/2016 from Last 3 Months or Most Recently Relevant to Health Maintenance Results * CT CHEST W/O CONTRAST (09/12/2019 7:52 PM TUBE INSPECTOR) Anatomical Region Laterality Modality Chest N/A Computed Tomogra phy 09/15/2019 12:0 7 PM TUBE INSPECTOR Impressions 09/15/2019 12:09 PM TUBE INSPECTOR IMPRESSION: Stable appearance of pulmonary nodules as above. No new pulmonary nodules. These have demonstrated stability since July 2017 and likely benign. Narrative 09/15/2019 12:09 PM TUBE INSPECTOR EXAM DESCRIPTION: CT CHEST W/O CONTRAST REASON [...] Del Chaudhary M.D. JA: PAL Report ID: [id number] Reading Location: [id number] Procedure Note Del Chaudhary MD - 09/15/2019 [...] Del Chaudhary M.D. JA: PAL Report ID: [id number] Reading Location: [place] [address] IMPRESSION: Stable appearance of pulmonary nodules as above. No new pulmonary nodules. These have demonstrated stability since July 2017 and likely benign. us Danielle Phelps TRUCK SERVICE TECHNICIAN, PHYSICIAN LIAISON IMG CT ORDERABLES Final Result * PSA DIAGNOSTIC,TOTAL (12/25/2016) PSA (PROSTATE SPECIFIC ANTIGEN) 0.5 ng/mL Blood specimen (specimen) 12/25/2016 us Chano Leggett DO CHEMISTRY ORDERABLES Final Resu lt * HM COLONOSCOPY (08/31/2016) us Nitesh Matta MD PROCEDURE/MINOR SURGICAL ORDER CRISTHIAN Final Result from Last 3 Months or Most Recently Relevant to Health Maintenance Insurance MEDICAID [place] MEDICARE MEDICAID [place] MEDICARE Care Teams Exhaust Machine Operator Relationship Specialty Start Date End Date Provider, None [place] PCP - General 06/03/21 Danielle Phelps, TRUCK SERVICE TECHNICIAN, PHYSICIAN LIAISON Nurse Practitioner Advanced Practice Nurse 05/10/16 Chano Leggett DO Gastroenterology 09/01/16
--- OUTSIDE RECORDS SUMMARY | 2025-02-23 17:52 | XMS_ITS | Clinical Summary ---
Author Organization [facility] Address [address] [place] [address] Care Team Providers Care Photo Retoucher Name Role Phone oJe Goodrich MD Primary Care Provider Allergies Active [...] 75 05/03/2022 5:59 PM CDT Temperature 36.7 C (98 F) 05/03/2022 5:59 PM CDT Respiratory Rate 16 [...] C 1987 DTaP, Tdap and Td Vaccines ( 1 - Tdap) 01/09/1988 Hepatitis B Vaccines (1 of 3 - 19+ 3-dose series) 01/09/1988 Pneumococcal Vaccine: 50+ Years (2 of 2 - PCV) 08/04/2017 08/04/2016 COVID-19 Vaccine (4 - 2023-2 5 season) 2024 07/19/2021, 02/20/2021, 01/30/2021 Zoster Vaccines Completed 09/22/2020, 06/10/2020 Meningococcal B Vaccine Aged Out No l onger eligible based on patient's age to complete this topic Meningococcal Vaccine Aged Out No wilbur angelina eligible based on patient's age to complete this topic RSV Immunizations Under 20 Months Aged Out No longer eligible b ased on patient's age to complete this topic Insurance [facility] MEDICARE Care Teams Photo Retoucher Relationship Specialty Start Date End Date Joe Goodrich MD [facility] [address] [place] [address] PCP - General INTERNAL MEDICINE 10/07/18
--- OUTSIDE RECORDS SUMMARY | 2025-02-23 17:52 | XMS_ITS | Encounter Summary ---
Author Organization [facility] Address [address] [place] [address] Care Team Providers Care Survey Superintendent Name Role Phone Yury Barnes DO Primary Care Provider [phone] Evelin Avila MEMORY CARE DIRECTOR Unavailable Encounter Details Date Type Department Care Team (Late st Contact Info) Description 02/06/2025 Telephone [facility] IVR [address] [place] [address] Hang Dumont, RN Social History Tobacco Use Types Packs/Day Years Used Date Smoking Tobacco: Every Day Cigarettes 2 44.4 Started: 09/26/1980 Smokeless Tobacco: Never Comments:average 1.5 to 2 pa ck a day Alcohol Use Standard Drinks/Week Comments Not Currently 0 (1 standard drink = 0.6 oz pur e alcohol) AUDIT-C Answer Date Recorded Q1: How often do you have a drink containing alc ohol? 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 documented in this encounter Plan of Treatment Upcoming Encounters Date Type Department Care Team (Late st Contact Info) Description 03/11/2025 8:00 AM CDT Appointment [facility] VASCULAR US [address] [place] [address] Muriel Vickers MD [address] [facility] 2L [place] [address] 03/11/2025 9:30 AM CDT Office Visit [facility] - Vascular Surgery [address] [facility] [place] [address] Muriel Vickers MD [address] [facility] [address]L [place] [address] 02/04/2026 11:40 AM CDT Office Visit [facility] Health Neurosciences [address] [facility] [address] [place], [place] [id number] Ching Benson MD [address] [facility] [facility] [address] [place] [id number] documented as of this encounter Visit Diagnoses Not on filedocumented in this encounter Care Teams Survey Superintendent Relationship Specialty Start Date End Date Yury Barnes DO [address] [place] [address] PCP - General Internal Medicine 12/24/24 Evelin Avila MSW Rail Maintenance Worker Care Management 02/18/25 02/18/25 documented as of this encounter
== END 2025-02-23 16:16 | disposition home or self-care (01) ==
PROVIDERS: PCP Internal Medicine; Visit Provider Internal Medicine
DX: K74.60 Unspecified cirrhosis of liver (principal); Z96.0 Presence of urogenital implants; K59.00 Constipation, unspecified
CPT/HCPCS: 74176

== ENCOUNTER 2025-02-26 10:24 | Outpatient (CLI) | payer MEDICARE, SELFPAY ==
--- NOTE | ~2025-02-26 | XR_ITS ---
AP and lateral views of the left hip Clinical history: Pain Findings: No acute fracture or dislocation is seen. Osseous alignment is anatomic. Left hip joint is intact. Soft tissues are unremarkable. Impression: No significant abnormality is seen. Reviewed, dictated and finalized at location M. Impression: No significant abnormality is seen.
--- NOTE | ~2025-02-26 | US_ITS ---
Limited Abdominal Sonogram: Real-time sonographic imaging of the right upper quadrant was performed. Clinical History: Cirrhosis screening Findings: The liver appears echogenic with no evidence of mass lesion or bile duct dilatation. Liver measures 17.2 cm in length. Mildly nodular contour of liver present. Main portal vein demonstrates n ormal direction of flow. The gallbladder is well distended, and appears normal with no evidence of ga llstone or wall thickening. The common bile duct measures 5 mm. The visualized pancreas, aorta, and IVC are unremarkable. Impression: Probable cirrhotic morphology of liver. No focal mass evident. Mild hepatomegaly. Reviewed, dictated and finalized at location . Impression: Probable cirrhotic morphology of liver. No focal mass evident. Mild hepatomegal y.
--- OUTSIDE RECORDS SUMMARY | 2025-02-26 11:47 | XMS_ITS | Encounter Summary ---
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 - Vascular Surgery [address] [facility] [place] [address] Muriel Vickers MD [address] [facility] [address]L [place] [address] 02/04/2026 11:40 AM CDT Office Visit [facility] Health Neurosciences [address] [facility] [address] [place], [place] [address] Ching Benson MD [address] [facility] [address] [place] [address] documented as of this encounter Visit Diagnoses Not on filedocumented in this encounter Care Teams Canvas Marker Relationship Specialty Start Date End Date Yury Barnes DO [address] [place] [address] PCP - General Internal Medicine 12/24/24 Evelin Avila MSW Integration Developer Care Management 02/18/25 02/18/25 documented as of this encounter
--- OUTSIDE RECORDS SUMMARY | 2025-02-26 11:47 | XMS_ITS | Clinical Summary ---
Author Organization [facility] Check Address [address] [facility] [place] [address] Care Team Providers Care Funeral Pre Arrangement Specialist Name Role Phone Yury Barnes Primary Care Provider [phone] Source Comments [facility],non-owned Affiliates and Associated Physician Practices is amultiple site organization consisting of ambulatory clinics and hospital sitesin [place], [place], [place] and [place]. This disclosure is being madepursuant to the Care Everywhere program and may not contain all information available regarding this patient. Last updated 18.[facility] Check Allergies Active Allergy Reactions Criticality Noted Date [...] has overlap with psoriatic arthritis. Patient given cat breeder Dr. Abraham's information. Cervical spondylosis without myelopathy 10/10/20 19 Cigarette smoker 10/10/2019 assisted current use of therapeutic drug 2018 Overview [...] Department Care Team Description 02/18/2025 Transitional Care [facility] - Care Coordination [address] [place] [address] Evelin Avila MSW Transitional Care 02/16/2025 2:13 PM CDT Anesthesia Event [facility] AUNDREA OP [address] [place] [address] Hans Hung MD Holtermann, Kirstie, MD 02/16/2025 1:55 PM CDT - 02/16/2025 3:51 PM CDT Surgery [facility] OP [address] [place] [address] Muriel Vickers MD RENAL ANGIOGRAM/ARTERIOGRA M WITH STENTING 02/16/2025 12:26 PM CDT - 02/17/2025 11:09 AM CDT Hospital Encounter [facility] 3S ICU [address] [place] [address] Muriel Vickers MD Vascular Surgery Discharge Disposition: Home or Self Care 02/16/2025 Travel 02/09/2025 Telephone [facility] IVR [address] [place] [address] Daisy Parr, RN Appointment 02/06/2025 Telephone [facility] IVR [address] [place] [address] Hang Dumont, JEFE 02/05/2025 11:00 AM CDT Office Visit [facility] [address] [place] [address] Kiara Sifuentes, ANALYSIS ENGINEER-PATIENT FINANCIAL SPECIALIST Chronic migraine w/o aura, not intractable, w/o stat migr (Primary Dx); Chronic tension-type headache, intractable 01/26/2025 Telephone [facility] - Vascular Surgery [address], [place] [address] Muriel Vickers MD Discuss Surgery 01/16/2025 7:50 AM CDT - 01/16/2025 11:59 PM CDT Hospital Encounter [facility] VASCULAR US [address] [place] [address] Muriel Vickers MD Discharge Disposition: Home or Self Care 01/16/2025 Travel 12/24/2024 10:15 AM BALANCE CLERK Office Visit [facility] - Vascular Surgery [address], [place] [address] Muriel Vickers MD Left renal artery stenosis (Primary Dx) 12/24/2024 Travel 12/19/2024 Refill [facility] [address] [place] [address] Ching Benson MD Refill Request from Last [...] Recorded Patient Health Questionnaire-2 Score 0 02/05/2025 [facility] Occupat ional [facility] - Occupational Stress Questionnaire Answer Date [...] No 02/16/2025 Housing Stability Vital Sign Answer Amlick e Recorded In the last 12 months, was t here a time when you were not able to pay the mortgage or rent on time? No 02/16/2025 In the past 12 months, how m any times have you moved where you were living? 0 02/16/2025 At any time in the past 12 m [facility], were you homeless or living in a senior care (including now)? No 02/16/2025 Sex and Gender Information Value Date Recorded Sex Assigned at Not on file Legal Sex Male 6:13 AM BALANCE CLERK Gender Identity Not on file Sexual [...] Info) Description 03/11/2025 8:00 AM CDT Appointment [facility] VASCULAR US [address] [place] [address] Muriel Vickers MD [address] [place] [address] 2L [place] [address] 03/11/2025 9:30 AM CDT Office Visit [facility] - Vascular Surgery [address] [place] [address] Muriel Vickers MD [employer] 2L DIV [place] [address] 02/04/2026 11:40 AM CDT Office Visit [facility]sc[facility] [address] [facility] [address] [place], [place] [id number] Ching Benson MD [address] [place] [id number] Health Maintenance Due Date Last Done Comments [...] this topic Medical Devices Implanted Type Area Barrelhead Inspector Device Identifier Shelf Expiration Date Model / Serial / Lot Stent Trchbr 6mm 6fr 22mm 80cm Cvr Cath - [id number] Implanted:Qty: 1 on 02/16/2025 by Muriel Vickers MD at [facility] Left: Arterial [employer] [id number] 08/08/2025 [id number] / [id number] / NA Description:Left Renal Arter y Stent Trchbr 6mm 22mm 120cm Radopq Cvr - [id number] Implanted:Qty: 1 on 02/16/2025 by Muriel Vickers MD at [facility] Left: Arterial [employer] 11/23/2026 [id number] / [id number] / NA Description:LEFT RENAL ARTER Y Explanted Type Area Barrelhead Inspector Device Identifier Shelf Expiration Date Model / Serial / Lot Stent Trchbr 6mm 7fr 59mm 80cm .035in - [id number] Explanted:Qty: 1 on 02/16/2025 at [facility] Left: Arterial [employer] [id number] 07/24/2025 [id number] / [id number] / NA Description:STENT TOO LONG Procedures Procedure [...] Routine 02/16/2025 4:25 PM CDT Post-op pain OR ANGIO ADRENAL BILAT [facility] 02/16/2025 1:51 PM [...] AM CDT) Unit Description AS1 LR PRBC [facility] BLOOD BANK LAB Unit ABO O [facility] BLOOD [facility]ANK LAB Unit Rh NEG [facility] BLOOD BANK LAB Product Number R43 [facility] B LOOD BANK LAB Unit Donor # [id number] [facility] BLOOD BANK LAB Unit Status released [facility] BLOO D BANK LAB Product Code [id number] [facility] BLO OD BANK LAB Blood Type Barcode 9500 [facility] BLOOD BANK LAB Expiration Date [id number] S BLOOD BANK LAB Blood Bank BLOOD SPECIMEN / Unknown 02/16/2025 1:30 PM CDT Muriel Vickers MD LAB - BLOOD BANK ORDERABLES Final Result [facility] BLOOD BANK LAB [address] [place] [address], [place] [phone] * (ABNORMAL) GLUCOSE - POINT OF CARE (02/17/2025 5:55 AM CDT) Only the most recent of4 resultswithin the time period is included. [facility] Glucose WB/POC 161(H) 70 - 99 mg/dL 02/17/2025 5:56 AM CDT [facility]ITAL Specimen Type Venous 02/17/2025 5:56 AM CDT [facility] Blood BLOOD SPECIMEN / Unknown 02/17/2025 5:55 AM CDT 02/17/2025 5:56 AM CDT us Muriel Vickers MD LAB - POINT OF CARE ORDERAB LES Final Result [facility] [address] [place] [address], [place] [phone] * (ABNORMAL) HEMOGLOBIN A1C (02/17/2025 5:54 AM CDT) Hemoglobin A1c 6.0(H) <=5.6 % 02/17/2025 9:01 AM CDT [facility] LABORATORY [facility] Estimated Average Glucose 126 mg/dL 02/17/2025 9:01 AM T [facility]OSPITAL Comment: HbA1c Interpretation: Normal : < 5.7% Pre-diabetes: 5.7-6.4% Diabetes: Equal to or greater than 6.5% Test results diagnostic of diabetes should be repeated for confirmation. Treatment target values recommended by ADA and other clinical organizations should be used to evaluate metabolic control in patients. Reference: [place] [employer], Standards of Care in Diabetes [...] MD LAB - CHEMISTRY ORDERABLES Final Result [facility] LABORATORY [address] [address], [facility] [phone] * (ABNORMAL) CBC W/O DIFFERENTIAL (02/17/2025 5:54 AM CDT) Only the most recent of3 resultswithin the time period is included. WBC 15.9(H) 4.0 - 10.7 x10E9/L 02/17/2025 6:14 AM CDT [facility] LABORATORY [facility] RBC Count 5.41 4.30 - 5.80 x10E12/L 02/17/2025 6:14 AM CDT [facility] LABORATORY [facility] Hemoglobin 15.6 13.3 - 17.5 g/dL 02/17/2025 6:14 AM CDT [facility] LABORATORY [facility] Hematocrit 46.7 38.7 - 51.1 % 02/17/2025 6:14 AM [facility] MCV 86.3 80.0 - 98.0 fL 02/17/2025 6:14 AM T [facility] MCH 28.8 26.7 - 33.6 pg 02/17/2025 6:14 AM [facility] MCHC 33.4 31.7 - 36.3 g/dL 02/17/2025 6:14 AM [facility] RDW-CV 13.3 11.3 - 14.8 % 02/17/2025 6:14 AM [facility] Platelet Count 87(L) 150 - 420 x10E9/L 02/17/2025 6:14 AM [facility] MPV 12.7(H) 7.8 - 11.4 fL 02/17/2025 6:14 AM [facility] Blood BLOOD SPECIMEN / Unknown Venipuncture / Unknown 02/17/2025 5:54 AM CDT 02/17/2025 6:04 AM CDT us Muriel Vickers MD LAB - HEMATOLOGY ORDERABLES Final Result [facility] [address] [place] [address], [facility] [phone] * PT-INR [facility] (02/17/2025 12:15 AM CDT) Only the most recent of2 resultswithin the time period is included. PT 14.2 12.1 - 14.8 Seconds 02/17/2025 12:59 AM [facility] INR 1.1 See Comment 02/17/2025 12:59 AM [facility] Comment:The suggested therap eutic range [...] ORDERABLE S Final Result Performing Organization Address City/[facility]/ZIP Co de Phone Number [address] [address], [facility] [phone] * (ABNORMAL) CALCIUM IONIZED WHOLE BLOOD (02/17/2025 12:15 AM CDT) Calcium Ionized 1.10 mmol/L 02/17/2025 12:32 AM CDT [facility] LABORATORY [facility] pH 7.36 7.35 - 7.45 pH 02/17/2025 12:32 AM [facility] Ionized Calcium pH Adjusted 1.08(L) 1.19 - 1.34 mmol/L 02/17/2025 12:32 AM [facility] Blood BLOOD SPECIMEN / Unknown Venipuncture / Unknown 02/17/2025 12:15 AM CDT 02/17/2025 12:25 AM CDT us Muriel Vickers MD LAB - CHEMISTRY ORDERABLES Final Result Performing Organization Address [facility] Co de Phone Number [address] [address], [facility] [phone] * (ABNORMAL) BASIC METABOLIC PANEL (CALCIUM TOTAL) (02/17/2025 12:15 AM CDT) Only the most recent of2 resultswithin the time period is included. BUN 16 7 - 26 mg/dL 02/17/2025 12:57 AM [facility] LABORATORY [facility] Creatinine 1.16 0.71 - 1.16 mg/dL 02/17/2025 12:57 AM [facility] LABORATORY [facility] Sodium 136 136 - 145 mmol/L 02/17/2025 12:57 AM [facility] Potassium 4.5 3.5 - 4.5 mmol/L 02/17/2025 12:57 AM [facility] LABORATORY [facility] Chloride 105 98 - 107 mmol/L 02/17/2025 12:57 AM [facility] LABORATORY [facility] CO2 20(L) 22 - 29 mmol/L 02/17/2025 12:57 AM [facility] Glucose 179(H) 70 - 99 mg/dL 02/17/2025 12:57 AM [facility] Calcium 7.9(L) 8.4 - 10.2 mg/dL 02/17/2025 12:57 AM [facility] Anion Gap 11 6 - 16 02/17/2025 12:57 AM [facility] BUN/Creatinine Ratio 14 7 - 23 02/17/2025 12:57 AM [facility] Osmolality Calculated 288 275 - 295 mOsm/kg 02/17/2025 12:57 AM [facility] eGFR by CKD-EPI 74(L) >=90 mL/min/1.7 3 m2 02/17/2025 12:57 AM [facility] Blood BLOOD SPECIMEN / Unknown Venipuncture / Unknown 02/17/2025 12:15 AM CDT 02/17/2025 12:32 AM CDT us Muriel Vickers MD LAB - CHEMISTRY ORDERABLES Final Result [address] [address], [facility] [phone] * PHOSPHORUS BLOOD (02/17/2025 12:15 AM CDT) Phosphorus 3.0 2.8 - 5.1 mg/dL 02/17/2025 12:57 AM T [facility] Blood BLOOD SPECIMEN / Unknown Venipuncture / Unknown 02/17/2025 12:15 AM CDT 02/17/2025 12:32 AM CDT us Muriel Vickers MD LAB - CHEMISTRY ORDERABLES Final Result [address] [address], [facility] [phone] * MAGNESIUM BLOOD (02/17/2025 12:15 AM CDT) Magnesium 1.9 1.6 - 2.6 mg/dL 02/17/2025 12:57 AM [facility] Blood BLOOD SPECIMEN / Unknown Venipuncture / Unknown 02/17/2025 12:15 AM CDT 02/17/2025 12:32 AM CDT Muriel Vickers MD LAB - CHEMISTRY ORDERABLES Final Result Performing Organization Address [facility]/State/ZIP Co de Phone Number [facility] [address] [place] [address], [facility] [phone] * (ABNORMAL) RENAL FUNCTION PANEL (02/16/2025 5:19 PM CDT) BUN 16 7 - 26 mg/dL 02/16/2025 5:49 PM [facility] Creatinine 1.33(H) 0.71 - 1.16 mg/dL 02/16/2025 5:49 PM [facility] Sodium 135(L) 136 - 145 mmol/L 02/16/2025 5:49 PM [facility] Potassium 5.1(H) 3.5 - 4.5 mmol/L 02/16/2025 5:49 PM [facility] Chloride 103 98 - 107 mmol/L 02/16/2025 5:49 PM [facility] CO2 22 22 - 29 mmol/L 02/16/2025 5:49 PM [facility] Glucose 123(H) 70 - 99 mg/dL 02/16/2025 5:49 PM [facility] Albumin 3.7 3.4 - 5.0 g/dL 02/16/2025 5:49 PM [facility] Calcium 8.8 8.4 - 10.2 mg/dL 02/16/2025 5:49 PM [facility] Phosphorus 3.6 2.8 - 5.1 mg/dL 02/16/2025 5:49 PM [facility] Anion Gap 10 6 - 16 02/16/2025 5:49 PM [facility] BUN/Creatinine Ratio 12 7 - 23 02/16/2025 5:49 PM [facility] Osmolality Calculated 283 275 - 295 mOsm/kg 02/16/2025 5:49 PM CDT [facility] eGFR by CKD-EPI 63(L) >=90 mL/min/1.7 3 m2 02/16/2025 5:49 PM CDT [facility]ORY HOSPITAL Blood BLOOD SPECIMEN / Unknown Venipuncture / Unknown 02/16/2025 5:19 PM CDT 02/16/2025 5:23 PM CDT Muriel Vickers MD LAB - CHEMISTRY ORDERABLES Final Result [facility] [address] [place] [address], [place] [phone] * [place] Tatyana W Angio Team (02/16/2025 4:25 PM CDT) Narrative [facility] RADIOLOGY - 02/16/2025 4:26 PM CDT Fluoroscopy was used for this exam in the OR. Please see the Operative report. Korey Acuna MD FLUOROSCOPY ORDERABLES Final Result Performing Organization Address City/[facility]/ZIP Co de Phone Number [facility] RADIOLOGY * BLOOD TYPE VERIFICATION (02/16/2025 1:33 PM CDT) ABO Rh O NEG 02/16/2025 2:2 3 PM CDT [facility] BLOOD BANK LAB Blood Bank BLOOD SPECIMEN / Unknown Venipuncture / Unknown 02/16/2025 1:33 PM CDT 02/16/2025 1:41 PM CDT Muriel Vickers MD LAB - BLOOD BANK ORDERABLES Final Result [facility] BLOOD BANK LAB [address] [place] [address], [place] [phone] * (ABNORMAL) CBC W AUTO DIFFERENTIAL (02/16/2025 1:22 PM CDT) WBC 9.2 4.0 - 10.7 x10E9/L 02/16/2025 1:45 PM CDT [facility] RBC Count 6.10(H) 4.30 - 5.80 x10E12/L 02/16/2025 1:45 PM [facility] Hemoglobin 17.5 13.3 - 17.5 g/dL 02/16/2025 1:45 PM [facility] Hematocrit 53.1(H) 38.7 - 51.1 % 02/16/2025 1:45 PM [facility] MCV 87.0 80.0 - 98.0 fL 02/16/2025 1:45 PM [facility] MCH 28.7 26.7 - 33.6 pg 02/16/2025 1:45 PM [facility] MCHC 33.0 31.7 - 36.3 g/dL 02/16/2025 1:45 PM [facility] RDW-CV 13.4 11.3 - 14.8 % 02/16/2025 1:45 PM [facility] Platelet Count 79(L) 150 - 420 x10E9/L 02/16/2025 1:45 PM [facility] MPV 11.7(H) 7.8 - 11.4 fL 02/16/2025 1:45 PM [facility] Neutrophil % 69.4 41.0 - 74.0 % 02/16/2025 1:45 PM [facility] Lymphocyte % 20.4 17.0 - 47.0 % 02/16/2025 1:45 PM [facility] Monocyte % 7.3 3.0 - 11.0 % 02/16/2025 1:45 PM [facility] Eosinophil % 1.9 0.0 - 7.0 % 02/16/2025 1:45 PM [facility] Basophil % 0.5 0.0 - 1.6 % 02/16/2025 1:45 PM [facility] Immature Granulocytes % 0.5 0.0 - 1.0 % 02/16/2025 1:45 PM [facility] Neutrophil Absolute 6.35 1.60 - 7.50 x10E9/L 02/16/2025 1:45 PM [facility] Lymphocyte Absolute 1.87 1.00 - 4.40 x10E9/L 02/16/2025 1:45 PM CDT [facility] LABORATORY [facility] Monocyte Absolute 0.67 0.15 - 1.00 x10E9/L 02/16/2025 1:45 PM CDT [facility] Eosinophil Absolute 0.17 0.00 - 0.60 x10E9/L 02/16/2025 1:45 PM CDT [facility] Basophil Absolute 0.05 0.00 - 0.13 x10E9/L 02/16/2025 1:45 PM CDT [facility] Blood BLOOD SPECIMEN / Unknown Venipuncture / Unknown 02/16/2025 1:22 PM CDT 02/16/2025 1:27 PM CDT Hans Hung MD LAB - HEMATOLOGY ORDERABLES F inal Result [facility] [address] [place] [address], [facility] [phone] * TYPE + SCREEN PANEL (02/16/2025 1:17 PM CDT) Antibody Screen NEG 2:23 PM CDT [facility] BLOOD BANK LAB ABO Rh O NEG 02/16/2025 2:23 PM CDT [facility] BLOOD BANK LAB Blood Bank BLOOD SPECIMEN / Unknown Line Draw / Unknown 02/16/2025 1:17 PM CDT 02/16/2025 1:30 PM CDT us Muriel Vickers MD LAB - BLOOD BANK ORDERABLES Final Result [facility] BLOOD BANK LAB [address] [place] [address], [place] [phone] * VAS Bilat Abd Renal Doppler (01/16/2025 5:15 PM CDT) Anatomical Region Laterality Modality Abdomen Intravascular Ul trasound 01/16/2025 8:15 AM CDT Narrative Procedure Note Nathan Bowden MD - 01/18/2025 Muriel Vickers MD VASCULAR LAB ORDERABLES Vinay kevin Result - Final * HEPATITIS C ANTIBODY (06/08/2020 4:51 PM CDT) [facility] Hepatitis C Antibody <0.1 0.0 - 0.9 s/co ratio [facility] INSURANCE BILL Comment: Negative: < 0.8 Indeterminate: 0.8 - 0.9 Positive: > 0.9 . The CDC recommends that a positive HCV antibody result be followed up with a HCV Nucleic Acid Amplification test (932075). Blood BLOOD SPECIMEN / Unknown 06/08/2020 4:51 PM CDT 06/08/2020 Narrative Resulting Agency Comment Lab Testing performed at: [place] [id number] [facility] [id number] Carlos Culp MD LAB - CHEMISTRY ORDERABLES Final Result [facility] INSURANCE BILL [address] [place] [address] * HIV-1 HIV-2 ANTIBODY + HIV P24 AG PANEL (06/08/2020 4:46 PM CDT) [facility] HIV Screen 4th Generation w Reflex Non Reactive Non Reactive [facility] INSURANCE BILL Blood BLOOD SPECIMEN / Unknown 06/08/2020 4:46 PM CDT 06/08/2020 Narrative Resulting Agency Comment [facility]: [facility] [address] [facility] [phone] Carlos Culp MD LAB - CHEMISTRY ORDERABLES Final Result [facility] INSURANCE BILL [address] [place] [address] from Last 3 Months or Most Recently Relevant to Health Maintenance Insurance MEDICARE * Guarantor: HANS LYN Account Type Relation to Patient Date of Phone Billing Address Personal/Family [address] [place] [address] * Guarantor: HANS LYN Account Type Relation to Patient Date of Phone Billing Address Personal/Family [address] [place] [address] * Guarantor: HANS LYN Account Type Relation to Patient Date of Phone Billing Address Personal/Family [address] [place] [address] * Guarantor: HANS LYN Account Type Relation to Patient Date of Phone Billing Address Personal/Family [address] [place] [address] * Guarantor: HANS LYN Account Type Relation to Patient Date of Phone Billing Address Personal/Family [address] [place] [address] * Guarantor: HANS LYN Account Type Relation to Patient Date of Phone Billing Address Personal/Family [address] [place] [address] Advance Directives * Full Code (Latest Code Status on File) Date Activated Date Inactivated Comments 02/16/2025 4:27 PM 02/17/2025 12:09 PM Care Teams Funeral Pre Arrangement Specialist Relationship Specialty Start Date End Date Yury Barnes DO [address] [place] [address] PCP - General Internal Medicine 12/24/24
--- OUTSIDE RECORDS SUMMARY | 2025-02-26 11:47 | XMS_ITS | Clinical Summary ---
Author Organization [facility] Address [address] [place] [address] Care Team Providers Care Chronic Condition Nurse Name Role Phone Gustavo Bell MD Unavailable [phone] Carlos Culp MD Unavailable Sebastian Up MD Unavailable [phone] Thai Cruz Primary Care Provider Allergies Active Allergy Reactions Criticality Noted Date Comments Cephalexin Other (See comments) Low WOUND UP IN ER, PASSED OUT ON FLOOR Kebencc-Qvv-Rpw Reductase Inhibitors Swelling Medium 06/13/2022 Medications ALPRAZolam [...] Culp. Assessment & Plan (01/05/2021 11:46 AM TARIFF INSPECTOR): Follows with marshal. Doing whole blood phlebotomy [...] when laying on his back at night. [facility] neurology refused referral as [...] when laying on his back at night. [facility] neurology refused referral as [...] neurology. Assessment & Plan (01/05/2021 11:50 AM TARIFF INSPECTOR): Notes left anterior thigh paresthesias that radiates [...] crest. Assessment & Plan (01/05/2021 11:44 AM TARIFF INSPECTOR): Xray (03/04/2020) revealed mild OA. Recent MRI right hip was revealing for mild tendinopathy of right gluteus minimus and mild bilateral trochanteric bursitis. Did not do PT. States he has done PT 4 different times without benefit in the past. Pain localized over the anterosuperior iliac spine and radiates along the iliac crest. Assessment & Plan (09/21/2020 12:39 PM TARIFF INSPECTOR): Xray (03/04/2020) revealed mild OA. Recent MRI [...] 11/28/2019 Assessment & Plan (11/28/2019 11:07 AM TARIFF INSPECTOR): Pt has red, flaky rash between the eyebrows and scattered throughout his interiano. He states it developed over the past 6 months and denies change in soaps/detergents. HCQ can cause/worsen psoriasis. Will hold plaquenil and watch for improvement. Recommend patient see dermatology. If rash is diagnosed as psoriasis, then likely patient has overlap with psoriatic arthritis. Patient given him analyst Dr. Abraham's information. Neck pain 08/28/2019 Assessment [...] into hands as well and has diminished behavioral school counselors strength as well. Patient was told in [...] into hands as well and has diminished behavioral school counselors strength as well. Patient was told in [...] into hands as well and has diminished behavioral school counselors strength as well. Will give referral to neurology. Assessment & Plan (01/05/2021 11:41 AM TARIFF INSPECTOR): History of chronic neck pain for which [...] referral from pcp for a spinal surgeon. [facility] current use of therapeutic drug 2018 Overview [...] rash Assessment & Plan (01/05/2021 11:40 AM TARIFF INSPECTOR): Hepatitis negative: 04/2018 CXR negative: 04/2018 Quantiferon negative: 03/15/2020 Has failed MTX, leflunomide, SSZ, enbrel, and humira. Orencia - loss of benefit HCQ - stopped due to psoriasis-like rash Assessment & Plan (09/21/2020 12:36 PM TARIFF INSPECTOR): Hepatitis negative: 04/2018 CXR negative: 04/2018 Quantiferon [...] rash Assessment & Plan (11/28/2019 11:03 AM TARIFF INSPECTOR): Hepatitis negative: 04/2018 CXR negative: 04/2018 Quantiferon [...] 08/02/2018 Assessment & Plan (01/05/2021 11:46 AM TARIFF INSPECTOR): Chronic. Denied benefit with kenalog injection given [...] benefit. Assessment & Plan (11/28/2019 11:03 AM TARIFF INSPECTOR): Denied benefit with kenalog injection given at [...] benefit. Assessment & Plan (12/24/2018 11:18 AM TARIFF INSPECTOR): Recently followed with orthopedics for additional evaluation. Was told that he had fluid build up that was causing his elbow pain and could not be offered any specific treatment. Has recently been having pain in his left elbow also. If becomes more bothersome, could consider physical therapy in the future. Assessment & Plan (10/21/2018 5:04 PM TARIFF INSPECTOR): He has persistent pain in his right [...] with simponi aria. Continue Actemra 8mg/kg IV [id number] and give this more time to take [...] office. Assessment & Plan (01/05/2021 11:43 AM TARIFF INSPECTOR): Moderate cdai. Synovitis with increased tenderness of [...] office. Assessment & Plan (09/21/2020 12:37 PM TARIFF INSPECTOR): Moderate cdai. Synovitis without much tenderness noted [...] needed. Assessment & Plan (11/28/2019 12:08 PM TARIFF INSPECTOR): High cdai. Several swollen and tender joints [...] needed. Assessment & Plan (12/24/2018 11:19 AM TARIFF INSPECTOR): Moderate cdai. No obvious synovitis noted on [...] needed. Assessment & Plan (10/21/2018 5:00 PM TARIFF INSPECTOR): He is having increased pain complaints in [...] exercise. Assessment & Plan (01/05/2021 11:42 AM TARIFF INSPECTOR): Still has generalized pain. Follows with pain management and remains on Lyrica 150mg TID and baclofen 20mg prn per pain management, although dose not take baclofen very frequently as he denies benefit. Does not take Lyrica routinely as he feels it worsens his pain. Encouraged to participate in routine exercise. Assessment & Plan (09/21/2020 12:37 PM TARIFF INSPECTOR): Still has generalized pain. Follows with pain [...] exercise. Assessment & Plan (11/28/2019 11:04 AM TARIFF INSPECTOR): Still has generalized pain. Follows with pain [...] exercise. Assessment & Plan (12/24/2018 11:45 AM TARIFF INSPECTOR): Still has generalized pain which appears to be contributing to most of his pain complaints today. Follows with pain management and remains on Lyrica 150mg TID and baclofen 20mg prn per pain management. Encouraged to participate in routine exercise. Assessment & Plan (10/21/2018 5:06 PM TARIFF INSPECTOR): He still has widespread pain which I [...] on file Legal Sex Male 1:56 AM TARIFF INSPECTOR Gender Identity Not on file Sexual Orientation [...] C Ab Non-Reactiv e Non-Reactiv e [facility] Blood specimen (specimen) 04/15/2018 3:00 PM CDT 04/15/2018 5:15 PM CDT Narrative [facility] - 04/15/2018 9:03 PM CDT Pierce Griffiths MD LAB MICROBIOLOGY - GENE RAL ORDERABLES Final Result [facility] [address] Department [place] [address] from Last 3 Months or Most Recently Relevant to Health Maintenance Insurance MEDICARE MEDICARE [address] [place] [address] [place] [address] MEDICARE Advance Directives For more information, please contact: [phone] Documents on File Type Date Recorded Patient Fire Alarm Repairer Expl anation ADVANCE DIRECTIVE 04/15/2018 5:09 PM * Full Code (Latest Code Status on File) Date Activated Date Inactivated Comments 06/30/2022 10:05 AM 06/30/2022 4:15 PM Care Teams Chronic Condition Nurse Relationship Specialty Start Date End Date Thai Cruz PA [address] [place] [address] PCP - General Physician Driller And Reamer 06/21/22 Gustavo Bell MD [address] [place] [address] Consulting Physician Rheumatology 05/03/18 Carlos Culp MD [address] [facility] [address] [place] [address] Referring Physician Internal Medicine 05/18/20 Sebastian Up MD [address] [place] [address] Referring Physician Physical Medicine and Rehabilitation 07/19/21
--- OUTSIDE RECORDS SUMMARY | 2025-02-26 11:47 | XMS_ITS | Referral Summary ---
Author Organization [facility] Address [address] [place] [address] Care Team Providers Care Cathode Ray Tube Salvage Processor Name Role Phone Gustavo Bell MD Unavailable Carlos Culp MD Unavailable Sebastian Up MD Unavailable [phone] Thai Cruz Primary Care Provider Allergies Active Allergy Reactions Criticality Noted Date Comments Cephalexin Other (See comments) Low WOUND UP IN ER, PASSED OUT ON FLOOR Kediyzp-Lez-Pdp Reductase Inhibitors Swelling Medium 06/13/2022 Medications ALPRAZolam [...] Culp. Assessment & Plan (01/05/2021 11:46 AM PRODUCTION PROOFREADER): Follows with marshal. Doing whole blood phlebotomy [...] when laying on his back at night. [facility] neurology refused referral as they [...] when laying on his back at night. [facility] neurology refused referral as they [...] neurology. Assessment & Plan (01/05/2021 11:50 AM PRODUCTION PROOFREADER): Notes left anterior thigh paresthesias that radiates [...] crest. Assessment & Plan (01/05/2021 11:44 AM PRODUCTION PROOFREADER): Xray (03/04/2020) revealed mild OA. Recent MRI right hip was revealing for mild tendinopathy of right gluteus minimus and mild bilateral trochanteric bursitis. Did not do PT. States he has done PT 4 different times without benefit in the past. Pain localized over the anterosuperior iliac spine and radiates along the iliac crest. Assessment & Plan (09/21/2020 12:39 PM PRODUCTION PROOFREADER): Xray (03/04/2020) revealed mild OA. Recent MRI [...] 11/28/2019 Assessment & Plan (11/28/2019 11:07 AM PRODUCTION PROOFREADER): Pt has red, flaky rash between the eyebrows and scattered throughout his interiano. He states it developed over the past 6 months and denies change in soaps/detergents. HCQ can cause/worsen psoriasis. Will hold plaquenil and watch for improvement. Recommend patient see dermatology. If rash is diagnosed as psoriasis, then likely patient has overlap with psoriatic arthritis. Patient given signal worker helper Dr. Abraham's information. Neck pain 08/28/2019 Assessment [...] into hands as well and has diminished agronomy specialist strength as well. Patient was told in [...] into hands as well and has diminished agronomy specialist strength as well. Patient was told in [...] into hands as well and has diminished agronomy specialist strength as well. Will give referral to neurology. Assessment & Plan (01/05/2021 11:41 AM PRODUCTION PROOFREADER): History of chronic neck pain for which [...] referral from pcp for a spinal surgeon. correction current use of therapeutic drug 2018 Overview [...] rash Assessment & Plan (01/05/2021 11:40 AM PRODUCTION PROOFREADER): Hepatitis negative: 04/2018 CXR negative: 04/2018 Quantiferon negative: 03/15/2020 Has failed MTX, leflunomide, SSZ, enbrel, and humira. Orencia - loss of benefit HCQ - stopped due to psoriasis-like rash Assessment & Plan (09/21/2020 12:36 PM PRODUCTION PROOFREADER): Hepatitis negative: 04/2018 CXR negative: 04/2018 Quantiferon [...] rash Assessment & Plan (11/28/2019 11:03 AM PRODUCTION PROOFREADER): Hepatitis negative: 04/2018 CXR negative: 04/2018 Quantiferon [...] 08/02/2018 Assessment & Plan (01/05/2021 11:46 AM PRODUCTION PROOFREADER): Chronic. Denied benefit with kenalog injection given [...] benefit. Assessment & Plan (11/28/2019 11:03 AM PRODUCTION PROOFREADER): Denied benefit with kenalog injection given at [...] benefit. Assessment & Plan (12/24/2018 11:18 AM PRODUCTION PROOFREADER): Recently followed with orthopedics for additional evaluation. Was told that he had fluid build up that was causing his elbow pain and could not be offered any specific treatment. Has recently been having pain in his left elbow also. If becomes more bothersome, could consider physical therapy in the future. Assessment & Plan (10/21/2018 5:04 PM PRODUCTION PROOFREADER): He has persistent pain in his right [...] with simponi aria. Continue Actemra 8mg/kg IV [id number] and give this more time to take [...] office. Assessment & Plan (01/05/2021 11:43 AM PRODUCTION PROOFREADER): Moderate cdai. Synovitis with increased tenderness of [...] office. Assessment & Plan (09/21/2020 12:37 PM PRODUCTION PROOFREADER): Moderate cdai. Synovitis without much tenderness noted [...] needed. Assessment & Plan (11/28/2019 12:08 PM PRODUCTION PROOFREADER): High cdai. Several swollen and tender joints [...] needed. Assessment & Plan (12/24/2018 11:19 AM PRODUCTION PROOFREADER): Moderate cdai. No obvious synovitis noted on [...] needed. Assessment & Plan (10/21/2018 5:00 PM PRODUCTION PROOFREADER): He is having increased pain complaints in [...] exercise. Assessment & Plan (01/05/2021 11:42 AM PRODUCTION PROOFREADER): Still has generalized pain. Follows with pain management and remains on Lyrica 150mg TID and baclofen 20mg prn per pain management, although dose not take baclofen very frequently as he denies benefit. Does not take Lyrica routinely as he feels it worsens his pain. Encouraged to participate in routine exercise. Assessment & Plan (09/21/2020 12:37 PM PRODUCTION PROOFREADER): Still has generalized pain. Follows with pain [...] exercise. Assessment & Plan (11/28/2019 11:04 AM PRODUCTION PROOFREADER): Still has generalized pain. Follows with pain [...] exercise. Assessment & Plan (12/24/2018 11:45 AM PRODUCTION PROOFREADER): Still has generalized pain which appears to be contributing to most of his pain complaints today. Follows with pain management and remains on Lyrica 150mg TID and baclofen 20mg prn per pain management. Encouraged to participate in routine exercise. Assessment & Plan (10/21/2018 5:06 PM PRODUCTION PROOFREADER): He still has widespread pain which I [...] on file Legal Sex Male 1:56 AM PRODUCTION PROOFREADER Gender Identity Not on file Sexual Orientation [...] C Ab Non-Reactiv e Non-Reactiv e [facility] Blood specimen (specimen) 04/15/2018 3:00 PM CDT 04/15/2018 5:15 PM CDT Narrative [facility] - 04/15/2018 9:03 PM CDT us Pierce Griffiths MD LAB MICROBIOLOGY - GENE RAL ORDERABLES Final Result [facility] [address] [place] [address] from Last 3 Months or Most Recently Relevant to Health Maintenance Insurance [address] [place] [address] [address] [place] [address] [address] [place] [address] MEDICARE MEDICARE Advance Directives For more information, please contact: [phone] Documents on File Type Date Recorded Patient Automotive Service Technician Expl anation ADVANCE DIRECTIVE 04/15/2018 5:09 PM * Full Code (Latest Code Status on File) Date Activated Date Inactivated Comments 06/30/2022 10:05 AM 06/30/2022 4:15 PM Care Teams Cathode Ray Tube Salvage Processor Relationship Specialty Start Date End Date Thai Cruz PA [address] [facility] [address] [facility] [address] [place] [address] PCP - General Physician Examining Officer 06/21/22 Gustavo Bell MD [address] [facility] [address] [place] [address] Consulting Physician Rheumatology 05/03/18 Carlos Culp MD [address] [facility] [address] [place] [address] Referring Physician Internal Medicine 05/18/20 Sebastian pU MD [address] [place] [address] Referring Physician Physical Medicine and Rehabilitation 07/19/21
--- OUTSIDE RECORDS SUMMARY | 2025-02-26 11:47 | XMS_ITS | Clinical Summary ---
Author Organization [facility] [place] [id number] Address [address] [place] [address] Care Team Providers Care Author Name Role Phone Lai Goodrich MD Primary Care Provider [phone] Allergies Active Allergy Reactions Criticality Noted Date Comments Eiyspdh-Qbz-Ajl Reductase Inhibitors Anaphylaxis High 09/09/2018 Tongue swelling [...] Comments Blood Pressure 148/88 10/10/2019 12:39 PM FORGING DIE SINKER Pulse - - Temperature - - Respiratory Rate - - Oxygen Saturation - - Inhaled Oxygen Concentration - - Weight 98.9 kg (218 lb) 10/10/2019 12:39 PM FORGING DIE SINKER Height 177.8 cm (5' 10 ) 10/10/2019 12:39 PM FORGING DIE SINKER Body Mass Index 31.28 10/10/2019 12:39 PM FORGING DIE SINKER Plan of Treatment Health Maintenance Due Date [...] 2024 08/10/2015 Insurance MEDICAID [place] Care Teams Author Relationship Specialty Start Date End Date Lai Goodrich MD [address] [place] [address] PCP - General Internal Medicine 09/19/19
--- OUTSIDE RECORDS SUMMARY | 2025-02-26 11:47 | XMS_ITS | Clinical Summary ---
Author Organization [facility] Address [address] [place] [address] Care Team Providers Care Claims Investigator Name Role Phone Joe Goodrich MD Primary [...] patient's age to complete this topic Insurance [facility] MEDICARE Care Teams Claims Investigator Relationship Specialty Start Date End Date Joe Goodrich MD [facility] [address] [facility] [address] [place] [address] PCP - General INTERNAL MEDICINE 10/07/18
--- OUTSIDE RECORDS SUMMARY | 2025-02-26 11:47 | XMS_ITS | Clinical Summary ---
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 No new pulmonary nodules. These have demonstrated stability since July 2017 and likely benign. Narrative 09/15/2019 12:09 PM SEAM CLOSER EXAM DESCRIPTION: CT CHEST W/O CONTRAST REASON [...] Del Chaudhary M.D. JA: PAL Report ID: [id number] Reading Location: [id number] Procedure Note Del Chaudhary MD - 09/15/2019 [...] Del Chaudhary M.D. JA: PAL Report ID: [id number] Reading Location: [place] [address] IMPRESSION: Stable appearance of pulmonary nodules as above. No new pulmonary nodules. These have demonstrated stability since July 2017 and likely benign. us Danielle Phelps PSYCHOLOGY ASSOCIATE, SIDE SEAM TENDER IMG CT ORDERABLES Final Result * PSA DIAGNOSTIC,TOTAL (12/25/2016) PSA (PROSTATE SPECIFIC ANTIGEN) 0.5 ng/mL Blood specimen (specimen) 12/25/2016 us Chano Leggett DO CHEMISTRY ORDERABLES Final Resu lt * HM COLONOSCOPY (08/31/2016) us Nitesh Matta MD PROCEDURE/MINOR SURGICAL ORDER CRISTHIAN Final Result from Last 3 Months or Most Recently Relevant to Health Maintenance Insurance MEDICAID [place] MEDICARE MEDICAID [place] MEDICARE Care Teams Poolroom Table Attendant Relationship Specialty Start Date End Date Provider, None [place] PCP - General 06/03/21 Danielle Phelps, PSYCHOLOGY ASSOCIATE, SIDE SEAM TENDER Nurse Practitioner Advanced Practice Nurse 05/10/16 Chano Leggett DO Gastroenterology 09/01/16
== END 2025-02-26 10:25 | disposition home or self-care (01) ==
PROVIDERS: PCP Internal Medicine; Visit Provider Nurse Practitioner Family
DX: R16.0 Hepatomegaly, not elsewhere classified (principal); M25.552 Pain in left hip; K74.60 Unspecified cirrhosis of liver
CPT/HCPCS: 73502; 76705

== ENCOUNTER 2025-03-09 00:46 | Day surgery (SDC) | payer MEDICARE, OTHER, SELFPAY ==
[2025-03-03 13:31] VITALS: BMI 28.7
--- NOTE | 2025-03-03 13:45 | PC.NURSE ---
Spoke with patient regarding medication Plavix. Patient verbalizes understanding that the last dose is to be taken on 03/04/2025 and the Endoscopist will instruct them when to restart after the procedure.
--- OUTSIDE RECORDS SUMMARY | 2025-03-09 00:50 | XMS_ITS | Clinical Summary ---
Author Organization [facility] [place] [id number] [facility] Address [address] [place] [address] Care Team Providers Care Fire Production Operator Name Role Phone Lai Goodrich MD Primary Care Provider [phone] Allergies Active Allergy Reactions Criticality Noted Date Comments Bygkfqw-Oda-Xvh Reductase Inhibitors Anaphylaxis High 09/09/2018 Tongue swelling [...] Comments Blood Pressure 148/88 10/10/2019 12:39 PM XM1 TANK DRIVER Pulse - - Temperature - - Respiratory Rate - - Oxygen Saturation - - Inhaled Oxygen Concentration - - Weight 98.9 kg (218 lb) 10/10/2019 12:39 PM XM1 TANK DRIVER Height 177.8 cm (5' 10 ) 10/10/2019 12:39 PM XM1 TANK DRIVER Body Mass Index 31.28 10/10/2019 12:39 PM XM1 TANK DRIVER Plan of Treatment Health Maintenance Due Date [...] 2024 08/10/2015 Insurance MEDICAID [place] Care Teams Fire Production Operator Relationship Specialty Start Date End Date Lai Goodrich MD [address] [place] [address] PCP - General Internal Medicine 09/19/19
--- OUTSIDE RECORDS SUMMARY | 2025-03-09 00:50 | XMS_ITS | Clinical Summary ---
Author Organization [facility] [employer] Address [address] [place] [address] Care Team Providers Care Arboreal Scientist Name Role Phone Yury Barnes Primary Care Provider [phone] Source Comments [facility],non-owned Affiliates and Associated Physician Practices is amultiple site organization consisting of ambulatory clinics and hospital sitesin [place], [place], [place] and [place]. This disclosure is being madepursuant to the Care Everywhere program and may not contain all information available regarding this patient. Last updated 18.[facility] [employer] Allergies Active Allergy Reactions Criticality Noted Date [...] daily 12/03/19 21 025 Discontin ued(List Clean-Up) Active Problems Problem Noted Date Diagnosed Date [...] has overlap with psoriatic arthritis. Patient given online trader Dr. Abraham's information. Cervical spondylosis without myelopathy 10/10/20 19 Cigarette smoker 10/10/2019 detention current use of therapeutic drug 2018 Overview [...] Department Care Team Description 02/18/2025 Transitional Care [facility] Medical [facility] - Care Coordination [address] [place] [address] Evelin Avila MSW Transitional Care 02/16/2025 2:13 PM CDT Anesthesia Event [facility] OP [address] [place] [phone] Hans Hung MD Holtermann, Kirstie, MD 02/16/2025 1:55 PM CDT - 02/16/2025 3:51 PM CDT Surgery [facility] [address] [place] [address] Muriel Vickers MD RENAL ANGIOGRAM/ARTERIOGRA M WITH STENTING 02/16/2025 12:26 PM CDT - 02/17/2025 11:09 AM CDT Hospital Encounter [facility] 3S ICU [address] [place] [address] Muriel Vickers MD Vascular Surgery Discharge Disposition: Home or Self Care 02/16/2025 Travel 02/09/2025 Telephone [facility] IVR [address] [place] [phone] Daisy Parr, RN Appointment 02/06/2025 Telephone [facility] IVR [address] [place] [address] Hang Dumont, JEFE 02/05/2025 11:00 AM CDT Office Visit [facility] Neuroscience [address] [facility] [address] [place] [address] Kiara Sifuentes, LAYOUT ARTIST-FIRE EATER Chronic migraine w/o aura, not intractable, w/o stat migr (Primary Dx); Chronic tension-type headache, intractable 01/26/2025 Telephone [facility] - Vascular Surgery [address] [facility], [place] [address] Muriel Vickers MD Discuss Surgery 01/16/2025 7:50 AM CDT - 01/16/2025 11:59 PM CDT Hospital Encounter [facility] VASCULAR US [address] [place] [address] Muriel Vickers MD Discharge Disposition: Home or Self Care 01/16/2025 Travel 12/24/2024 10:15 AM SENIOR LINUX SYSTEMS ADMINISTRATOR Office Visit [facility] - Vascular Surgery [address] [facility] [place] [address] Muriel Vickers MD Left renal artery stenosis (Primary Dx) 12/24/2024 Travel 12/19/[address] [place] [address] Ching Benson MD Refill Request from Last [...] Recorded Patient Health Questionnaire-2 Score 0 02/05/2025 [facility] - Occupational Stress Questionnaire Answer Date Recorded [...] any time in the past 12 m [facility], were you homeless or living in a senior care (including now)? No 02/16/2025 Sex and Gender Information Value Date Recorded Sex Assigned at Not on file Legal Sex Male 6:13 AM SENIOR LINUX SYSTEMS ADMINISTRATOR Gender Identity Not on file Sexual Orientation [...] Info) Description 03/11/2025 8:00 AM CDT Appointment [facility] VASCULAR US [address] [place] [address] Muriel Vickers MD [address] [place] [address] 2L [place] [address] 03/11/2025 9:30 AM CDT Office Visit [facility] - Vascular Surgery [address] [facility] [place] [address] Muriel Vickers MD [address] [place] [address] 2L [place] [address] 02/04/2026 11:40 AM CDT Office Visit [facility] Health Neurosciences [address] [facility] [address] [place] [address] Ching Benson MD [address] [facility] [address] [address] [place] [address] Health Maintenance Due Date Last Done Comments [...] DIABETES-FOOT EXAM WITH MONOFILAMENT 07/19/2023 COVID-19 VACCINE (3 - 2023- season) 2024 02/20/2021, 01/30/2021 DIABETES - URINE [...] this topic Medical Devices Implanted Type Area Rn Urology Device Identifier Shelf Expiration Date Model / Serial / Lot Stent Trchbr 6mm 6fr 22mm 80cm Cvr Cath - [id number] Implanted:Qty: 1 on 02/16/2025 by Muriel Vickers MD at [facility] Left: Arterial [employer] [id number] 08/08/2025 [id number] / [id number] / NA Description:Left Renal Arter y Stent Trchbr 6mm 22mm 120cm Radopq Cvr - [id number] Implanted:Qty: 1 on 02/16/2025 by Muriel Vickers MD at [facility] Left: Arterial [employer] 11/23/2026 [id number] / [id number] / NA Description:LEFT RENAL ARTER Y Explanted Type Area Rn Urology Device Identifier Shelf Expiration Date Model / Serial / Lot Stent Trchbr 6mm 7fr 59mm 80cm .035in - [id number] Explanted:Qty: 1 on 02/16/2025 at [facility] Left: Arterial [employer] [id number] 07/24/2025 [id number] / [id number] / NA Description:STENT TOO LONG Procedures Procedure [...] Routine 02/16/2025 4:25 PM CDT Post-op pain DC ANGIO ADRENAL BILAT SELECT 02/16/2025 1:51 PM [...] AM CDT) Unit Description AS1 LR PRBC [facility] Unit ABO O [facility] BLOOD BANK LAB Unit Rh NEG [facility] BLOOD BANK LAB Product Number R43 [facility] B LOOD [facility]ANK LAB Unit Donor # [id number] [facility] BLOOD [facility]ANK LAB Unit Status released [facility] BLOO D BANK LAB Product Code [id number] [facility] BLO OD BANK LAB Blood Type Barcode 9500 [facility] BLOOD BANK LAB Expiration Date [id number] S BLOOD BANK LAB Blood Bank BLOOD SPECIMEN / Unknown 02/16/2025 1:30 PM CDT Muriel Vickers MD LAB - BLOOD BANK ORDERABLES Final Result Performing Organization Address City/[facility]/ZIP Co de Phone Number [facility] BLOOD BANK LAB [address] [place] [address], [place] [phone] * (ABNORMAL) GLUCOSE - POINT OF CARE (02/17/2025 5:55 AM CDT) Only the most recent of4 resultswithin the time period is included. [facility] Glucose WB/POC 161(H) 70 - 99 mg/dL 02/17/2025 5:56 AM CDT [facility] Specimen Type Venous 02/17/2025 5:56 AM CDT [facility] Blood BLOOD SPECIMEN / Unknown 02/17/2025 5:55 AM CDT 02/17/2025 5:56 AM CDT Muriel Vickres MD LAB - POINT OF CARE ORDERAB LES Final Result [facility] [address] [place] [address], [place] [phone] * (ABNORMAL) HEMOGLOBIN A1C (02/17/2025 5:54 AM CDT) [facility] Hemoglobin A1c 6.0(H) <=5.6 % 02/17/2025 9:01 AM CDT [facility] Estimated Average Glucose 126 mg/dL 02/17/2025 9:01 AM CDT [facility] Comment: HbA1c Interpretation: Normal : [...] MD LAB - CHEMISTRY ORDERABLES Final Result [facility] [address] [place] [address], [facility] [phone] * (ABNORMAL) CBC W/O DIFFERENTIAL (02/17/2025 5:54 AM CDT) Only the most recent of3 resultswithin the time period is included. WBC 15.9(H) 4.0 - 10.7 x10E9/L 02/17/2025 6:14 AM [facility] RBC Count 5.41 4.30 - 5.80 x10E12/L 02/17/2025 6:14 AM [facility] Hemoglobin 15.6 13.3 - 17.5 g/dL 02/17/2025 6:14 AM [facility] Hematocrit 46.7 38.7 - 51.1 % 02/17/2025 6:14 AM [facility] MCV 86.3 80.0 - 98.0 fL 02/17/2025 6:14 AM [facility] MCH 28.8 26.7 - 33.6 pg 02/17/2025 6:14 AM [facility] MCHC 33.4 31.7 - 36.3 g/dL 02/17/2025 6:14 AM CDT [facility] RDW-CV 13.3 11.3 - 14.8 % 02/17/2025 6:14 AM CDT [facility] Platelet Count 87(L) 150 - 420 x10E9/L 02/17/2025 6:14 AM CDT [facility] MPV 12.7(H) 7.8 - 11.4 fL 02/17/2025 6:14 AM T [facility] Blood BLOOD SPECIMEN / Unknown Venipuncture / Unknown 02/17/2025 5:54 AM CDT 02/17/2025 6:04 AM CDT us Muriel Vickers MD LAB - HEMATOLOGY ORDERABLES Final Result Performing Organization Address [facility] Co de Phone Number [address] [address], [facility] [phone] * PT-INR [facility] (02/17/2025 12:15 AM CDT) Only the most recent of2 resultswithin the time period is included. PT 14.2 12.1 - 14.8 Seconds 02/17/2025 12:59 AM T [facility] INR 1.1 See Comment 02/17/2025 12:59 AM T [facility] Comment:The suggested therap eutic range for [...] ORDERABLE S Final Result Performing Organization Address [facility]/ZIP Co de Phone Number [address] [address], [place] [phone] * (ABNORMAL) CALCIUM IONIZED WHOLE BLOOD (02/17/2025 12:15 AM CDT) Calcium Ionized 1.10 mmol/L 02/17/2025 12:32 AM [facility] pH 7.36 7.35 - 7.45 pH 02/17/2025 12:32 AM [facility] Ionized Calcium pH Adjusted 1.08(L) 1.19 - 1.34 mmol/L 02/17/2025 12:32 AM [facility] Blood BLOOD SPECIMEN / Unknown Venipuncture / Unknown 02/17/2025 12:15 AM CDT 02/17/2025 12:25 AM CDT Muriel Vickers MD LAB - CHEMISTRY ORDERABLES Final Result [facility] [address] [place] [address], [facility] [phone] * (ABNORMAL) BASIC METABOLIC PANEL (CALCIUM TOTAL) (02/17/2025 12:15 AM CDT) Only the most recent of2 resultswithin the time period is included. Pathologist [facility] BUN 16 7 - 26 mg/dL 02/17/2025 12:57 AM [facility] Creatinine 1.16 0.71 - 1.16 mg/dL 02/17/2025 12:57 AM [facility] Sodium 136 136 - 145 mmol/L 02/17/2025 12:57 AM [facility] Potassium 4.5 3.5 - 4.5 mmol/L 02/17/2025 12:57 AM [facility] Chloride 105 98 - 107 mmol/L 02/17/2025 12:57 AM [facility] CO2 20(L) 22 - 29 mmol/L 02/17/2025 12:57 AM [facility] Glucose 179(H) 70 - 99 mg/dL 02/17/2025 12:57 AM [facility] Calcium 7.9(L) 8.4 - 10.2 mg/dL 02/17/2025 12:57 AM [facility] Anion Gap 11 6 - 16 02/17/2025 12:57 AM CDT [facility] BUN/Creatinine Ratio 14 7 - 23 02/17/2025 12:57 AM CDT [facility] Osmolality Calculated 288 275 - 295 mOsm/kg 02/17/2025 12:57 AM CDT [facility] eGFR by CKD-EPI 74(L) >=90 mL/min/1.7 3 m2 02/17/2025 12:57 AM CDT [facility] Blood BLOOD SPECIMEN / Unknown Venipuncture / Unknown 02/17/2025 12:15 AM CDT 02/17/2025 12:32 AM CDT us Muriel Vickers MD LAB - CHEMISTRY ORDERABLES Final Result [address] [address], [place] [phone] * PHOSPHORUS BLOOD (02/17/2025 12:15 AM CDT) Phosphorus 3.0 2.8 - 5.1 mg/dL 02/17/2025 12:57 AM CDT [facility] Blood BLOOD SPECIMEN / Unknown Venipuncture / Unknown 02/17/2025 12:15 AM CDT 02/17/2025 12:32 AM CDT us Muriel Vickers MD LAB - CHEMISTRY ORDERABLES Final Result [address] [address], [place] [phone] * MAGNESIUM BLOOD (02/17/2025 12:15 AM CDT) Magnesium 1.9 1.6 - 2.6 mg/dL 02/17/2025 12:57 AM CDT [facility] Blood BLOOD SPECIMEN / Unknown Venipuncture / Unknown 02/17/2025 12:15 AM CDT 02/17/2025 12:32 AM CDT us Muriel Vickers MD LAB - CHEMISTRY ORDERABLES Final Result [facility] [address] [place] [address], [facility] [phone] * (ABNORMAL) RENAL FUNCTION PANEL (02/16/2025 5:19 PM CDT) BUN 16 7 - 26 mg/dL 02/16/2025 5:49 PM [facility] Creatinine 1.33(H) 0.71 - 1.16 mg/dL 02/16/2025 5:49 PM [facility] Sodium 135(L) 136 - 145 mmol/L 02/16/2025 5:49 PM [facility] Potassium 5.1(H) 3.5 - 4.5 mmol/L 02/16/2025 5:49 PM [facility] Chloride 103 98 - 107 mmol/L 02/16/2025 5:49 PM [facility] CO2 22 22 - 29 mmol/L 02/16/2025 5:49 PM [facility] Glucose 123(H) 70 - 99 mg/dL 02/16/2025 5:49 PM [facility] Albumin 3.7 3.4 - 5.0 g/dL 02/16/2025 5:49 PM [facility] Calcium 8.8 8.4 - 10.2 mg/dL 02/16/2025 5:49 PM [facility] Phosphorus 3.6 2.8 - 5.1 mg/dL 02/16/2025 5:49 PM [facility] Anion Gap 10 6 - 16 02/16/2025 5:49 PM [facility] BUN/Creatinine Ratio 12 7 - 23 02/16/2025 5:49 PM [facility] Osmolality Calculated 283 275 - 295 mOsm/kg 02/16/2025 5:49 PM [facility] eGFR by CKD-EPI 63(L) >=90 mL/min/1.7 3 m2 02/16/2025 5:49 PM [facility] Blood BLOOD SPECIMEN / Unknown Venipuncture / Unknown 02/16/2025 5:19 PM CDT 02/16/2025 5:23 PM CDT Muriel Vickers MD LAB - CHEMISTRY ORDERABLES Final Result [facility] [address] [place] [address], [facility] [phone] * [place] Tatyana W Angio Team (02/16/2025 4:25 PM CDT) Narrative [facility] RADIOLOGY - 02/16/2025 4:26 PM CDT Fluoroscopy was used for this exam in the OR. Please see the Operative report. Korey Acuna MD FLUOROSCOPY ORDERABLES Final Result Performing Organization Address City/[facility]/ZIP Co de Phone Number [facility] RADIOLOGY * BLOOD TYPE VERIFICATION (02/16/2025 1:33 PM CDT) ABO Rh O NEG 02/16/2025 2:2 3 PM CDT [facility] B[facility]ANK [facility] Blood Bank BLOOD SPECIMEN / Unknown Venipuncture / Unknown 02/16/2025 1:33 PM CDT 02/16/2025 1:41 PM CDT Muriel Vickers MD LAB - BLOOD BANK ORDERABLES Final Result Performing Organization Address City/[facility] Co de Phone Number [facility] B[facility]OD [facility] [address] [place] [address], [facility] [phone] * (ABNORMAL) CBC W AUTO DIFFERENTIAL (02/16/2025 1:22 PM CDT) WBC 9.2 4.0 - 10.7 x10E9/L 02/16/2025 1:45 PM CDT [facility] RBC Count 6.10(H) 4.30 - 5.80 x10E12/L 02/16/2025 1:45 PM CDT [facility] Hemoglobin 17.5 13.3 - 17.5 g/dL 02/16/2025 1:45 PM CDT [facility] Hematocrit 53.1(H) 38.7 - 51.1 % 02/16/2025 1:45 PM [facility] MCV 87.0 80.0 - 98.0 fL 02/16/2025 1:45 PM [facility] MCH 28.7 26.7 - 33.6 pg 02/16/2025 1:45 PM [facility] MCHC 33.0 31.7 - 36.3 g/dL 02/16/2025 1:45 PM [facility] RDW-CV 13.4 11.3 - 14.8 % 02/16/2025 1:45 PM [facility] Platelet Count 79(L) 150 - 420 x10E9/L 02/16/2025 1:45 PM [facility] MPV 11.7(H) 7.8 - 11.4 fL 02/16/2025 1:45 PM [facility] Neutrophil % 69.4 41.0 - 74.0 % 02/16/2025 1:45 PM [facility] Lymphocyte % 20.4 17.0 - 47.0 % 02/16/2025 1:45 PM [facility] Monocyte % 7.3 3.0 - 11.0 % 02/16/2025 1:45 PM [facility] Eosinophil % 1.9 0.0 - 7.0 % 02/16/2025 1:45 PM [facility] Basophil % 0.5 0.0 - 1.6 % 02/16/2025 1:45 PM [facility] Immature Granulocytes % 0.5 0.0 - 1.0 % 02/16/2025 1:45 PM [facility] Neutrophil Absolute 6.35 1.60 - 7.50 x10E9/L 02/16/2025 1:45 PM [facility] Lymphocyte Absolute 1.87 1.00 - 4.40 x10E9/L 02/16/2025 1:45 PM [facility] Monocyte Absolute 0.67 0.15 - 1.00 x10E9/L 02/16/2025 1:45 PM [facility] Eosinophil Absolute 0.17 0.00 - 0.60 x10E9/L 02/16/2025 1:45 PM CDT [facility] Basophil Absolute 0.05 0.00 - 0.13 x10E9/L 02/16/2025 1:45 PM CDT [facility] Blood BLOOD SPECIMEN / Unknown Venipuncture / Unknown 02/16/2025 1:22 PM CDT 02/16/2025 1:27 PM CDT Hans Hung MD LAB - HEMATOLOGY ORDERABLES F inal Result Performing Organization Address City/[facility]/ZIP Co de Phone Number [facility] [address] [place] [address], [place] [phone] * TYPE + SCREEN PANEL (02/16/2025 1:17 PM CDT) Antibody Screen NEG 2:23 PM CDT [facility] ABO Rh O NEG 02/16/2025 2:23 PM CDT [facility] Blood Bank BLOOD SPECIMEN / Unknown Line Draw / Unknown 02/16/2025 1:17 PM CDT 02/16/2025 1:30 PM CDT Muriel Vickers MD LAB - BLOOD BANK ORDERABLES Final Result Performing Organization Address City/[facility]/ZIP Co de Phone Number [facility] [address] [place] [address], [place] [phone] * VAS Bilat Abd Renal Doppler (01/16/2025 [...] with a HCV Nucleic Acid Amplification test (375207). Blood BLOOD SPECIMEN / Unknown 06/08/2020 4:51 PM CDT 06/08/2020 Narrative Resulting Agency Comment Lab Testing performed at: [employer] [address] [facility] [id number] Carlos Culp MD LAB - CHEMISTRY ORDERABLES Final Result [facility] INSURANCE BILL [address] [place] [address] * HIV-1 HIV-2 ANTIBODY + HIV P24 AG PANEL (06/08/2020 4:46 PM CDT) [facility] Signature HIV Screen 4th Generation w Reflex Non Reactive Non Reactive [facility] INSURANCE BILL Blood BLOOD SPECIMEN / Unknown 06/08/2020 4:46 PM CDT 06/08/2020 Narrative Resulting Agency Comment Lab Testing performed at: [email or web address] [address] [facility] [id number] Carlos Culp MD LAB - CHEMISTRY ORDERABLES Final Result [facility] INSURANCE BILL [address] [place] [address] from Last 3 Months or Most Recently Relevant to Health Maintenance Insurance MEDICARE * Guarantor: HANS LYN Account Type Relation to Patient Date of Phone Billing Address Personal/Family [address] [place] [address] * Guarantor: HANS LYN Account Type Relation to Patient Date of Phone Billing Address Personal/Family [address] [place] [address] * Guarantor: HANS LYN Account Type Relation to Patient Date of Phone Billing Address Personal/Family [address] [place] [address] * Guarantor: HANS LYN Account Type Relation to Patient Date of Phone Billing Address Personal/Family [address] [place] [address] * Guarantor: HANS LYN Account Type Relation to Patient Date of Phone Billing Address Personal/Family [address] [place] [phone] * Guarantor: HANS LYN Account Type Relation to Patient Date of Phone Billing Address Personal/Family [address] [place] [address] Advance Directives * Full Code (Latest Code Status on File) Date Activated Date Inactivated Comments 02/16/2025 4:27 PM 02/17/2025 12:09 PM Care Teams Arboreal Scientist Relationship Specialty Start Date End Date Yury Barnes DO [address] [place], [place] [id number] PCP - General Internal Medicine 12/24/24
--- OUTSIDE RECORDS SUMMARY | 2025-03-09 00:50 | XMS_ITS | Encounter Summary ---
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, [place] [address] Muriel Vickers MD [address] [facility] [address] [place] [address] 02/04/2026 11:40 AM CDT Office Visit [facility] Health Neurosciences [address] [facility] [address] [place], [place] [id number] Ching Benson MD [address] [facility] [address] [place] [address] documented as of this encounter Visit Diagnoses Not on filedocumented in this encounter Care Teams Pattern Cleaner Relationship Specialty Start Date End Date Yury Barnes DO [address] [place] [address] PCP - General Internal Medicine 12/24/24 Evelin Avila MSW Sofa Back Upholsterer Care Management 02/18/25 02/18/25 documented as of this encounter
--- OUTSIDE RECORDS SUMMARY | 2025-03-09 00:50 | XMS_ITS | Clinical Summary ---
Author Organization [facility] Address [address] [place] [address] Care Team Providers Care Bull Gang Supervisor Name Role Phone Joe Goodrich MD Primary [...] patient's age to complete this topic Insurance [facility] MEDICARE Care Teams Bull Gang Supervisor Relationship Specialty Start Date End Date Joe Goodrich MD [facility] [address] [facility] [address] [place] [address] PCP - General INTERNAL MEDICINE 10/07/18
--- OUTSIDE RECORDS SUMMARY | 2025-03-09 00:50 | XMS_ITS | Referral Summary ---
Author Organization [facility] Address [address] [place] [address] Care Team Providers Care Automatic Quilling Machine Operator Name Role Phone Gustavo Bell MD Unavailable [phone] Carlos Culp MD Unavailable Sebastian Up MD Unavailable [phone] Thai Cruz Primary Care Provider Allergies Active Allergy Reactions Criticality Noted Date Comments Cephalexin Other (See comments) Low WOUND UP IN ER, PASSED OUT ON FLOOR Yobqpbn-Bvr-Zuj Reductase Inhibitors Swelling Medium 06/13/2022 Medications ALPRAZolam [...] Culp. Assessment & Plan (01/05/2021 11:46 AM FOUNDRY WORKER): Follows with marshal. Doing whole blood phlebotomy [...] when laying on his back at night. [facility] neurology refused referral as they do not [...] when laying on his back at night. [facility] neurology refused referral as they do not [...] neurology. Assessment & Plan (01/05/2021 11:50 AM FOUNDRY WORKER): Notes left anterior thigh paresthesias that radiates [...] crest. Assessment & Plan (01/05/2021 11:44 AM FOUNDRY WORKER): Xray (03/04/2020) revealed mild OA. Recent MRI right hip was revealing for mild tendinopathy of right gluteus minimus and mild bilateral trochanteric bursitis. Did not do PT. States he has done PT 4 different times without benefit in the past. Pain localized over the anterosuperior iliac spine and radiates along the iliac crest. Assessment & Plan (09/21/2020 12:39 PM FOUNDRY WORKER): Xray (03/04/2020) revealed mild OA. Recent MRI [...] 11/28/2019 Assessment & Plan (11/28/2019 11:07 AM FOUNDRY WORKER): Pt has red, flaky rash between the eyebrows and scattered throughout his interiano. He states it developed over the past 6 months and denies change in soaps/detergents. HCQ can cause/worsen psoriasis. Will hold plaquenil and watch for improvement. Recommend patient see dermatology. If rash is diagnosed as psoriasis, then likely patient has overlap with psoriatic arthritis. Patient given software solutions architect Dr. Abraham's information. Neck pain 08/28/2019 Assessment [...] into hands as well and has diminished ticket sorter strength as well. Patient was told in [...] into hands as well and has diminished ticket sorter strength as well. Patient was told in [...] into hands as well and has diminished ticket sorter strength as well. Will give referral to neurology. Assessment & Plan (01/05/2021 11:41 AM FOUNDRY WORKER): History of chronic neck pain for which [...] referral from pcp for a spinal surgeon. 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 Orencia - loss of benefit HCQ - stopped due to psoriasis-like rash Assessment & Plan (09/21/2020 12:36 PM FOUNDRY WORKER): Hepatitis negative: 04/2018 CXR negative: 04/2018 Quantiferon [...] rash Assessment & Plan (11/28/2019 11:03 AM FOUNDRY WORKER): Hepatitis negative: 04/2018 CXR negative: 04/2018 Quantiferon [...] 08/02/2018 Assessment & Plan (01/05/2021 11:46 AM FOUNDRY WORKER): Chronic. Denied benefit with kenalog injection given [...] benefit. Assessment & Plan (11/28/2019 11:03 AM FOUNDRY WORKER): Denied benefit with kenalog injection given at [...] benefit. Assessment & Plan (12/24/2018 11:18 AM FOUNDRY WORKER): Recently followed with orthopedics for additional evaluation. Was told that he had fluid build up that was causing his elbow pain and could not be offered any specific treatment. Has recently been having pain in his left elbow also. If becomes more bothersome, could consider physical therapy in the future. Assessment & Plan (10/21/2018 5:04 PM FOUNDRY WORKER): He has persistent pain in his right [...] with simponi aria. Continue Actemra 8mg/kg IV [id number] and give this more time to take [...] office. Assessment & Plan (01/05/2021 11:43 AM FOUNDRY WORKER): Moderate cdai. Synovitis with increased tenderness of [...] office. Assessment & Plan (09/21/2020 12:37 PM FOUNDRY WORKER): Moderate cdai. Synovitis without much tenderness noted [...] needed. Assessment & Plan (11/28/2019 12:08 PM FOUNDRY WORKER): High cdai. Several swollen and tender joints [...] needed. Assessment & Plan (12/24/2018 11:19 AM FOUNDRY WORKER): Moderate cdai. No obvious synovitis noted on [...] needed. Assessment & Plan (10/21/2018 5:00 PM FOUNDRY WORKER): He is having increased pain complaints in [...] exercise. Assessment & Plan (01/05/2021 11:42 AM FOUNDRY WORKER): Still has generalized pain. Follows with pain management and remains on Lyrica 150mg TID and baclofen 20mg prn per pain management, although dose not take baclofen very frequently as he denies benefit. Does not take Lyrica routinely as he feels it worsens his pain. Encouraged to participate in routine exercise. Assessment & Plan (09/21/2020 12:37 PM FOUNDRY WORKER): Still has generalized pain. Follows with pain [...] exercise. Assessment & Plan (11/28/2019 11:04 AM FOUNDRY WORKER): Still has generalized pain. Follows with pain [...] exercise. Assessment & Plan (12/24/2018 11:45 AM FOUNDRY WORKER): Still has generalized pain which appears to be contributing to most of his pain complaints today. Follows with pain management and remains on Lyrica 150mg TID and baclofen 20mg prn per pain management. Encouraged to participate in routine exercise. Assessment & Plan (10/21/2018 5:06 PM FOUNDRY WORKER): He still has widespread pain which I [...] on file Legal Sex Male 1:56 AM FOUNDRY WORKER Gender Identity Not on file Sexual Orientation [...] C Ab Non-Reactiv e Non-Reactiv e [facility] Blood specimen (specimen) 04/15/2018 3:00 PM CDT 04/15/2018 5:[address] [facility] - 04/15/2018 9:03 PM CDT us Pierce Griffiths MD LAB MICROBIOLOGY - GENE RAL ORDERABLES Final Result [facility] [address] [place] [address] from Last 3 Months or Most Recently Relevant to Health Maintenance Insurance [address] [place] [address] [address] [place] [address] [address] [place] [address] MEDICARE MEDICARE Advance Directives For more information, please contact: [phone] Documents on File Type Date Recorded Patient Library Manager Expl anation ADVANCE DIRECTIVE 04/15/2018 5:09 PM * Full Code (Latest Code Status on File) Date Activated Date Inactivated Comments 06/30/2022 10:05 AM 06/30/2022 4:15 PM Care Teams Automatic Quilling Machine Operator Relationship Specialty Start Date End Date Thai Cruz PA [address] [place] [address] PCP - General Physician Pipeline Dispatcher 06/21/22 Gustavo Bell MD [address] [place] [address] Consulting Physician Rheumatology 05/03/18 Carlos Culp MD [address] [facility] [address] [place] [address] Referring Physician Internal Medicine 05/18/20 Sebastian Up MD [address] [place] [address] Referring Physician Physical Medicine and Rehabilitation 07/19/21
--- OUTSIDE RECORDS SUMMARY | 2025-03-09 00:50 | XMS_ITS | Clinical Summary ---
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 No new pulmonary nodules. These have demonstrated stability since July 2017 and likely benign. Narrative 09/15/2019 12:09 PM HOGSHEAD ROLLER EXAM DESCRIPTION: CT CHEST W/O CONTRAST REASON [...] Del Chaudhary M.D. JA: PAL Report ID: [id number] Reading Location: [id number] Procedure Note Del Chaudhary MD - 09/15/2019 [...] Del Chaudhary M.D. JA: PAL Report ID: [id number] Reading Location: [place] [address] IMPRESSION: Stable appearance of pulmonary nodules as above. No new pulmonary nodules. These have demonstrated stability since July 2017 and likely benign. us Danielle Phelps RN TESTING, SATURATOR IMG CT ORDERABLES Final Result * PSA DIAGNOSTIC,TOTAL (12/25/2016) PSA (PROSTATE SPECIFIC ANTIGEN) 0.5 ng/mL Blood specimen (specimen) 12/25/2016 us Chano Leggett DO CHEMISTRY ORDERABLES Final Resu lt * HM COLONOSCOPY (08/31/2016) us Nitesh Matta MD PROCEDURE/MINOR SURGICAL ORDER CRISTHIAN Final Result from Last 3 Months or Most Recently Relevant to Health Maintenance Insurance MEDICAID [place] MEDICARE MEDICAID [place] MEDICARE Care Teams Commercial Cleaner Relationship Specialty Start Date End Date Provider, None [place] PCP - General 06/03/21 Danielle Phelps, RN TESTING, SATURATOR Nurse Practitioner Advanced Practice Nurse 05/10/16 Chano Leggett DO Gastroenterology 09/01/16
--- OUTSIDE RECORDS SUMMARY | 2025-03-09 00:50 | XMS_ITS | Clinical Summary ---
Author Organization [facility] Address [address] [place] [address] Care Team Providers Care Program Project Analyst Name Role Phone Gustavo Bell MD Unavailable [phone] Carlos Culp MD Unavailable Sebastian Up MD Unavailable [phone] Thai Cruz Primary Care Provider Allergies Active Allergy Reactions Criticality Noted Date Comments Cephalexin Other (See comments) Low WOUND UP IN ER, PASSED OUT ON FLOOR Xlbcivi-Mqp-Cen Reductase Inhibitors Swelling Medium 06/13/2022 Medications ALPRAZolam [...] Culp. Assessment & Plan (01/05/2021 11:46 AM ANALYTICAL DATA MINER): Follows with marshal. Doing whole blood phlebotomy [...] when laying on his back at night. [facility] neurology refused referral as they do not [...] when laying on his back at night. [facility] neurology refused referral as they do not [...] neurology. Assessment & Plan (01/05/2021 11:50 AM ANALYTICAL DATA MINER): Notes left anterior thigh paresthesias that radiates [...] crest. Assessment & Plan (01/05/2021 11:44 AM ANALYTICAL DATA MINER): Xray (03/04/2020) revealed mild OA. Recent MRI right hip was revealing for mild tendinopathy of right gluteus minimus and mild bilateral trochanteric bursitis. Did not do PT. States he has done PT 4 different times without benefit in the past. Pain localized over the anterosuperior iliac spine and radiates along the iliac crest. Assessment & Plan (09/21/2020 12:39 PM ANALYTICAL DATA MINER): Xray (03/04/2020) revealed mild OA. Recent MRI [...] 11/28/2019 Assessment & Plan (11/28/2019 11:07 AM ANALYTICAL DATA MINER): Pt has red, flaky rash between the eyebrows and scattered throughout his interiano. He states it developed over the past 6 months and denies change in soaps/detergents. HCQ can cause/worsen psoriasis. Will hold plaquenil and watch for improvement. Recommend patient see dermatology. If rash is diagnosed as psoriasis, then likely patient has overlap with psoriatic arthritis. Patient given noodle catalyst maker Dr. Abraham's information. Neck pain 08/28/2019 Assessment [...] into hands as well and has diminished field service technician strength as well. Patient was told in [...] into hands as well and has diminished field service technician strength as well. Patient was told in [...] into hands as well and has diminished field service technician strength as well. Will give referral to neurology. 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 Orencia - loss of benefit HCQ - stopped due to psoriasis-like rash Assessment & Plan (09/21/2020 12:36 PM ANALYTICAL DATA MINER): Hepatitis negative: 04/2018 CXR negative: 04/2018 Quantiferon [...] rash Assessment & Plan (11/28/2019 11:03 AM ANALYTICAL DATA MINER): Hepatitis negative: 04/2018 CXR negative: 04/2018 Quantiferon [...] 08/02/2018 Assessment & Plan (01/05/2021 11:46 AM ANALYTICAL DATA MINER): Chronic. Denied benefit with kenalog injection given [...] benefit. Assessment & Plan (11/28/2019 11:03 AM ANALYTICAL DATA MINER): Denied benefit with kenalog injection given at [...] benefit. Assessment & Plan (12/24/2018 11:18 AM ANALYTICAL DATA MINER): Recently followed with orthopedics for additional evaluation. Was told that he had fluid build up that was causing his elbow pain and could not be offered any specific treatment. Has recently been having pain in his left elbow also. If becomes more bothersome, could consider physical therapy in the future. Assessment & Plan (10/21/2018 5:04 PM ANALYTICAL DATA MINER): He has persistent pain in his right [...] with simponi aria. Continue Actemra 8mg/kg IV [id number] and give this more time to take [...] office. Assessment & Plan (01/05/2021 11:43 AM ANALYTICAL DATA MINER): Moderate cdai. Synovitis with increased tenderness of [...] office. Assessment & Plan (09/21/2020 12:37 PM ANALYTICAL DATA MINER): Moderate cdai. Synovitis without much tenderness noted [...] needed. Assessment & Plan (11/28/2019 12:08 PM ANALYTICAL DATA MINER): High cdai. Several swollen and tender joints [...] needed. Assessment & Plan (12/24/2018 11:19 AM ANALYTICAL DATA MINER): Moderate cdai. No obvious synovitis noted on [...] needed. Assessment & Plan (10/21/2018 5:00 PM ANALYTICAL DATA MINER): He is having increased pain complaints in [...] exercise. Assessment & Plan (01/05/2021 11:42 AM ANALYTICAL DATA MINER): Still has generalized pain. Follows with pain management and remains on Lyrica 150mg TID and baclofen 20mg prn per pain management, although dose not take baclofen very frequently as he denies benefit. Does not take Lyrica routinely as he feels it worsens his pain. Encouraged to participate in routine exercise. Assessment & Plan (09/21/2020 12:37 PM ANALYTICAL DATA MINER): Still has generalized pain. Follows with pain [...] exercise. Assessment & Plan (11/28/2019 11:04 AM ANALYTICAL DATA MINER): Still has generalized pain. Follows with pain [...] exercise. Assessment & Plan (12/24/2018 11:45 AM ANALYTICAL DATA MINER): Still has generalized pain which appears to be contributing to most of his pain complaints today. Follows with pain management and remains on Lyrica 150mg TID and baclofen 20mg prn per pain management. Encouraged to participate in routine exercise. Assessment & Plan (10/21/2018 5:06 PM ANALYTICAL DATA MINER): He still has widespread pain which I [...] on file Legal Sex Male 1:56 AM ANALYTICAL DATA MINER Gender Identity Not on file Sexual Orientation [...] C Ab Non-Reactiv e Non-Reactiv e [facility] Blood specimen (specimen) 04/15/2018 3:00 PM CDT 04/15/2018 5:15 PM CDT Narrative [facility] - 04/15/2018 9:03 PM CDT Pierce Griffiths MD LAB MICROBIOLOGY - GENE RAL ORDERABLES Final Result [facility] [address] Department [place] [address] from Last 3 Months or Most Recently Relevant to Health Maintenance Insurance MEDICARE MEDICARE [address] [place] [address] [address] [place] [address] MEDICARE Advance Directives For more information, please contact: [phone] Documents on File Type Date Recorded Patient Cook Helper Expl anation ADVANCE DIRECTIVE 04/15/2018 5:09 PM * Full Code (Latest Code Status on File) Date Activated Date Inactivated Comments 06/30/2022 10:05 AM 06/30/2022 4:15 PM Care Teams Program Project Analyst Relationship Specialty Start Date End Date Thai Cruz PA [address] [place] [address] PCP - General Physician Doctor Of Podiatric Medicine 06/21/22 Gustavo Bell MD [address] [place] [address] Consulting Physician Rheumatology 05/03/18 Carlos Culp MD [address] [facility] [address] [place] [address] Referring Physician Internal Medicine 05/18/20 Sebastian Up MD [address] [place] [address] Referring Physician Physical Medicine and Rehabilitation 07/19/21
[2025-03-09 06:53] VITALS: BP 125/95; PULSE 90; RESP 20; TEMP 36.1; O2SAT 99; BMI 29.7
[2025-03-09] MEDS: LACTATED RINGERS 1,000 ML 150 ML IV CONT (07:05)
[2025-03-09 07:11] LABS: Glucose Point of Care 144 mg/dl (65-105)
--- NOTE | 2025-03-09 07:20 | P.PNAN_ITS ---
Anes - Initial Pre Proc Eval Procedure: Operation Date: 03/09/25 07:30 Proposed Procedures p Esophagogastroduodenoscopy - Yayo Gil MD Date/Time: 03/09/25 07:20 Surgeon: Yayo Gil MD Pre Op Diagnosis: abnormal weight loss, cirrhosis of liver Patient Data Age: 55 Gender: M Height: 1.78 m Weight: 94.2 kg Last Vital Signs Temp 97 F L 03/09/25 06:53 Pulse 90 03/09/25 06:53 Resp 20 03/09/25 06:53 BP 125/95 H 03/09/25 06:53 Pulse Ox 99 03/09/25 06:53 O2 Del Method Room Air 03/09/25 06:53 Allergies Allergy/AdvReac Type Severity Reaction Status Date / Time cephalexin Allergy Severe PASSED Verified 03/09/25 06:51 OUT , VOMITING Svrgbzk-EOI-MtM Reductase Allergy Severe Swelling Verified 03/09/25 06:51 Inhibitor (Byvcbts-Htg-Esy of Reductase Inhibitor) Lip/Tongue/Throat Home Medications ?Medication ?Instructions ?Recorded ?Confirmed ?Type inhalational spacing device (Space #1 ea 08/24/22 03/03/25 Rx Chamber) fluticasone propionate 50 2 spray intranasal DAILY PRN nasal 09/15/22 03/03/25 Rx mcg/actuation nasal congestion #15.8 mL spray,suspension erenumab-aooe 140 mg/mL 140 mg subcut MONTHLY 02/18/24 03/03/25 History subcutaneous auto-injector (Aimovig Autoinjector) hydrocodone 7.5 mg-acetaminophen 1 tablet PO Q8H PRN Pain 02/29/24 03/03/25 History 325 mg tablet pantoprazole 40 mg tablet,delayed 40 mg PO Q12H #60 tabs 05/14/24 03/09/25 Rx release sitagliptin phosphate 50 mg tablet 50 mg PO DAILY #90 tabs 08/21/24 03/09/25 Rx (Januvia) blood sugar diagnostic (Accu-Chek #100 ea 09/18/24 03/03/25 Rx Guide test strips) blood-glucose meter (Accu-Chek #1 ea 09/18/24 03/03/25 Rx Guide Glucose Meter) lancets (Accu-Chek Softclix #100 ea 09/18/24 03/03/25 Rx Lancets) sucralfate 1 gram tablet See Rx Instructions .Route 11/14/24 03/03/25 Rx .COMPLEX #120 tabs ondansetron 4 mg disintegrating See Rx Instructions .Route 01/12/25 03/03/25 Rx tablet .COMPLEX #30 tabs meclizine 25 mg tablet 25 mg PO TID PRN dizziness #30 tabs 01/23/25 03/03/25 Rx empagliflozin 25 mg tablet 25 mg PO DAILY #90 tabs 02/11/25 03/09/25 Rx (Jardiance) Ventolin HFA 90 mcg/actuation 2 puff inhalation Q4-6H PRN 02/18/25 03/03/25 Rx aerosol inhaler (albuterol sulfate) shortness of breath or wheezing #8 grams aspirin 81 mg tablet,delayed 81 mg PO DAILY 02/18/25 03/09/25 History release (Adult Low Dose Aspirin) clopidogrel 75 mg tablet 75 mg PO DAILY 02/18/25 03/09/25 History nortriptyline 50 mg capsule 50 mg PO DAILY 02/18/25 03/09/25 History Laboratory Tests 03/09/25 07:08 POC Capillary Glucose 144 H mg/dl (65-105) Patient hx anesthesia problems: none Family hx anesthesia problems: none Results Review: All pre-operative results and documents have been reviewed as part of the pre- operative evaluation. 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 Rheumatoid arthritis with rheumatoid factor of multiple sites without organ or systems involvement Hypertension Allergies RICHMOND (obstructive sleep apnea) Thrombocytopenia Obesity Gastric ulcer Granular cell tumor Esophagus Barretts esophagus Migraines Hx of renal calculi Rheumatoid arthritis Hx of adenomatous colonic polyps GERD (gastroesophageal reflux disease) Surgical History Surgical History History of renal stent H/O hemorrhoidectomy 09/25/22 Rectal exam under anesthesia with internal and external hemorrhoidectomy x2 columns History of elbow surgery Status post medial meniscus repair of right knee S/P left rotator cuff repair History of lithotripsy Hx of inguinal hernia repair Hx of esophagogastroduodenoscopy Hx of colonoscopy Hx of sinus surgery Family History Family History Father Heart disease Diabetes mellitus Hypertension Grandparent Cerebrovascular accident Mother No problems noted. Sibling No problems noted. Social History Social History Smoking packs per day: 2 Smoking cigarettes per day: 40.0 Years smoked: 40 Smoking pack-years: 80.00 Smoking status: Current every day smoker Tobacco type: cigarettes Second hand tobacco smoke exposure: No Alcohol intake: former Alcohol use details: HEAVY DRINKER IN PAST, QUIT 15 YEARS AGO Substance use: current Substance use type: opiates and painkillers Do You Feel Safe in your Home?: Yes Lack of Transportation: No Lack of Food: Never True Current Housing: I Have Housing Concerned About Future Housing: No Difficulty Paying Gas/Electric Bills: No Difficulty Paying for Meds: No Currently Unemployed: No Education: High School Diploma/GED Difficulty w/ Childcare or Family Care: No Living arrangements: alone Occupation/Education: occupation 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 ) Neurological: alert and oriented Last oral intake: >/= 8 hours ASA classification: III Emergent: no Anesthetic plan: proceed Anesthesia type and monitoring: general GIVS and standard monitoring Results Review: All pre-operative results and documents have been reviewed as part of the pre- operative evaluation. DM fsbs 144, HTN, smoker, 1-1.5 ppd for many years, CKD, RICHMOND but noncompliant w CPAP, hx of PVD/Renal art stenosis, now for EGD w hx of Barretts. Informed Consent: The patient's anesthetic plan and its attendant risks and benefits were discussed with the patient/family/POA. Questions were solicited and answers provided to the satisfaction of the patient/family/POA.
--- NOTE | 2025-03-09 07:34 | PM.HPGS ---
History of Present Illness History of Present Illness Consent: Risks, benefits, and alternatives have been discussed and questions answered. Patient agrees to proceed with procedure. 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 Rheumatoid arthritis with rheumatoid factor of multiple sites without organ or systems involvement Hypertension Allergies R[place]D (obstructive sleep apnea) Thrombocytopenia Obesity Gastric ulcer Granular cell tumor Esophagus Barretts esophagus Migraines Hx of renal calculi Rheumatoid arthritis Hx of adenomatous colonic polyps GERD (gastroesophageal reflux disease) Surgical History Surgical History History of renal stent H/O hemorrhoidectomy 09/25/22 Rectal exam under anesthesia with internal and external hemorrhoidectomy x2 columns History of elbow surgery Status post medial meniscus repair of right knee S/P left rotator cuff repair History of lithotripsy Hx of inguinal hernia repair Hx of esophagogastroduodenoscopy Hx of colonoscopy Hx of sinus surgery Family History Family History Father Heart disease Diabetes mellitus Hypertension Grandparent Cerebrovascular accident Mother No problems noted. Sibling No problems noted. Social History Social History Smoking packs per day: 2 Smoking cigarettes per day: 40.0 Years smoked: 40 Smoking pack-years: 80.00 Smoking status: Current every day smoker Tobacco type: cigarettes Second hand tobacco smoke exposure: No Alcohol intake: former Alcohol use details: HEAVY DRINKER IN PAST, QUIT 15 YEARS AGO Substance use: current Substance use type: opiates and painkillers Do You Feel Safe in your Home?: Yes Lack of Transportation: No Lack of Food: Never True Current Housing: I Have Housing Concerned About Future Housing: No Difficulty Paying Gas/Electric Bills: No Difficulty Paying for Meds: No Currently Unemployed: No Education: High School Diploma/GED Difficulty w/ Childcare or Family Care: No Living arrangements: alone Occupation/Education: occupation 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 Gender identity (if verbalized by the patient): Male Spiritual care concerns: No Meds Home Medications and Allergies Home Medications ?Medication ?Instructions ?Recorded ?Confirmed ?Type inhalational spacing device (Space #1 ea 08/24/22 03/03/25 Rx Chamber) fluticasone propionate 50 2 spray intranasal DAILY PRN nasal 09/15/22 03/03/25 Rx mcg/actuation nasal congestion #15.8 mL spray,suspension erenumab-aooe 140 mg/mL 140 mg subcut MONTHLY 02/18/24 03/03/25 History subcutaneous auto-injector (Aimovig Autoinjector) hydrocodone 7.5 mg-acetaminophen 1 tablet PO Q8H PRN Pain 02/29/24 03/03/25 History 325 mg tablet pantoprazole 40 mg tablet,delayed 40 mg PO Q12H #60 tabs 05/14/24 03/09/25 Rx release sitagliptin phosphate 50 mg tablet 50 mg PO DAILY #90 tabs 08/21/24 03/09/25 Rx (Januvia) blood sugar diagnostic (Accu-Chek #100 ea 09/18/24 03/03/25 Rx Guide test strips) blood-glucose meter (Accu-Chek #1 ea 09/18/24 03/03/25 Rx Guide Glucose Meter) lancets (Accu-Chek Softclix #100 ea 09/18/24 03/03/25 Rx Lancets) sucralfate 1 gram tablet See Rx Instructions .Route 11/14/24 03/03/25 Rx .COMPLEX #120 tabs ondansetron 4 mg disintegrating See Rx Instructions .Route 01/12/25 03/03/25 Rx tablet .COMPLEX #30 tabs meclizine 25 mg tablet 25 mg PO TID PRN dizziness #30 tabs 01/23/25 03/03/25 Rx empagliflozin 25 mg tablet 25 mg PO DAILY #90 tabs 02/11/25 03/09/25 Rx (Jardiance) Ventolin HFA 90 mcg/actuation 2 puff inhalation Q4-6H PRN 02/18/25 03/03/25 Rx aerosol inhaler (albuterol sulfate) shortness of breath or wheezing #8 grams aspirin 81 mg tablet,delayed 81 mg PO DAILY 02/18/25 03/09/25 History release (Adult Low Dose Aspirin) clopidogrel 75 mg tablet 75 mg PO DAILY 02/18/25 03/09/25 History nortriptyline 50 mg capsule 50 mg PO DAILY 02/18/25 03/09/25 History Allergies Allergy/AdvReac Type Severity Reaction Status Date / Time cephalexin Allergy Severe PASSED Verified 03/09/25 06:51 OUT , VOMITING Akcnsyy-NNT-OfA Reductase Allergy Severe Swelling Verified 03/09/25 06:51 Inhibitor (Jecksvr-Kvg-Zuw of Reductase Inhibitor) Lip/Tongue/Throat Vital Signs Vital Signs - 24 hr 03/09/25 06:53 Temperature 97 F L Pulse Rate 90 Respiratory Rate 20 Blood Pressure 125/95 H Pulse Oximetry 99 Oxygen Delivery Room Air Exam Const: General: comfortable and no acute distress HENMT: Face/Nose/Sinus: Normal nares present Eyes: General: appearance normal, both eyes and all related structures Neck: Neck: no JVD Resp: Auscultation: clear to auscultation bilaterally Cardio: Rate: regular rate Rhythm: regular rhythm GI: Inspection: non-distended GI Palp: Yes Soft to palpation Skin: General skin exam: normal color Neuro: General: gait normal Speech: normal speech Extrem: General: normal to inspection Psych: Mental Status: mental status grossly normal Assessment and Plan Assessment and plan (1) GERD (gastroesophageal reflux disease): Code(s): K21.9 - Gastro-esophageal reflux disease without esophagitis Status: Acute Assessment and Plan: egd with bx
[2025-03-09 07:44] VITALS: BP 119/76; PULSE 83; RESP 33; O2SAT 97
[2025-03-09 07:54] VITALS: BP 109/69; PULSE 78; RESP 29; O2SAT 94
[2025-03-09 08:04] VITALS: BP 105/69; PULSE 82; RESP 22; O2SAT 98
== END 2025-03-09 08:21 | disposition home or self-care (01) ==
PROVIDERS: PCP Internal Medicine; Referring Provider Nurse Practitioner Family; Visit Provider Internal Medicine Gastroenterology
PROC: 0DJ08ZZ Inspection of Upper Intestinal Tract, Via Natural or Artificial Opening Endoscopic (ICD-10-PCS; CPT 43239; principal; 2025-03-09 07:30)
DX: K21.00 Gastro-esophageal reflux disease with esophagitis, without bleeding (principal); K22.70 Barrett's esophagus without dysplasia; K44.9 Diaphragmatic hernia without obstruction or gangrene; K21.9 Gastro-esophageal reflux disease without esophagitis; I12.9 Hypertensive chronic kidney disease with stage 1 through stage 4 chronic kidney disease, or unspecified chronic kidney disease; E11.22 Type 2 diabetes mellitus with diabetic chronic kidney disease; N18.9 Chronic kidney disease, unspecified; G47.33 Obstructive sleep apnea (adult) (pediatric); D69.6 Thrombocytopenia, unspecified; M05.79 Rheumatoid arthritis with rheumatoid factor of multiple sites without organ or systems involvement; F17.210 Nicotine dependence, cigarettes, uncomplicated; E66.9 Obesity, unspecified; Z68.29 Body mass index [BMI] 29.0-29.9, adult; Z79.51 Long term (current) use of inhaled steroids; Z79.891 Long term (current) use of opiate analgesic; Z79.84 Long term (current) use of oral hypoglycemic drugs; Z79.82 Long term (current) use of aspirin; Z79.02 Long term (current) use of antithrombotics/antiplatelets; Z98.890 Other specified postprocedural states; Z96.0 Presence of urogenital implants; Z87.442 Personal history of urinary calculi; Z86.0100 Personal history of colon polyps, unspecified; Z87.19 Personal history of other diseases of the digestive system; Z86.79 Personal history of other diseases of the circulatory system; Z82.49 Family history of ischemic heart disease and other diseases of the circulatory system
CPT/HCPCS: 43239; 82948; 88305; J2704; J7120

== ENCOUNTER 2025-04-10 13:32 | Outpatient (CLI) | payer OTHER, MEDICARE, SELFPAY ==
--- OUTSIDE RECORDS SUMMARY | 2025-04-10 13:35 | XMS_ITS | Clinical Summary ---
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
--- OUTSIDE RECORDS SUMMARY | 2025-04-10 13:35 | XMS_ITS | Clinical Summary ---
Author Organization [facility] Address [address] [place] [address] Care Team Providers Care Jailer Name Role Phone Yury Barnes DO Primary Care Provider [phone] Source Comments [facility],non-owned Affiliates and Associated Physician Practices is amultiple site organization consisting of ambulatory clinics and hospital sitesin [place], [place], [place] and [place]. This disclosure is being madepursuant to the Care Everywhere program and may not contain all information available regarding this patient. Last updated 18.[facility] Allergies Active Allergy Reactions Criticality Noted Date Comments Cephalexin Other,Vomiting 06/08/2019 Reports passing out Hmg-Coa-R Inhibitors Angioedema High 06/08/2019 Medications * Be aware that medications may not be up to date on this document. Alwaysverify current medications with the patient. HYDROcodone-ac etaminophen (NORCO) 7.5-325 MG tablet Take 1 (one) tablet by mouth every 4 hours as needed Every 8-12 hours 42 tablet 1 Active fluticasone propionate (Flonase) 50 MCG/ACT nasal spray as needed 2 Active lisinopril (Prinivil; Zestril) 20 MG tablet 1 (one) tablet once daily 3 Active meclizine (Antivert) 25 MG tablet Take 1 (one) tablet by mouth 3 times daily as needed For dizziness. 3 Active nortriptyline (Pamelor) 50 MG capsule 2 (two) capsules to 3 (three) capsules at bedtime 4 Active Aimovig 140 MG/ML auto injector pen INJECT 1 ML SUBCUTANEOUSLY ONCE EVERY 30 DAYS 3 mL 3 5 Active Jardiance 25 MG tablet Take 1 (one) tablet by mouth once daily 5 Active Januvia 50 MG tablet Take 1 (one) tablet by mouth once daily 5 Active sucralfate (Carafate) 1 GM tablet Take 1 (one) tablet by mouth every 6 hours 5 Active ALPRAZolam (Xanax) 1 MG tablet Take 1 (one) tablet by mouth at bedtime 5 Active pantoprazole EC (Protonix) 40 MG tablet Take 1 (one) tablet by mouth 2 times daily Active oxyCODONE, immediate release, (Roxicodone) 5 MG tabletIndicati ons:Renal artery stenosis Take 1 (one) tablet by mouth every 6 hours as needed 12 tablet 5 Active acetaminophen (Tylenol) 325 MG tablet Take 2 (two) tablets by mouth every 6 hours as needed for Fever or Pain Maximum allowable Acetaminophen amount = 4 Grams (4000 mg) / 24 hours. 5 Active aspirin (Aspirin) 81 MG chew tablet Take 1 (one) tablet by mouth once daily 30 tablet 1 5 Active polyethylene glycol 3350 (Miralax) 17 g packet Take 17 (seventeen) g by mouth once daily 14 packet 5 Active clopidogrel (plaVIX) 75 MG tablet Take 1 (one) tablet by mouth once daily 30 tablet 1 5 Active Ventolin HFA 108 (90 Base) MCG/ACT inhaler INHALE 2 PUFFS BY MOUTH EVERY 4 TO 6 HOURS NEEDED FOR SHORTNESS OF BREATH FOR WHEEZING 5 Active Accu-Chek Guide test strip USE 1 TEST STRIPS TO CHECK ONCE DAILY 5 Active Active Problems Problem Noted Date Diagnosed [...] has overlap with psoriatic arthritis. Patient given sterile supervisor Dr. Abraham's information. 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 Overview [...] Encounters Date Type Department Care Team Description 03/17/2025 Travel 03/11/2025 9:30 AM CDT Office Visit [facility] - Vascular Surgery [address] [place] [address] Muriel Vickers MD Renal artery stenosis (Primary Dx) 03/11/2025 8:00 AM CDT - 03/11/2025 11:59 PM CDT Hospital Encounter [facility] VASCULAR US [address] [place] [address] Muriel Vickers MD Discharge Disposition: Home or Self Care 03/11/2025 Travel 02/18/2025 Transitional Care [facility] - Care Coordination [address] [place] [address] Evelin Avila MSW Transitional Care 02/16/2025 2:13 PM CDT Anesthesia Event [facility] AUNDREA OP [address] [place] [address] Hans Hung MD Holtermann, Kirstie, MD 02/16/2025 1:55 PM CDT - 02/16/2025 3:51 PM CDT Surgery [facility] OP [address] [place] [address] Muriel Vickers MD RENAL ANGIOGRAM/ARTERIOGRA M WITH STENTING 02/16/2025 12:26 PM CDT - 02/17/2025 11:09 AM CDT Hospital Encounter [facility] 3S ICU [address] [place] [address] Muriel Vickers MD Vascular Surgery Discharge Disposition: Home or Self Care 02/16/2025 Travel 02/09/2025 Telephone [facility] IVR [address] [place] [address] Daisy Parr RN Appointment 02/06/2025 Telephone [facility] IVR [address] [place] [phone] Hang Dumont RN 02/05/2025 11:00 AM CDT Office Visit [facility] Neurosciences [address] [place] [address] Kiara Sifuentes, DIRECTOR OF EVENT SALES-FIRE CHIEF'S AIDE Chronic migraine w/o aura, not intractable, w/o stat migr (Primary Dx); Chronic tension-type headache, intractable 01/26/2025 Telephone [facility] - Vascular Surgery [address] [place] [address] Muriel Vickers MD Discuss Surgery 01/16/2025 7:50 AM CDT - 01/16/2025 11:59 PM CDT Hospital Encounter [facility] VASCULAR US [address] [place] [phone] Muriel Vickers MD Discharge Disposition: Home or Self Care 01/16/2025 Travel from Last 3 Months Immunizations Immunization Administration [...] Date Smoking Tobacco: Every Day Cigarettes 2 44.5 Started: 09/26/1980 Smokeless Tobacco: Never Tobacco Cessation:Ready to Q uit: Yes; Counseling Given: Yes Comments:average 1.5 to 2 pack a day [...] Recorded Patient Health Questionnaire-2 Score 0 02/05/2025 [facility] of Occupat ional Health - Occupational Stress [...] any time in the past [address] [facility], were you homeless or living in a care home (including now)? 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 Gender Identity Not on file Sexual Orientation Not on file Occupation Industry Job Start Date Job End Date Disability Not on file Not on file Not on file Last Filed Vital Signs Vital Sign Reading Time Taken Comments Blood Pressure 124/83 03/11/2025 9:15 AM CDT Pulse 83 03/11/2025 9:15 AM CDT Temperature 36.4 C (97.6 F) 03/11/2025 9:15 AM CDT Respiratory Rate 15 02/17/2025 10:00 AM CDT Oxygen Saturation 98% 03/11/2025 9:15 AM CDT Inhaled Oxygen Concentration - - Weight 95.7 kg (211 lb) 03/11/2025 9:15 AM CDT Height 175.3 cm (5' 9) 03/11/2025 9:15 AM CDT Body Mass Index 31.16 03/11/2025 9:15 AM CDT Plan of Treatment Upcoming Encounters Date Type Department Care Team (Late st Contact Info) Description 08/26/2025 10:00 AM CDT Appointment [facility] VASCULAR US [address] [place] [address] Muriel Vickers MD [address] [place] [address] [address] [place] [address] 08/26/2025 11:30 AM CDT Office Visit [facility] - Vascular Surgery [address] [place] [address], [place] [address] Muriel Vickers MD [address] [place] [address] [address] [place] [address] 02/04/2026 11:40 AM CDT Office Visit [facility] Health Neurosciences [address] [place] [address] Ching Benson MD [address] [place] [phone] Health Maintenance Due Date Last Done Comments [...] this topic Medical Devices Implanted Type Area Professor Of Journalism Device Identifier Shelf Expiration Date Model / Serial / Lot Stent Trchbr 6mm 6fr 22mm 80cm Cvr Cath - [id number] Implanted:Qty: 1 on 02/16/2025 by Muriel Vickers MD at [facility] Left: Arterial [employer] [id number] 08/08/2025 [id number] / [id number] / NA Description:Left Renal Arter y Stent Trchbr 6mm 22mm 120cm Radopq Cvr - [id number] Implanted:Qty: 1 on 02/16/2025 by Muriel Vickers MD at [facility] Left: Arterial [employer] 11/23/2026 [id number] / [id number] / NA Description:LEFT RENAL ARTER Y Explanted Type Area Professor Of Journalism Device Identifier Shelf Expiration Date Model / Serial / Lot Stent Trchbr 6mm 7fr 59mm 80cm .035in - [id number] Explanted:Qty: 1 on 02/16/2025 at [facility] Left: Arterial [employer] [id number] 07/24/2025 [id number] / [id number] / NA Description:STENT TOO LONG Procedures Procedure Name Priority Date/Time Associated Diagnosis Comments VAS BILAT ABD RENAL DOPPLER Routine 03/11/2025 8:55 AM CDT Renal artery stenosis PREPARE RBC LEUKOREDUCED UNIT Routine 02/18/2025 1:17 [...] CARE Routine 02/16/2025 5:03 PM CDT FL LOIS W ANGIO TEAM Routine 02/16/2025 4:25 PM CDT Post-op pain CO ANGIO ADRENAL BILAT SELECT 02/16/2025 1:51 PM [...] Recently Relevant to Health Maintenance Results * VAS Bilat Abd Renal Doppler (03/11/2025 8:55 AM CDT) Only the most recent of2 resultswithin the time period is included. Anatomical Region Laterality Modality Abdomen Intravascular Ul trasound 03/11/2025 8:13 AM CDT Narrative Procedure Note Davion Alejandra MD - 03/12/2025 us Muriel Vickers MD VASCULAR LAB ORDERABLES Vinay kevin Result - Final * PREPARE (CROSSMATCH) RBC UNIT(S), 1 Units (02/18/2025 1:17 AM CDT) Pathologist [facility] Unit Description AS1 LR PRBC [facility] BLOOD BANK LAB Unit ABO O [facility] BLOOD BANK LAB Unit Rh NEG [facility] BLOOD BANK LAB Product Number R43 [facility] B LOOD BANK LAB Unit Donor # [id number] [facility] BLOOD BANK LAB Unit Status released [facility] BLOO D BANK LAB Product Code [id number] [facility] BLO OD BANK LAB Blood Type Barcode 9500 [facility] BLOOD BANK LAB Expiration Date [id number] S BLOOD BANK LAB Blood Bank BLOOD SPECIMEN / Unknown 02/16/2025 1:30 PM CDT us Muriel Vickers MD LAB - BLOOD BANK ORDERABLES Final Result [facility] BLOOD BANK LAB [address] [place] [address], [place] [phone] * (ABNORMAL) GLUCOSE - POINT OF CARE (02/17/2025 5:55 AM CDT) Only the most recent of4 resultswithin the time period is included. Pathologist [facility] Glucose WB/POC 161(H) 70 - 99 mg/dL 02/17/2025 5:56 AM CDT [facility] Specimen Type Venous 02/17/2025 5:56 AM CDT [facility] Blood BLOOD SPECIMEN / Unknown 02/17/2025 5:55 AM CDT 02/17/2025 5:56 AM CDT us Muriel Vickers MD LAB - POINT OF CARE ORDERAB LES Final Result Performing Organization Address [facility]/ZIP Co de Phone Number [address] [address], [place] [phone] * (ABNORMAL) HEMOGLOBIN A1C (02/17/2025 5:54 AM CDT) Hemoglobin A1c 6.0(H) <=5.6 % 02/17/2025 9:01 AM T [facility] Estimated Average Glucose 126 mg/dL 02/17/2025 9:01 AM T [facility] Comment: HbA1c Interpretation: Normal : < 5.7% Pre-diabetes: 5.7-6.4% Diabetes: Equal to or greater than 6.5% Test results diagnostic of diabetes should be repeated for confirmation. Treatment target values recommended by ADA and other clinical organizations should be used to evaluate metabolic control in patients. Reference: [place] [employer], Standards of Care in Diabetes [...] CHEMISTRY ORDERABLES Final Result Performing Organization Address [facility]/ZIP Co de Phone Number [address] [address], [place] [phone] * (ABNORMAL) CBC W/O DIFFERENTIAL (02/17/2025 5:54 AM CDT) Only the most recent of3 resultswithin the time period is included. WBC 15.9(H) 4.0 - 10.7 x10E9/L 02/17/2025 6:14 AM [facility] RBC Count 5.41 4.30 - 5.80 x10E12/L 02/17/2025 6:14 AM [facility] Hemoglobin 15.6 13.3 - 17.5 g/dL 02/17/2025 6:14 AM [facility] Hematocrit 46.7 38.7 - 51.1 % 02/17/2025 6:14 AM [facility] MCV 86.3 80.0 - 98.0 fL 02/17/2025 6:14 AM [facility] MCH 28.8 26.7 - 33.6 pg 02/17/2025 6:14 AM [facility] MCHC 33.4 31.7 - 36.3 g/dL 02/17/2025 6:14 AM [facility] RDW-CV 13.3 11.3 - 14.8 % 02/17/2025 6:14 AM [facility] Platelet Count 87(L) 150 - 420 x10E9/L 02/17/2025 6:14 AM [facility] MPV 12.7(H) 7.8 - 11.4 fL 02/17/2025 6:14 AM [facility] Blood BLOOD SPECIMEN / Unknown Venipuncture / Unknown 02/17/2025 5:54 AM CDT 02/17/2025 6:04 AM CDT us Muriel Vickers MD LAB - HEMATOLOGY ORDERABLES Final Result [facility] [address] [place] [address], [facility] [phone] * PT-INR [facility] (02/17/2025 12:15 AM CDT) Only the most recent of2 resultswithin the time period is included. PT 14.2 12.1 - 14.8 Seconds 02/17/2025 12:59 AM [facility] INR 1.1 See Comment 02/17/2025 12:59 AM [facility] Comment:The suggested therap eutic range for [...] ORDERABLE S Final Result Performing Organization Address City/[facility]/ZIP Co de Phone Number [address] [address], [facility] [phone] * (ABNORMAL) CALCIUM IONIZED WHOLE BLOOD (02/17/2025 12:15 AM CDT) Calcium Ionized 1.10 mmol/L 02/17/2025 12:32 AM [facility] pH 7.36 7.35 - 7.45 pH 02/17/2025 12:32 AM [facility] Ionized Calcium pH Adjusted 1.08(L) 1.19 - 1.34 mmol/L 02/17/2025 12:32 AM [facility] Blood BLOOD SPECIMEN / Unknown Venipuncture / Unknown 02/17/2025 12:15 AM CDT 02/17/2025 12:25 AM CDT us Muriel Vickers MD LAB - CHEMISTRY ORDERABLES Final Result [address] [address], [facility] [phone] * (ABNORMAL) BASIC METABOLIC PANEL (CALCIUM TOTAL) (02/17/2025 12:15 AM CDT) Only the most recent of2 resultswithin the time period is included. BUN 16 7 - 26 mg/dL 02/17/2025 12:57 AM [facility] Creatinine 1.16 0.71 - 1.16 mg/dL 02/17/2025 12:57 AM [facility] Sodium 136 136 - 145 mmol/L 02/17/2025 12:57 AM [facility] Potassium 4.5 3.5 - 4.5 mmol/L 02/17/2025 12:57 AM [facility] Chloride 105 98 - 107 mmol/L 02/17/2025 12:57 AM [facility] CO2 20(L) 22 - 29 mmol/L 02/17/2025 12:57 AM [facility] Glucose 179(H) 70 - 99 mg/dL 02/17/2025 12:57 AM [facility] Calcium 7.9(L) 8.4 - 10.2 mg/dL 02/17/2025 12:57 AM [facility] Anion Gap 11 6 - 16 02/17/2025 12:57 AM [facility] BUN/Creatinine Ratio 14 7 - 23 02/17/2025 12:57 AM [facility] Osmolality Calculated 288 275 - 295 mOsm/kg 02/17/2025 12:57 AM [facility] eGFR by CKD-EPI 74(L) >=90 mL/min/1.7 3 m2 02/17/2025 12:57 AM [facility] Blood BLOOD SPECIMEN / Unknown Venipuncture / Unknown 02/17/2025 12:15 AM CDT 02/17/2025 12:32 AM [facility] Muriel Vickers MD LAB - CHEMISTRY ORDERABLES Final Result [facility] [address] [place] [address], [facility] [phone] * PHOSPHORUS BLOOD (02/17/2025 12:15 AM CDT) Phosphorus 3.0 2.8 - 5.1 mg/dL 02/17/2025 12:57 AM [facility] Blood BLOOD SPECIMEN / Unknown Venipuncture / Unknown 02/17/2025 12:15 AM CDT 02/17/2025 12:32 AM CDT us Muriel Vickers MD LAB - CHEMISTRY ORDERABLES Final Result Performing Organization Address City/[facility]/ZIP Co de Phone Number [address] [address], [facility] [phone] * MAGNESIUM BLOOD (02/17/2025 12:15 AM CDT) Magnesium 1.9 1.6 - 2.6 mg/dL 02/17/2025 12:57 AM [facility] Blood BLOOD SPECIMEN / Unknown Venipuncture / Unknown 02/17/2025 12:15 AM CDT 02/17/2025 12:32 AM CDT us Muriel Vickers MD LAB - CHEMISTRY ORDERABLES Final Result Performing Organization Address [facility]/ZIP Co de Phone Number [address] [address], [facility] [phone] * (ABNORMAL) RENAL FUNCTION PANEL (02/16/2025 5:19 PM CDT) BUN 16 7 - 26 mg/dL 02/16/2025 5:49 PM [facility] Creatinine 1.33(H) 0.71 - 1.16 mg/dL 02/16/2025 5:49 PM [facility] Sodium 135(L) 136 - 145 mmol/L 02/16/2025 5:49 PM [facility] Potassium 5.1(H) 3.5 - 4.5 mmol/L 02/16/2025 5:49 PM [facility] Chloride 103 98 - 107 mmol/L 02/16/2025 5:49 PM [facility] CO2 22 22 - 29 mmol/L 02/16/2025 5:49 PM [facility] Glucose 123(H) 70 - 99 mg/dL 02/16/2025 5:49 PM [facility] Albumin 3.7 3.4 - 5.0 g/dL 02/16/2025 5:49 PM CDT [facility] Calcium 8.8 8.4 - 10.2 mg/dL 02/16/2025 5:49 PM CDT [facility] Phosphorus 3.6 2.8 - 5.1 mg/dL 02/16/2025 5:49 PM CDT [facility] Anion Gap 10 6 - 16 02/16/2025 5:49 PM CDT [facility] BUN/Creatinine Ratio 12 7 - 23 02/16/2025 5:49 PM CDT [facility] Osmolality Calculated 283 275 - 295 mOsm/kg 02/16/2025 5:49 PM CDT [facility] eGFR by CKD-EPI 63(L) >=90 mL/min/1.7 3 m2 02/16/2025 5:49 PM CDT [facility] Blood BLOOD SPECIMEN / Unknown Venipuncture / Unknown 02/16/2025 5:19 PM CDT 02/16/2025 5:23 PM CDT Muriel Vickers MD LAB - CHEMISTRY ORDERABLES Final Result [facility] [address] [place] [address], [facility] [phone] * STEVE Merlos Angio Team (02/16/2025 4:25 PM CDT) Narrative [facility] RADIOLOGY - 02/16/2025 4:26 PM CDT Fluoroscopy was used for this exam in the OR. Please see the Operative report. Korey Acuna MD FLUOROSCOPY ORDERABLES Final Result [facility] RADIOLOGY * BLOOD TYPE VERIFICATION (02/16/2025 1:33 PM CDT) ABO Rh O NEG 02/16/2025 2:2 3 PM CDT [facility] BLOOD BANK LAB Blood Bank BLOOD SPECIMEN / Unknown Venipuncture / Unknown 02/16/2025 1:33 PM CDT 02/16/2025 1:41 PM CDT Muriel Vickers MD LAB - BLOOD BANK ORDERABLES Final Result [facility] BLOOD BANK LAB [address] [place] [address], [facility] [phone] * (ABNORMAL) CBC W AUTO DIFFERENTIAL (02/16/2025 1:22 PM CDT) WBC 9.2 4.0 - 10.7 x10E9/L 02/16/2025 1:45 PM [facility] RBC Count 6.10(H) 4.30 - 5.80 x10E12/L 02/16/2025 1:45 PM [facility] Hemoglobin 17.5 13.3 - 17.5 g/dL 02/16/2025 1:45 PM [facility] Hematocrit 53.1(H) 38.7 - 51.1 % 02/16/2025 1:45 PM [facility] MCV 87.0 80.0 - 98.0 fL 02/16/2025 1:45 PM [facility] MCH 28.7 26.7 - 33.6 pg 02/16/2025 1:45 PM [facility] MCHC 33.0 31.7 - 36.3 g/dL 02/16/2025 1:45 PM [facility] RDW-CV 13.4 11.3 - 14.8 % 02/16/2025 1:45 PM [facility] Platelet Count 79(L) 150 - 420 x10E9/L 02/16/2025 1:45 PM [facility] MPV 11.7(H) 7.8 - 11.4 fL 02/16/2025 1:45 PM [facility] Neutrophil % 69.4 41.0 - 74.0 % 02/16/2025 1:45 PM [facility] Lymphocyte % 20.4 17.0 - 47.0 % 02/16/2025 1:45 PM [facility] Monocyte % 7.3 3.0 - 11.0 % 02/16/2025 1:45 PM [facility] Eosinophil % 1.9 0.0 - 7.0 % 02/16/2025 1:45 PM CDT [facility] Basophil % 0.5 0.0 - 1.6 % 02/16/2025 1:45 PM CDT [facility] Immature Granulocytes % 0.5 0.0 - 1.0 % 02/16/2025 1:45 PM CDT [facility] Neutrophil Absolute 6.35 1.60 - 7.50 x10E9/L 02/16/2025 1:45 PM CDT [facility] Lymphocyte Absolute 1.87 1.00 - 4.40 x10E9/L 02/16/2025 1:45 PM CDT [facility] Monocyte Absolute 0.67 0.15 - 1.00 x10E9/L 02/16/2025 1:45 PM CDT [facility] Eosinophil Absolute 0.17 0.00 - 0.60 x10E9/L 02/16/2025 1:45 PM CDT [facility] Basophil Absolute 0.05 0.00 - 0.13 x10E9/L 02/16/2025 1:45 PM CDT [facility] Blood BLOOD SPECIMEN / Unknown Venipuncture / Unknown 02/16/2025 1:22 PM CDT 02/16/2025 1:27 PM CDT us Hans Hung MD LAB - HEMATOLOGY ORDERABLES F inal Result [facility] [address] [place] [address], [facility] [phone] * TYPE + SCREEN PANEL (02/16/2025 1:17 PM CDT) Antibody Screen NEG 2:23 PM CDT [facility] BLOOD BANK LAB ABO Rh O NEG 02/16/2025 2:23 PM CDT [facility] BLOOD BANK LAB Blood Bank BLOOD SPECIMEN / Unknown Line Draw / Unknown 02/16/2025 1:17 PM CDT 02/16/2025 1:30 PM CDT Muriel Vickers MD LAB - BLOOD BANK ORDERABLES Final Result [facility] BLOOD BANK LAB [address] [place] [address], [facility] [phone] * HEPATITIS C ANTIBODY (06/08/2020 4:51 PM CDT) Pathologist [facility] Hepatitis C Antibody <0.1 0.0 - 0.9 s/co ratio [facility] INSURANCE BILL Comment: Negative: < 0.8 Indeterminate: 0.8 - 0.9 Positive: > 0.9 . The CDC recommends that a positive HCV antibody result be followed up with a HCV Nucleic Acid Amplification test (118516). Blood BLOOD SPECIMEN / Unknown 06/08/2020 4:51 PM CDT 06/08/2020 Narrative Resulting Agency Comment Lab Testing performed at: [facility] [phone] Carlos Culp MD LAB - CHEMISTRY ORDERABLES Final Result Performing Organization Address [facility]/ZIP Co de Phone Number [facility] INSURANCE BILL [address] [place] [address] * HIV-1 HIV-2 ANTIBODY + HIV P24 AG PANEL (06/08/2020 4:46 PM CDT) [facility] HIV Screen 4th Generation w Reflex Non Reactive Non Reactive [facility] INSURANCE BILL Blood BLOOD SPECIMEN / Unknown 06/08/2020 4:46 PM CDT 06/08/2020 Narrative Resulting Agency Comment Lab Testing performed at: [facility] [phone] Carlos Culp MD LAB - CHEMISTRY ORDERABLES Final Result [facility] INSURANCE BILL [address] [place] [address] from Last 3 Months or Most Recently Relevant to Health Maintenance Insurance MEDICARE * Guarantor: HANS LYN Account Type Relation to Patient Date of Phone Billing Address Personal/Family [address] [place] [address] * Guarantor: HANS LYN Account Type Relation to Patient Date of Phone Billing Address Personal/Family [address] [place] [address] * Guarantor: HANS LYN Account Type Relation to Patient Date of Phone Billing Address Personal/Family [address] [place] [phone] * Guarantor: HANS LYN Account Type Relation to Patient Date of Phone Billing Address Personal/Family [address] [place] [address] * Guarantor: HANS LYN Account Type Relation to Patient Date of Phone Billing Address Personal/Family [address] [place] [address] * Guarantor: HANS LYN Account Type Relation to Patient Date of Phone Billing Address Personal/Family [address] [place] [address] Advance Directives * Full Code (Latest Code Status on File) Date Activated Date Inactivated Comments 02/16/2025 4:27 PM 02/17/2025 12:09 PM Care Teams Jailer Relationship Specialty Start Date End Date Yury Barnes DO [address] [place] [id number] PCP - General Internal Medicine 12/24/24
--- OUTSIDE RECORDS SUMMARY | 2025-04-10 13:35 | XMS_ITS | Clinical Summary ---
Author Organization [facility] Address [address] [place] [address] Care Team Providers Care Die Repairer Forging Name Role Phone Gustavo Bell MD Unavailable [phone] Carlos Culp MD Unavailable Sebastian Up MD Unavailable [phone] Thai Cruz Primary Care Provider Allergies Active Allergy Reactions Criticality Noted Date Comments Cephalexin Other (See comments) Low WOUND UP IN ER, PASSED OUT ON FLOOR Ihvdvfz-Fuq-Egf Reductase Inhibitors Swelling Medium 06/13/2022 Medications ALPRAZolam [...] Culp. Assessment & Plan (01/05/2021 11:46 AM WAIVER ANALYST): Follows with marshal. Doing whole blood phlebotomy [...] when laying on his back at night. [facility] neurology refused referral as they [...] when laying on his back at night. [facility] neurology refused referral as they [...] neurology. Assessment & Plan (01/05/2021 11:50 AM WAIVER ANALYST): Notes left anterior thigh paresthesias that radiates [...] crest. Assessment & Plan (01/05/2021 11:44 AM WAIVER ANALYST): Xray (03/04/2020) revealed mild OA. Recent MRI right hip was revealing for mild tendinopathy of right gluteus minimus and mild bilateral trochanteric bursitis. Did not do PT. States he has done PT 4 different times without benefit in the past. Pain localized over the anterosuperior iliac spine and radiates along the iliac crest. Assessment & Plan (09/21/2020 12:39 PM WAIVER ANALYST): Xray (03/04/2020) revealed mild OA. Recent MRI [...] 11/28/2019 Assessment & Plan (11/28/2019 11:07 AM WAIVER ANALYST): Pt has red, flaky rash between the eyebrows and scattered throughout his interiano. He states it developed over the past 6 months and denies change in soaps/detergents. HCQ can cause/worsen psoriasis. Will hold plaquenil and watch for improvement. Recommend patient see dermatology. If rash is diagnosed as psoriasis, then likely patient has overlap with psoriatic arthritis. Patient given hydrochloric manufacturing supervisor Dr. Abraham's information. Neck pain 08/28/2019 Assessment [...] into hands as well and has diminished aircraft instrument tester strength as well. Patient was told in [...] into hands as well and has diminished aircraft instrument tester strength as well. Patient was told in [...] into hands as well and has diminished aircraft instrument tester strength as well. Will give referral to neurology. Assessment & Plan (01/05/2021 11:41 AM WAIVER ANALYST): History of chronic neck pain for which [...] referral from pcp for a spinal surgeon. intermediate current use of therapeutic drug 2018 Overview [...] rash Assessment & Plan (01/05/2021 11:40 AM WAIVER ANALYST): Hepatitis negative: 04/2018 CXR negative: 04/2018 Quantiferon negative: 03/15/2020 Has failed MTX, leflunomide, SSZ, enbrel, and humira. Orencia - loss of benefit HCQ - stopped due to psoriasis-like rash Assessment & Plan (09/21/2020 12:36 PM WAIVER ANALYST): Hepatitis negative: 04/2018 CXR negative: 04/2018 Quantiferon [...] rash Assessment & Plan (11/28/2019 11:03 AM WAIVER ANALYST): Hepatitis negative: 04/2018 CXR negative: 04/2018 Quantiferon [...] 08/02/2018 Assessment & Plan (01/05/2021 11:46 AM WAIVER ANALYST): Chronic. Denied benefit with kenalog injection given [...] benefit. Assessment & Plan (11/28/2019 11:03 AM WAIVER ANALYST): Denied benefit with kenalog injection given at [...] benefit. Assessment & Plan (12/24/2018 11:18 AM WAIVER ANALYST): Recently followed with orthopedics for additional evaluation. Was told that he had fluid build up that was causing his elbow pain and could not be offered any specific treatment. Has recently been having pain in his left elbow also. If becomes more bothersome, could consider physical therapy in the future. Assessment & Plan (10/21/2018 5:04 PM WAIVER ANALYST): He has persistent pain in his right [...] with simponi aria. Continue Actemra 8mg/kg IV [id number] and give this more time to take [...] office. Assessment & Plan (01/05/2021 11:43 AM WAIVER ANALYST): Moderate cdai. Synovitis with increased tenderness of [...] office. Assessment & Plan (09/21/2020 12:37 PM WAIVER ANALYST): Moderate cdai. Synovitis without much tenderness noted [...] needed. Assessment & Plan (11/28/2019 12:08 PM WAIVER ANALYST): High cdai. Several swollen and tender joints [...] needed. Assessment & Plan (12/24/2018 11:19 AM WAIVER ANALYST): Moderate cdai. No obvious synovitis noted on [...] needed. Assessment & Plan (10/21/2018 5:00 PM WAIVER ANALYST): He is having increased pain complaints in [...] 2-3 weeks to discuss. Seen with Dr. Blel. Fibromyalgia 04/15/2018 Assessment & Plan (07/19/2021 1:54 [...] exercise. Assessment & Plan (01/05/2021 11:42 AM WAIVER ANALYST): Still has generalized pain. Follows with pain management and remains on Lyrica 150mg TID and baclofen 20mg prn per pain management, although dose not take baclofen very frequently as he denies benefit. Does not take Lyrica routinely as he feels it worsens his pain. Encouraged to participate in routine exercise. Assessment & Plan (09/21/2020 12:37 PM WAIVER ANALYST): Still has generalized pain. Follows with pain [...] exercise. Assessment & Plan (11/28/2019 11:04 AM WAIVER ANALYST): Still has generalized pain. Follows with pain [...] exercise. Assessment & Plan (12/24/2018 11:45 AM WAIVER ANALYST): Still has generalized pain which appears to be contributing to most of his pain complaints today. Follows with pain management and remains on Lyrica 150mg TID and baclofen 20mg prn per pain management. Encouraged to participate in routine exercise. Assessment & Plan (10/21/2018 5:06 PM WAIVER ANALYST): He still has widespread pain which I [...] on file Legal Sex Male 1:56 AM WAIVER ANALYST Gender Identity Not on file Sexual Orientation [...] 10:13 AM CDT Height 177.8 cm (5' 10) 06/30/2022 10:13 AM CDT Body Mass Index [...] C Ab Non-Reactiv e Non-Reactiv e [facility] Blood specimen (specimen) 04/15/2018 3:00 PM CDT 04/15/2018 5:15 PM CDT Narrative [facility] - 04/15/2018 9:03 PM CDT Pierce Griffiths MD LAB MICROBIOLOGY - GENE RAL ORDERABLES Final Result [facility] [address] [place] [address] from Last 3 Months or Most Recently Relevant to Health Maintenance Insurance MEDICARE MEDICARE [address] [place] [address] [address] [place] [address] MEDICARE Advance Directives For more information, please contact: [phone] Documents on File Type Date Recorded Patient Payroll Supervisor Expl anation ADVANCE DIRECTIVE 04/15/2018 5:09 PM * Full Code (Latest Code Status on File) Date Activated Date Inactivated Comments 06/30/2022 10:05 AM 06/30/2022 4:15 PM Care Teams Die Repairer Forging Relationship Specialty Start Date End Date Thai Cruz PA [address] [place] [address] PCP - General Physician Electric Drill Operator 06/21/22 Gustavo Bell MD [address] [place] [address] Consulting Physician Rheumatology 05/03/18 Carlos Culp MD [address] [facility] [address] [place] [address] Referring Physician Internal Medicine 05/18/20 Sebastian Up MD [address] [place] [address] Referring Physician Physical Medicine and Rehabilitation 07/19/21
--- OUTSIDE RECORDS SUMMARY | 2025-04-10 13:35 | XMS_ITS | Encounter Summary ---
Author Organization [facility] Address [address] [facility] [place] [address] Care Team Providers Care Hull Grinder Name Role Phone Yury Barnes DO Primary Care Provider Evelin Avila FOUNTAIN WORKER Unavailable Encounter Details Date Type Department Care Team (Late st Contact Info) Description 02/06/2025 Telephone [facility] [address] [place] [address] Hang Dumont, RN Social History Tobacco Use Types Packs/Day Years Used Date Smoking Tobacco: Every Day Cigarettes 2 44.5 Started: 09/26/1980 Smokeless Tobacco: Never Comments:average 1.5 [...] on file Legal Sex Male 6:13 AM 911 DISPATCHER Gender Identity Not on file Sexual Orientation [...] Info) Description 08/26/2025 10:00 AM CDT Appointment [facility] VASCULAR US [address] [place] [address] Muriel Vickers MD [address] [facility] 2L [place] [address] 08/26/2025 11:30 AM CDT Office Visit [facility] - Vascular Surgery [address] [facility], [place] [address] Muirel Vickers MD [address] [facility] [address] [place] [address] 02/04/2026 11:40 AM CDT Office Visit [facility] Health Neurosciences [address] [facility] [address] [place], [place] [id number] Ching Benson MD [address] [facility] [address] [place] [id number] documented as of this encounter Visit Diagnoses Not on filedocumented in this encounter Care Teams Hull Grinder Relationship Specialty Start Date End Date Yury Barnes DO [address] [place] [address] PCP - General Internal Medicine 12/24/24 Evelin Avila MSW Cashier And Waiter/Waitress Care Management 02/18/25 02/18/25 documented as of this encounter
--- OUTSIDE RECORDS SUMMARY | 2025-04-10 13:35 | XMS_ITS | Referral Summary ---
Author Organization [facility] Address [address] [place] [address] Care Team Providers Care Administrative Support Technician Name Role Phone Gustavo Bell MD Unavailable [phone] Carlos Culp MD Unavailable Sebastian Up MD Unavailable [phone] Thai Cruz Primary Care Provider Allergies Active Allergy Reactions Criticality Noted Date Comments Cephalexin Other (See comments) Low WOUND UP IN ER, PASSED OUT ON FLOOR Ootgwng-Rzf-Evn Reductase Inhibitors Swelling Medium 06/13/2022 Medications ALPRAZolam [...] Culp. Assessment & Plan (01/05/2021 11:46 AM INJURY PREVENTION COORDINATOR): Follows with marshal. Doing whole blood phlebotomy [...] when laying on his back at night. [facility] neurology refused referral as they [...] when laying on his back at night. [facility] neurology refused referral as they [...] neurology. Assessment & Plan (01/05/2021 11:50 AM INJURY PREVENTION COORDINATOR): Notes left anterior thigh paresthesias that radiates [...] crest. Assessment & Plan (01/05/2021 11:44 AM INJURY PREVENTION COORDINATOR): Xray (03/04/2020) revealed mild OA. Recent MRI right hip was revealing for mild tendinopathy of right gluteus minimus and mild bilateral trochanteric bursitis. Did not do PT. States he has done PT 4 different times without benefit in the past. Pain localized over the anterosuperior iliac spine and radiates along the iliac crest. Assessment & Plan (09/21/2020 12:39 PM INJURY PREVENTION COORDINATOR): Xray (03/04/2020) revealed mild OA. Recent MRI [...] 11/28/2019 Assessment & Plan (11/28/2019 11:07 AM INJURY PREVENTION COORDINATOR): Pt has red, flaky rash between the eyebrows and scattered throughout his interiano. He states it developed over the past 6 months and denies change in soaps/detergents. HCQ can cause/worsen psoriasis. Will hold plaquenil and watch for improvement. Recommend patient see dermatology. If rash is diagnosed as psoriasis, then likely patient has overlap with psoriatic arthritis. Patient given digital content specialist Dr. Abraham's information. Neck pain 08/28/2019 Assessment [...] into hands as well and has diminished kiln drawer strength as well. Patient was told in [...] into hands as well and has diminished kiln drawer strength as well. Patient was told in [...] into hands as well and has diminished kiln drawer strength as well. Will give referral to neurology. Assessment & Plan (01/05/2021 11:41 AM INJURY PREVENTION COORDINATOR): History of chronic neck pain for which [...] rash Assessment & Plan (01/05/2021 11:40 AM INJURY PREVENTION COORDINATOR): Hepatitis negative: 04/2018 CXR negative: 04/2018 Quantiferon negative: 03/15/2020 Has failed MTX, leflunomide, SSZ, enbrel, and humira. Orencia - loss of benefit HCQ - stopped due to psoriasis-like rash Assessment & Plan (09/21/2020 12:36 PM INJURY PREVENTION COORDINATOR): Hepatitis negative: 04/2018 CXR negative: 04/2018 Quantiferon [...] rash Assessment & Plan (11/28/2019 11:03 AM INJURY PREVENTION COORDINATOR): Hepatitis negative: 04/2018 CXR negative: 04/2018 Quantiferon [...] 08/02/2018 Assessment & Plan (01/05/2021 11:46 AM INJURY PREVENTION COORDINATOR): Chronic. Denied benefit with kenalog injection given [...] benefit. Assessment & Plan (11/28/2019 11:03 AM INJURY PREVENTION COORDINATOR): Denied benefit with kenalog injection given at [...] benefit. Assessment & Plan (12/24/2018 11:18 AM INJURY PREVENTION COORDINATOR): Recently followed with orthopedics for additional evaluation. Was told that he had fluid build up that was causing his elbow pain and could not be offered any specific treatment. Has recently been having pain in his left elbow also. If becomes more bothersome, could consider physical therapy in the future. Assessment & Plan (10/21/2018 5:04 PM INJURY PREVENTION COORDINATOR): He has persistent pain in his right [...] with simponi aria. Continue Actemra 8mg/kg IV [id number] and give this more time to take [...] office. Assessment & Plan (01/05/2021 11:43 AM INJURY PREVENTION COORDINATOR): Moderate cdai. Synovitis with increased tenderness of [...] office. Assessment & Plan (09/21/2020 12:37 PM INJURY PREVENTION COORDINATOR): Moderate cdai. Synovitis without much tenderness noted [...] needed. Assessment & Plan (11/28/2019 12:08 PM INJURY PREVENTION COORDINATOR): High cdai. Several swollen and tender joints [...] needed. Assessment & Plan (12/24/2018 11:19 AM INJURY PREVENTION COORDINATOR): Moderate cdai. No obvious synovitis noted on [...] needed. Assessment & Plan (10/21/2018 5:00 PM INJURY PREVENTION COORDINATOR): He is having increased pain complaints in [...] exercise. Assessment & Plan (01/05/2021 11:42 AM INJURY PREVENTION COORDINATOR): Still has generalized pain. Follows with pain management and remains on Lyrica 150mg TID and baclofen 20mg prn per pain management, although dose not take baclofen very frequently as he denies benefit. Does not take Lyrica routinely as he feels it worsens his pain. Encouraged to participate in routine exercise. Assessment & Plan (09/21/2020 12:37 PM INJURY PREVENTION COORDINATOR): Still has generalized pain. Follows with pain [...] exercise. Assessment & Plan (11/28/2019 11:04 AM INJURY PREVENTION COORDINATOR): Still has generalized pain. Follows with pain [...] exercise. Assessment & Plan (12/24/2018 11:45 AM INJURY PREVENTION COORDINATOR): Still has generalized pain which appears to be contributing to most of his pain complaints today. Follows with pain management and remains on Lyrica 150mg TID and baclofen 20mg prn per pain management. Encouraged to participate in routine exercise. Assessment & Plan (10/21/2018 5:06 PM INJURY PREVENTION COORDINATOR): He still has widespread pain which I [...] on file Legal Sex Male 1:56 AM INJURY PREVENTION COORDINATOR Gender Identity Not on file Sexual Orientation [...] C Ab Non-Reactiv e Non-Reactiv e [facility] Blood specimen (specimen) 04/15/2018 3:00 PM CDT 04/15/2018 5:15 PM CDT Narrative [facility] - 04/15/2018 9:03 PM CDT us Pierce Griffiths MD LAB MICROBIOLOGY - GENE RAL ORDERABLES Final Result [facility] [address] [place] [address] from Last 3 Months or Most Recently Relevant to Health Maintenance Insurance [address] [place] [address] [address] [place] [address] [address] [place] [address] MEDICARE MEDICARE Advance Directives For more information, please contact: [phone] Documents on File Type Date Recorded Patient Manager Licensing Expl anation ADVANCE DIRECTIVE 04/15/2018 5:09 PM * Full Code (Latest Code Status on File) Date Activated Date Inactivated Comments 06/30/2022 10:05 AM 06/30/2022 4:15 PM Care Teams Administrative Support Technician Relationship Specialty Start Date End Date Thai Cruz PA [address] [facility] [address] [facility] [address] [place] [address] PCP - General Physician Automatic Serging Machine Operator 06/21/22 Gustavo Bell MD [address] [facility] [address] [place] [address] Consulting Physician Rheumatology 05/03/18 Carlos Culp MD [address] [facility] [address] [place] [address] Referring Physician Internal Medicine 05/18/20 Sebastian Up MD [address] [place] [address] Referring Physician Physical Medicine and Rehabilitation 07/19/21
--- OUTSIDE RECORDS SUMMARY | 2025-04-10 13:35 | XMS_ITS | Clinical Summary ---
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 on file Not [...] 9:00 AM CDT Height 177.8 cm (5' 10) 05/27/2021 9:00 AM CDT Body Mass Index [...] 04/15/2021 , 09/12/2019, 07/30/2018, Additional history exists Human Papillomavirus (HPV) Immunization Aged Out No longer eligible based on patient's age to complete this topic Meningococcal Immunization (ACWY) Aged Out No longer eligible based on patient's age to complete this topic Rotavirus Immunization Aged Out No lo nger eligible based on patient's age to complete this topic Procedures Procedure Name Priority Date/Time Associated Diagnosis Comments CT CHEST W/O CONTRAST Routine 09/12/2019 7:52 PM SALESPERSON MEATS Pulmonary nodule PSA DIAGNOSTIC,TOTAL Routine 12/25/2016 Enlarged prostate HM COLONOSCOPY Routine 08/31/2016 from Last 3 Months or Most Recently Relevant to Health Maintenance Results * CT CHEST W/O CONTRAST (09/12/2019 7:52 PM SALESPERSON MEATS) Anatomical Region Laterality Modality Chest N/A Computed Tomogra phy 09/15/2019 12:0 7 PM SALESPERSON MEATS Impressions 09/15/2019 12:09 PM SALESPERSON MEATS IMPRESSION: Stable appearance of pulmonary nodules as above. No new pulmonary nodules. These have demonstrated stability since July 2017 and likely benign. Narrative 09/15/2019 12:09 PM SALESPERSON MEATS EXAM DESCRIPTION: CT CHEST W/O CONTRAST REASON [...] Del Chaudhary M.D. JA: PAL Report ID: [id number] Reading Location: [id number] Procedure Note Del Chaudhary MD - 09/15/2019 [...] Del Chaudhary M.D. JA: PAL Report ID: [id number] Reading Location: [id number] IMPRESSION: Stable appearance of pulmonary nodules as above. No new pulmonary nodules. These have demonstrated stability since July 2017 and likely benign. Danielle Phelps PLANTING MATERIAL CARRIER, CUSTOMER PROJECT MANAGER IMG CT ORDERABLES Final Result * PSA DIAGNOSTIC,TOTAL (12/25/2016) PSA (PROSTATE SPECIFIC ANTIGEN) 0.5 ng/mL Blood specimen (specimen) 12/25/2016 us Chano Leggett DO CHEMISTRY ORDERABLES Final Resu lt * HM COLONOSCOPY (08/31/2016) Nitesh Matta MD PROCEDURE/MINOR SURGICAL ORDER CRISTHIAN Final Result from Last 3 Months or Most Recently Relevant to Health Maintenance Insurance MEDICAID [place] MEDICARE MEDICAID [place] MEDICARE Care Teams Rubber Trimmer Relationship Specialty Start Date End Date Provider, None [place] PCP - General 06/03/21 Danielle Phelps, PLANTING MATERIAL CARRIER, CUSTOMER PROJECT MANAGER Nurse Practitioner Advanced Practice Nurse 05/10/16 Chano Leggett DO Gastroenterology 09/01/16
[2025-04-10 14:16] LABS: Albumin Level 4.9 g/dL (3.5-5.1); Anion Gap 12 mmol/L (4-12); Blood Urea Nitrogen 15 mg/dL (9-20); Calcium 9.5 mg/dL (8.4-10.2); Carbon Dioxide 28 mmol/L (22-30); Chloride 102 mmol/L (98-107); Estimated Glomerular Filt Rate 51; Glucose 155 mg/dL (65-110); Phosphorus 3.1 mg/dL (2.5-4.5); Potassium 4.3 mmol/L (3.4-5.0); Sodium 142 mmol/L (137-145)
[2025-04-10 14:21] LABS: Creatinine Urine 103.6 mg/dL; Total Protein Urine Random 12 mg/dL; Ur Ttl Prot Creatinine Ratio 0.12 mg/mg (0-0.20)
[2025-04-10 14:28] LABS: Parathyroid Intact 59.3 pg/mL (14.5-75.2)
[2025-04-10 14:53] LABS: Vitamin D 25 Hydroxy 27.7 ng/mL
== END 2025-04-10 13:33 | disposition home or self-care (01) ==
PROVIDERS: PCP Internal Medicine; Visit Provider Internal Medicine Nephrology
DX: I12.9 Hypertensive chronic kidney disease with stage 1 through stage 4 chronic kidney disease, or unspecified chronic kidney disease (principal); E11.22 Type 2 diabetes mellitus with diabetic chronic kidney disease; N18.31 Chronic kidney disease, stage 3a; E55.9 Vitamin D deficiency, unspecified; N25.81 Secondary hyperparathyroidism of renal origin
CPT/HCPCS: 36415; 80069; 82306; 82570; 83970; 84156

== ENCOUNTER 2025-05-19 14:40 | Outpatient (CLI) | payer OTHER, MEDICARE, SELFPAY ==
--- OUTSIDE RECORDS SUMMARY | 2025-05-19 14:44 | XMS_ITS | Clinical Summary ---
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 Not on file Not [...] 3 - 19+ 3-dose series) 01/09/1988 Cologuard 2014 Immunochemical Fecal Occult Blood 2014 Pneumococcal Immunization (50+ years) (2 of 2 - PCV) 2019 08/04/2016 SARS-COV-2 Immunization (4 - 2023- season) 2024 07/19/2021, 02/20/2021, 01/30/2021 Colonoscopy 09/26/2024 09/26/2019, 08/31/2016 Colorectal Cancer Screening 09/26/2024 Influenza Immunization (#1) 2025 100 01/2020, 08/29/2019, 08/23/2018, Additional history exists Respiratory Syncytial Virus (RSV) Immunization (Adult) (1 - 1-dose 75+ series) 01/09/2044 Pneumococcal Immunization Combined Discontinued 08/04/2016 PSA Discussion [...] CHEST W/O CONTRAST Routine 09/12/2019 7:52 PM OCEANOGRAPHY TEACHER Pulmonary nodule PSA DIAGNOSTIC,TOTAL Routine 12/25/2016 Enlarged prostate HM COLONOSCOPY Routine 08/31/2016 from Last 3 Months or Most Recently Relevant to Health Maintenance Results * CT CHEST W/O CONTRAST (09/12/2019 7:52 PM OCEANOGRAPHY TEACHER) Anatomical Region Laterality Modality Chest N/A Computed Tomogra phy 09/15/2019 12:0 7 PM OCEANOGRAPHY TEACHER Impressions 09/15/2019 12:09 PM OCEANOGRAPHY TEACHER IMPRESSION: Stable appearance of pulmonary nodules as above. No new pulmonary nodules. These have demonstrated stability since July 2017 and likely benign. Narrative 09/15/2019 12:09 PM OCEANOGRAPHY TEACHER EXAM DESCRIPTION: CT CHEST W/O CONTRAST REASON [...] Del Chaudhary M.D. JA: PAL Report ID: [id number] Reading Location: [id number] Procedure Note eDl Chaudhary MD - 09/15/2019 EXAM DESCRIPTION: CT [...] Del Chaudhary M.D. JA: PAL Report ID: [id number] Reading Location: [id number] IMPRESSION: Stable appearance of pulmonary nodules as above. No new pulmonary nodules. These have demonstrated stability since July 2017 and likely benign. us Danielle Phelps TRAVEL SERVICES PROFESSIONAL, [employer] IMG CT ORDERABLES Final Result * PSA DIAGNOSTIC,TOTAL (12/25/2016) PSA (PROSTATE SPECIFIC ANTIGEN) 0.5 ng/mL Blood specimen (specimen) 12/25/2016 us Chano Leggett DO CHEMISTRY ORDERABLES Final Resu lt * HM COLONOSCOPY (08/31/2016) Nitesh Matta MD PROCEDURE/MINOR SURGICAL ORDER CRISTHIAN Final Result from Last 3 Months or Most Recently Relevant to Health Maintenance Insurance [id number] MEDICAID [place] MEDICARE [employer] Medical [facility] [address] MEDICAID [place] MEDICARE [employer] [facility] [address] Care Teams Roll Clamp Operator Relationship Specialty Start Date End Date Provider, None [place] PCP - General 06/03/21 Danielle Phelps APRN, [employer] Nurse Practitioner Advanced Practice Nurse 05/10/16 Chano Leggett DO Gastroenterology 09/01/16
--- OUTSIDE RECORDS SUMMARY | 2025-05-19 14:44 | XMS_ITS | Referral Summary ---
Author Organization [facility] Address [address] [place] [address] Care Team Providers Care Blintze Roller Name Role Phone Gustavo Bell MD Unavailable [phone] Carlos Culp MD Unavailable Sebastian Up MD Unavailable [phone] Thai Cruz Primary Care Provider Allergies Active Allergy Reactions Criticality Noted Date Comments Cephalexin Other (See comments) Low WOUND UP IN ER, PASSED OUT ON FLOOR Hizwpby-Ezw-Ysd Reductase Inhibitors Swelling Medium 06/13/2022 Medications ALPRAZolam [...] Culp. Assessment & Plan (01/05/2021 11:46 AM BUSINESS ANALYST CONSULTANT): Follows with marshal. Doing whole blood phlebotomy [...] on his back at night. [facility] neurology refused referral as they do not [...] on his back at night. [facility] neurology refused referral as they do not [...] neurology. Assessment & Plan (01/05/2021 11:50 AM BUSINESS ANALYST CONSULTANT): Notes left anterior thigh paresthesias that radiates [...] crest. Assessment & Plan (01/05/2021 11:44 AM BUSINESS ANALYST CONSULTANT): Xray (03/04/2020) revealed mild OA. Recent MRI right hip was revealing for mild tendinopathy of right gluteus minimus and mild bilateral trochanteric bursitis. Did not do PT. States he has done PT 4 different times without benefit in the past. Pain localized over the anterosuperior iliac spine and radiates along the iliac crest. Assessment & Plan (09/21/2020 12:39 PM BUSINESS ANALYST CONSULTANT): Xray (03/04/2020) revealed mild OA. Recent MRI [...] 11/28/2019 Assessment & Plan (11/28/2019 11:07 AM BUSINESS ANALYST CONSULTANT): Pt has red, flaky rash between the eyebrows and scattered throughout his interiano. He states it developed over the past 6 months and denies change in soaps/detergents. HCQ can cause/worsen psoriasis. Will hold plaquenil and watch for improvement. Recommend patient see dermatology. If rash is diagnosed as psoriasis, then likely patient has overlap with psoriatic arthritis. Patient given back panel padder Dr. Abraham's information. Neck pain 08/28/2019 Assessment [...] into hands as well and has diminished bankruptcy attorney strength as well. Patient was told in [...] into hands as well and has diminished bankruptcy attorney strength as well. Patient was told in [...] into hands as well and has diminished bankruptcy attorney strength as well. Will give referral to neurology. Assessment & Plan (01/05/2021 11:41 AM BUSINESS ANALYST CONSULTANT): History of chronic neck pain for which [...] rash Assessment & Plan (01/05/2021 11:40 AM BUSINESS ANALYST CONSULTANT): Hepatitis negative: 04/2018 CXR negative: 04/2018 Quantiferon negative: 03/15/2020 Has failed MTX, leflunomide, SSZ, enbrel, and humira. Orencia - loss of benefit HCQ - stopped due to psoriasis-like rash Assessment & Plan (09/21/2020 12:36 PM BUSINESS ANALYST CONSULTANT): Hepatitis negative: 04/2018 CXR negative: 04/2018 Quantiferon [...] rash Assessment & Plan (11/28/2019 11:03 AM BUSINESS ANALYST CONSULTANT): Hepatitis negative: 04/2018 CXR negative: 04/2018 Quantiferon [...] 08/02/2018 Assessment & Plan (01/05/2021 11:46 AM BUSINESS ANALYST CONSULTANT): Chronic. Denied benefit with kenalog injection given [...] benefit. Assessment & Plan (11/28/2019 11:03 AM BUSINESS ANALYST CONSULTANT): Denied benefit with kenalog injection given at [...] benefit. Assessment & Plan (12/24/2018 11:18 AM BUSINESS ANALYST CONSULTANT): Recently followed with orthopedics for additional evaluation. Was told that he had fluid build up that was causing his elbow pain and could not be offered any specific treatment. Has recently been having pain in his left elbow also. If becomes more bothersome, could consider physical therapy in the future. Assessment & Plan (10/21/2018 5:04 PM BUSINESS ANALYST CONSULTANT): He has persistent pain in his right [...] with simponi aria. Continue Actemra 8mg/kg IV c4uprcy and give this more time to take [...] office. Assessment & Plan (01/05/2021 11:43 AM BUSINESS ANALYST CONSULTANT): Moderate cdai. Synovitis with increased tenderness of [...] office. Assessment & Plan (09/21/2020 12:37 PM BUSINESS ANALYST CONSULTANT): Moderate cdai. Synovitis without much tenderness noted [...] needed. Assessment & Plan (11/28/2019 12:08 PM BUSINESS ANALYST CONSULTANT): High cdai. Several swollen and tender joints [...] needed. Assessment & Plan (12/24/2018 11:19 AM BUSINESS ANALYST CONSULTANT): Moderate cdai. No obvious synovitis noted on [...] needed. Assessment & Plan (10/21/2018 5:00 PM BUSINESS ANALYST CONSULTANT): He is having increased pain complaints in [...] exercise. Assessment & Plan (01/05/2021 11:42 AM BUSINESS ANALYST CONSULTANT): Still has generalized pain. Follows with pain management and remains on Lyrica 150mg TID and baclofen 20mg prn per pain management, although dose not take baclofen very frequently as he denies benefit. Does not take Lyrica routinely as he feels it worsens his pain. Encouraged to participate in routine exercise. Assessment & Plan (09/21/2020 12:37 PM BUSINESS ANALYST CONSULTANT): Still has generalized pain. Follows with pain [...] exercise. Assessment & Plan (11/28/2019 11:04 AM BUSINESS ANALYST CONSULTANT): Still has generalized pain. Follows with pain [...] exercise. Assessment & Plan (12/24/2018 11:45 AM BUSINESS ANALYST CONSULTANT): Still has generalized pain which appears to be contributing to most of his pain complaints today. Follows with pain management and remains on Lyrica 150mg TID and baclofen 20mg prn per pain management. Encouraged to participate in routine exercise. Assessment & Plan (10/21/2018 5:06 PM BUSINESS ANALYST CONSULTANT): He still has widespread pain which I [...] on file Legal Sex Male 1:56 AM BUSINESS ANALYST CONSULTANT Gender Identity Not on file Sexual Orientation [...] C Ab Non-Reactiv e Non-Reactiv e [facility] Blood specimen (specimen) 04/15/2018 3:00 PM CDT 04/15/2018 5:15 PM CDT Narrative [facility] - 04/15/2018 9:03 PM CDT us Pierce Griffiths MD LAB MICROBIOLOGY - GENE RAL ORDERABLES Final Result [facility] [address] [place] [address] from Last 3 Months or Most Recently Relevant to Health Maintenance Insurance [address] [place] [address] [address] [place] [address] [address] [place] [address] MEDICARE MEDICARE Advance Directives For more information, please contact: [phone] Documents on File Type Date Recorded Patient Sales Training Coordinator Expl anation ADVANCE DIRECTIVE 04/15/2018 5:09 PM * Full Code (Latest Code Status on File) Date Activated Date Inactivated Comments 06/30/2022 10:05 AM 06/30/2022 4:15 PM Care Teams Blintze Roller Relationship Specialty Start Date End Date Thai Cruz PA [address] [place] [address] PCP - General Physician Power Plant Operators Supervisor 06/21/22 Gustavo Bell MD [address] [place] [address] Consulting Physician Rheumatology 05/03/18 Carlos Culp MD [address] [facility] [address] [place] [address] Referring Physician Internal Medicine 05/18/20 Sebastian Up MD [address] [place] [address] Referring Physician Physical Medicine and Rehabilitation 07/19/21
--- OUTSIDE RECORDS SUMMARY | 2025-05-19 14:44 | XMS_ITS | Clinical Summary ---
Author Organization [facility] Address [address] [facility] [place] [address] Care Team Providers Care Crew Member Name Role Phone Yury Barnes DO Primary Care Provider [phone] Source Comments [facility],non-owned Affiliates and Associated Physician Practices is amultiple site organization consisting of ambulatory clinics and hospital sitesin [place], [place], [place] and [place]. This disclosure is being madepursuant to the Care Everywhere program and may not contain all information available regarding this patient. Last updated 18.[facility] Allergies Active Allergy Reactions Criticality Noted Date [...] DAYS 3 mL 3 12/19/19 25 Active Additional Information Patient not taking.Reason: Other, Reported on 04/23/2025 Jardiance 25 MG tablet Take 1 (one) [...] once daily 14 packet 02/18/20 25 Active Ventolin HFA 108 (90 Base) MCG/ACT inhaler INHALE 2 PUFFS BY MOUTH EVERY 4 TO 6 HOURS NEEDED FOR SHORTNESS OF BREATH FOR WHEEZING 02/19/20 25 Active Accu-Chek Guide test strip USE 1 TEST STRIPS TO CHECK ONCE DAILY 03/08/20 25 Active clopidogrel (plaVIX) 75 MG tabletIndicati ons:Angiogram Take 1 (one) tablet by mouth once daily Reasons: Imaging of Blood Vessel 30 tablet 04/20/20 25 Active methocarbamol (Robaxin) 750 MG tablet Take 1 (one) tablet by mouth 3 times daily as needed 04/10/20 25 Active clopidogrel (plaVIX) 75 MG tablet Take 1 (one) tablet by mouth once daily 30 tablet 1 02/18/20 25 025 Discontin ued([facility]) Hospital, Clinic, or Other Facility Administered Medication Ordered Dose Route Frequency Start Date End Date Status onabotulinumtoxin A (Botox) injection 200 UnitsIndications:Migraine 200 Units IM ONCE 04/23/2025 04/23/2025 Ended Active Problems Problem Noted Date Diagnosed Date [...] has overlap with psoriatic arthritis. Patient given creasing machine operator Dr. Abraham's information. Cervical spondylosis without myelopathy 10/10/20 19 Cigarette smoker 10/10/2019 longterm current use of therapeutic drug 2018 Overview [...] Encounters Date Type Department Care Team Description 04/23/2025 10:00 AM CDT Procedure visit [facility] [address] [facility] [address] [place] [address] Ching Benson MD Chronic migraine w/o aura, not intractable, w/o stat migr 04/20/2025 Telephone [facility] - Vascular Surgery [address] [place] [phone] Muriel Vickers MD Medication Clarification 03/17/2025 Travel 03/11/2025 9:30 AM CDT Office Visit [facility] - Vascular Surgery [address] [place] [phone] Muriel Vickers MD Renal artery stenosis (Primary Dx) 03/11/2025 8:00 AM CDT - 03/11/2025 11:59 PM CDT Hospital Encounter [facility] VASCULAR US [address] [place] [address] Muriel Vickers MD Discharge Disposition: Home or Self Care 03/11/2025 Travel 02/18/2025 Transitional Care [facility] Medical [facility] - Care Coordination [address] [place] [phone] Evelin Avila MSW Transitional Care 02/16/2025 12:26 PM CDT - 02/17/2025 11:09 AM CDT Hospital Encounter [facility] ICU [address] [place] [address] Muriel Vickers MD Vascular Surgery Discharge Disposition: Home or Self Care from Last 3 Months Immunizations Immunization Administration [...] Date Smoking Tobacco: Every Day Cigarettes 2 44.6 Started: 09/26/1980 Smokeless Tobacco: Never Tobacco Cessation:Ready [...] Recorded Patient Health Questionnaire-2 Score 0 02/05/2025 [facility] of Occupat ional [facility] - Occupational Stress Questionnaire Answer Date [...] any time in the past 12 m [facility], were you homeless or living in a [place] health care facility (including now)? 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 Gender Identity Not on file Sexual Orientation [...] CDT Inhaled Oxygen Concentration - - Weight 93.9 kg (207 lb) 04/23/2025 10:20 AM CDT Height 175.3 cm (5' 9) 03/11/2025 9:15 AM CDT Body Mass Index 30.57 03/11/2025 9:15 AM CDT Plan of Treatment Upcoming Encounters Date Type Department Care Team (Late st Contact Info) Description 07/16/2025 10:30 AM CDT Procedure visit [facility] [address] [place] [address] Kiara Sifuentes, SPONSORSHIP MANAGER-RESISTANCE WELDER [address] [place] [phone] 08/26/2025 10:00 AM CDT Appointment [facility] VASCULAR US [address] [place] [address] Muriel Vickers MD [address] [place] [address] [address] [place] [phone] 08/26/2025 11:30 AM CDT Office Visit [facility] - Vascular Surgery [address] [facility] [place] [phone] Muriel Vickers MD [address] [place] [address] [address] [place] [address] 02/04/2026 11:40 AM CDT Office Visit [facility] [address] [place] [address] Ching Benson MD [address] [place] [phone] Health Maintenance Due Date Last Done Comments [...] - URINE PROTEIN SCREENING 11/05/2024 INFLUENZA VACCINE (#1) 2025 , 08/29/2019, 08/23/2018, Additional history exists DIABETES-HGB A1C [...] this topic Medical Devices Implanted Type Area Commercial Lending Vice President Device Identifier Shelf Expiration Date Model / Serial / Lot Stent Trchbr 6mm 6fr 22mm 80cm Cvr Cath - [id number] Implanted:Qty: 1 on 02/16/2025 by Muriel Vickers MD at [facility] Left: Arterial [employer] [id number] 08/08/2025 [id number] / [id number] / NA Description:Left Renal Arter y Stent Trchbr 6mm 22mm 120cm Radopq Cvr - [id number] Implanted:Qty: 1 on 02/16/2025 by Muriel Vickers MD at [facility] Left: Arterial [employer] 11/23/2026 [id number] / [id number] / NA Description:LEFT RENAL ARTER Y Explanted Type Area Commercial Lending Vice President Device Identifier Shelf Expiration Date Model / Serial / Lot Stent Trchbr 6mm 7fr 59mm 80cm .035in - [id number] Explanted:Qty: 1 on 02/16/2025 at [facility] Left: Arterial [employer]inge [employer] [id number] 07/24/2025 [id number] / [id number] / NA Description:STENT TOO LONG Procedures Procedure [...] 02/17/2025 12:15 AM CDT Renal artery stenosis HEPATITIS C ANTIBODY Routine 06/08/2020 [...] Abd Renal Doppler (03/11/2025 8:55 AM CDT) Anatomical Region Laterality Modality Abdomen Intravascular Ul trasound 03/11/2025 8:13 AM CDT Narrative Procedure Note Davion Alejandra MD - 03/12/2025 Muriel Vickers MD VASCULAR LAB ORDERABLES Vinay kevin Result - Final * PREPARE (CROSSMATCH) RBC UNIT(S), 1 Units (02/18/2025 1:17 AM CDT) Pathologist [facility] Unit Description AS1 LR PRBC [facility] BLOOD BANK LAB Unit ABO O [facility] BLOOD [facility] Unit Rh NEG [facility] BLOOD [facility] LAB Product Number R43 [facility] B LOOD BANK LAB Unit Donor # [id number] [facility] BLOOD [facility] Unit Status released [facility] BLOO D BANK LAB Product Code [id number] [facility] BLO OD BANK LAB Blood Type Barcode 9500 [facility] BLOOD BANK LAB Expiration Date [id number] S BLOOD BANK LAB Blood Bank BLOOD SPECIMEN / Unknown 02/16/2025 1:30 PM CDT Muriel Vickers MD LAB - BLOOD BANK ORDERABLES Final Result [facility] BLOOD BANK LAB [address] [place] [address], [place] [phone] * (ABNORMAL) GLUCOSE - POINT OF CARE (02/17/2025 5:55 AM CDT) Pathologist [facility] Glucose WB/POC 161(H) 70 - 99 mg/dL 02/17/2025 5:56 AM CDT [facility] Specimen Type Venous 02/17/2025 5:56 AM CDT [facility] Blood BLOOD SPECIMEN / Unknown 02/17/2025 5:55 AM CDT 02/17/2025 5:56 AM CDT us Muriel Vickers MD LAB - POINT OF CARE ORDERAB LES Final Result Performing Organization Address City/[facility]/ZIP Co de Phone Number [address] [address], [facility] [phone] * (ABNORMAL) HEMOGLOBIN A1C (02/17/2025 5:54 AM CDT) Hemoglobin A1c 6.0(H) <=5.6 % 02/17/2025 9:01 AM T [facility] Estimated Average Glucose 126 mg/dL 02/17/2025 9:01 AM T [facility] Comment: HbA1c Interpretation: Normal : < 5.7% Pre-diabetes: 5.7-6.4% Diabetes: Equal to or greater than 6.5% Test results diagnostic of diabetes should be repeated for confirmation. Treatment target values recommended by ADA and other clinical organizations should be used to evaluate metabolic control in patients. Reference: [place] [employer], Standards of Care in Diabetes [...] CHEMISTRY ORDERABLES Final Result Performing Organization Address City/[facility]/ZIP Co de Phone Number [address] [address], [place] [phone] * (ABNORMAL) CBC W/O DIFFERENTIAL (02/17/2025 5:54 AM CDT) WBC 15.9(H) 4.0 - 10.7 x10E9/L 02/17/2025 6:14 AM [facility] RBC Count 5.41 4.30 - 5.80 x10E12/L 02/17/2025 6:14 AM [facility] Hemoglobin 15.6 13.3 - 17.5 g/dL 02/17/2025 6:14 AM [facility] Hematocrit 46.7 38.7 - 51.1 % 02/17/2025 6:14 AM [facility] MCV 86.3 80.0 - 98.0 fL 02/17/2025 6:14 AM [facility] MCH 28.8 26.7 - 33.6 pg 02/17/2025 6:14 AM [facility] MCHC 33.4 31.7 - 36.3 g/dL 02/17/2025 6:14 AM [facility] RDW-CV 13.3 11.3 - 14.8 % 02/17/2025 6:14 AM [facility] Platelet Count 87(L) 150 - 420 x10E9/L 02/17/2025 6:14 AM [facility] MPV 12.7(H) 7.8 - 11.4 fL 02/17/2025 6:14 AM [facility] Blood BLOOD SPECIMEN / Unknown Venipuncture / Unknown 02/17/2025 5:54 AM CDT 02/17/2025 6:04 AM T Muriel Vickers MD LAB - HEMATOLOGY ORDERABLES Final Result [facility] [address] [place] [address], [facility] [phone] * PT-INR [facility] (02/17/2025 12:15 AM CDT) PT 14.2 12.1 - 14.8 Seconds 02/17/2025 12:59 AM [facility] INR 1.1 See Comment 02/17/2025 12:59 AM [facility] Comment:The suggested therap eutic range for [...] ORDERABLE S Final Result Performing Organization Address [facility]/ZIP Co de Phone Number [address] [address], [place] [phone] * (ABNORMAL) CALCIUM IONIZED WHOLE BLOOD (02/17/2025 12:15 AM CDT) Pathologist [facility] Calcium Ionized 1.10 mmol/L 02/17/2025 12:32 AM CDT [facility] pH 7.36 7.35 - 7.45 pH 02/17/2025 12:32 AM CDT [facility] Ionized Calcium pH Adjusted 1.08(L) 1.19 - 1.34 mmol/L 02/17/2025 12:32 AM CDT [facility] Blood BLOOD SPECIMEN / Unknown Venipuncture / Unknown 02/17/2025 12:15 AM CDT 02/17/2025 12:25 AM CDT us Muriel Vickers MD LAB - CHEMISTRY ORDERABLES Final Result Performing Organization Address [facility]/ZIP Co de Phone Number [address] [address], [place] [phone] * (ABNORMAL) BASIC METABOLIC PANEL (CALCIUM TOTAL) (02/17/2025 12:15 AM CDT) BUN 16 7 - 26 mg/dL 02/17/2025 12:57 AM CDT [facility] Creatinine 1.16 0.71 - 1.16 mg/dL 02/17/2025 12:57 AM CDT [facility] Sodium 136 136 - 145 mmol/L 02/17/2025 12:57 AM [facility] Potassium 4.5 3.5 - 4.5 mmol/L 02/17/2025 12:57 AM [facility] Chloride 105 98 - 107 mmol/L 02/17/2025 12:57 AM [facility] CO2 20(L) 22 - 29 mmol/L 02/17/2025 12:57 AM [facility] Glucose 179(H) 70 - 99 mg/dL 02/17/2025 12:57 AM [facility] Calcium 7.9(L) 8.4 - 10.2 mg/dL 02/17/2025 12:57 AM [facility] Anion Gap 11 6 - 16 02/17/2025 12:57 AM [facility] BUN/Creatinine Ratio 14 7 - 23 02/17/2025 12:57 AM [facility] Osmolality Calculated 288 275 - 295 mOsm/kg 02/17/2025 12:57 AM [facility] eGFR by CKD-EPI 74(L) >=90 mL/min/1.7 3 m2 02/17/2025 12:57 AM [facility] Blood BLOOD SPECIMEN / Unknown Venipuncture / Unknown 02/17/2025 12:15 AM CDT 02/17/2025 12:32 AM CDT us Muriel Vickers MD LAB - CHEMISTRY ORDERABLES Final Result Performing Organization Address [facility] de Phone Number [facility] [address] [place] [address], [facility] [phone] * PHOSPHORUS BLOOD (02/17/2025 12:15 AM CDT) Phosphorus 3.0 2.8 - 5.1 mg/dL 02/17/2025 12:57 AM [facility] Blood BLOOD SPECIMEN / Unknown Venipuncture / Unknown 02/17/2025 12:15 AM CDT 02/17/2025 12:32 AM CDT us Muriel Vickers MD LAB - CHEMISTRY ORDERABLES Final Result [address] [address], [facility] [phone] * MAGNESIUM BLOOD (02/17/2025 12:15 AM CDT) [facility] Magnesium 1.9 1.6 - 2.6 mg/dL 02/17/2025 12:57 AM CDT [facility] Blood BLOOD SPECIMEN / Unknown Venipuncture / Unknown 02/17/2025 12:15 AM CDT 02/17/2025 12:32 AM CDT Muriel Vickers MD LAB - CHEMISTRY ORDERABLES Final Result Performing Organization Address [facility] Co de Phone Number [address] [address], [facility] [phone] * HEPATITIS C ANTIBODY (06/08/2020 4:51 PM CDT) [facility] Hepatitis C Antibody <0.1 0.0 - 0.9 s/co ratio [facility] INSURANCE BILL Comment: Negative: < 0.8 Indeterminate: 0.8 - 0.9 Positive: > 0.9 . The CDC recommends that a positive HCV antibody result be followed up with a HCV Nucleic Acid Amplification test (348984). Blood BLOOD SPECIMEN / Unknown 06/08/2020 4:51 PM CDT 06/08/2020 Narrative Resulting Agency Comment Lab Testing performed at: [facility] [address] [facility] [id number] us Carlos Culp MD LAB - CHEMISTRY ORDERABLES Final Result [facility] INSURANCE BILL [address] [place] [address] * HIV-1 HIV-2 ANTIBODY + HIV P24 AG PANEL (06/08/2020 4:46 PM CDT) [facility] HIV Screen 4th Generation w Reflex Non Reactive Non Reactive [facility] INSURANCE BILL Blood BLOOD SPECIMEN / Unknown 06/08/2020 4:46 PM CDT 06/08/2020 Narrative Resulting Agency Comment Lab Testing performed at: [facility] [address] [facility] [phone] us Carlos Culp MD LAB - CHEMISTRY ORDERABLES Final Result [facility] INSURANCE BILL [address] [place] [address] from Last 3 Months or Most Recently Relevant to Health Maintenance Insurance MEDICARE * Guarantor: HANS LYN Account Type Relation to Patient Date of Phone Billing Address Personal/Family [address] [place] [address] * Guarantor: HANS LYN Account Type Relation to Patient Date of Phone Billing Address Personal/Family [address] [place] [address] * Guarantor: HANS LYN Account Type Relation to Patient Date of Phone Billing Address Personal/Family [address] [place] [address] * Guarantor: HANS LYN Account Type Relation to Patient Date of Phone Billing Address Personal/Family [address] [place] [address] * Guarantor: HANS LYN Account Type Relation to Patient Date of Phone Billing Address Personal/Family [address] [place] [address] * Guarantor: HANS LYN Account Type Relation to Patient Date of Phone Billing Address Personal/Family [address] [place] [address] Advance Directives * Full Code (Latest Code Status on File) Date Activated Date Inactivated Comments 02/16/2025 4:27 PM 02/17/2025 12:09 PM Care Teams Crew Member Relationship Specialty Start Date End Date Yury Barnes DO [address] [place] [address] PCP - General Internal Medicine 12/24/24
--- OUTSIDE RECORDS SUMMARY | 2025-05-19 14:44 | XMS_ITS | Encounter Summary ---
Author Organization [facility] Address [address] [place] [address] Care Team Providers Care Silk Trimmer Name Role Phone Yury Barnes DO Primary Care Provider [phone] Evelin Avila INKJET OPERATOR Unavailable Encounter Details Date Type Department Care Team (Late st Contact Info) Description 02/06/2025 Telephone [facility] [address] [place] [address] Hang Dumont, RN Social History Tobacco Use Types Packs/Day Years Used Date Smoking Tobacco: Every Day Cigarettes 2 44.6 Started: 09/26/1980 Smokeless Tobacco: Never Comments:average 1.5 [...] on file 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 Gender Identity Not on file Sexual Orientation [...] Description 07/16/2025 10:30 AM CDT Procedure visit [facility] [address] [place], [place] [id number] Kiara Sifuentes, HOSPICE BEREAVEMENT COORDINATOR-WATER RESOURCE SPECIALIST [address] [place] [address] 08/26/2025 10:00 AM CDT Appointment [facility] VASCULAR US [address] [place] [address] Muriel Vickers MD [address] [place] [address] 2[address] [place] [address] 08/26/2025 11:30 AM CDT Office Visit [facility] - Vascular Surgery [address] [place] [address], [place] [address] Muriel Vickers MD [address] [place] [address] [address] [place] [address] 02/04/2026 11:40 AM CDT Office Visit [facility] [address] [place], [place] [id number] Ching Benson MD [address] [place] [address] documented as of this encounter Visit Diagnoses Not on filedocumented in this encounter Care Teams Silk Trimmer Relationship Specialty Start Date End Date Yury Barnes DO [address] [place] [address] PCP - General Internal Medicine 12/24/24 Evelin Avila MSW Pipe Line Maintenance Supervisor Care Management 02/18/25 02/18/25 documented as of this encounter
--- OUTSIDE RECORDS SUMMARY | 2025-05-19 14:45 | XMS_ITS | Clinical Summary ---
Author Organization [employer] [place] [id number] [facility] Address [address] [place] [address] Care Team Providers Care Repossession Agent Name Role Phone Lai Goodrich MD Primary Care Provider [phone] Allergies Active Allergy Reactions Criticality Noted Date Comments Cdmwrsd-Vts-Aep Reductase Inhibitors Anaphylaxis High 09/09/2018 Tongue swelling [...] Comments Blood Pressure 148/88 10/10/2019 12:39 PM DIGITAL PHOTO PRINTER Pulse - - Temperature - - Respiratory Rate - - Oxygen Saturation - - Inhaled Oxygen Concentration - - Weight 98.9 kg (218 lb) 10/10/2019 12:39 PM DIGITAL PHOTO PRINTER Height 177.8 cm (5' 10) 10/10/2019 12:39 PM DIGITAL PHOTO PRINTER Body Mass Index 31.28 10/10/2019 12:39 PM DIGITAL PHOTO PRINTER Plan of Treatment Health Maintenance Due Date Last Done Comments DTAP/TDAP/TD VACCINES (1 - Tdap) 01/09/1988 HEPATITIS B VACCINES (1 of 3 - 19+ 3-dose series) 04/1988 ZOSTER VACCINE (1 of 2) 01/09/1988 COLORECTAL SCREENING 2014 Colorectal Cancer Screening 2014 FIT-DNA Q 3 years 2014 FIT/FOBT Q 1 year 2014 Flex Sig/CT Colonography Q 5 years 2014 INFLUENZA VACCINE (#1) 2025 08/10/2015 Insurance MEDICAID [place] Care Teams Repossession Agent Relationship Specialty Start Date End Date Lai Goodrich MD [address] [place] [address] PCP - General Internal Medicine 09/19/19
--- OUTSIDE RECORDS SUMMARY | 2025-05-19 14:45 | XMS_ITS | Clinical Summary ---
Author Organization [facility] Address [address] [place] [address] Care Team Providers Care Academic Records Specialist Name Role Phone Gustavo Bell MD Unavailable [phone] Carlos Culp MD Unavailable Sebastian Up MD Unavailable [phone] Thai Cruz Primary Care Provider Allergies Active Allergy Reactions Criticality Noted Date Comments Cephalexin Other (See comments) Low WOUND UP IN ER, PASSED OUT ON FLOOR Gwrtqzh-Jmd-Ezq Reductase Inhibitors Swelling Medium 06/13/2022 Medications ALPRAZolam [...] Culp. Assessment & Plan (01/05/2021 11:46 AM CASTING OPERATOR HELPER): Follows with marshal. Doing whole blood phlebotomy [...] when laying on his back at night. [facility] neurology refused referral as they do [...] when laying on his back at night. [facility] neurology refused referral as they do [...] neurology. Assessment & Plan (01/05/2021 11:50 AM CASTING OPERATOR HELPER): Notes left anterior thigh paresthesias that radiates [...] crest. Assessment & Plan (01/05/2021 11:44 AM CASTING OPERATOR HELPER): Xray (03/04/2020) revealed mild OA. Recent MRI right hip was revealing for mild tendinopathy of right gluteus minimus and mild bilateral trochanteric bursitis. Did not do PT. States he has done PT 4 different times without benefit in the past. Pain localized over the anterosuperior iliac spine and radiates along the iliac crest. Assessment & Plan (09/21/2020 12:39 PM CASTING OPERATOR HELPER): Xray (03/04/2020) revealed mild OA. Recent MRI [...] 11/28/2019 Assessment & Plan (11/28/2019 11:07 AM CASTING OPERATOR HELPER): Pt has red, flaky rash between the eyebrows and scattered throughout his interiano. He states it developed over the past 6 months and denies change in soaps/detergents. HCQ can cause/worsen psoriasis. Will hold plaquenil and watch for improvement. Recommend patient see dermatology. If rash is diagnosed as psoriasis, then likely patient has overlap with psoriatic arthritis. Patient given maintenance foreman Dr. Abraham's information. Neck pain 08/28/2019 Assessment [...] into hands as well and has diminished road worker strength as well. Patient was told in [...] into hands as well and has diminished road worker strength as well. Patient was told in [...] into hands as well and has diminished road worker strength as well. Will give referral to neurology. Assessment & Plan (01/05/2021 11:41 AM CASTING OPERATOR HELPER): History of chronic neck pain for which [...] referral from pcp for a spinal surgeon. half-way current use of therapeutic drug 2018 Overview [...] rash Assessment & Plan (01/05/2021 11:40 AM CASTING OPERATOR HELPER): Hepatitis negative: 04/2018 CXR negative: 04/2018 Quantiferon negative: 03/15/2020 Has failed MTX, leflunomide, SSZ, enbrel, and humira. Orencia - loss of benefit HCQ - stopped due to psoriasis-like rash Assessment & Plan (09/21/2020 12:36 PM CASTING OPERATOR HELPER): Hepatitis negative: 04/2018 CXR negative: 04/2018 Quantiferon [...] rash Assessment & Plan (11/28/2019 11:03 AM CASTING OPERATOR HELPER): Hepatitis negative: 04/2018 CXR negative: 04/2018 Quantiferon [...] 08/02/2018 Assessment & Plan (01/05/2021 11:46 AM CASTING OPERATOR HELPER): Chronic. Denied benefit with kenalog injection given [...] benefit. Assessment & Plan (11/28/2019 11:03 AM CASTING OPERATOR HELPER): Denied benefit with kenalog injection given at [...] benefit. Assessment & Plan (12/24/2018 11:18 AM CASTING OPERATOR HELPER): Recently followed with orthopedics for additional evaluation. Was told that he had fluid build up that was causing his elbow pain and could not be offered any specific treatment. Has recently been having pain in his left elbow also. If becomes more bothersome, could consider physical therapy in the future. Assessment & Plan (10/21/2018 5:04 PM CASTING OPERATOR HELPER): He has persistent pain in his right [...] with simponi aria. Continue Actemra 8mg/kg IV f9vectw and give this more time to take [...] office. Assessment & Plan (01/05/2021 11:43 AM CASTING OPERATOR HELPER): Moderate cdai. Synovitis with increased tenderness of [...] office. Assessment & Plan (09/21/2020 12:37 PM CASTING OPERATOR HELPER): Moderate cdai. Synovitis without much tenderness noted [...] needed. Assessment & Plan (11/28/2019 12:08 PM CASTING OPERATOR HELPER): High cdai. Several swollen and tender joints [...] needed. Assessment & Plan (12/24/2018 11:19 AM CASTING OPERATOR HELPER): Moderate cdai. No obvious synovitis noted on [...] needed. Assessment & Plan (10/21/2018 5:00 PM CASTING OPERATOR HELPER): He is having increased pain complaints in [...] exercise. Assessment & Plan (01/05/2021 11:42 AM CASTING OPERATOR HELPER): Still has generalized pain. Follows with pain management and remains on Lyrica 150mg TID and baclofen 20mg prn per pain management, although dose not take baclofen very frequently as he denies benefit. Does not take Lyrica routinely as he feels it worsens his pain. Encouraged to participate in routine exercise. Assessment & Plan (09/21/2020 12:37 PM CASTING OPERATOR HELPER): Still has generalized pain. Follows with pain [...] exercise. Assessment & Plan (11/28/2019 11:04 AM CASTING OPERATOR HELPER): Still has generalized pain. Follows with pain [...] exercise. Assessment & Plan (12/24/2018 11:45 AM CASTING OPERATOR HELPER): Still has generalized pain which appears to be contributing to most of his pain complaints today. Follows with pain management and remains on Lyrica 150mg TID and baclofen 20mg prn per pain management. Encouraged to participate in routine exercise. Assessment & Plan (10/21/2018 5:06 PM CASTING OPERATOR HELPER): He still has widespread pain which I [...] on file Legal Sex Male 1:56 AM CASTING OPERATOR HELPER Gender Identity Not on file Sexual Orientation [...] C Ab Non-Reactiv e Non-Reactiv e [facility] Blood specimen (specimen) 04/15/2018 3:00 PM CDT 04/15/2018 5:15 PM CDT Narrative [facility] - 04/15/2018 9:03 PM CDT Pierce Griffiths MD LAB MICROBIOLOGY - GENE RAL ORDERABLES Final Result [facility] [address] Department [place] [address] from Last 3 Months or Most Recently Relevant to Health Maintenance Insurance MEDICARE MEDICARE [address] [place] [address] [address] [place] [address] MEDICARE Advance Directives For more information, please contact: [phone] Documents on File Type Date Recorded Patient Java J2Ee Software Engineer Expl anation ADVANCE DIRECTIVE 04/15/2018 5:09 PM * Full Code (Latest Code Status on File) Date Activated Date Inactivated Comments 06/30/2022 10:05 AM 06/30/2022 4:15 PM Care Teams Academic Records Specialist Relationship Specialty Start Date End Date Thai Cruz PA [address] [place] [address] PCP - General Physician Inspector Balance Truing 06/21/22 Gustavo Bell MD [address] [place] [address] Consulting Physician Rheumatology 05/03/18 Carlos Culp MD [address] [facility] [address] [place] [address] Referring Physician Internal Medicine 05/18/20 Sebastian Up MD [address] [place] [address] Referring Physician Physical Medicine and Rehabilitation 07/19/21
--- OUTSIDE RECORDS SUMMARY | 2025-05-19 14:45 | XMS_ITS | Clinical Summary ---
Author Organization [facility] Address [address] [place] [address] Care Team Providers Care Pottery Striper Name Role Phone Joe Goodrich MD Primary [...] 3:37 PM CDT Height 177.8 cm (5' 10) 05/03/2022 3:37 PM CDT Body Mass Index [...] patient's age to complete this topic Insurance [facility] MEDICARE Care Teams Pottery Striper Relationship Specialty Start Date End Date Joe Goodrich MD [facility] [address] [facility] [address] [place] [address] PCP - General INTERNAL MEDICINE 10/07/18
[2025-05-19 15:13] LABS: Cholesterol 216 mg/dL (0-200); HDL Direct 27 mg/dL; Triglycerides 399 mg/dL (<150)
[2025-05-19 15:50] LABS: Hemoglobin A1C 6.3 % (<5.7); Prostate Specific Antigen 0.6 ng/mL (< OR = 4.0)
== END 2025-05-19 14:41 | disposition home or self-care (01) ==
PROVIDERS: PCP Internal Medicine; Visit Provider Internal Medicine
DX: Z12.5 Encounter for screening for malignant neoplasm of prostate (principal); R73.9 Hyperglycemia, unspecified; E11.22 Type 2 diabetes mellitus with diabetic chronic kidney disease; E78.5 Hyperlipidemia, unspecified
CPT/HCPCS: 36415; 80061; 83036; 84153; G0103

== ENCOUNTER 2025-07-07 14:28 | Outpatient (CLI) | payer MEDICARE, SELFPAY ==
--- NOTE | ~2025-07-07 | XR_ITS ---
EXAMINATION: XR lumbar spine 2-3V DATE: 07/07/2025 14:52 INDICATION: Radiculopathy TECHNIQUE: 3 images of the lumbar spine were obtained. COMPARISON: 02/25/2023 FINDINGS: There is bowel gas and stool projecting over the pelvis which limits evaluation. Stent projects over the left mid abdomen possibly a renal stent. Moderate osteophytosis in the lumbar spine. Lumbar vertebral body heights are within normal limits. Alignment of the lumbar vertebral bodies is within normal limits. No compression fracture in the lumbar spine. Moderate joint space narrowing at the L5-S1 level. Moderate degenerative change in the mid and lower lumbar facet joints. IMPRESSION: 1. No compression fracture in the lumbar spine. 2. Moderate degenerative change in the mid and lower lumbar spine most prominent at L5-S1 level. If symptoms persist or worsen, consider an MRI of the lumbar spine for further assessment. Reviewed, dictated and finalized at location Q. IMPRESSION: 1. No compression fracture in the lumbar spine. 2. Moderate degenerative change in the mid and lower lumbar spine most prominen t at L5-S1 level. If symptoms persist or worsen, consider an MRI of the lumbar spine for further assessment.
--- NOTE | ~2025-07-07 | XR_ITS ---
Clinical history:Radiculopathy EXAM:Exam cervical spine 2-3 views TECHNIQUE:4 images of the cervical spine were obtained. Comparisons:04/05/2022 FINDINGS: Cervical vertebral body heights are within normal limits. No compression fracture in cervical spine. Grossly stable bridging anterior osteophytes at the C3-C4 and C4-C5 levels. Grossly stable anterior osteophytosis in the cervical spine. Predental space is within normal limits. No prevertebral soft tissue swelling. Lateral dental intervals are within normal limits. Mild to moderate degenerative change in the mid and lower cervical facet joints and uncovertebral joints. IMPRESSION: 1. No compression fracture in the cervical spine. 2. Grossly stable anterior bridging osteophytes at the C3-C4 and C4-C5 levels. 3. Trtp-ts-hfcntakn degenerative change in the mid and lower cervical facet joints and uncovertebral joints. If symptoms persist or worsen, consider an MRI of the cervical spine for further assessment. Reviewed, dictated and finalized at location Q. IMPRESSION: 1. No compression fracture in the cervical spine. 2. Grossly stable anterior bridging osteophytes at the C3-C4 and C4-C5 levels. 3. Yowx-ds-pojwroln degenerative change in the mid and lower cervical facet larry nts and uncovertebral joints. If symptoms persist or worsen, consider an MRI of the cervical spine for furthe r assessment.
--- OUTSIDE RECORDS SUMMARY | 2025-07-07 14:42 | XMS_ITS | Clinical Summary ---
Author Organization [facility] [employer] Address [address] [facility] [place] [address] Care Team Providers Care Warranty Administrator Name Role Phone Yury Barnes DO Primary Care Provider [phone] Source Comments [facility],non-owned Affiliates and Associated Physician Practices is amultiple site organization consisting of ambulatory clinics and hospital sitesin [place], [place], [place] and [place]. This disclosure is being madepursuant to the Care Everywhere program and may not contain all information available regarding this patient. Last updated 18.[facility] [employer] Allergies Active Allergy Reactions Criticality Noted Date [...] 30 DAYS 3 mL 3 5 Active Additional Information Patient not taking.Reason: Other, [...] mouth once daily 14 packet 5 Active Ventolin HFA 108 (90 Base) MCG/ACT inhaler INHALE 2 PUFFS BY MOUTH EVERY 4 TO 6 HOURS NEEDED FOR SHORTNESS OF BREATH FOR WHEEZING 5 Active Accu-Chek Guide test strip USE 1 TEST STRIPS TO CHECK ONCE DAILY 5 Active clopidogrel (plaVIX) 75 MG tabletIndicati ons:Angiogram Take 1 (one) tablet by mouth once daily Reasons: Imaging of Blood Vessel 30 tablet 5 Active methocarbamol (Robaxin) 750 MG tablet Take 1 (one) tablet by mouth 3 times daily as needed 5 Active Active Problems Problem Noted Date [...] has overlap with psoriatic arthritis. Patient given product director Dr. Abraham's information. Cervical spondylosis without myelopathy 10/10/20 19 Cigarette smoker 10/10/2019 oysterman current use of therapeutic drug 2018 Overview [...] Description 04/23/2025 10:00 AM CDT Procedure visit [facility] [address] [facility] [address] [place] [address] Ching Benson MD Chronic migraine w/o aura, not intractable, w/o stat migr 04/20/2025 Telephone [facility] - [facility] [facility], [place] [address] Muriel Vickers MD Medication Clarification from Last 3 Months Immunizations Immunization Administration [...] Date Smoking Tobacco: Every Day Cigarettes 2 44.8 Started: 09/26/1980 Smokeless Tobacco: Never Tobacco Cessation:Ready [...] Recorded Patient Health Questionnaire-2 Score 0 02/05/2025 [facility] - Occupational Stress [...] any time in the past 12 m [facility], were you homeless or living in a snf (including now)? No 02/16/2025 Sex and Gender Information Value Date Recorded Sex Assigned at Not on file Legal Sex Male 6:13 AM STONE RIGGER Gender Identity Not on file Sexual Orientation [...] Description 07/16/2025 10:30 AM CDT Procedure visit [facility] [address] [facility] [address] [place] [address] Kiara Sifuentes, ELECTRIC TRACK SWITCH MAINTAINER-POST DOCTORAL RESEARCHER [address] [facility] [address] [facility] [place] [address] 08/26/2025 10:00 AM CDT Appointment [facility] VASCULAR US [address] [place] [address] Muriel Vickers MD [address] [place] [address] 2L [place] [address] 08/26/2025 11:30 AM CDT Office Visit [facility] - Vascular Surgery [address] [facility], [place] [address] Muriel Vickers MD [address] [place] [address] 2L [place] [address] 02/04/2026 11:40 AM CDT Office Visit [facility] [address] [facility] [address] [place] [address] Ching Benson MD [address] [facility] [address] [place] [phone] Health Maintenance Due Date Last Done Comments [...] this topic Medical Devices Implanted Type Area Resource Management Specialist Device Identifier Shelf Expiration Date Model / Serial / Lot Stent Trchbr 6mm 6fr 22mm 80cm Cvr Cath - [id number] Implanted:Qty: 1 on 02/16/2025 by Muriel Vickers MD at [facility] Left: Arterial [employer] [id number] 08/08/2025 [id number] / [id number] / NA Description:Left Renal Arter y Stent Trchbr 6mm 22mm 120cm Radopq Cvr - [id number] Implanted:Qty: 1 on 02/16/2025 by Muriel Vickers MD at [facility] Left: Arterial [employer] 11/23/2026 [id number] / [id number] / NA Description:LEFT RENAL ARTER Y Explanted Type Area Resource Management Specialist Device Identifier Shelf Expiration Date Model / Serial / Lot Stent Trchbr 6mm 7fr 59mm 80cm .035in - [id number] Explanted:Qty: 1 on 02/16/2025 at [facility] Left: Arterial [employer]inge [employer] [id number] 07/24/2025 [id number] / [id number] / NA Description:STENT TOO LONG Procedures Procedure Name Priority Date/Time Associated Diagnosis Comments HEMOGLOBIN A1C Routine 02/17/2025 5:54 AM CDT Renal artery stenosis BASIC METABOLIC [...] Relevant to Health Maintenance Results * (ABNORMAL) HEMOGLOBIN A1C (02/17/2025 5:54 AM CDT) Hemoglobin A1c 6.0(H) <=5.6 % 02/17/2025 9:01 AM [facility] Estimated Average Glucose 126 mg/dL 02/17/2025 9:01 AM [facility] Comment: HbA1c Interpretation: Normal : < 5.7% Pre-diabetes: 5.7-6.4% Diabetes: Equal to or greater than 6.5% Test results diagnostic of diabetes should be repeated for confirmation. Treatment target values recommended by ADA and other clinical organizations should be used to evaluate metabolic control in patients. Reference: [place] [employer], Standards of Care in Diabetes [...] CHEMISTRY ORDERABLES Final Result [facility] [address] [place] [address], [facility] [phone] * (ABNORMAL) BASIC METABOLIC PANEL (CALCIUM TOTAL) (02/17/2025 12:15 AM CDT) Pathologist [facility] BUN 16 7 - 26 mg/dL 02/17/2025 12:57 AM [facility] Creatinine 1.16 0.71 - 1.16 mg/dL 02/17/2025 12:57 AM [facility] Sodium 136 136 - 145 mmol/L 02/17/2025 12:57 AM [facility] Potassium 4.5 3.5 - 4.5 mmol/L 02/17/2025 12:57 AM [facility] Chloride 105 98 - 107 mmol/L 02/17/2025 12:57 AM [facility] CO2 20(L) 22 - 29 mmol/L 02/17/2025 12:57 AM CDT [facility] Glucose 179(H) 70 - 99 mg/dL 02/17/2025 12:57 AM T [facility]OR[facility]ORY [facility] Calcium 7.9(L) 8.4 - 10.2 mg/dL 02/17/2025 12:57 AM [facility] Anion Gap 11 6 - 16 02/17/2025 12:57 AM [facility] BUN/Creatinine Ratio 14 7 - 23 02/17/2025 12:57 AM [facility] Osmolality Calculated 288 275 - 295 mOsm/kg 02/17/2025 12:57 AM [facility] eGFR by CKD-EPI 74(L) >=90 mL/min/1.7 3 m2 02/17/2025 12:57 AM [facility] Blood BLOOD SPECIMEN / Unknown Venipuncture / Unknown 02/17/2025 12:15 AM CDT 02/17/2025 12:32 AM CDT Muriel Vickers MD LAB - CHEMISTRY ORDERABLES Final Result [facility] [address] [place] [address], [facility] [phone] * HEPATITIS C ANTIBODY (06/08/2020 4:51 PM CDT) Pathologist [facility] Hepatitis C Antibody <0.1 0.0 - 0.9 s/co ratio [facility] INSURANCE BILL Comment: Negative: < 0.8 Indeterminate: 0.8 - 0.9 Positive: > 0.9 . The CDC recommends that a positive HCV antibody result be followed up with a HCV Nucleic Acid Amplification test (634859). Blood BLOOD SPECIMEN / Unknown 06/08/2020 4:51 PM CDT 06/08/2020 Narrative Resulting Agency Comment Lab Testing performed at: [facility] [address] [facility] [id number] Carlos Culp MD LAB - CHEMISTRY ORDERABLES Final Result [facility] INSURANCE BILL [address] [place] [address] * HIV-1 HIV-2 ANTIBODY + HIV P24 AG PANEL (06/08/2020 4:46 PM CDT) HIV Screen 4th Generation w Reflex Non Reactive Non Reactive [facility] INSURANCE BILL Blood BLOOD SPECIMEN / Unknown 06/08/2020 4:46 PM CDT 06/08/2020 Narrative Resulting Agency Comment [facility]: [facility] [address] [facility] [id number] Carlos Culp MD LAB - CHEMISTRY ORDERABLES Final Result [facility] INSURANCE BILL [address] [place] [address] from Last 3 Months or Most Recently Relevant to Health Maintenance Insurance MEDICARE * Guarantor: PIERCE LYN Account Type Relation to Patient Date of Phone Billing Address Personal/Family [address] [place] [address] * Guarantor: PIERCE LYN Account Type Relation to Patient Date of Phone Billing Address Personal/Family [address] [place] [address] * Guarantor: PIERCE LYN Account Type Relation to Patient Date of Phone Billing Address Personal/Family [address] [place] [address] * Guarantor: PIERCE LYN Account Type Relation to Patient Date of Phone Billing Address Personal/Family [address] [place] [address] * Guarantor: PIERCE LYN Account Type Relation to Patient Date of Phone Billing Address Personal/Family [address] [place] [address] * Guarantor: PIERCE LYN Account Type Relation to Patient Date of Phone Billing Address Personal/Family [address] [place] [address] Advance Directives * Full Code (Latest Code Status on File) Date Activated Date Inactivated Comments 02/16/2025 4:27 PM 02/17/2025 12:09 PM Care Teams Warranty Administrator Relationship Specialty Start Date End Date Yury Barnes DO [address] [place] [address] PCP - General Internal Medicine 12/24/24
--- OUTSIDE RECORDS SUMMARY | 2025-07-07 14:42 | XMS_ITS | Encounter Summary ---
Author Organization [facility] Address [address] [place] [address] Care Team Providers Care Kennel Operator Name Role Phone Yury Barnes DO Primary Care Provider [phone] Evelin Avila BREAKER UNIT ASSEMBLER Unavailable Encounter Details Date Type Department Care Team (Late st Contact Info) Description 02/06/2025 Telephone [facility] [address] [place] [address] Hang Dumont, RN Social History Tobacco Use Types Packs/Day Years Used Date Smoking Tobacco: Every Day Cigarettes 2 44.8 Started: 09/26/1980 Smokeless Tobacco: Never Comments:average 1.5 [...] on file Legal Sex Male 6:13 AM O AND M SUPERVISOR Gender Identity Not on file Sexual Orientation [...] 07/16/2025 10:30 AM CDT Procedure visit [facility] [address] [place], [place] [id number] Kiara Sifuentes, CERAMIC TILE INSTALLER-DIAGNOSTICS TECH [address] [place] [address] 08/26/2025 10:00 AM CDT Appointment [facility] VASCULAR US [address] [place] [address] Muriel Vickers MD [address] [place] [address] [address] [place] [address] 08/26/2025 11:30 AM CDT Office [facility] - Vascular Surgery [address] [place] [address], [place] [address] Muriel Vickers MD [address] [place] [address] [address] [place] [address] 02/04/2026 11:40 AM CDT Office Visit [facility] [address] [place], [place] [id number] Ching Benson MD [address] [place] [address] documented as of this encounter Visit Diagnoses Not on filedocumented in this encounter Care Teams Kennel Operator Relationship Specialty Start Date End Date Yury Barnes DO [address] [place] [address] PCP - General Internal Medicine 12/24/24 Evelin Avila MSW Mailing Section Clerk Care Management 02/18/25 02/18/25 documented as of this encounter
--- OUTSIDE RECORDS SUMMARY | 2025-07-07 14:42 | XMS_ITS | Clinical Summary ---
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 Not [...] (2 of 2 - PCV) 2019 08/04/2016 Colonoscopy 09/26/2024 09/26/2019, 08/31/2016 Colorectal Cancer Screening 09/26/2024 Influenza Immunization (#1) 07/06/202501/2020, 08/29/2019, 08/23/2018, Additional history exists SARS-COV-2 Immunization (2024- season) 2025 07/19/2021, 02/20/2021, 01/30/2021 Respiratory Syncytial Virus (RSV) Immunization (Adult) (1 [...] CHEST W/O CONTRAST Routine 09/12/2019 7:52 PM TITLE COORDINATOR Pulmonary nodule PSA DIAGNOSTIC,TOTAL Routine 12/25/2016 Enlarged prostate HM COLONOSCOPY Routine 08/31/2016 from Last 3 Months or Most Recently Relevant to Health Maintenance Results * CT CHEST W/O CONTRAST (09/12/2019 7:52 PM TITLE COORDINATOR) Anatomical Region Laterality Modality Chest N/A Computed Tomogra phy 09/15/2019 12:0 7 PM TITLE COORDINATOR Impressions 09/15/2019 12:09 PM TITLE COORDINATOR IMPRESSION: Stable appearance of pulmonary nodules as above. No new pulmonary nodules. These have demonstrated stability since July 2017 and likely benign. Narrative 09/15/2019 12:09 PM TITLE COORDINATOR EXAM DESCRIPTION: CT CHEST W/O CONTRAST REASON [...] Del Chaudhary M.D. JA: PAL Report ID: [id number] Reading Location: [id number] Procedure Note Del Chaudhary MD - 09/15/2019 [...] Del Chaudhary M.D. JA: PAL Report ID: [id number] Reading Location: [id number] IMPRESSION: Stable appearance of pulmonary nodules as above. No new pulmonary nodules. These have demonstrated stability since July 2017 and likely benign. us Danielle Phelps COMMODITIES MANAGER, FILL TECHNICIAN IMG CT ORDERABLES Final Result * PSA DIAGNOSTIC,TOTAL (12/25/2016) PSA (PROSTATE SPECIFIC ANTIGEN) 0.5 ng/mL Blood specimen (specimen) 12/25/2016 us Chano Legegtt DO CHEMISTRY ORDERABLES Final Resu lt * HM COLONOSCOPY (08/31/2016) Nitesh Matta MD PROCEDURE/MINOR SURGICAL ORDER CRISTHIAN Final Result from Last 3 Months or Most Recently Relevant to Health Maintenance Insurance [place] Member Subscriber Plan / Payer (Ef fective 2016-Present) Name:Pierce Lyn Relation to Subscriber:Self Name:Pierce Lyn Payer ID:[id number] Group ID:Not on file Type:Not on file Address: [address] [id number] MEDICARE Member Subscriber Plan / Payer (Ef fective 2020-Present) Name:Pierce Lyn Member ID:[id number] Relation to Subscriber:Self Name:Pierce Lyn Subscriber ID:[id number] Payer ID:[id number] Group ID:Not on file Type:Not on file Address: [address] [place] Member Subscriber Plan / Payer (Ef fective 2016-Present) Name:Pierce Lyn Relation to Subscriber:Self Name:Pierce Lyn Payer ID:[id number] Group ID:Not on file Type:Not on file Address: [address] [id number] MEDICARE Member Subscriber Plan / Payer (Ef fective 2020-Present) Name:Pierce Lny Member ID:[id number] Relation to Subscriber:Self Name:Pierce Lyn Subscriber ID:[id number] Payer ID:[id number] Group ID:Not on file Type:Not on file Address: [place] [id number] Care Teams Construction Administrator Relationship Specialty Start Date End Date Provider, None [place] PCP - General 06/03/21 Danielle Phelps, COMMODITIES MANAGER, FILL TECHNICIAN Nurse Practitioner Advanced Practice Nurse 05/10/16 Chano Leggett DO Gastroenterology 09/01/16
--- OUTSIDE RECORDS SUMMARY | 2025-07-07 14:42 | XMS_ITS | Clinical Summary ---
Author Organization [facility] Address [address] [place] [address] Care Team Providers Care Car Ferry Master Name Role Phone Joe Goodrich MD Primary [...] PCV) 08/04/2017 08/04/2016 COVID-19 Vaccine (4 - 2024-2 6 season) 2025 07/19/2021, 02/20/2021, 01/30/2021 Zoster Vaccines Completed 09/22/2020, 06/10/2020 Meningococcal B Vaccine Aged Out No l onger eligible based on patient's age to complete this topic Meningococcal Vaccine Aged Out No wilbur angelina eligible based on patient's age to complete this topic RSV Immunizations Under 20 Months Aged Out No longer eligible b ased on patient's age to complete this topic Insurance [facility] MEDICARE Care Teams Car Ferry Master Relationship Specialty Start Date End Date Joe Goodrich MD [facility] [address] [place] [address] PCP - General INTERNAL MEDICINE 10/07/18
--- OUTSIDE RECORDS SUMMARY | 2025-07-07 14:42 | XMS_ITS | Clinical Summary ---
Author Organization [facility] Address [address] [place] [address] Care Team Providers Care Channel Director Name Role Phone Gustavo Bell MD Unavailable [phone] Carlos Culp MD Unavailable Sebastian Up MD Unavailable [phone] Thai Cruz Primary Care Provider Allergies Active Allergy Reactions Criticality Noted Date Comments Cephalexin Other (See comments) Low WOUND UP IN ER, PASSED OUT ON FLOOR Cirlesd-Zjo-Sxk Reductase Inhibitors Swelling Medium 06/13/2022 Medications ALPRAZolam [...] Culp. Assessment & Plan (01/05/2021 11:46 AM LINTER SAW SHARPENER): Follows with marshal. Doing whole blood phlebotomy [...] when laying on his back at night. [facility] neurology refused referral as they do [...] when laying on his back at night. [facility] neurology refused referral as they do [...] neurology. Assessment & Plan (01/05/2021 11:50 AM LINTER SAW SHARPENER): Notes left anterior thigh paresthesias that radiates [...] crest. Assessment & Plan (01/05/2021 11:44 AM LINTER SAW SHARPENER): Xray (03/04/2020) revealed mild OA. Recent MRI right hip was revealing for mild tendinopathy of right gluteus minimus and mild bilateral trochanteric bursitis. Did not do PT. States he has done PT 4 different times without benefit in the past. Pain localized over the anterosuperior iliac spine and radiates along the iliac crest. Assessment & Plan (09/21/2020 12:39 PM LINTER SAW SHARPENER): Xray (03/04/2020) revealed mild OA. Recent MRI [...] 11/28/2019 Assessment & Plan (11/28/2019 11:07 AM LINTER SAW SHARPENER): Pt has red, flaky rash between the eyebrows and scattered throughout his interiano. He states it developed over the past 6 months and denies change in soaps/detergents. HCQ can cause/worsen psoriasis. Will hold plaquenil and watch for improvement. Recommend patient see dermatology. If rash is diagnosed as psoriasis, then likely patient has overlap with psoriatic arthritis. Patient given medical staff coordinator Dr. Abraham's information. Neck pain 08/28/2019 Assessment [...] into hands as well and has diminished child psychometrist strength as well. Patient was told in [...] into hands as well and has diminished child psychometrist strength as well. Patient was told in [...] into hands as well and has diminished child psychometrist strength as well. Will give referral to neurology. Assessment & Plan (01/05/2021 11:41 AM LINTER SAW SHARPENER): History of chronic neck pain for which [...] referral from pcp for a spinal surgeon. alf current use of therapeutic drug 2018 Overview [...] rash Assessment & Plan (01/05/2021 11:40 AM LINTER SAW SHARPENER): Hepatitis negative: 04/2018 CXR negative: 04/2018 Quantiferon negative: 03/15/2020 Has failed MTX, leflunomide, SSZ, enbrel, and humira. Orencia - loss of benefit HCQ - stopped due to psoriasis-like rash Assessment & Plan (09/21/2020 12:36 PM LINTER SAW SHARPENER): Hepatitis negative: 04/2018 CXR negative: 04/2018 Quantiferon [...] rash Assessment & Plan (11/28/2019 11:03 AM LINTER SAW SHARPENER): Hepatitis negative: 04/2018 CXR negative: 04/2018 Quantiferon [...] 08/02/2018 Assessment & Plan (01/05/2021 11:46 AM LINTER SAW SHARPENER): Chronic. Denied benefit with kenalog injection given [...] benefit. Assessment & Plan (11/28/2019 11:03 AM LINTER SAW SHARPENER): Denied benefit with kenalog injection given at [...] benefit. Assessment & Plan (12/24/2018 11:18 AM LINTER SAW SHARPENER): Recently followed with orthopedics for additional evaluation. Was told that he had fluid build up that was causing his elbow pain and could not be offered any specific treatment. Has recently been having pain in his left elbow also. If becomes more bothersome, could consider physical therapy in the future. Assessment & Plan (10/21/2018 5:04 PM LINTER SAW SHARPENER): He has persistent pain in his right [...] with simponi aria. Continue Actemra 8mg/kg IV q3keabz and give this more time to take [...] office. Assessment & Plan (01/05/2021 11:43 AM LINTER SAW SHARPENER): Moderate cdai. Synovitis with increased tenderness of [...] office. Assessment & Plan (09/21/2020 12:37 PM LINTER SAW SHARPENER): Moderate cdai. Synovitis without much tenderness noted [...] needed. Assessment & Plan (11/28/2019 12:08 PM LINTER SAW SHARPENER): High cdai. Several swollen and tender joints [...] needed. Assessment & Plan (12/24/2018 11:19 AM LINTER SAW SHARPENER): Moderate cdai. No obvious synovitis noted on [...] needed. Assessment & Plan (10/21/2018 5:00 PM LINTER SAW SHARPENER): He is having increased pain complaints in [...] exercise. Assessment & Plan (01/05/2021 11:42 AM LINTER SAW SHARPENER): Still has generalized pain. Follows with pain management and remains on Lyrica 150mg TID and baclofen 20mg prn per pain management, although dose not take baclofen very frequently as he denies benefit. Does not take Lyrica routinely as he feels it worsens his pain. Encouraged to participate in routine exercise. Assessment & Plan (09/21/2020 12:37 PM LINTER SAW SHARPENER): Still has generalized pain. Follows with pain [...] exercise. Assessment & Plan (11/28/2019 11:04 AM LINTER SAW SHARPENER): Still has generalized pain. Follows with pain [...] exercise. Assessment & Plan (12/24/2018 11:45 AM LINTER SAW SHARPENER): Still has generalized pain which appears to be contributing to most of his pain complaints today. Follows with pain management and remains on Lyrica 150mg TID and baclofen 20mg prn per pain management. Encouraged to participate in routine exercise. Assessment & Plan (10/21/2018 5:06 PM LINTER SAW SHARPENER): He still has widespread pain which I [...] on file Legal Sex Male 1:56 AM LINTER SAW SHARPENER Gender Identity Not on file Sexual Orientation [...] C Ab Non-Reactiv e Non-Reactiv e [facility] Blood specimen (specimen) 04/15/2018 3:00 PM CDT 04/15/2018 5:15 PM CDT Narrative [facility] - 04/15/2018 9:03 PM CDT us Pierce Griffiths MD LAB MICROBIOLOGY - GENE RAL ORDERABLES Final Result [facility] [address] Department [place] [address] from Last 3 Months or Most Recently Relevant to Health Maintenance Insurance MEDICARE MEDICARE MEDICARE MEDICARE Advance Directives For more information, please contact: [phone] Documents on File Type Date Recorded 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 Expl 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 ADVANCE DIRECTIVE 04/15/2018 5:09 PM * Full Code (Latest Code Status on File) Date Activated Date Inactivated Comments 06/30/2022 10:05 AM 06/30/2022 4:15 PM Care Teams Channel Director Relationship Specialty Start Date End Date Thai Cruz PA [address] [place] [address] PCP - General Physician Mechanic Sound Technician 06/21/22 Gustavo Bell MD [address] [place] [address] Consulting Physician Rheumatology 05/03/18 Carlos Culp MD [address] [facility] [address] [place] [address] Referring Physician Internal Medicine 05/18/20 Sebastian Up MD [address] [place] [address] Referring Physician Physical Medicine and Rehabilitation 07/19/21
--- OUTSIDE RECORDS SUMMARY | 2025-07-07 14:42 | XMS_ITS | Clinical Summary ---
Author Organization [employer] [place] [id number] [facility] Address [address] [place] [address] Care Team Providers Care Receiving Barn Custodian Name Role Phone Lai Goodrich MD Primary Care Provider [phone] Allergies Active Allergy Reactions Criticality Noted Date Comments Oygwzhb-Joh-Nat Reductase Inhibitors Anaphylaxis High 09/09/2018 Tongue swelling [...] Comments Blood Pressure 148/88 10/10/2019 12:39 PM SHEET MANAGER Pulse - - Temperature - - Respiratory Rate - - Oxygen Saturation - - Inhaled Oxygen Concentration - - Weight 98.9 kg (218 lb) 10/10/2019 12:39 PM SHEET MANAGER Height 177.8 cm (5' 10) 10/10/2019 12:39 PM SHEET MANAGER Body Mass Index 31.28 10/10/2019 12:39 PM SHEET MANAGER Plan of Treatment Health Maintenance Due [...] 2014 INFLUENZA VACCINE (#1) 2025 08/10/2015 Insurance OPTIONS PPO [id number] [place] Care Teams Receiving Barn Custodian Relationship Specialty Start Date End Date Lai Goodrich MD [address] [place] [address] PCP - General Internal Medicine 09/19/19
== END 2025-07-07 14:29 | disposition home or self-care (01) ==
PROVIDERS: PCP Internal Medicine; Visit Provider Pain Medicine Interventional Pain Medicine
DX: M47.816 Spondylosis without myelopathy or radiculopathy, lumbar region (principal); M47.817 Spondylosis without myelopathy or radiculopathy, lumbosacral region; M25.78 Osteophyte, vertebrae; M47.812 Spondylosis without myelopathy or radiculopathy, cervical region
CPT/HCPCS: 72040; 72100